=== PATIENT | female | born 1935 | race Caucasian/White ===

== ENCOUNTER → 2016-09-22 | Outpatient (CLI) | payer OTHER ==
[~2016-09-22] MED LIST: ACT300 PO; ALBU1AER9 INH; ASPI81TA28 PO; CALC-452 PO; CEPH500C PO; CYAN100T6 PO; CZR25 PO; GLC500 PO; LEVO50TA6 PO; OMG3 PO; PRT40 PO; ZNT150 PO
[2016-09-22 17:17] LABS: HEMATOCRIT 41.7 % (37-47); MEAN CELL VOLUME 89.3 fL (80-100); MEAN CORPUSCULAR HEMOGLOBIN 31.3 pg (25-34); MEAN PLATELET VOLUME 12.5 fL (7.4-10.4); PLATELET COUNT 139 K/uL (130-400); RED BLOOD COUNT 4.67 M/uL (4.2-5.4); WHITE BLOOD COUNT 4.65 K/uL (4.8-10.8)
[2016-09-22 17:31] LABS: ESTIMATED AVERAGE GLUCOSE 306 mg/dl; HA1C FLAG Normal (Normal)
[2016-09-22 19:31] LABS: ALB/GLOB RATIO 0.9 (0.9-2); ALKALINE PHOSPHATASE 89 U/L (45-117); ALT/SGPT 54 U/L (12-78); AST/SGOT 32 U/L (15-37); BLOOD UREA NITROGEN 10 mg/dl (7-18); CALCIUM 9.4 mg/dl (8.5-10.1); CARBON DIOXIDE 23 mmol/L (21-32); CHLORIDE 102 mmol/L (98-107); CHOLESTEROL 239 mg/dl (0-200); CHOLESTEROL/HDL RATIO 4.8; GLUCOSE 371 mg/dl (70-99); HDL CHOLESTEROL 50 mg/dl; LDL CHOLESTEROL CALCULATED 110 mg/dl; SODIUM 136 mmol/L (136-145); TRIGLYCERIDES 394 mg/dl (0-150); VERY LOW DENSITY LIPOPROT CALC 79 mg/dl
[2016-09-22 20:07] LABS: RATIO 7.7 mcg/mg (0-30.0)
[2016-09-22 20:10] LABS: BETA-HYDROXYBUTYRATE 1.53 mg/dL (0.2-2.81)
== END | disposition home or self-care (01) ==
LOC: C.LABBFT 12:58
PROVIDERS: ATTEND Nurse Practitioner
DX: E11.65 Type 2 diabetes mellitus with hyperglycemia (principal); E03.9 Hypothyroidism, unspecified

== ENCOUNTER 2017-02-01 10:21 | Observation (INO) | payer OTHER ==
[~2017-02-01] VITALS: Ht 167.6 cm; Wt 104.1 kg
[~2017-02-01 10:21] MED LIST changes: -CEPH500C PO; -PRT40 PO; -ZNT150 PO
[2017-02-01] MEDS ORDERED: ONDANSETRON INJ 2 MG/ML 2 ML VIAL IV STA (10:57)
[2017-02-01] MEDS ORDERED: MoRPHine SULFATE 4 MG/ML 1 ML CARP\\VIAL IV STA (10:57)
[2017-02-01] MEDS ORDERED: ASPIRIN 324 MG CHEW PO STA (10:57)
--- NOTE | 2017-02-01 11:02 | EMERGENCY ROOM VISIT NOTE ---
History First contact with patient: 10:46 Chief Complaint: CHEST PAIN Stated Complaint: CHEST PAINS Nursing Triage Summary: "I think it's stress, sitting or lying down" started 2200." usually lasts until I take a zantac" History of Present Illness The patient is a 81 year old female who presents to the Emergency Room via private vehicle accompanied by female with complaints of "chest pains". The patient states that for greater than 1 month now she has been experiencing pain in the epigastric to substernal region. The pain has occurred without exertion , but most recently about 3 or 4 days ago it was with walking up steps. She states that last night while lying in bed around midnight she developed the worst pain she has had thus far in the epigastric region that she notes is a burning pain. She notes the pain with deep breath. She rates the pain as a 5/ 10, and burning in nature. She states that she has had episodes in the past of which sometimes relieved with Zantac. She notes acid reflux depending upon certain foods that she eats. She also feels that she is stressed recently, and when she feels stressed she experiences the pain. She denies any smoking, history of blood clots, taking a baby aspirin daily. She denies any allergies. Surgically, she had her gallbladder removed 2 years ago. Review of Systems A complete 10-point Review of Systems was discussed with the patient, with pertinent positives and negatives listed in the History of Present Illness. All remaining Review of Systems questions can be considered negative unless otherwise specified. Past Medical/Surgical History Medical Problems: (1) Choledocholithiasis with chronic cholecystitis (2) Constipation (3) Diverticulitis Surgical Problems: (1) S/P cholecystectomy Social History Smoking Status: Never Smoker Alcohol Use: none Housing Status: lives with family Occupation Status: retired Current/Historical Medications Scheduled Calcium Carbonate-Cholecalcife (Calcium 600 + D 600-200 mg-Unit), 1 TAB PO DAILY Cyanocobalamin (Vitamin B12 100 Mcg), 100 MCG PO DAILY Levothyroxine Sodium (Levothyroxine Sodium), 50 MCG PO QAM Losartan Potassium (Losartan Potassium), 25 MG PO QAM Metformin HCl (Metformin HCl), 500 MG PO BID Allergies Coded Allergies: No Known Allergies (Unverified , 02/01/17) Physical Exam Vital Signs Date Time Temp Pulse Resp B/P Pulse Ox O2 Delivery O2 Flow Rate FiO2 5/24/17 13:31 153/100 02/01/17 13:18 66 02/01/17 13:11 65 13 96 02/01/17 13:01 151/83 02/01/17 12:41 65 13 93 02/01/17 12:36 70 16 94 02/01/17 12:31 151/97 02/01/17 12:21 64 15 95 02/01/17 12:06 67 15 93 02/01/17 12:01 145/67 02/01/17 11:51 72 15 92 02/01/17 11:36 69 15 91 02/01/17 11:31 158/81 02/01/17 11:21 70 15 95 02/01/17 11:06 67 17 94 02/01/17 11:01 176/89 02/01/17 10:51 71 15 02/01/17 10:50 72 02/01/17 10:49 97 Room Air 02/01/17 10:48 97 Room Air 02/01/17 10:47 173/96 02/01/17 10:31 94 Room Air 02/01/17 10:28 36.6 76 20 201/85 94 Room Air Physical Exam VITAL SIGNS - Vital signs and nursing notes were reviewed. Patient is afebrile , hypertensive at 201/85, non-tachycardic and is saturating on room air 94%. GENERAL -81-year-old female appearing her stated age who is in no acute distress. Communicates well with provider and answers questions appropriately. SKIN - Without rashes. No petechial rashes. HEAD - NC/AT. NOSE - Midline and without cyanosis. No epistaxis or purulent drainage noted. MOUTH/OROPHARYNX - Without perioral cyanosis. NECK - Neck with FROM. Supple to palpation. LUNGS - Chest wall symmetric without accessory muscle use, intercostals retractions, or central cyanosis. Normal vesicular breath sounds CTA B/L. No wheezes, rales, or rhonchi appreciated. CARDIAC - RRR with S1/S2. No murmur, rubs, or gallops appreciated. Minimal tenderness to palpation overlying the substernal region. ABDOMEN - Abdominal contour without pulsations or visible masses. BS normoactive all four quadrants. No tenderness, palpable masses, hepatosplenomegaly, or ascites noted. EXTREMITIES - No clubbing or peripheral cyanosis. No pretibial edema present. + 5/5 strength noted in UE/LE bilaterally. NEUROLOGIC - Cranial nerves II through XII grossly intact. PSYCH - Pt is very pleasant and interacts well with examiner. Medical Decision & Procedures ER Provider Diagnostic Interpretation: CHEST CTA for PULMONARY ARTERIES CT DOSE: 454.84 mGy.cm HISTORY: Chest pain dyspnea TECHNIQUE: Multiaxial CT images of the chest were performed following the intravenous administration of contrast to evaluate the pulmonary arteries. Maximal intensity projection images were also obtained. COMPARISON STUDY: 05/24/2015 FINDINGS: There is a normal caliber thoracic aorta with no evidence for dissection. There is no evidence for pulmonary embolus. No pleural effusions. No pneumothorax. The liver and spleen are unremarkable. No mediastinal or hilar lymphadenopathy. The central airways are patent. The lungs are clear. Slight nonspecific and this interstitial prominence. IMPRESSION: No evidence for pulmonary embolus. Slight interstitial prominence throughout both hemithoraces Electronically signed by: Chuck Chapman M.D. 02/01/2017 1:54 PM Dictated Date/Time: 02/01/2017 1:51 PM CHEST ONE VIEW PORTABLE CLINICAL HISTORY: Chest pain dyspnea COMPARISON STUDY: 05/24/2015 FINDINGS: The bones soft tissues and hemidiaphragms are normal. The cardiomediastinal silhouette is normal. The lungs are clear. The pulmonary vasculature is normal. IMPRESSION: Negative chest. Electronically signed by: Chuck Chapman M.D. 02/01/2017 11:19 AM Dictated Date/Time: 02/01/2017 11:17 AM Laboratory Results 02/01/17 10:50 Red Blood Count 4.82, Mean Corpuscular Volume 88.6, Mean Corpuscular Hemoglobin 30.1, Mean Corpuscular Hemoglobin Concent 34.0, Mean Platelet Volume 10.6, Neutrophils (%) (Auto) 77.1, Lymphocytes (%) (Auto) 16.2, Monocytes (%) (Auto) 5.2, Eosinophils (%) (Auto) 1.0, Basophils (%) (Auto) 0.2, Neutrophils # (Auto) 4.46, Lymphocytes # (Auto) 0.94, Monocytes # (Auto) 0.30, Eosinophils # (Auto) 0.06, Basophils # (Auto) 0.01 02/01/17 10:50 Test 02/01/17 10:50 02/01/17 11:01 White Blood Count 5.79 K/uL (4.8-10.8) Red Blood Count 4.82 M/uL (4.2-5.4) Hemoglobin 14.5 g/dL (12.0-16.0) Hematocrit 42.7 % (37-47) Mean Corpuscular Volume 88.6 fL (80-100) Mean Corpuscular Hemoglobin 30.1 pg (25-34) Mean Corpuscular Hemoglobin Concent 34.0 g/dl (32-36) Platelet Count 174 K/uL (130-400) Mean Platelet Volume 10.6 fL (7.4-10.4) Neutrophils (%) (Auto) 77.1 % Lymphocytes (%) (Auto) 16.2 % Monocytes (%) (Auto) 5.2 % Eosinophils (%) (Auto) 1.0 % Basophils (%) (Auto) 0.2 % Neutrophils # (Auto) 4.46 K/uL (1.4-6.5) Lymphocytes # (Auto) 0.94 K/uL (1.2-3.4) Monocytes # (Auto) 0.30 K/uL (0.11-0.59) Eosinophils # (Auto) 0.06 K/uL (0-0.5) Basophils # (Auto) 0.01 K/uL (0-0.2) RDW Standard Deviation 41.0 fL (36.4-46.3) RDW Coefficient of Variation 12.7 % (11.5-14.5) Immature Granulocyte % (Auto) 0.3 % Immature Granulocyte # (Auto) 0.02 K/uL (0.00-0.02) Prothrombin Time 10.5 SECONDS (9.0-12.0) Prothromb Time International Ratio 1.0 (0.9-1.1) Activated Partial Thromboplast Time 25.8 SECONDS (21.0-31.0) Partial Thromboplastin Ratio 1.0 D-Dimer 780 ug/L FEU (0-500) Anion Gap 9.0 mmol/L (3-11) Est Creatinine Clear Calc Drug Dose 59.5 ml/min Estimated GFR () 66.9 Estimated GFR (Non- 57.7 BUN/Creatinine Ratio 17.9 (10-20) Calcium Level 9.7 mg/dl (8.5-10.1) Magnesium Level 1.9 mg/dl (1.8-2.4) Total Bilirubin 0.6 mg/dl (0.2-1) Aspartate Amino Transf (AST/SGOT) 19 U/L (15-37) Alanine Aminotransferase (ALT/SGPT) 36 U/L (12-78) Alkaline Phosphatase 76 U/L (45-117) Total Creatine Kinase 39 U/L (26-192) Total Protein 7.5 gm/dl (6.4-8.2) Albumin 3.4 gm/dl (3.4-5.0) Globulin 4.1 gm/dl (2.5-4.0) Albumin/Globulin Ratio 0.8 (0.9-2) Lipase 203 U/L (73-393) Thyroid Stimulating Hormone (TSH) 4.150 uIu/ml (0.300-4.500) Bedside Troponin I 0.000 ng/ml (0-0.045) IW-Mdb-X-Type Natriuretic Peptide 57 pg/ml (0-1800) Medications Administered Medications (Trade) Dose Ordered Sig/Capri Route Start Time Stop Time Status Last Admin Dose Admin Morphine Sulfate (MoRPHine SULFATE INJ) 4 mg NOW STAT IV 02/01/17 10:57 02/01/17 10:59 DC 02/01/17 11:07 4 MG Ondansetron HCl (Zofran Inj) 4 mg NOW STAT IV 02/01/17 10:57 02/01/17 10:59 DC 02/01/17 11:06 4 MG Aspirin (Aspirin Chew) 324 mg NOW STAT PO 02/01/17 10:57 02/01/17 10:59 DC 02/01/17 11:06 324 MG Acetaminophen (Tylenol Tab) 650 mg Q4H PRN PO 02/01/17 15:15 03/03/17 15:14 02/01/17 19:51 650 MG Pantoprazole Sodium (Protonix Tab) 40 mg QAM PO 02/01/17 15:15 03/03/17 15:14 02/01/17 17:32 40 MG Ranitidine HCl (zANTac TAB) 150 mg QAM PO 02/01/17 15:15 03/03/17 15:14 02/01/17 17:32 150 MG Medical Decision Patient was seen and evaluated as above. After obtaining a thorough history and physical examination IV access was initiated and the above workup was performed. Patient presents today with chest pain that has been ongoing, and history of acid reflux. It does appear that this very well could be arrested reflux, however she did have an episode 3 or 4 days ago of exertional chest pain. The patient states that sometimes her Zantac helps. The patient does have a history of high blood pressure, and diabetes. Her initial troponin was negative. Her EKG reveals a normal sinus rhythm, no ectopy or ischemic change. When compared with EKG of 05/24/2015, no significant change was found. CBC reveals no leukocytosis or anemia. Coagulation studies unremarkable. D-dimer elevated at 780. Elect to its unremarkable. Random glucose at 246. CK-MB ratio elevated at 3.3. Initial troponin negative. Lipase and TSH unremarkable. The patient also may be expressing a pulmonary embolism, she is experiencing chest pain with taking deep breaths. The PE or CT criteria cannot be utilized to rule out pulmonary embolism in this patient as she is greater than 50 years old. D-dimer was initiated and was found to be positive. CTA of the chest after discussing benefits versus risk with the patient was performed. No evidence of PE. Interstitial prominence was noted. This was discussed with the patient. Case was also discussed with my attending, who also personally evaluated the patient. At this time I do believe that further inpatient management and be warranted to rule out cardiac etiology. I did discuss the case with the on-call hospitalist, who agreed to evaluate the patient. Please refer to further documentation regarding the patient's stay. She was stable at time of admission. In evaluation treatment this patient following differential diagnoses were entertained: NC, PE, costochondritis, GERD, pneumonia, among others. Impression Primary Impression: Chest wall pain Departure Information Dispostion Admitted as an inpatient Condition FAIR Referrals Gisselle Alcazar, C.R.N.P. (PCP) Patient Instructions My [facility]
[2017-02-01 11:12] LABS: BASO % 0.2 %; BASO ABS # 0.01 K/uL (0-0.2); COMPLETE YES; HEMATOCRIT 42.7 % (37-47); IG% 0.3 %; LYMPH % 16.2 %; LYMPH ABS # 0.94 K/uL (1.2-3.4); MEAN CELL VOLUME 88.6 fL (80-100); MEAN CORPUSCULAR HEMOGLOBIN 30.1 pg (25-34); MEAN PLATELET VOLUME 10.6 fL (7.4-10.4); MONO % 5.2 %; NEUT % 77.1 %; PLATELET COUNT 174 K/uL (130-400); RED BLOOD COUNT 4.82 M/uL (4.2-5.4); WHITE BLOOD COUNT 5.79 K/uL (4.8-10.8)
--- NOTE | 2017-02-01 11:20 | DIAGNOSTIC IMAGING REPORT ---
CHEST ONE VIEW PORTABLE CLINICAL HISTORY: Chest pain dyspnea COMPARISON STUDY: 05/24/2015 FINDINGS: The bones soft tissues and hemidiaphragms are normal. The cardiomediastinal silhouette is normal. The lungs are clear. The pulmonary vasculature is normal. IMPRESSION: Negative chest. Electronically signed by: Chuck Chapman M.D. 02/01/2017 11:19 AM Dictated Date/Time: 02/01/2017 11:17 AM
[2017-02-01 11:23] LABS: BUN/CREATININE RATIO 17.9 (10-20); CREATININE 0.94 mg/dl (0.60-1.20); MAGNESIUM 1.9 mg/dl (1.8-2.4)
[2017-02-01 11:25] LABS: PROTHROMBIN TIME (PATIENT) 10.5 SECONDS (9.0-12.0)
[2017-02-01 11:26] LABS: CALCIUM 9.7 mg/dl (8.5-10.1)
[2017-02-01 11:34] LABS: ALB/GLOB RATIO 0.8 (0.9-2); CKMB/CK RATIO 3.3 (0-3.0); THYROID STIMULATING HORMONE 4.15 uIu/ml (0.300-4.500)
[2017-02-01] MEDS ORDERED: OPTIRAY 320 IV PRN (13:15)
--- NOTE | 2017-02-01 13:55 | DIAGNOSTIC IMAGING REPORT ---
CHEST CTA for PULMONARY ARTERIES CT DOSE: 454.84 mGy.cm HISTORY: Chest pain dyspnea TECHNIQUE: Multiaxial CT images of the chest were performed following the intravenous administration of contrast to evaluate the pulmonary arteries. Maximal intensity projection images were also obtained. COMPARISON STUDY: 05/24/2015 FINDINGS: There is a normal caliber thoracic aorta with no evidence for dissection. There is no evidence for pulmonary embolus. No pleural effusions. No pneumothorax. The liver and spleen are unremarkable. No mediastinal or hilar lymphadenopathy. The central airways are patent. The lungs are clear. Slight nonspecific and this interstitial prominence. IMPRESSION: No evidence for pulmonary embolus. Slight interstitial prominence throughout both hemithoraces Electronically signed by: Chuck Chapman M.D. 02/01/2017 1:54 PM Dictated Date/Time: 02/01/2017 1:51 PM
--- NOTE | 2017-02-01 14:24 | EMERGENCY ROOM VISIT NOTE ---
ED Visit Note First contact with patient: 10:46 This Patient was discussed with the physician Epitaxial Reactor Operator, Kar Donovan PA-C. The pertinent historical and physical exam findings were confirmed. I agree with the studies ordered and with the interpretations of these studies. I agree with the disposition and care plan.
[2017-02-01] MEDS ORDERED: ACETAMINOPHEN 325 MG TAB PO PRN (15:15)
[2017-02-01] MEDS ORDERED: NITROGLYCERIN 0.4 MG SL PER TAB CHARGE SL PRN (15:15)
[2017-02-01] MEDS ORDERED: POLYETHYLENE (MIRALAX) 17 GM PACK PO PRN (15:15)
[2017-02-01] MEDS ORDERED: ONDANSETRON INJ 2 MG/ML 2 ML VIAL IV PRN (15:15)
--- NOTE | 2017-02-01 15:36 | History and Physical ---
History & Physical Date & Time of Service: February 01, 2017 at 15:17 Chief Complaint: Chest Pains Primary Care Physician: Gisselle Alcazar C.RMarisaNMarisaPMarisa History of Present Illness Source: patient, family This is a 81-year-old female with past medical history of hypertension, asthma, diabetes mellitus type 2 and obesity who presents to the ER after having substernal burning x 1 day. She reports that she has had this sternal burning sensation on and off for the past 1 month. Last evening the pain was in her upper stomach/low chest and radiated to her back, which occurred at rest initially. She had a very difficult time going to sleep, and got about 1 hour of rest overnight. She did not find anything to alleviate her pain last evening. She had been taking Zantac 150 mg daily which had relieved the burning sensation, but ran out of medication 2 days ago. She denies having tried any other medication for indigestion in the past 2 days timeframe. She denies any lightheadedness or dizziness, palpitation or flutter, nausea, vomiting, abdominal pain. She has been under major stressors recently with moving twice within the past year, the second time being very recently. She lives at home by herself. The patient walks without any difficulty ambulating, and does not wear any chronic O2 at baseline. In the ER the patient's initial troponin and CK-MB are not elevated, chest x- ray is unremarkable, d-dimer and CT PE are negative, EKG is in NSR and essentially unremarkable. Glucose is elevated = 267, but the patient has not taken metformin today, she has not eaten anything since yesterday. Past Medical/Surgical History Medical Problems: (1) Choledocholithiasis with chronic cholecystitis Status: Resolved (2) Constipation Status: Chronic (3) Diverticulitis Status: Resolved Surgical Problems: (1) S/P cholecystectomy Status: Resolved Social History Smoking Status: Never Smoker Smokeless Tobacco Use: No Alcohol Use: none Drug Use: none Housing status: lives alone Occupational Status: retired Immunizations History of Influenza Vaccine: Yes History of Tetanus Vaccine?: Yes History of Pneumococcal: Yes Multi-Drug Resistant Organisms History of MDRO: No Allergies Coded Allergies: No Known Allergies (Unverified , 02/01/17) Home Medications Scheduled Calcium Carbonate-Cholecalcife (Calcium 600 + D 600-200 mg-Unit), 1 TAB PO DAILY Cyanocobalamin (Vitamin B12 100 Mcg), 100 MCG PO DAILY Levothyroxine Sodium (Levothyroxine Sodium), 50 MCG PO QAM Losartan Potassium (Losartan Potassium), 25 MG PO QAM Metformin HCl (Metformin HCl), 500 MG PO BID Review of Systems Constitutional: No fever, sweats or chills, + occasional headache Eyes: No diplopia, no worsening or blurred vision ENT: normal hearing, no trouble swallowing Respiratory: No cough, sputum, dyspnea at rest or on exertion Cardiovascular: + substernal chest burning with radiation to back, see HPI, no tightness or palpitations Abdomen: + epigastric burning, no pain, nausea, vomiting, diarrhea or constipation Musculoskeletal: No joint pain, calf pain, + swelling of the LLE which is chronic Neurologic: No weakness, numbness/tingling, or balance problems Psychiatric: No anxiety or depression Skin: No rash or itch Physical Exam Vital Signs Date Time Temp Pulse Resp B/P Pulse Ox O2 Delivery O2 Flow Rate FiO2 02/01/17 13:18 66 02/01/17 12:36 70 16 94 02/01/17 12:31 151/97 02/01/17 12:21 64 15 95 02/01/17 12:06 67 15 93 02/01/17 12:01 145/67 02/01/17 11:51 72 15 92 02/01/17 11:36 69 15 91 02/01/17 11:31 158/81 02/01/17 11:21 70 15 95 02/01/17 11:06 67 17 94 02/01/17 11:01 176/89 02/01/17 10:51 71 15 02/01/17 10:50 72 02/01/17 10:49 97 Room Air 02/01/17 10:48 97 Room Air 02/01/17 10:47 173/96 02/01/17 10:31 94 Room Air 02/01/17 10:28 36.6 76 20 201/85 94 Room Air General: awake, alert, no apparent distress, appears younger than stated age Head: Normocephalic, atraumatic ENT: PERRL, EOMI, no pharyngeal exudate, mucous membranes moist Chest: On room air, + end expiratory wheeze throughout, no other adventitious breath sounds Cardiac: Regular rate and rhythm, no murmur, no JVD, normal peripheral pulses, good capillary refill Abdominal: NABS x 4 quadrants, soft, nontender to palpation, no rebound, guarding or tenderness Extremities: + Nonpitting edema of the left lower extremity in comparison to the right, no peripheral erythema, calfs nontender to palpation Psych: Normal mood and affect Neuro: AAO x 3, strength intact bilaterally and related 5/5, no motor deficits, speech is clear, no peripheral sensory deficits Diagnostics Laboratory Results Results Past 24 Hours Test 02/01/17 10:50 02/01/17 11:01 Range/Units White Blood Count 5.79 4.8-10.8 K/uL Red Blood Count 4.82 4.2-5.4 M/uL Hemoglobin 14.5 12.0-16.0 g/dL Hematocrit 42.7 37-47 % Mean Corpuscular Volume 88.6 80-100 fL Mean Corpuscular Hemoglobin 30.1 25-34 pg Mean Corpuscular Hemoglobin Concent 34.0 32-36 g/dl Platelet Count 174 130-400 K/uL Mean Platelet Volume 10.6 7.4-10.4 fL Neutrophils (%) (Auto) 77.1 % Lymphocytes (%) (Auto) 16.2 % Monocytes (%) (Auto) 5.2 % Eosinophils (%) (Auto) 1.0 % Basophils (%) (Auto) 0.2 % Neutrophils # (Auto) 4.46 1.4-6.5 K/uL Lymphocytes # (Auto) 0.94 1.2-3.4 K/uL Monocytes # (Auto) 0.30 0.11-0.59 K/uL Eosinophils # (Auto) 0.06 0-0.5 K/uL Basophils # (Auto) 0.01 0-0.2 K/uL RDW Standard Deviation 41.0 36.4-46.3 fL RDW Coefficient of Variation 12.7 11.5-14.5 % Immature Granulocyte % (Auto) 0.3 % Immature Granulocyte # (Auto) 0.02 0.00-0.02 K/uL Prothrombin Time 10.5 9.0-12.0 SECONDS Prothromb Time International Ratio 1.0 0.9-1.1 Activated Partial Thromboplast Time 25.8 21.0-31.0 SECONDS Partial Thromboplastin Ratio 1.0 D-Dimer 780 0-500 ug/L FEU Sodium Level 138 136-145 mmol/L Potassium Level 4.0 3.5-5.1 mmol/L Chloride Level 104 98-107 mmol/L Carbon Dioxide Level 25 21-32 mmol/L Anion Gap 9.0 3-11 mmol/L Blood Urea Nitrogen 17 7-18 mg/dl Creatinine 0.94 0.60-1.20 mg/dl Est Creatinine Clear Calc Drug Dose 59.5 ml/min Estimated GFR () 66.9 Estimated GFR (Non- 57.7 BUN/Creatinine Ratio 17.9 10-20 Random Glucose 246 70-99 mg/dl Calcium Level 9.7 8.5-10.1 mg/dl Magnesium Level 1.9 1.8-2.4 mg/dl Total Bilirubin 0.6 0.2-1 mg/dl Aspartate Amino Transf (AST/SGOT) 19 15-37 U/L Alanine Aminotransferase (ALT/SGPT) 36 12-78 U/L Alkaline Phosphatase 76 45-117 U/L Total Creatine Kinase 39 26-192 U/L Creatine Kinase MB 1.3 0.5-3.6 ng/ml Creatine Kinase MB Ratio 3.3 0-3.0 Total Protein 7.5 6.4-8.2 gm/dl Albumin 3.4 3.4-5.0 gm/dl Globulin 4.1 2.5-4.0 gm/dl Albumin/Globulin Ratio 0.8 0.9-2 Lipase 203 73-393 U/L Thyroid Stimulating Hormone (TSH) 4.150 0.300-4.500 uIu/ml Bedside Troponin I 0.000 0-0.045 ng/ml OH-Afl-T-Type Natriuretic Peptide 57 0-1800 pg/ml Diagnostic Radiology CHEST ONE VIEW PORTABLE CLINICAL HISTORY: Chest pain dyspnea COMPARISON STUDY: 05/24/2015 FINDINGS: The bones soft tissues and hemidiaphragms are normal. The cardiomediastinal silhouette is normal. The lungs are clear. The pulmonary vasculature is normal. IMPRESSION: Negative chest. Electronically signed by: Chuck Chapman M.D. 02/01/2017 11:19 AM Dictated Date/Time: 02/01/2017 11:17 AM The status of this report is Signed. CHEST CTA for PULMONARY ARTERIES CT DOSE: 454.84 mGy.cm HISTORY: Chest pain dyspnea TECHNIQUE: Multiaxial CT images of the chest were performed following the intravenous administration of contrast to evaluate the pulmonary arteries. Maximal intensity projection images were also obtained. COMPARISON STUDY: 05/24/2015 FINDINGS: There is a normal caliber thoracic aorta with no evidence for dissection. There is no evidence for pulmonary embolus. No pleural effusions. No pneumothorax. The liver and spleen are unremarkable. No mediastinal or hilar lymphadenopathy. The central airways are patent. The lungs are clear. Slight nonspecific and this interstitial prominence. IMPRESSION: No evidence for pulmonary embolus. Slight interstitial prominence throughout both hemithoraces Electronically signed by: Chuck Chapman M.D. 02/01/2017 1:54 PM Dictated Date/Time: 02/01/2017 1:51 PM The status of this report is Signed. EKG Normal sinus rhythm Normal ECG When compared with ECG of 24-MAY-2015 17:23, No significant change was found Vent. rate 71 BPM TN interval 156 ms QRS duration 86 ms QT/QTc 410/445 ms P-R-T axes 14 16 29 Impression Assessment and Plan This is a 81-year-old female with past medical history of hypertension, asthma, diabetes mellitus type 2, obesity who presents to the ER after having substernal burning x 1 day. Chest pain r/o - Admit patient to telemetry for observation - Will keep the patient NPO after 2400 for a dobutamine stress test - Trending cardiac biomarkers 2 more sets, initial was negative - EKG was reviewed and appears to be unremarkable - This is likely an episode of epigastric indigestion" the patient has been treating her symptoms on and off for the last 1 month, and ran out of Zantac 2 days ago. - PT/OT consults GERD? - We'll start the patient on Protonix 40 mg every morning and ranitidine 115 mg every morning as well - Can consider Carafate if cardiac biomarkers are negative and these 2 medications do not relieve her symptoms - check Hemoccult stool 1 - Consider outpatient EGD for evaluation of peptic ulcer or other gastric involvement-the patient does not have any complaints with would indicate an actively bleeding gastric ulcer. Her stools have been normal (formed and brown) , last bowel movement was 2 days ago. She has denied any black or tarry stools and BRBPR Asthma - Remote history, stable patient does not require chronic supplemental oxygen DM type II - Hold metformin 500 mg BID with contrast given for CT scan today, can resume upon discharge, likely tomorrow - ISS with Accu-Cheks ACHS - Check HA1C with am labs: last =12.3 in Sep 2016. DVT prophylaxis: Teds, SCDs, Lovenox 40 mg subcutaneous CODE STATUS: Full code Disposition: The patient lives at home, PT OT evals, no CM needs anticipated I agree with PA assessment and plan Resting comfortably in bed Vitals labs and ekg reviewed Unlikely cardiac pain Risk factors noted, will get stress echo Trend trops Admit for obs Cont to monitor Level of Care Telemetry Resuscitation Status FULL RESUSCITATION VTE Prophylaxis VTE Risk Assessment Done? Y/N: Yes Risk Level: Low Given or contraindicated: Enoxaparin (Lovenox)SQ, T.E.D. Stockings, SCD's
[2017-02-01] MEDS ORDERED: GLUCOSE 40% GEL 15 GM TUBE PO PRN (15:45)
[2017-02-01] MEDS ORDERED: DEXTROSE 50% 50 ML SYR IV PRN (15:45)
[2017-02-01] MEDS ORDERED: GLUCAGON FOR INJ 1 MG VIAL SQ PRN (15:45)
[2017-02-01] MEDS ORDERED: GLUCOSE 10 TABS/TUBE PO PRN (15:45)
[2017-02-01 16:45] VITALS: BP 151/83; PULSE 68; TEMP 36.6; O2SAT 96; BMI 37.5
[2017-02-01 16:47] LABS: URINE APPEARANCE CLEAR (CLEAR); URINE BILIRUBIN NEG (NEG); URINE COLOR YELLOW; URINE NITRITE NEG (NEG); URINE PH 6.5 (4.5-7.5); URINE SPECIFIC GRAVITY > 1.045 (1.000-1.030); UROBILINOGEN NEG (NEG); ZZUR CULT IF INDIC CLEAN CATCH NO
[2017-02-01 16:50] LABS: REVIEW REQ? NO
[2017-02-01 16:51] LABS: MANUAL MICROSCOPIC REQUIRED? NO
[2017-02-01] MEDS: PANTOprazole SOD 40 MG TAB PO SCH (17:32)
[2017-02-01] MEDS: RANITIDINE HCL 150 MG TAB PO SCH (17:32)
[2017-02-01] MEDS: INSULIN ASPART 100 UNITS/ML 3 ML PEN SC SCH ×2 (18:08→20:11)
[2017-02-01] MEDS ORDERED: IV FLUIDS COMPLETED PRN (18:30)
[2017-02-01 19:37] VITALS: BP 131/78; PULSE 73; TEMP 37.6; O2SAT 93
[2017-02-01 20:00] VITALS: O2SAT 94
[2017-02-01] MEDS ORDERED: ENOXAPARIN 40 MG/0.4 ML SYR SC SCH (21:00)
[2017-02-01 23:33] VITALS: BP 98/63; PULSE 70; TEMP 37.1; O2SAT 94
[2017-02-02 00:01] VITALS: O2SAT 94
[2017-02-02 02:25] LABS: BASO % 0.2 %; BASO ABS # 0.01 K/uL (0-0.2); COMPLETE YES; EOS % 1.2 %; IG% 0.2 %; LYMPH % 16.1 %; LYMPH ABS # 0.69 K/uL (1.2-3.4); MEAN CORPUSCULAR HEMOGLOBIN 31.3 pg (25-34); MEAN CORPUSCULAR HGB CONC 35.1 g/dl (32-36); MEAN PLATELET VOLUME 10.7 fL (7.4-10.4); MONO % 6.1 %; NEUT % 76.2 %; PLATELET COUNT 143 K/uL (130-400); RED BLOOD COUNT 4.38 M/uL (4.2-5.4); WHITE BLOOD COUNT 4.29 K/uL (4.8-10.8)
[2017-02-02 02:46] LABS: BLOOD UREA NITROGEN 16 mg/dl (7-18); BUN/CREATININE RATIO 17.6 (10-20); CALCIUM 8.4 mg/dl (8.5-10.1); CARBON DIOXIDE 29 mmol/L (21-32); CHLORIDE 106 mmol/L (98-107); CREATININE 0.89 mg/dl (0.60-1.20); GLUCOSE 164 mg/dl (70-99); POTASSIUM 4.1 mmol/L (3.5-5.1); SODIUM 141 mmol/L (136-145)
[2017-02-02 03:02] VITALS: BP 96/56; PULSE 72; TEMP 37.1; O2SAT 95
[2017-02-02 04:00] VITALS: O2SAT 95
[2017-02-02] MEDS ORDERED: LEVOTHYROXINE 50 MCG TAB PO SCH (06:00)
[2017-02-02 06:34] LABS: ESTIMATED AVERAGE GLUCOSE 206 mg/dl; HA1C FLAG Normal (Normal)
[2017-02-02] MEDS: INSULIN ASPART 100 UNITS/ML 3 ML PEN SC SCH (07:00)
[2017-02-02 08:12] VITALS: BP 124/74; PULSE 72; TEMP 36.9; O2SAT 96
[2017-02-02] MEDS: RANITIDINE HCL 150 MG TAB PO SCH (08:17)
[2017-02-02] MEDS: PANTOprazole SOD 40 MG TAB PO SCH (08:17)
[2017-02-02] MEDS ORDERED: LOSARTAN POTASSIUM 25 MG TAB PO SCH (09:00)
--- NOTE | 2017-02-02 11:09 | EXERCISE STRESS ECHO ---
*NOTICE TO RECEIVING CONSTITUTION PARTY AGENCY This information is strictly Confidential and protected under [place] law. [place] law prohibits you from making any further disclosure of this information unless further disclosure is expressly permitted by the written consent of the person to whom it pertains or is authorized by law. A general authorization for the release of medical or other information is not sufficient for this purpose. Hospital accepts no responsibility if the information is made available to any other person, INCLUDING THE PATIENT. Interpretation Summary * Name: RAKAN MARQUEZ Study Date: 02/02/2017 08:16 AM BP: 101/62 mmHg * Patient Location: [facility] HR: 67 * : 1935 (M/d/yyyy) Gender: Female Height: 65 in * Age: 81 yrs Ethnicity: CA Weight: 232 lb * Ordering Physician: Juliann Fairchild * Referring Physician: Self, Referred * Performed By: Daniela Lau RDCS * * Reason For Study: CHEST PAIN * BSA: 2.1 m2 * History: CHEST PAIN * -- Conclusions -- * There is mild concentric left ventricular hypertrophy. * Left ventricular systolic function is normal. * Grade I diastolic dysfunction, (abnormal relaxation pattern). * The left atrium is mildly dilated. * Non-diagnostic, sub-maximal exercise echocardiogram without inducible ischemia at the workload achieved. * Very poor exercise tolerance. Procedure Details * ECHOEX, CPT #[id number] Left Ventricular Findings with Stress * Non-diagnostic, sub-maximal exercise echocardiogram without inducible ischemia at the workload achieved. Very poor exercise tolerance. Left Ventricle * The left ventricle is normal in size. * There is mild concentric left ventricular hypertrophy. * Ejection Fraction = 55-60%. * Left ventricular systolic function is normal. * Grade I diastolic dysfunction, (abnormal relaxation pattern). * The left ventricular wall motion is normal. Right Ventricle * The right ventricle is normal in size and function. Atria * The left atrium is mildly dilated. * Right atrial size is normal. Mitral Valve * The mitral valve anatomy is normal. * Significant mitral regurgitation is absent. Tricuspid Valve * The tricuspid valve is not well visualized, but is grossly normal. * Significant tricuspid regurgitation is absent. Aortic Valve * The aortic valve is normal in structure and function. * No hemodynamically significant valvular aortic stenosis. * There is no significant aortic regurgitation. Pericardium * There is no pericardial effusion. Stress Parameters * Normal baseline electrocardiogram. * Non-diagnostic ST segment depressions * Rest heart rate was '67' BPM. * Rest blood pressure was '101/62' * Maximum heart rate achieved was 110 bpm. * Maximum heart rate was 78 % of maximum age-predicted heart rate. * Maximum blood pressure was '139/84' * Total exercise time was '3:00' * Maximum exercise MET level achieved was '4.60' METS * Maximum treadmill speed was '1.70' miles per hour. * Maximum treadmill elevation was '10.00'% grade. * Exercise was terminated due to 'FATIGUE' Left Ventricular Findings with Stress * Patient only exercised for 3 minutes and did not acheive target heart rate. Baseline EKG was normal. There weere ST depressions noted during exercise Baseline echo images were normal. There was normal augmentation with exercise and no inducible wall motion abnormalities. No chest pain was reported Normal BP response to exercise. MMode 2D Measurements and Calculations IVSd 1.3 cm IVSs 1.7 cm LVIDd 3.5 cm LVIDs 2.5 cm LVPWd 1.3 cm LVPWs 1.8 cm IVS/LVPW 0.93 FS 29.7 % EDV(Teich) 51.9 ml ESV(Teich) 21.9 ml EF(Teich) 57.8 % EDV(cubed) 43.9 ml ESV(cubed) 15.2 ml EF(cubed) 65.3 % % IVS thick 38.6 % % LVPW thick 30.6 % LV mass(C)d 155.5 grams LV mass(C)dI 73.8 grams/m\S\2 LV mass(C)s 165.4 grams LV mass(C)sI 78.5 grams/m\S\2 SV(Teich) 30.0 ml SI(Teich) 14.2 ml/m\S\2 SV(cubed) 28.7 ml SI(cubed) 13.6 ml/m\S\2 LVAd ap4 24.1 cm\S\2 LVLd ap4 7.6 cm EDV(MOD-sp4) 64.8 ml EDV(sp4-el) 65.2 ml LVAs ap4 15.2 cm\S\2 LVLs ap4 6.6 cm ESV(MOD-sp4) 33.2 ml ESV(sp4-el) 29.4 ml EF(MOD-sp4) 48.8 % EF(sp4-el) 54.9 % LVAd ap2 16.0 cm\S\2 LVLd ap2 6.5 cm EDV(MOD-sp2) 31.9 ml EDV(sp2-el) 33.5 ml LVAs ap2 9.5 cm\S\2 LVLs ap2 5.7 cm ESV(MOD-sp2) 13.9 ml ESV(sp2-el) 13.3 ml EF(MOD-sp2) 56.5 % EF(sp2-el) 60.3 % LVLd %diff -16.54 % EDV(MOD-bp) 46.5 ml LVLs %diff -16.17 % ESV(MOD-bp) 21.9 ml EF(MOD-bp) 52.9 % SV(MOD-sp4) 31.6 ml SI(MOD-sp4) 15.0 ml/m\S\2 SV(MOD-sp2) 18.1 ml SI(MOD-sp2) 8.6 ml/m\S\2 SV(MOD-bp) 24.6 ml SI(MOD-bp) 11.7 ml/m\S\2 SV(sp4-el) 35.8 ml SI(sp4-el) 17.0 ml/m\S\2 SV(sp2-el) 20.2 ml SI(sp2-el) 9.6 ml/m\S\2 Doppler Measurements and Calculations MV E max reagan 57.0 cm/sec MV A max reagan 74.1 cm/sec MV E/A 0.77 MV dec time 0.30 sec Ao V2 max 131.1 cm/sec Ao max PG 6.9 mmHg Ao max PG (full) 2.8 mmHg LV V1 max PG 4.1 mmHg LV V1 max 101.1 cm/sec
[2017-02-02] MEDS ORDERED: ZNT150 PO (11:41)
[2017-02-02] MEDS ORDERED: PRT40 PO (11:41)
--- NOTE | 2017-02-02 11:43 | Discharge Instructions ---
Discharge Instructions Date of Service February 02, 2017. Admission Reason for Admission: Chest Pain Discharge Discharge Diagnosis / Problem: Chest pain rule out ACS Discharge Goals Goal(s): Decrease discomfort, Improve function, Increase independence, Improve disease control, Diagnostic testing, Therapeutic intervention Activity Recommendations Activity Limitations: resume your previous activity Exercise/Sports Limitations: none Shower/Bathe: no limitations . Instructions / Follow-Up Instructions / Follow-Up Patient to be discharged home Stress test negative for any cardiac involvement Chest pain unlikely to be cardiac related ?if pain from stress, anxiety, or reflux Prescriptions sent for protonix and zantac, please take once a day IF worsening chest pain, shortness of breath, palpitations please report to ER Current Hospital Diet Patient's current hospital diet: AHA Diet (Heart Healthy), Diabetes Type 2 Diet Discharge Diet Recommended Diet: AHA Diet (Heart Healthy), Diabetes Type 2 Diet Pending Studies Studies pending at discharge: no Laboratory Results Hemoglobin A1c Test 02/02/17 02:04 Range/Units Estimated Average Glucose 206 mg/dl Hemoglobin A1c 8.8 H 4.5-5.6 % Medical Emergencies . Who to Call and When: Medical Emergencies: If at any time you feel your situation is an emergency, please call 911 immediately. . Non-Emergent Contact Non-Emergency issues call your: Primary Care Provider Call Non-Emergent contact if: your pain is worsening . . "Provider Documentation" section prepared by Marcus Nunez. . VTE Core Measure Inpt VTE Proph given/why not?: Enoxaparin (Lovenox)ANIBAL, T.EAlexandru Stockings, SCD's
[2017-02-02 11:44] VITALS: BP 124/74; PULSE 72; TEMP 36.9; O2SAT 96
[2017-02-02 12:00] VITALS: Ht 167.6 cm; Wt 104.1 kg
--- NOTE | 2017-02-02 12:46 | Discharge Summary ---
Discharge Summary Date of Service February 02, 2017. Discharge Summary Admission Date: February 01, 2017 at 15:17 Discharge Date: February 02, 2017 Discharge Disposition: Home Principal Diagnosis: Chest pain rule out ACS Immunizations: Have You Had Influenza Vaccine: Yes History of Tetanus Vaccine?: Yes History of Pneumococcal: Yes Consultations: Cardiology Medication Reconciliation New Medications: Pantoprazole (Pantoprazole Sodium) 40 Mg Tab 40 MG PO QAM for 30 Days, #30 TAB Ranitidine HCl (Ranitidine HCl) 150 Mg Tab 150 MG PO QAM for 30 Days, #30 TAB Continued Medications: Calcium Carbonate-Cholecalcife (Calcium 600 + D 600-200 mg-Unit) 1 Tab Tab 1 TAB PO DAILY Cyanocobalamin (Vitamin B12 100 Mcg) 100 Mcg Tab 100 MCG PO DAILY, TAB Levothyroxine Sodium (Levothyroxine Sodium) 50 Mcg Tab 50 MCG PO QAM Losartan Potassium (Losartan Potassium) 25 Mg Tab 25 MG PO QAM Metformin HCl (Metformin HCl) 500 Mg Tab 500 MG PO BID Discharge Exam Review of Systems: Constitutional: No chills, No fever, No sweats, No weight loss Respiratory: No cough, No dyspnea on exertion, No shortness of breath, No sputum, No wheezing Cardiovascular: + chest pain, No PND, No edema, No orthopnea Abdomen: No constipation, No diarrhea, No nausea, No pain, No vomiting Musculoskeletal: No calf pain, No joint pain, No muscle pain, No swelling Genitourinary - Female: No dysuria, No urinary frequency, No urinary incontinence, No urinary urgency Neurologic: No memory loss, No numbness/tingling, No paralysis, No weakness Endocrine: No excessive thirst, No fatigue Physical Exam: General Appearance: WD/WN, no apparent distress Eyes: normal inspection, PERRL, EOMI, sclerae normal ENT: normal ENT inspection, hearing grossly normal, TMs normal, pharynx normal Neck: supple, no adenopathy, thyroid normal, no JVD Respiratory/Chest: lungs clear, normal breath sounds, no respiratory distress, + pertinent finding (chest pain on deep palpation) Cardiovascular: regular rate, rhythm, no edema, no gallop, no JVD Abdomen / GI: normal bowel sounds, non tender, soft, no organomegaly Extremities: normal inspection, no calf tenderness, normal capillary refill , no pedal edema Neurologic/Psychiatric: insulation power unit tender II-XII nml as tested, no motor/sensory deficits , alert, normal mood/affect Skin: normal color, warm/dry, no rash Hospital Course This is a 81-year-old female with past medical history of hypertension, asthma, diabetes mellitus type 2, obesity who presents to the ER after having substernal burning x 1 day DATE [employer] Chest pain r/o ACS - Admitted patient to telemetry for observation - Pt was kept NPO for stress ECHO which was suboptimal due to exercise intolerance but no inducible ischemia present - EKG reviewed no ischemic etiology, trops x 3 sets neg - This is likely an episode of epigastric indigestion, pt discharged on zantac 150 mg once a day and protonix 40 mg once a day GERD - Improved sx with zantac in addition to protonix, will prescribe on discharge - Consider outpatient EGD for evaluation of peptic ulcer or other gastric involvement-the patient does not have any complaints with would indicate an actively bleeding gastric ulcer. Her stools have been normal (formed and brown) , last bowel movement was 2 days ago. She has denied any black or tarry stools and BRBPR Asthma is stable - Remote history, stable patient does not require chronic supplemental oxygen DM type II, no hyperglycemic episodes - Hold metformin 500 mg BID with contrast given for CT scan. Resume upon discharge - ISS with Accu-Cheks ACHS - Check HA1C 8.8, improved from prev draw DVT prophylaxis: Teds, SCDs, Lovenox 40 mg subcutaneous CODE STATUS: Full code Total Time Spent: Greater than 30 minutes This includes examination of the patient, discharge planning, medication reconciliation, and communication with other providers. Discharge Instructions Please refer to the electronic Patient Visit Report (Discharge Instructions) for additional information. Additional Copies To Gisselle Alcazar C.R.N.P.
[2017-02-15] MEDS ORDERED: CEPH500C PO (18:57)
== END 2017-02-02 13:20 | disposition home or self-care (01) ==
LOC: ENRESERVDT → ENRESERVTM → C.EDB 10:22 → C.2T 15:17
PROVIDERS: ADMIT Hospitalist; ATTEND Hospitalist
DX: R07.9 Chest pain, unspecified (principal); R06.00 Dyspnea, unspecified; I10 Essential (primary) hypertension; J45.909 Unspecified asthma, uncomplicated; E11.9 Type 2 diabetes mellitus without complications; E66.9 Obesity, unspecified; K21.9 Gastro-esophageal reflux disease without esophagitis; Z90.49 Acquired absence of other specified parts of digestive tract

== ENCOUNTER → 2017-02-28 | Outpatient (CLI) | payer OTHER ==
[~2017-02-28] MED LIST changes: -ACT300 PO; -ALBU1AER9 INH; -ASPI81TA28 PO; -OMG3 PO; +PRT40 PO; +ZNT150 PO
== END | disposition home or self-care (01) ==
LOC: C.LAB 17:16
PROVIDERS: ATTEND Orthopaedic Surgery
DX: Z48.89 Encounter for other specified surgical aftercare (principal)

== ENCOUNTER → 2017-03-23 | Outpatient (CLI) | payer OTHER ==
[2017-03-23 17:31] LABS: ALT/SGPT 50 U/L (12-78); BLOOD UREA NITROGEN 15 mg/dl (7-18); BUN/CREATININE RATIO 15.8 (10-20); CALCIUM 9.5 mg/dl (8.5-10.1); CARBON DIOXIDE 24 mmol/L (21-32); CHLORIDE 102 mmol/L (98-107); CHOLESTEROL 222 mg/dl (0-200); CREATININE 0.93 mg/dl (0.60-1.20); GLUCOSE 285 mg/dl (70-99); POTASSIUM 4.2 mmol/L (3.5-5.1); SODIUM 134 mmol/L (136-145); TRIGLYCERIDES 287 mg/dl (0-150); VERY LOW DENSITY LIPOPROT CALC 57 mg/dl
[2017-03-23 17:40] LABS: ALB/GLOB RATIO 0.8 (0.9-2); ALKALINE PHOSPHATASE 98 U/L (45-117); AST/SGOT 25 U/L (15-37); HDL CHOLESTEROL 37 mg/dl; LDL CHOLESTEROL CALCULATED 128 mg/dl
[2017-03-23 18:53] LABS: ESTIMATED AVERAGE GLUCOSE 252 mg/dl; HA1C FLAG Normal (Normal)
== END | disposition home or self-care (01) ==
LOC: C.LABBFT 09:47
PROVIDERS: ATTEND Nurse Practitioner
DX: E11.65 Type 2 diabetes mellitus with hyperglycemia (principal); E03.9 Hypothyroidism, unspecified; E78.00 Pure hypercholesterolemia, unspecified

== ENCOUNTER → 2017-07-31 | Outpatient (CLI) | payer OTHER ==
[2017-07-31 18:35] LABS: ALB/GLOB RATIO 0.9 (0.9-2); ALKALINE PHOSPHATASE 107 U/L (45-117); ALT/SGPT 36 U/L (12-78); AST/SGOT 15 U/L (15-37); BLOOD UREA NITROGEN 14 mg/dl (7-18); BUN/CREATININE RATIO 10.9 (10-20); CALCIUM 9.5 mg/dl (8.5-10.1); CARBON DIOXIDE 26 mmol/L (21-32); CHLORIDE 98 mmol/L (98-107); CHOLESTEROL 128 mg/dl (0-200); CHOLESTEROL/HDL RATIO 3.1; CREATININE 1.24 mg/dl (0.60-1.20); GLUCOSE 389 mg/dl (70-99); HDL CHOLESTEROL 41 mg/dl; LDL CHOLESTEROL CALCULATED 38 mg/dl; POTASSIUM 4.4 mmol/L (3.5-5.1); SODIUM 131 mmol/L (136-145); TRIGLYCERIDES 244 mg/dl (0-150); VERY LOW DENSITY LIPOPROT CALC 49 mg/dl
[2017-07-31 18:46] LABS: BETA-HYDROXYBUTYRATE 1.35 mg/dL (0.2-2.81)
[2017-08-01 06:15] LABS: ESTIMATED AVERAGE GLUCOSE 289 mg/dl; HA1C FLAG Normal (Normal)
== END | disposition home or self-care (01) ==
LOC: C.LABBFT 14:58
PROVIDERS: ATTEND Physician Assistant Medical
DX: E11.65 Type 2 diabetes mellitus with hyperglycemia (principal); E78.00 Pure hypercholesterolemia, unspecified; E03.9 Hypothyroidism, unspecified

== ENCOUNTER 2019-11-01 16:06 | Inpatient (IN) ==
[2019-11-01] MEDS ORDERED: SODIUM CHLORIDE 0.9% 500 ML IV SCH (16:30)
[2019-11-01 17:18] LABS: Basophils # (auto) 0.01 K/uL (0-0.2); Basophils % (auto) 0.2 %; Eosinophils # (auto) 0.01 K/uL (0-0.5); Eosinophils % (auto) 0.2 %; Hematocrit (blood only) 39.5 % (37-47); Hemoglobin 13.6 g/dL (12.0-16.0); Immature Granulocytes # (auto) 0.02 K/uL (0.00-0.02); Immature Granulocytes % (auto) 0.4 %; Lymphocytes # (auto) 0.44 K/uL (1.2-3.4); Lymphocytes % (auto) 7.9 %; Mean Corpuscular Hemoglobin 30.5 pg (25-34); Mean Corpuscular Hgb Conc 34.4 g/dL (32-36); Mean Corpuscular Volume 88.6 fL (80-100); Mean Platelet Volume 11.2 fL (7.4-10.4); Monocytes # (auto) 0.65 K/uL (0.11-0.59); Monocytes % (auto) 11.7 %; Neutrophils # (auto) 4.43 K/uL (1.4-6.5); Neutrophils % (auto) 79.6 %; Platelet Count 142 K/uL (130-400); RDW Coefficient of Variation 13.3 % (11.5-14.5); RDW Standard Deviation 43.1 fL (36.4-46.3); Red Blood Count 4.46 M/uL (4.2-5.4); White Blood Count 5.56 K/uL (4.8-10.8)
[2019-11-01 17:32] LABS: INR 1.1 (0.9-1.1); Partial Thromboplastin Ratio 0.9; Partial Thromboplastin Time 25.6 Seconds (21.0-31.0); Prothrombin Time 10.9 Seconds (9.0-12.0)
[2019-11-01 17:33] LABS: Alanine Aminotransferase 35 U/L (12-78); Albumin Level 3.3 gm/dl (3.4-5.0); Aspartate Aminotransferase 24 U/L (15-37); BUN Creatinine Ratio 11.1 (10-20); Blood Urea Nitrogen 10 mg/dl (7-18); Carbon Dioxide 26 mmol/L (21-32); Chloride 101 mmol/L (98-107); Creatinine Clr Calc Pharmacy 52.3 ml/min; Est GFR (African American) 65.5; Est GFR (Non-African American) 56.5; Glucose 281 mg/dl (70-99); Lipase 37 U/L (73-393); Magnesium 1.5 mg/dl (1.8-2.4); Potassium 3.8 mmol/L (3.5-5.1); Sodium 135 mmol/L (136-145)
--- NOTE | 2019-11-01 17:33 | CT Scan Report ---
HEAD CT NONCONTRAST CT DOSE: 634.44 mGycm HISTORY: fall TECHNIQUE: Multiaxial CT images of the head were performed without the use of intravenous contrast. A utomated exposure control was utilized for this study. A dose lowering technique was utilized adheri ng to the principles of ALARA. Comparison: None. Findings: The paranasal sinuses and mastoid air cells are clear. The calvarium and skull base are int act. There is no mass, hematoma, midline shift, acute infarct. White matter hypodensity is nonspecifi c but suggestive of microvascular ischemic change. The ventricles and sulci demonstrate mild age-rela giuseppe involutional changes. Impression: No acute intracranial abnormality. ACT 112: Negative or not required by law. Electronically signed by: Wood Gilbert M.D. 11/01/2019 5:32 PM
[2019-11-01 17:35] LABS: Alkaline Phosphatase 85 U/L (45-117); Bilirubin Direct 0.2 mg/dl (0-0.2); Bilirubin,Total 0.8 mg/dl (0.2-1); Creatine Kinase 74 U/L (26-192); Total Protein 7.2 gm/dl (6.4-8.2); Troponin I < 0.015 ng/ml (0-0.045)
--- NOTE | 2019-11-01 17:36 | CT Scan Report ---
CT cervical spine wo con CT DOSE: 1205.52 mGycm CLINICAL HISTORY: 84 years-old Female with fall. Acute head and neck injury status post fall COMPARISON: Head CT of same day. TECHNIQUE: Multiple axial CT images of the cervical spine were obtained without contrast. A dose low ering technique was utilized adhering to the principles of ALARA. FINDINGS: Demineralized appearance of the bones. Moderate disc space narrowing with spondylitic spurring and di sc osteophyte complex at C5-C6. Mild to moderate multilevel facet arthrosis. No acute fracture or sub luxation. Evaluation of the central canal or neuroforaminal structures are better evaluated by MRI. M ultilevel foraminal narrowing is noted. No high-grade central canal stenosis identified. No preverteb ral soft tissue swelling. Lung apices are clear without pneumothorax. Soft tissues appear unremarkabl e. IMPRESSION: No acute cervical spine fracture or subluxation. ACT 112: Negative or not required by law. The above report was generated using voice recognition software. It may contain grammatical, syntax o r spelling errors. Electronically signed by: Gera Carver M.D. 11/01/2019 5:35 PM
[2019-11-01 18:11] LABS: Appearance Urine Cloudy (Clear); Bacteria Urine Automated 4+ (Negative); Bilirubin Urine Negative (Negative); Blood Urine Negative (Negative); Color Urine Dark Yellow; Epithelial Cell Urine Auto >30 /lpf (0-5); Glucose Urine UA 3+ (Negative); Ketones Urine Trace (Negative); Leukocyte Esterase Urine Trace (Negative); Nitrite Urine Positive (Negative); Protein Urine Negative (Negative); Specific Gravity Urine 1.028 (1.000-1.030); Urobilinogen Urine Negative (Negative); WBC Urine Automated >30 /hpf (0-5)
[2019-11-01 18:15] LABS: Influenza B virus by PCR Neg for Influ B (Neg)
--- NOTE | 2019-11-01 18:16 | XRay Report ---
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 No acute fracture, dislocation or avascular necrosis. Demineralized appearance of the bones decreases sensitivity for subtle acute nondisplaced fractures. IMPRESSION: No acute fracture or dislocation. ACT 112: Negative or not required by law. The above report was generated using voice recognition software. It may contain grammatical, syntax o r spelling errors. Electronically signed by: Gera Carver M.D. 11/01/2019 6:15 PM
[2019-11-01] MEDS ORDERED: cefTRIAXone SODIUM 1,000 MG/50 ML BAG IV STA (18:21)
--- NOTE | 2019-11-01 18:24 | XRay Report ---
XR chest 1V portable HISTORY: fall COMPARISON: Chest 02/01/2017. FINDINGS: The lungs are clear. Cardiac silhouette is normal in size. No pleural effusions. No pneumot horax. IMPRESSION: No acute process. ACT 112: Negative or not required by law. Electronically signed by: Wood Gilbert M.D. 11/01/2019 6:23 PM
[2019-11-01] MEDS ORDERED: OSELTAMIVIR PHOSPHATE 75 MG CAP PO STA (18:29)
[2019-11-01] MEDS: MAGNESIUM SULFATE / D5W 1 GM/100 ML BAG IV SCH ×2 (18:42→21:26)
--- NOTE | 2019-11-01 19:03 | History & Physical Report ---
Date of Service November 01, 2019 Assessment & Plan (1) Influenza A: 84-year-old female with hypertension/hyperlipidemia/diabetes/GERD presenting with 4 days of weakness, fatigue, cough and headache. Found to be influenza A positive. No evidence of overlying bacterial infection/pneumonia on x-ray. Patient is afebrile, hemodynamically stable, adequate oxygenation on room air with no evidence of respiratory distress Observation to medical floor, droplet precautions Tamiflu 75 mg p.o. twice daily (2) Hypomagnesemia: Magnesium = 1.7. Patient to be given 3 g in the ER. Most likely secondary to poor oral intake over the last few days We will complete 3 g on the floor Repeat level in a.m. Present on Admission?: Yes (3) Hypercholesterolemia: Chronic. Continue atorvastatin Present on Admission?: Yes (4) Type II diabetes mellitus, uncontrolled: Patient with hyperglycemia, glucose = 281. Her last hemoglobin A1c on 06/18/2019 elevated at 10.5. She is presently on metformin and glimepiride. Friend states that patient may or may not take her medications routinely. We will hold metformin and glimepiride for now Lantus 7 units twice daily with insulin sliding scale Check hemoglobin A1c. If still above 10 would recommend sending patient home on trial of insulin to obtain better glycemic control Present on Admission?: Yes (5) Hypothyroidism: Chronic. Stable. Continue losartan (6) Esophageal reflux: Chronic. Stable. Continue Pepcid Present on Admission?: Yes (7) HTN (hypertension): Blood pressure mildly elevated 178/79. Continue losartan We will administer dose on the floor Continue to monitor FENnormal saline at 100 mL/h x 2 L, monitor electrolytes and replete as needed, heart healthy/consistent carb diet as tolerated ProphylaxisLovenox for DVT prophylaxis Codefull per discussion with patient Dispositionobservation to medical floor History of Present Illness Chief Complaint: Weakness, fatigue, hyperglycemia Primary Care Provider: Jovanny Meehan MD Audrey Saravia is an 84-year-old female presenting with 3 to 4 days of severe weakness. Patient reports that she just does not have the energy to get out of bed to perform her ADLs. She also reports poor p.o. intake, back pain. She has a cough occasionally productive for thick sputum, frontal headache and a sore throat. No additional complaints at this time. Patient afebrile, hypertensive on arrival to the ER otherwise no dynamically stable. She was found to be mildly hyperglycemic with glucose = 281, hypomagnesemic with magnesium = 1.5. Influenza A positive ER course: Magnesium, normal saline, Tamiflu ordered Allergies Allergy/AdvReac Type Severity Reaction Status Date / Time No Known Allergies Allergy Unverified 09/19/19 15:37 Home Medications Home Medications Medication Instructions Recorded Confirmed Type glimepiride 2 mg tablet 2 mg PO BIDM tab 06/10/19 11/01/19 History atorvastatin 40 mg tablet 40 mg PO QPM #90 tab 06/18/19 11/01/19 Rx famotidine 40 mg PO QAM 11/01/19 11/01/19 History levothyroxine 50 mcg PO QAM 11/01/19 11/01/19 History losartan 25 mg PO QAM 11/01/19 11/01/19 History metformin 1,000 mg PO BIDM 11/01/19 11/01/19 History Past Med/Surg History Medical History Choledocholithiasis with chronic cholecystitis (Resolved) Choledocholithiasis with obstruction (Acute) Contact dermatitis Diverticulitis (Resolved) Diverticulitis (Resolved) Elevated LFTs (Resolved) Pancreatitis (Resolved) Pancreatitis due to common bile duct stone (Acute) Surgical History S/P cholecystectomy (Resolved) Family History Father Stroke Mother Cirrhosis Brother Coronary heart disease Social History Preferred Language: Kyrgyz marital status: / current occupational status: retired Feels Safe at Home: Yes Smoking Status: Never smoker Hx Alcohol Use: No Hx Substance Use: No Review of Systems Review of Systems: All systems reviewed & are unremarkable except as noted in HPI & below + Low back pain Physical Exam Physical Exam: General: patient resting comfortably, NAD, non-toxic in appearance, AA&O x 4, coughing Skin: warm, dry, intact, no rashes or lesions HEENT: NC/AT, PERRL, EOMI, anicteric sclera, conjunctiva without injection, external ear normal to inspection and nontender, nares patent, moist mucus membranes, dentition intact, no oropharyngeal lesions, neck supple, trachea midline, no LAD, no thyromegaly, no JVD Heart: +S1/S2, regular, no m/r/g Lungs: equal air entry bilaterally, no rales/rhonchi/wheezes Abd: +BS, soft, NT/ND, no masses/organomegaly/ascites Ext: warm, 2+ pulses in UE/LE bilaterally, no clubbing/cyanosis or edema Neuro: nonfocal, patient AA&O x 4, speech intact, no facial droop, moving all extremities on command with equal strength 5/5 Results & Data Vital Signs (Past 12 Hours) Vital Signs Temp Pulse Resp BP Pulse Ox 11/01/19 18:10 69 17 11/01/19 18:00 68 17 178/79 H 11/01/19 17:50 76 19 95 11/01/19 17:40 70 16 94 11/01/19 17:30 68 18 94 11/01/19 17:29 68 16 95 11/01/19 17:23 70 16 169/91 H 94 11/01/19 16:23 37.1 C 72 18 158/78 H 99 Laboratory Results Lab Results 11/01/19 11/01/19 11/01/19 Range/Units 16:38 16:50 16:50 WBC 5.56 (4.8-10.8) K/uL RBC 4.46 (4.2-5.4) M/uL Hgb 13.6 (12.0-16.0) g/dL Hct 39.5 (37-47) % MCV 88.6 (80-100) fL MCH 30.5 (25-34) pg MCHC 34.4 (32-36) g/dL RDW Std Deviation 43.1 (36.4-46.3) fL RDW Coeff of Ping 13.3 (11.5-14.5) % Plt Count 142 (130-400) K/uL MPV 11.2 H (7.4-10.4) fL Immature Gran % (Auto) 0.4 % Neut % (Auto) 79.6 % Lymph % (Auto) 7.9 % Hale % (Auto) 11.7 % Eos % (Auto) 0.2 % Baso % (Auto) 0.2 % Immature Gran # (Auto) 0.02 (0.00-0.02) K/uL Neut # (Auto) 4.43 (1.4-6.5) K/uL Lymph # (Auto) 0.44 L (1.2-3.4) K/uL Hale # (Auto) 0.65 H (0.11-0.59) K/uL Eos # (Auto) 0.01 (0-0.5) K/uL Baso # (Auto) 0.01 (0-0.2) K/uL PT 10.9 (9.0-12.0) Seconds INR 1.1 (0.9-1.1) APTT 25.6 (21.0-31.0) Seconds PTT Ratio 0.9 Sodium (136-145) mmol/L Potassium (3.5-5.1) mmol/L Chloride (98-107) mmol/L Carbon Dioxide (21-32) mmol/L Anion Gap (3-11) BUN (7-18) mg/dl Creatinine (0.6-1.2) mg/dl Est Cr Clr Drug Dosing ml/min Est GFR ( Amer) Est GFR (Non-Af Amer) BUN/Creatinine Ratio (10-20) Glucose (70-99) mg/dl POC Glucose 264 H (70-99) mg/dl Calcium (8.5-10.1) mg/dl Magnesium (1.8-2.4) mg/dl Total Bilirubin (0.2-1) mg/dl Direct Bilirubin (0-0.2) mg/dl AST (15-37) U/L ALT (12-78) U/L Alkaline Phosphatase (45-117) U/L Total Creatine Kinase (26-192) U/L Troponin I (0-0.045) ng/ml Total Protein (6.4-8.2) gm/dl Albumin (3.4-5.0) gm/dl Lipase (73-393) U/L Urine Color Urine Appearance (Clear) Urine pH (4.5-7.5) Ur Specific [place] (1.000-1.030) Urine Protein (Negative) Urine Glucose (UA) (Negative) Urine Ketones (Negative) Urine Blood (Negative) Urine Nitrite (Negative) Urine Bilirubin (Negative) Urine Urobilinogen (Negative) Ur Leukocyte Esterase (Negative) Urine WBC (Auto) (0-5) /hpf Urine RBC (Auto) (0-4) /hpf U Hyaline Cast (Auto) (0-5) /lpf U Epithel Cells (Auto) (0-5) /lpf Urine Bacteria (Auto) (Negative) Influenza Type A (PCR) (Neg) Influenza Type B (PCR) (Neg) 11/01/19 11/01/19 11/01/19 Range/Units 16:50 17:24 17:58 WBC (4.8-10.8) K/uL RBC (4.2-5.4) M/uL Hgb (12.0-16.0) g/dL Hct (37-47) % MCV (80-100) fL MCH (25-34) pg MCHC (32-36) g/dL RDW Std Deviation (36.4-46.3) fL RDW Coeff of Ping (11.5-14.5) % Plt Count (130-400) K/uL MPV (7.4-10.4) fL Immature Gran % (Auto) % Neut % (Auto) % Lymph % (Auto) % Hale % (Auto) % Eos % (Auto) % Baso % (Auto) % Immature Gran # (Auto) (0.00-0.02) K/uL Neut # (Auto) (1.4-6.5) K/uL Lymph # (Auto) (1.2-3.4) K/uL Hale # (Auto) (0.11-0.59) K/uL Eos # (Auto) (0-0.5) K/uL Baso # (Auto) (0-0.2) K/uL PT (9.0-12.0) Seconds INR (0.9-1.1) APTT (21.0-31.0) Seconds PTT Ratio Sodium 135 L (136-145) mmol/L Potassium 3.8 (3.5-5.1) mmol/L Chloride 101 (98-107) mmol/L Carbon Dioxide 26 (21-32) mmol/L Anion Gap 8.0 (3-11) BUN 10 (7-18) mg/dl Creatinine 0.94 (0.6-1.2) mg/dl Est Cr Clr Drug Dosing 52.3 ml/min Est GFR ( Amer) 65.5 Est GFR (Non-Af Amer) 56.5 BUN/Creatinine Ratio 11.1 (10-20) Glucose 281 H (70-99) mg/dl POC Glucose (70-99) mg/dl Calcium 9.0 (8.5-10.1) mg/dl Magnesium 1.5 L (1.8-2.4) mg/dl Total Bilirubin 0.8 (0.2-1) mg/dl Direct Bilirubin 0.2 (0-0.2) mg/dl AST 24 (15-37) U/L ALT 35 (12-78) U/L Alkaline Phosphatase 85 (45-117) U/L Total Creatine Kinase 74 (26-192) U/L Troponin I < 0.015 (0-0.045) ng/ml Total Protein 7.2 (6.4-8.2) gm/dl Albumin 3.3 L (3.4-5.0) gm/dl Lipase 37 L (73-393) U/L Urine Color Dark Yellow Urine Appearance Cloudy A (Clear) Urine pH 5.0 (4.5-7.5) Ur Specific [place] 1.028 (1.000-1.030) Urine Protein Negative (Negative) Urine Glucose (UA) 3+ H (Negative) Urine Ketones Trace H (Negative) Urine Blood Negative (Negative) Urine Nitrite Positive A (Negative) Urine Bilirubin Negative (Negative) Urine Urobilinogen Negative (Negative) Ur Leukocyte Esterase Trace H (Negative) Urine WBC (Auto) >30 H (0-5) /hpf Urine RBC (Auto) 5-10 H (0-4) /hpf U Hyaline Cast (Auto) 5-10 H (0-5) /lpf U Epithel Cells (Auto) >30 H (0-5) /lpf Urine Bacteria (Auto) 4+ H (Negative) Influenza Type A (PCR) Pos for Influ A A* (Neg) Influenza Type B (PCR) Neg for Influ B (Neg) Diagnostic Findings HEAD CT NONCONTRAST CT DOSE: 634.44 mGycm HISTORY: fall TECHNIQUE: Multiaxial CT images of the head were performed without the use of intravenous contrast. Automated exposure control was utilized for this study. A dose lowering technique was utilized adhering to the principles of ALARA. Comparison: None. Findings: The paranasal sinuses and mastoid air cells are clear. The calvarium and skull base are intact. There is no mass, hematoma, midline shift, acute infa rct. White matter hypodensity is nonspecific but suggestive of microvascular ischemic change. The ventricles and sulci demonstrate mild age-related involutional changes. Impression: No acute intracranial abnormality. ACT 112: Negative or not required by law. Electronically signed by: Wood Gilbert M.D. 11/01/2019 5:32 PM Dictated: 11/01/191727 Transcribed: 11/01/191727 CT cervical spine wo con CT DOSE: 1205.52 mGycm CLINICAL HISTORY: 84 years-old Female with fall. Acute head and neck injury status post fall COMPARISON: Head CT of same day. TECHNIQUE: Multiple axial CT images of the cervical spine were obtained without contrast. A dose lowering technique was utilized adhering to the principles of ALARA. FINDINGS: Demineralized appearance of the bones. Moderate disc space narrowing with spondylitic spurring and disc osteophyte complex at C5-C6. Mild to moderate multilevel facet arthrosis. No acute fracture or subluxation. Evaluation of the central canal or neuroforaminal structures are better evaluated by MRI. Multilevel foraminal narrowing is noted. No high-grade central canal stenosis identified. No prevertebral soft tissue swelling. Lung apices are clear without pneumothorax. Soft tissues appear unremarkable. IMPRESSION: No acute cervical spine fracture or subluxation. ACT 112: Negative or not required by law. The above report was generated using voice recognition software. It may contain grammatical, syntax or spelling errors. Electronically signed by: Gera Carver M.D. 11/01/2019 5:35 PM Dictated: 11/01/191731 Transcribed: 11/01/191731 XR chest 1V portable HISTORY: fall COMPARISON: Chest 02/01/2017. FINDINGS: The lungs are clear. Cardiac silhouette is normal in size. No pleural effusions. No pneumothorax. IMPRESSION: No acute process. ACT 112: Negative or not required by law. Electronically signed by: Wood Gilbert M.D. 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 No acute fracture, dislocation or avascular necrosis. Demineralized appearance of the bones decreases sensitivity for subtle acute nondisplaced fractures. IMPRESSION: No acute fracture or dislocation. ACT 112: Negative or not required by law. The above report was generated using voice recognition software. It may contain grammatical, syntax or spelling errors. Electronically signed by: Gera Carver M.D. 11/01/2019 6:15 PM Dictated: 11/01/191812 Transcribed: 11/01/191812 ECG Additional Comments: EKG with normal sinus rhythm at 71 bpm, normal axis and intervals, no acute ischemic changes Code Status & VTE Plan Code Status Full code PG Care Time/CCT Total # of Minutes Spent Total Time Spent with Patient: Total time spent is greater than 50% in coordination of care (as documented) at patient's floor/unit and/or counseling patient: Coding Level of Care Code 08664 OBS Care - Level 3 Diagnoses Influenza A J10.1 Hypomagnesemia E83.42 Hypercholesterolemia E78.00 Type II diabetes mellitus, uncontrolled E11.65 Glycemic state: with hyperglycemia Hypothyroidism E03.9 Hypothyroidism type: unspecified Esophageal reflux K21.9 Esophagitis presence: esophagitis presence not specified HTN (hypertension) I10 Hypertension type: essential hypertension (1) Type II diabetes mellitus, uncontrolled Glycemic state: with hyperglycemia Qualified Code(s): E11.65 - Type 2 diabetes mellitus with hyperglycemia (2) Hypothyroidism Hypothyroidism type: unspecified Qualified Code(s): E03.9 - Hypothyroidism, unspecified (3) Esophageal reflux Esophagitis presence: esophagitis presence not specified Qualified Code(s): K21.9 - Gastro-esophageal reflux disease without esophagitis (4) HTN (hypertension) Hypertension type: essential hypertension Qualified Code(s): I10 - Essential (primary) hypertension
[2019-11-01] MEDS ORDERED: DEXTROSE 50% 50 ML SYRINGE IV PRN (20:02)
[2019-11-01] MEDS ORDERED: ONDANSETRON INJ 2 MG/ML 2 ML VIAL IV PRN (20:02)
[2019-11-01] MEDS ORDERED: GLUCAGON FOR INJ 1 MG VIAL SQ PRN (20:02)
[2019-11-01] MEDS ORDERED: GLUCOSE 10 TABS/TUBE PO PRN (20:02)
[2019-11-01] MEDS ORDERED: GLUCOSE 40% GEL 15 GM TUBE PO PRN (20:02)
[2019-11-01] MEDS ORDERED: CARBOHYDRATES FOR HYPOGLYCEMIA PO PRN (20:02)
[2019-11-01] MEDS: ACETAMINOPHEN 325 MG TAB PO PRN (20:16)
[2019-11-01 20:23] LABS: Phosphorus 2.5 mg/dl (2.5-4.9)
[2019-11-01] MEDS: SODIUM CHLORIDE 0.9% 1000ML 1,000 ML IV SCH (21:04)
[2019-11-01] MEDS: ATORVASTATIN 40 MG TAB PO SCH (21:05)
[2019-11-01] MEDS: LOSARTAN POTASSIUM 25 MG TAB PO SCH (21:06)
[2019-11-01] MEDS: INSULIN GLARGINE SOLOSTAR 100 UNITS/ML 3 ML PEN SC SCH (21:08)
[2019-11-01] MEDS: INSULIN ASPART 100 UNITS/ML 3 ML PEN SC SCH (21:09)
[2019-11-01] MEDS ORDERED: COUGH DROP (SUGAR FREE) LOZ 24 LOZ/1 BOX BUCCAL PRN (21:27)
[2019-11-01] MEDS ORDERED: MAGNESIUM SULFATE / D5W 1 GM/100 ML BAG IV SCH (22:30)
--- NOTE | 2019-11-01 23:32 | Emergency Department Note ---
Entered by Yari Koenig acting as a scribe for History of Present Illness General Chief complaint: Hyperglycemia Stated complaint: HYPERGLYCEMIA Time Seen by Provider: 11/01/19 16:11 Source: patient and friends History of Present Illness Onset (ago): day(s) 2 Location: head (general ) Pain Consistency: + other (worsening ) Quality: + other (weakness) Associated symptoms: + other (positive back pain); no chest pain and no shortness of breath The patient is a 84 year old female who presents to the Emergency Room with com plaints of worsening weakness that began 2 days prior to arrival. The patient states that she has been unable to get out of bed during this time, but states that this morning she tried to get out of her bed and fell. The patient states that she slipped when getting out of bed and fell onto the floor. She denies hitting her head and loss of consciousness. 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 The patient's friend at the bedside states that the patient's sugar is currently elevated. The patient states that she has not eaten anything since dinner last night, almost 24 hours ago. She reports that she has not taken her medication over the past 2 days. She denies any chest pain and shortness of breath. Home Medications Home Medications Medication Instructions Recorded Confirmed Type glimepiride 2 mg tablet 2 mg PO BIDM tab 06/10/19 11/01/19 History atorvastatin 40 mg tablet 40 mg PO QPM #90 tab 06/18/19 11/01/19 Rx famotidine 40 mg PO QAM 11/01/19 11/01/19 History levothyroxine 50 mcg PO QAM 11/01/19 11/01/19 History losartan 25 mg PO QAM 11/01/19 11/01/19 History metformin 1,000 mg PO BIDM 11/01/19 11/01/19 History Allergies Allergy/AdvReac Type Severity Reaction Status Date / Time No Known Allergies Allergy Unverified 09/19/19 15:37 Past Med/Surg History Medical History Choledocholithiasis with chronic cholecystitis (Resolved) Choledocholithiasis with obstruction (Acute) Contact dermatitis Diverticulitis (Resolved) Diverticulitis (Resolved) Elevated LFTs (Resolved) Pancreatitis (Resolved) Pancreatitis due to common bile duct stone (Acute) Surgical History S/P cholecystectomy (Resolved) Family History Father Stroke Mother Cirrhosis Brother Coronary heart disease Social History Preferred Language: Kosovan Communication Ability: Effective Baker Helper Required: No Beliefs That Will Affect Care: None marital status: / Current Living Situation: Alone current occupational status: retired Feels Safe at Home: Yes Smoking Status: Never smoker Hx Alcohol Use: No Hx Substance Use: No Review of Systems See HPI for pertinent positives & negatives. and A total of 10 systems reviewed and were otherwise negative Physical Exam Vital Signs Vital Signs - 24 hr 11/01/19 16:23 11/01/19 17:23 11/01/19 17:29 Temperature 37.1 C Temperature Source Oral Pulse Rate 72 70 68 Pulse Rate from SpO2 Sensor 70 69 Respiratory Rate 18 16 16 Blood Pressure 158/78 H 169/91 H Blood Pressure Mean 104 123 Pulse Oximetry 99 94 95 Oxygen Delivery Method Room Air Sepsis Recent Fever Within 48 Hours No Sepsis New/Unexplained Change in Mental Status No Sepsis Action Taken by Nursing No Action Required 11/01/19 17:30 11/01/19 17:40 11/01/19 17:50 Temperature Temperature Source Pulse Rate 68 70 76 Pulse Rate from SpO2 Sensor 69 70 75 Respiratory Rate 18 16 19 Blood Pressure Blood Pressure Mean Pulse Oximetry 94 94 95 Oxygen Delivery Method Sepsis Recent Fever Within 48 Hours Sepsis New/Unexplained Change in Mental Status Sepsis Action Taken by Nursing 11/01/19 18:00 11/01/19 18:10 11/01/19 18:20 Temperature Temperature Source Pulse Rate 68 69 69 Pulse Rate from SpO2 Sensor Respiratory Rate 17 17 17 Blood Pressure 178/79 H Blood Pressure Mean 113 Pulse Oximetry Oxygen Delivery Method Sepsis Recent Fever Within 48 Hours Sepsis New/Unexplained Change in Mental Status Sepsis Action Taken by Nursing 11/01/19 18:30 11/01/19 18:40 Temperature Temperature Source Pulse Rate 72 67 Pulse Rate from SpO2 Sensor Respiratory Rate 17 21 Blood Pressure Blood Pressure Mean Pulse Oximetry Oxygen Delivery Method Sepsis Recent Fever Within 48 Hours Sepsis New/Unexplained Change in Mental Status Sepsis Action Taken by Nursing GENERAL: She is oriented to person, place, and time. She appears well-developed and well-nourished. She does not appear distressed. HENT: Exam performed. Head: Normocephalic and atraumatic. Right Ear: External ear normal. No mastoid tenderness. Left Ear: External ear normal. No mastoid tenderness. Mouth/Throat: The oropharynx is clear and moist. No trismus in the jaw. No dental abscesses or uvula swelling. No oropharyngeal exudate or tonsillar abscesses. EYES: Conjunctivae and EOM are normal. Pupils are equal, round, and reactive to light. Right eye exhibits no discharge. Left eye exhibits no discharge. No scleral icterus. NECK: Normal range of motion. Neck supple. No JVD present. No spinous process tenderness present. No carotid bruit present. No rigidity. No tracheal deviation and normal range of motion present. No Brudzinski's sign and no Kernig's sign noted. CV: Normal rate, regular rhythm, normal heart sounds and intact distal pulses. There is no peripheral edema. Palpable radial pulses bue. PULM/CHEST: Effort normal and breath sounds normal. No respiratory distress. No stridor. She has no wheezes. She has no rales. Chest Wall: She exhibits no tenderness. ABD: The abdomen is soft. Bowel sounds are normal. She has no distension. No mass is present. There is no tenderness. There is no rebound, no guarding, no Power's sign and no tenderness at McBurney's point. Rovsig negative MUSC/SKEL: No C, T, or L spine tenderness. Pelvis stable. Normal range of motion. There is no peripheral edema, tenderness or deformity. LYMPH: No cervical adenopathy. NEURO: She is alert and oriented to person, place, and time. She has normal strength. No cranial nerve deficit or sensory deficit. Coordination and gait normal. GCS eye subscore is 4. GCS verbal subscore is 5. GCS motor subscore is 6. cerbellar tests wnl. SKIN: Skin is warm and dry. She is not diaphoretic. PSYCH: She has a normal mood and affect. Her behavior is normal. Judgment and thought content normal. Course Course 1615: Past medical records reviewed. The patient was evaluated in room A4B. A complete history and physical exam was performed. 1825: The patient's vital signs are stable. Her labs show a magnesium of 1.5 and her urinalysis appears to be infected. The patient's magnesium will be replaced and the patient will be treated with Rocephin due to her hypomagnesemia, UTI, and increased weakness. The patient's daughter and family friend state that the patient has not been complying with all of her medications recently. 1827: I discussed the case with Dr. Hills-[facility] Hospitalist who accepts the patient for further evaluation. 1840: Patient's influenza positive. Patient will be given Tamiflu. Administered Medications Acetaminophen (Tylenol) 650 mg PO Q4H PRN PRN Reason: pain/fever Stop: 12/01/19 20:01 Last Admin: 11/01/19 20:16 Dose: 650 mg Documented by: [id number] Atorvastatin Calcium (Lipitor) 40 mg PO QPM JOSELINE Stop: 12/01/19 20:59 Last Admin: 11/01/19 21:05 Dose: 40 mg Documented by: [id number] Sodium Chloride (Nss 1000ml) 1,000 mls @ 80 mls/hr IV .[id number] JOSELINE Stop: 11/02/19 21:01 Last Admin: 11/01/19 21:04 Dose: 80 mls/hr Documented by: [id number] Insulin Aspart (Novolog Flexpen) 0 units SC ACHS JOSELINE Stop: 12/01/19 20:59 Last Admin: 11/01/19 21:09 Dose: 6 units Documented by: [id number] Cosigned by: [id number] Insulin Glargine (Lantus Solostar Pen) 7 units SC BID JOSELINE Stop: 12/01/19 20:59 Last Admin: 11/01/19 21:08 Dose: 7 units Documented by: [id number] Cosigned by: [id number] Losartan Potassium (Cozaar) 25 mg PO QAM JOSELINE Stop: 12/01/19 20:29 Last Admin: 11/01/19 21:06 Dose: 25 mg Documented by: [id number] Menthol (Nice) 1 galileo BUCCAL PRN PRN PRN Reason: Sore Throat Stop: 12/01/19 21:26 Last Admin: 11/01/19 21:49 Dose: 1 galileo Documented by: [id number] Discontinued Medications Sodium Chloride (Nss) 500 mls @ 125 mls/hr IV .Q4H JOSELINE Stop: 12/01/19 16:29 Last Infusion: 11/01/19 21:21 Dose: 0 mls/hr Documented by: [id number] Infusion: 11/01/19 19:48 Dose: 125 mls/hr Documented by: [id number] Admin: 11/01/19 17:15 Dose: 125 mls/hr Documented by: [id number] Magnesium Sulfate/Dextrose (Magnesium Sulfate / D5w) 1 gm in 100 mls @ 100 mls/hr IV Q1H JOSELINE Stop: 11/01/19 20:29 Last Admin: 11/01/19 21:26 Dose: 100 mls/hr Documented by: [id number] Infusion: 11/01/19 19:48 Dose: 0 mls/hr Documented by: [id number] Admin: 11/01/19 18:42 Dose: 100 mls/hr Documented by: [id number] Ceftriaxone Sodium (Rocephin) 1,000 mg in 50 mls @ 100 mls/hr IV NOW STA Stop: 11/01/19 18:50 Last Infusion: 11/01/19 19:38 Dose: 0 mls/hr Documented by: [id number] Admin: 11/01/19 18:42 Dose: 100 mls/hr Documented by: [id number] Oseltamivir Phosphate (Tamiflu) 75 mg PO NOW STA; Protocol Stop: 11/01/19 18:30 Last Admin: 11/01/19 18:42 Dose: 75 mg Documented by: [id number] Medical Decision Making Medical Records Attestation: I reviewed the patient's medical records. Home Medications Current Medication List: was personally reviewed by ne Laboratory Data Attestation: I reviewed the patient's lab results. Result diagrams: 11/01/19 16:50 11/01/19 16:50 Lab Results 11/01/19 11/01/19 11/01/19 Range/Units 16:38 16:50 16:50 WBC 5.56 (4.8-10.8) K/uL RBC 4.46 (4.2-5.4) M/uL Hgb 13.6 (12.0-16.0) g/dL Hct 39.5 (37-47) % MCV 88.6 (80-100) fL MCH 30.5 (25-34) pg MCHC 34.4 (32-36) g/dL RDW Std Deviation 43.1 (36.4-46.3) fL RDW Coeff of Ping 13.3 (11.5-14.5) % Plt Count 142 (130-400) K/uL MPV 11.2 H (7.4-10.4) fL Immature Gran % (Auto) 0.4 % Neut % (Auto) 79.6 % Lymph % (Auto) 7.9 % Ashe % (Auto) 11.7 % Eos % (Auto) 0.2 % Baso % (Auto) 0.2 % Immature Gran # (Auto) 0.02 (0.00-0.02) K/uL Neut # (Auto) 4.43 (1.4-6.5) K/uL Lymph # (Auto) 0.44 L (1.2-3.4) K/uL Ashe # (Auto) 0.65 H (0.11-0.59) K/uL Eos # (Auto) 0.01 (0-0.5) K/uL Baso # (Auto) 0.01 (0-0.2) K/uL PT 10.9 (9.0-12.0) Seconds INR 1.1 (0.9-1.1) APTT 25.6 (21.0-31.0) Seconds PTT Ratio 0.9 Sodium (136-145) mmol/L Potassium (3.5-5.1) mmol/L Chloride (98-107) mmol/L Carbon Dioxide (21-32) mmol/L Anion Gap (3-11) BUN (7-18) mg/dl Creatinine (0.6-1.2) mg/dl Est Cr Clr Drug Dosing ml/min Est GFR ( Amer) Est GFR (Non-Af Amer) BUN/Creatinine Ratio (10-20) Glucose (70-99) mg/dl POC Glucose 264 H (70-99) mg/dl Calcium (8.5-10.1) mg/dl Phosphorus (2.5-4.9) mg/dl Magnesium (1.8-2.4) mg/dl Total Bilirubin (0.2-1) mg/dl Direct Bilirubin (0-0.2) mg/dl AST (15-37) U/L ALT (12-78) U/L Alkaline Phosphatase (45-117) U/L Total Creatine Kinase (26-192) U/L Troponin I (0-0.045) ng/ml Total Protein (6.4-8.2) gm/dl Albumin (3.4-5.0) gm/dl Lipase (73-393) U/L Urine Color Urine Appearance (Clear) Urine pH (4.5-7.5) Ur Specific Hershey (1.000-1.030) Urine Protein (Negative) Urine Glucose (UA) (Negative) Urine Ketones (Negative) Urine Blood (Negative) Urine Nitrite (Negative) Urine Bilirubin (Negative) Urine Urobilinogen (Negative) Ur Leukocyte Esterase (Negative) Urine WBC (Auto) (0-5) /hpf Urine RBC (Auto) (0-4) /hpf U Hyaline Cast (Auto) (0-5) /lpf U Epithel Cells (Auto) (0-5) /lpf Urine Bacteria (Auto) (Negative) Influenza Type A (PCR) (Neg) Influenza Type B (PCR) (Neg) 11/01/19 11/01/19 11/01/19 Range/Units 16:50 17:24 17:58 WBC (4.8-10.8) K/uL RBC (4.2-5.4) M/uL Hgb (12.0-16.0) g/dL Hct (37-47) % MCV (80-100) fL MCH (25-34) pg MCHC (32-36) g/dL RDW Std Deviation (36.4-46.3) fL RDW Coeff of Ping (11.5-14.5) % Plt Count (130-400) K/uL MPV (7.4-10.4) fL Immature Gran % (Auto) % Neut % (Auto) % Lymph % (Auto) % Ashe % (Auto) % Eos % (Auto) % Baso % (Auto) % Immature Gran # (Auto) (0.00-0.02) K/uL Neut # (Auto) (1.4-6.5) K/uL Lymph # (Auto) (1.2-3.4) K/uL Ashe # (Auto) (0.11-0.59) K/uL Eos # (Auto) (0-0.5) K/uL Baso # (Auto) (0-0.2) K/uL PT (9.0-12.0) Seconds INR (0.9-1.1) APTT (21.0-31.0) Seconds PTT Ratio Sodium 135 L (136-145) mmol/L Potassium 3.8 (3.5-5.1) mmol/L Chloride 101 (98-107) mmol/L Carbon Dioxide 26 (21-32) mmol/L Anion Gap 8.0 (3-11) BUN 10 (7-18) mg/dl Creatinine 0.94 (0.6-1.2) mg/dl Est Cr Clr Drug Dosing 52.3 ml/min Est GFR ( Amer) 65.5 Est GFR (Non-Af Amer) 56.5 BUN/Creatinine Ratio 11.1 (10-20) Glucose 281 H (70-99) mg/dl POC Glucose (70-99) mg/dl Calcium 9.0 (8.5-10.1) mg/dl Phosphorus 2.5 (2.5-4.9) mg/dl Magnesium 1.5 L (1.8-2.4) mg/dl Total Bilirubin 0.8 (0.2-1) mg/dl Direct Bilirubin 0.2 (0-0.2) mg/dl AST 24 (15-37) U/L ALT 35 (12-78) U/L Alkaline Phosphatase 85 (45-117) U/L Total Creatine Kinase 74 (26-192) U/L Troponin I < 0.015 (0-0.045) ng/ml Total Protein 7.2 (6.4-8.2) gm/dl Albumin 3.3 L (3.4-5.0) gm/dl Lipase 37 L (73-393) U/L Urine Color Dark Yellow Urine Appearance Cloudy A (Clear) Urine pH 5.0 (4.5-7.5) Ur Specific Hershey 1.028 (1.000-1.030) Urine Protein Negative (Negative) Urine Glucose (UA) 3+ H (Negative) Urine Ketones Trace H (Negative) Urine Blood Negative (Negative) Urine Nitrite Positive A (Negative) Urine Bilirubin Negative (Negative) Urine Urobilinogen Negative (Negative) Ur Leukocyte Esterase Trace H (Negative) Urine WBC (Auto) >30 H (0-5) /hpf Urine RBC (Auto) 5-10 H (0-4) /hpf U Hyaline Cast (Auto) 5-10 H (0-5) /lpf U Epithel Cells (Auto) >30 H (0-5) /lpf Urine Bacteria (Auto) 4+ H (Negative) Influenza Type A (PCR) Pos for Influ A A* (Neg) Influenza Type B (PCR) Neg for Influ B (Neg) Imaging Data Radiologist's Impression: Radiology results as stated below per my review and the radiologist's interpretation: XR chest 1V portable HISTORY: fall COMPARISON: Chest 02/01/2017. FINDINGS: The lungs are clear. Cardiac silhouette is normal in size. No pleural effusions. No pneumothorax. IMPRESSION: No acute process. ACT 112: Negative or not required by law. Electronically signed by: Wood Gilbert M.D. 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 No acute fracture, dislocation or avascular necrosis. Demineralized appearance of the bones decreases sensitivity for subtle acute nondisplaced fractures. IMPRESSION: No acute fracture or dislocation. ACT 112: Negative or not required by law. The above report was generated using voice recognition software. It may contain grammatical, syntax or spelling errors. Electronically signed by: Gera Carver M.D. 11/01/2019 6:[address] NON[address]AST CT DOSE: 634.44 mGycm HISTORY: fall TECHNIQUE: Multiaxial CT images of the head were performed without the use of intravenous contrast. Automated exposure control was utilized for this study. A dose lowering technique was utilized adhering to the principles of ALARA. Comparison: None. Findings: The paranasal sinuses and mastoid air cells are clear. The calvarium and skull base are intact. There is no mass, hematoma, midline shift, acute infarct. White matter hypodensity is nonspecific but suggestive of microvascular ischemic change. The ventricles and sulci demonstrate mild age-related involut ional changes. Impression: No acute intracranial abnormality. ACT 112: Negative or not required by law. Electronically signed by: Wood Gilbert M.D. 11/01/2019 5:[address] cervical spine wo con CT DOSE: 1205.52 mGycm CLINICAL HISTORY: 84 years-old Female with fall. Acute head and neck injury status post fall COMPARISON: Head CT of same day. TECHNIQUE: Multiple axial CT images of the cervical spine were obtained without contrast. A dose lowering technique was utilized adhering to the principles of ALARA. FINDINGS: Demineralized appearance of the bones. Moderate disc space narrowing with spondylitic spurring and disc osteophyte complex at C5-C6. Mild to moderate multilevel facet arthrosis. No acute fracture or subluxation. Evaluation of the central canal or neuroforaminal structures are better evaluated by MRI. Multilevel foraminal narrowing is noted. No high-grade central canal stenosis identified. No prevertebral soft tissue swelling. Lung apices are clear without pneumothorax. Soft tissues appear unremarkable. IMPRESSION: No acute cervical spine fracture or subluxation. ACT 112: Negative or not required by law. The above report was generated using voice recognition software. It may contain grammatical, syntax or spelling errors. Electronically signed by: Gera Carver M.D. 11/01/2019 5:35 PM ECG Data Attestation: I personally reviewed and interpreted this ECG as follows: Indication: + weakness Rate (beats per minute): 71 Rhythm: + sinus rhythm ECG Intervals/blocks: + Normal QRS, + Normal ID and + Normal QT-c ECG ST segments: no ST depression and no ST elevation Blood Pressure Blood Pressure Findings: Elevated blood pressure Blood Pressure Disposition: further management by hospitalist [facility] Narrative 1615: Past medical records reviewed. The patient was evaluated in room A4B. A complete history and physical exam was performed. 1825: The patient's vital signs are stable. Her labs show a magnesium of 1.5 and her urinalysis appears to be infected. The patient's magnesium will be replaced and the patient will be treated with Rocephin due to her hypomagnesemia, UTI, and increased weakness. The patient's daughter and family friend state that the patient has not been complying with all of her medications recently. 1827: I discussed the case with Dr. Hills-[facility] Hospitalist who accepts the patient for further evaluation. 1840: Patient's influenza positive. Patient will be given Tamiflu. Impression & Plan Hypomagnesemia, Acute UTI, Weakness, Influenza Discharge Plan Visit Data *Final* Discharge Date/Time: 11/01/19 19:40 Chief Complaint: Hyperglycemia Stated Complaint: HYPERGLYCEMIA ED Provider: Reol Lopes Discharge Problem: Hypomagnesemia, Acute UTI, Weakness, Influenza Patient Disposition: Admitted As Inpatient Discharge Instructions Interventions: ED Discharge Assessment Last Done: 11/01/19 19:40 The scribe's documentation has been prepared under my direction and personally reviewed by me in its entirety. I confirm that the note above accurately reflects all work, treatment, procedures, and medical decision making performed by me.
[2019-11-02] MEDS: LEVOTHYROXINE SODIUM 50 MCG TABLET PO SCH (06:10)
[2019-11-02] MEDS: SODIUM CHLORIDE 0.9% 1000ML 1,000 ML IV SCH (06:48)
[2019-11-02] MEDS: FAMOTIDINE 40 MG TABLET PO SCH (08:58)
[2019-11-02] MEDS: LOSARTAN POTASSIUM 25 MG TAB PO SCH (08:58)
[2019-11-02] MEDS: INSULIN GLARGINE SOLOSTAR 100 UNITS/ML 3 ML PEN SC SCH (09:00)
[2019-11-02] MEDS ORDERED: OSELTAMIVIR PHOSPHATE SUSP 30 MG/5 ML UDP PO SCH (09:00)
[2019-11-02 09:01] LABS: Estimated Average Glucose 252 mg/dl; Hemoglobin A1C 10.4 % (4.5-5.6)
[2019-11-02] MEDS: INSULIN ASPART 100 UNITS/ML 3 ML PEN SC SCH ×4 (09:02→20:54)
[2019-11-02] MEDS: cefTRIAXone SODIUM 2,000 MG in DEXTROSE 5% 50 ML IV SCH (09:06)
[2019-11-02] MEDS: ENOXAPARIN INJ 40 MG/0.4 ML SYR SQ SCH (09:11)
[2019-11-02 09:32] LABS: BUN Creatinine Ratio 10.8 (10-20); Calcium 8.4 mg/dl (8.5-10.1); Creatinine Clr Calc Pharmacy 74.3 ml/min; Est GFR (African American) 94.4; Est GFR (Non-African American) 81.5; Potassium 3.5 mmol/L (3.5-5.1)
--- NOTE | 2019-11-02 14:04 | Hospitalist Progress Note ---
Date of Service November 02, 2019 Assessment & Plan (1) Influenza A: - +PCR noted on admission. - Continue Tamiflu 75 mg BID x 5 days. - Supportive care; droplet precautions. (2) Acute UTI: - UC +gram negative bacilli - Continue Ceftriaxone for empiric coverage. - IV fluids at 80 cc/hr x 2 bags. (3) Hypercholesterolemia: - Continue atorvastatin as prescribed. (4) Type II diabetes mellitus, uncontrolled: - A1C is 10.4; her friend reports she is not taking medication routinely at home. - Holding home Metformin and Glimepiride. - Lantus 9 units BID and SSI coverage. - BG has been elevated -- recommend public relations specialist consult prior to discharge. (5) Hypothyroidism: - Continue Synthroid 50 mcg daily. - TSH 2.9 in Jun 2019. (6) Esophageal reflux: - Continue Pepcid daily. (7) HTN (hypertension): - Continue Losartan as prescribed. (8) Hypomagnesemia: - Replace prn. DVT ppx: Lovenox daily. Dispo: Med/surg; discharge likely over next 48 hours pending improvement in symptoms. Admission and Anticipated Discharge Date Admission Date: November 01, 2019 Subjective Pt. is doing well overall. She has had urinary incontinence and stool incontinence over the last 24 hours -- new for patient. C/o cough and increased weakness related to influenza A. Denies SOB or chest pain. Review of Systems Review of Systems: All systems reviewed & are unremarkable except as noted in HPI & below Constitutional: + fatigue and + weakness; no fever, no chills and no anorexia Respiratory: + cough and + wheezing; no dyspnea, no dyspnea on exertion and no sputum production Cardiovascular: no chest pain, no palpitations and no edema Gastrointestinal: + diarrhea/loose stools and + fecal incontinence; no abd ominal pain and no nausea Genitourinary: + urinary incontinence; no dysuria Musculoskeletal: no back pain and no joint pain Integumentary: no non-healing lesions Physical Exam Physical Exam: General: Resting comfortably HEENT: NC/AT; PERRLA with EOMI; [place] conjunctiva, MMM. No erythema of posterior pharynx Neck: Supple and nontender Cardiac: RRR Lungs: CTA bilaterally Abdomen: Bowel normoactive X 4; Nontender to palpation Extremities: Warm. No edema present Neuro: No focal weakness Skin: No rash Results & Data ([facility]) Vital Signs (Past 12 Hours) Vital Signs Temp Pulse Resp BP Pulse Ox 11/02/19 07:30 37.5 C 76 18 135/61 93 Laboratory Results 11/02/19 11/02/19 11/02/19 Range/Units 11:27 08:21 08:21 WBC (4.8-10.8) K/uL RBC (4.2-5.4) M/uL Hgb (12.0-16.0) g/dL Hct (37-47) % MCV (80-100) fL MCH (25-34) pg MCHC (32-36) g/dL RDW Std Deviation (36.4-46.3) fL RDW Coeff of Ping (11.5-14.5) % Plt Count (130-400) K/uL MPV (7.4-10.4) fL Immature Gran % (Auto) % Neut % (Auto) % Lymph % (Auto) % [place] % (Auto) % Eos % (Auto) % Baso % (Auto) % Immature Gran # (Auto) (0.00-0.02) K/uL Neut # (Auto) (1.4-6.5) K/uL Lymph # (Auto) (1.2-3.4) K/uL [place] # (Auto) (0.11-0.59) K/uL Eos # (Auto) (0-0.5) K/uL Baso # (Auto) (0-0.2) K/uL PT (9.0-12.0) Seconds INR (0.9-1.1) APTT (21.0-31.0) Seconds PTT Ratio Sodium 137 (136-145) mmol/L Potassium 3.5 (3.5-5.1) mmol/L Chloride 107 (98-107) mmol/L Carbon Dioxide 24 (21-32) mmol/L Anion Gap 6.0 (3-11) BUN 7 (7-18) mg/dl Creatinine 0.68 (0.6-1.2) mg/dl Est Cr Clr Drug Dosing 74.3 ml/min Est GFR ( Amer) 94.4 Est GFR (Non-Af Amer) 81.5 BUN/Creatinine Ratio 10.8 (10-20) Glucose 231 H (70-99) mg/dl POC Glucose 253 H (70-99) mg/dl Estimat Average Glucose mg/dl Hemoglobin A1c (4.5-5.6) % Calcium 8.4 L (8.5-10.1) mg/dl Phosphorus (2.5-4.9) mg/dl Magnesium 2.1 (1.8-2.4) mg/dl Total Bilirubin (0.2-1) mg/dl Direct Bilirubin (0-0.2) mg/dl AST (15-37) U/L ALT (12-78) U/L Alkaline Phosphatase (45-117) U/L Total Creatine Kinase (26-192) U/L Troponin I (0-0.045) ng/ml Total Protein (6.4-8.2) gm/dl Albumin (3.4-5.0) gm/dl Lipase (73-393) U/L Urine Color Urine Appearance (Clear) Urine pH (4.5-7.5) Ur Specific [place] (1.000-1.030) Urine Protein (Negative) Urine Glucose (UA) (Negative) Urine Ketones (Negative) Urine Blood (Negative) Urine Nitrite (Negative) Urine Bilirubin (Negative) Urine Urobilinogen (Negative) Ur Leukocyte Esterase (Negative) Urine WBC (Auto) (0-5) /hpf Urine RBC (Auto) (0-4) /hpf U Hyaline Cast (Auto) (0-5) /lpf U Epithel Cells (Auto) (0-5) /lpf Urine Bacteria (Auto) (Negative) Influenza Type A (PCR) (Neg) Influenza Type B (PCR) (Neg) 11/02/19 11/02/19 11/01/19 Range/Units 08:21 07:52 20:26 WBC (4.8-10.8) K/uL RBC (4.2-5.4) M/uL Hgb (12.0-16.0) g/dL Hct (37-47) % MCV (80-100) fL MCH (25-34) pg MCHC (32-36) g/dL RDW Std Deviation (36.4-46.3) fL RDW Coeff of Ping (11.5-14.5) % Plt Count (130-400) K/uL MPV (7.4-10.4) fL Immature Gran % (Auto) % Neut % (Auto) % Lymph % (Auto) % [place] % (Auto) % Eos % (Auto) % Baso % (Auto) % Immature Gran # (Auto) (0.00-0.02) K/uL Neut # (Auto) (1.4-6.5) K/uL Lymph # (Auto) (1.2-3.4) K/uL [place] # (Auto) (0.11-0.59) K/uL Eos # (Auto) (0-0.5) K/uL Baso # (Auto) (0-0.2) K/uL PT (9.0-12.0) Seconds INR (0.9-1.1) APTT (21.0-31.0) Seconds PTT Ratio Sodium (136-145) mmol/L Potassium (3.5-5.1) mmol/L Chloride (98-107) mmol/L Carbon Dioxide (21-32) mmol/L Anion Gap (3-11) BUN (7-18) mg/dl Creatinine (0.6-1.2) mg/dl Est Cr Clr Drug Dosing ml/min Est GFR ( Amer) Est GFR (Non-Af Amer) BUN/Creatinine Ratio (10-20) Glucose (70-99) mg/dl POC Glucose 244 H 251 H (70-99) mg/dl Estimat Average Glucose 252 mg/dl Hemoglobin A1c 10.4 H (4.5-5.6) % Calcium (8.5-10.1) mg/dl Phosphorus (2.5-4.9) mg/dl Magnesium (1.8-2.4) mg/dl Total Bilirubin (0.2-1) mg/dl Direct Bilirubin (0-0.2) mg/dl AST (15-37) U/L ALT (12-78) U/L Alkaline Phosphatase (45-117) U/L Total Creatine Kinase (26-192) U/L Troponin I (0-0.045) ng/ml Total Protein (6.4-8.2) gm/dl Albumin (3.4-5.0) gm/dl Lipase (73-393) U/L Urine Color Urine Appearance (Clear) Urine pH (4.5-7.5) Ur Specific [place] (1.000-1.030) Urine Protein (Negative) Urine Glucose (UA) (Negative) Urine Ketones (Negative) Urine Blood (Negative) Urine Nitrite (Negative) Urine Bilirubin (Negative) Urine Urobilinogen (Negative) Ur Leukocyte Esterase (Negative) Urine WBC (Auto) (0-5) /hpf Urine RBC (Auto) (0-4) /hpf U Hyaline Cast (Auto) (0-5) /lpf U Epithel Cells (Auto) (0-5) /lpf Urine Bacteria (Auto) (Negative) Influenza Type A (PCR) (Neg) Influenza Type B (PCR) (Neg) 11/01/19 11/01/19 11/01/19 Range/Units 17:58 17:24 16:50 WBC (4.8-10.8) K/uL RBC (4.2-5.4) M/uL Hgb (12.0-16.0) g/dL Hct (37-47) % MCV (80-100) fL MCH (25-34) pg MCHC (32-36) g/dL RDW Std Deviation (36.4-46.3) fL RDW Coeff of Ping (11.5-14.5) % Plt Count (130-400) K/uL MPV (7.4-10.4) fL Immature Gran % (Auto) % Neut % (Auto) % Lymph % (Auto) % [place] % (Auto) % Eos % (Auto) % Baso % (Auto) % Immature Gran # (Auto) (0.00-0.02) K/uL Neut # (Auto) (1.4-6.5) K/uL Lymph # (Auto) (1.2-3.4) K/uL [place] # (Auto) (0.11-0.59) K/uL Eos # (Auto) (0-0.5) K/uL Baso # (Auto) (0-0.2) K/uL PT (9.0-12.0) Seconds INR (0.9-1.1) APTT (21.0-31.0) Seconds PTT Ratio Sodium 135 L (136-145) mmol/L Potassium 3.8 (3.5-5.1) mmol/L Chloride 101 (98-107) mmol/L Carbon Dioxide 26 (21-32) mmol/L Anion Gap 8.0 (3-11) BUN 10 (7-18) mg/dl Creatinine 0.94 (0.6-1.2) mg/dl Est Cr Clr Drug Dosing 52.3 ml/min Est GFR ( Amer) 65.5 Est GFR (Non-Af Amer) 56.5 BUN/Creatinine Ratio 11.1 (10-20) Glucose 281 H (70-99) mg/dl POC Glucose (70-99) mg/dl Estimat Average Glucose mg/dl Hemoglobin A1c (4.5-5.6) % Calcium 9.0 (8.5-10.1) mg/dl Phosphorus 2.5 (2.5-4.9) mg/dl Magnesium 1.5 L (1.8-2.4) mg/dl Total Bilirubin 0.8 (0.2-1) mg/dl Direct Bilirubin 0.2 (0-0.2) mg/dl AST 24 (15-37) U/L ALT 35 (12-78) U/L Alkaline Phosphatase 85 (45-117) U/L Total Creatine Kinase 74 (26-192) U/L Troponin I < 0.015 (0-0.045) ng/ml Total Protein 7.2 (6.4-8.2) gm/dl Albumin 3.3 L (3.4-5.0) gm/dl Lipase 37 L (73-393) U/L Urine Color Dark Yellow Urine Appearance Cloudy A (Clear) Urine pH 5.0 (4.5-7.5) Ur Specific [place] 1.028 (1.000-1.030) Urine Protein Negative (Negative) Urine Glucose (UA) 3+ H (Negative) Urine Ketones Trace H (Negative) Urine Blood Negative (Negative) Urine Nitrite Positive A (Negative) Urine Bilirubin Negative (Negative) Urine Urobilinogen Negative (Negative) Ur Leukocyte Esterase Trace H (Negative) Urine WBC (Auto) >30 H (0-5) /hpf Urine RBC (Auto) 5-10 H (0-4) /hpf U Hyaline Cast (Auto) 5-10 H (0-5) /lpf U Epithel Cells (Auto) >30 H (0-5) /lpf Urine Bacteria (Auto) 4+ H (Negative) Influenza Type A (PCR) Pos for Influ A A* (Neg) Influenza Type B (PCR) Neg for Influ B (Neg) 11/01/19 11/01/19 11/01/19 Range/Units 16:50 16:50 16:38 WBC 5.56 (4.8-10.8) K/uL RBC 4.46 (4.2-5.4) M/uL Hgb 13.6 (12.0-16.0) g/dL Hct 39.5 (37-47) % MCV 88.6 (80-100) fL MCH 30.5 (25-34) pg MCHC 34.4 (32-36) g/dL RDW Std Deviation 43.1 (36.4-46.3) fL RDW Coeff of Ping 13.3 (11.5-14.5) % Plt Count 142 (130-400) K/uL MPV 11.2 H (7.4-10.4) fL Immature Gran % (Auto) 0.4 % Neut % (Auto) 79.6 % Lymph % (Auto) 7.9 % [place] % (Auto) 11.7 % Eos % (Auto) 0.2 % Baso % (Auto) 0.2 % Immature Gran # (Auto) 0.02 (0.00-0.02) K/uL Neut # (Auto) 4.43 (1.4-6.5) K/uL Lymph # (Auto) 0.44 L (1.2-3.4) K/uL [place] # (Auto) 0.65 H (0.11-0.59) K/uL Eos # (Auto) 0.01 (0-0.5) K/uL Baso # (Auto) 0.01 (0-0.2) K/uL PT 10.9 (9.0-12.0) Seconds INR 1.1 (0.9-1.1) APTT 25.6 (21.0-31.0) Seconds PTT Ratio 0.9 Sodium (136-145) mmol/L Potassium (3.5-5.1) mmol/L Chloride (98-107) mmol/L Carbon Dioxide (21-32) mmol/L Anion Gap (3-11) BUN (7-18) mg/dl Creatinine (0.6-1.2) mg/dl Est Cr Clr Drug Dosing ml/min Est GFR ( Amer) Est GFR (Non-Af Amer) BUN/Creatinine Ratio (10-20) Glucose (70-99) mg/dl POC Glucose 264 H (70-99) mg/dl Estimat Average Glucose mg/dl Hemoglobin A1c (4.5-5.6) % Calcium (8.5-10.1) mg/dl Phosphorus (2.5-4.9) mg/dl Magnesium (1.8-2.4) mg/dl Total Bilirubin (0.2-1) mg/dl Direct Bilirubin (0-0.2) mg/dl AST (15-37) U/L ALT (12-78) U/L Alkaline Phosphatase (45-117) U/L Total Creatine Kinase (26-192) U/L Troponin I (0-0.045) ng/ml Total Protein (6.4-8.2) gm/dl Albumin (3.4-5.0) gm/dl Lipase (73-393) U/L Urine Color Urine Appearance (Clear) Urine pH (4.5-7.5) Ur Specific [place] (1.000-1.030) Urine Protein (Negative) Urine Glucose (UA) (Negative) Urine Ketones (Negative) Urine Blood (Negative) Urine Nitrite (Negative) Urine Bilirubin (Negative) Urine Urobilinogen (Negative) Ur Leukocyte Esterase (Negative) Urine WBC (Auto) (0-5) /hpf Urine RBC (Auto) (0-4) /hpf U Hyaline Cast (Auto) (0-5) /lpf U Epithel Cells (Auto) (0-5) /lpf Urine Bacteria (Auto) (Negative) Influenza Type A (PCR) (Neg) Influenza Type B (PCR) (Neg) PG Care Time/CCT Total # of Minutes Spent Total Time Spent with Patient: Total time spent is greater than 50% in coordination of care (as documented) at patient's floor/unit and/or counseling patient: Coding Level of Care Code 13146 Subseq Obs Care Lvl 2 Diagnoses Influenza A J10.1 Acute UTI N39.0 Hypercholesterolemia E78.00 Type II diabetes mellitus, uncontrolled E11.65 Glycemic state: with hyperglycemia Hypothyroidism E03.9 Hypothyroidism type: unspecified Esophageal reflux K21.9 Esophagitis presence: esophagitis presence not specified HTN (hypertension) I10 Hypertension type: essential hypertension Hypomagnesemia E83.42 (1) Hypothyroidism Hypothyroidism type: unspecified Qualified Code(s): E03.9 - Hypothyroidism, unspecified (2) Type II diabetes mellitus, uncontrolled Glycemic state: with hyperglycemia Qualified Code(s): E11.65 - Type 2 diabetes mellitus with hyperglycemia (3) Esophageal reflux Esophagitis presence: esophagitis presence not specified Qualified Code(s): K21.9 - Gastro-esophageal reflux disease without esophagitis (4) HTN (hypertension) Hypertension type: essential hypertension Qualified Code(s): I10 - Essential (primary) hypertension
[2019-11-02] MEDS ORDERED: CHLORASEPTIC 1.4% SOLN 180 ML BTL MT PRN (14:16)
--- NOTE | 2019-11-02 18:17 | Electrocardiogram Report ---
Test Reason : Blood Pressure : / mmHG Vent. Rate : 071 BPM Atrial Rate : 071 BPM P-R Int : 152 ms QRS Dur : 090 ms QT Int : 386 ms P-R-T Axes : 020 042 058 degrees QTc Int : 419 ms Normal sinus rhythm Normal ECG When compared with ECG of 01-FEB-2017 10:26, No significant change was found Confirmed by Mathew Betancourt ([id number]) on 11/02/2019 6:17:45 PM Referred By: REFERRED SELF Confirmed By:Chu Betancourt
[2019-11-02] MEDS: ATORVASTATIN 40 MG TAB PO SCH (20:53)
[2019-11-02] MEDS: OSELTAMIVIR PHOSPHATE 75 MG CAP PO SCH (20:54)
[2019-11-02] MEDS ORDERED: INSULIN GLARGINE SOLOSTAR 100 UNITS/ML 3 ML PEN SC SCH (21:00)
[2019-11-03] MEDS: ACETAMINOPHEN 325 MG TAB PO PRN (01:49)
[2019-11-03] MEDS: LEVOTHYROXINE SODIUM 50 MCG TABLET PO SCH (05:49)
[2019-11-03] MEDS: ENOXAPARIN INJ 40 MG/0.4 ML SYR SQ SCH ×2 (08:10→08:50)
[2019-11-03] MEDS: FAMOTIDINE 40 MG TABLET PO SCH (08:11)
[2019-11-03] MEDS: LOSARTAN POTASSIUM 25 MG TAB PO SCH (08:11)
[2019-11-03] MEDS: OSELTAMIVIR PHOSPHATE 75 MG CAP PO SCH ×2 (08:11→20:06)
[2019-11-03] MEDS ORDERED: PHARMACY GLYCEMIC MGMT CONSULT PRN (08:47)
[2019-11-03] MEDS: cefTRIAXone SODIUM 2,000 MG in DEXTROSE 5% 50 ML IV SCH (08:48)
[2019-11-03] MEDS: INSULIN ASPART 100 UNITS/ML 3 ML PEN SC SCH ×4 (08:50→20:07)
[2019-11-03] MEDS: INSULIN GLARGINE SOLOSTAR 100 UNITS/ML 3 ML PEN SC SCH ×2 (08:51→20:06)
--- NOTE | 2019-11-03 13:40 | Pharmacy Report ---
Glycemic Control Consultation - Date of Service November 03, 2019 - Scope Scope: Glycemic Pharmacist consulted by Madison Dickson on 11/03/2019 for glycemic control and to write orders per formerly [facility] inpatient glycemic control protocol - Objective Weight: 95.4 kg Accuchecks BSG (last 24hrs): 11/02/19 11/02/19 11/03/19 16:58 20:25 08:01 POC Glucose 212 H 254 H 226 H 11/03/19 11:32 POC Glucose 250 H HbA1c: Hemoglobin A1c 10.4 % (4.5-5.6) H 11/02/19 08:21 - Recent Pertinent Medications Outpatient Anti-diabetic Regimen: * Amaryl 2 mg PO daily plus metformin 1 gm PO BID (per reports not taking) The patient is currently receiving: * Basal insulin: Lantus 9 units every 12 hours * Correctional Insulin: Novolog Correction per scale ACHS Goal Range: Low 100 mg/dL - High 140 mg/dL Correction Factor: 35 mg/dL/unit * Prandial insulin: Per carb ratio of 1 unit per 15 grams CHO consumed * Oral Agents: Risk Factors for Insulin Resistance: * Infection: Tamiflu * Diet: T2DM - Assessment & Plan Assessment & Plan: ASSESSMENT: * Ms Saravia is an 84 y/o F with a PMH of uncontrolled T2DM not consistently taking medications at home. * Yesterday BSGs were [phone] and received 34 units of insulin (16 units of basal and 18 units of bolus). Take 34 units and give as basal (~16 units SQ BID) which corresponds with weight-based stress of 2 Lantus. * Tighten Novolog to weight-based stress of 2 for Novolog for lunch. Tighten slightly further for lunch. PLAN FOR INPATIENT GLYCEMIC CONTROL: * Holding outpatient oral diabetes medications * Basal insulin * Lantus 16 units SQ BID * Bolus insulin * NovoLog per scale ACHS or Q6hrs while NPO * Goal Range: Low 110 mg/dL - High 140 mg/dL * Correction Factor: 18 mg/dL/unit * Nutritional / Prandial insulin per carb ratio of 1 unit per 7 grams CHO consumed * Please note that the plan above was derived based on current level of insulin resistance and hospital stress. These recommendations are appropriate for inpatient admission only. Plan of care upon discharge will need to be reassessed to avoid potential outpatient hypo/hyperglycemia. Thank you.
--- NOTE | 2019-11-03 15:20 | Hospitalist Progress Note ---
Date of Service November 03, 2019 Assessment & Plan (1) Influenza A: - +PCR noted on admission. - Continue Tamiflu 75 mg BID x 5 days. - Supportive care; droplet precautions. (2) Acute UTI: - UC +E. coli. - Convert Ceftriaxone to Cefuroxime 250 mg BID per sensitivities. (3) Hypercholesterolemia: - Continue Atorvastatin as prescribed. (4) Type II diabetes mellitus, uncontrolled: - A1C is 10.4; her friend reports she is not taking medication routinely at home. - Hold home Metformin and Glimepiride. - Pharmacy consulted for glycemic management. - Will need to meet with hvac maintenance technician on Monday prior to discharge. (5) Hypothyroidism: - Continue Synthroid 50 mcg daily. - TSH 2.9 in Jun 2019. (6) Esophageal reflux: - Continue Pepcid daily. (7) HTN (hypertension): - Continue Losartan as prescribed. (8) Hypomagnesemia: - Replace prn. DVT ppx: Lovenox daily. Dispo: Med/surg; discharge likely on Monday pending improvement in hyperglycemia. Admission and Anticipated Discharge Date Admission Date: November 03, 2019 Subjective Pt. has ongoing cough with sputum production. Has generalized fatigue/weakness. SOB is resolved, denies chest pain. Had low grade fever overnight, 37.8 degrees Celsius. BG remains elevated, consulting pharmacy. Pt. admits to not taking oral agents as prescribed at home -- "sometimes I don't take them if they are in my bedroom". We discussed the importance of glycemic control/adjunct faculty for medical terminology effects of hyperglycemia. Will need to meet with hvac maintenance technician on Monday. Review of Systems Review of Systems: All systems reviewed & are unremarkable except as noted in HPI & below Constitutional: + fatigue and + weakness; no fever, no chills and no anorexia Respiratory: + cough and + sputum production; no dyspnea and no dyspnea on exertion Cardiovascular: no chest pain, no palpitations and no edema Gastrointestinal: no abdominal pain, no nausea and no constipation Genitourinary: no difficulty urinating Musculoskeletal: no back pain and no joint pain Integumentary: no non-healing lesions Physical Exam Physical Exam: General: Resting comfortably HEENT: NC/AT; PERRLA with EOMI; [place] conjunctiva, MMM. No erythema of posterior pharynx Neck: Supple and nontender Cardiac: RRR Lungs: CTA bilaterally Abdomen: Bowel normoactive X 4; Nontender to palpation Extremities: Warm. No edema present Neuro: No focal weakness Skin: No rash Results & Data ([facility]) Vital Signs (Past 12 Hours) Vital Signs Temp Pulse Resp BP BP Pulse Ox 11/03/19 15:06 37.1 C 59 L 20 131/76 96 11/03/19 07:27 36.6 C 58 L 16 140/94 97 Laboratory Results 11/03/19 11/03/19 11/02/19 Range/Units 11:32 08:01 20:25 POC Glucose 250 H 226 H 254 H (70-99) mg/dl 11/02/19 Range/Units 16:58 POC Glucose 212 H (70-99) mg/dl PG Care Time/CCT Total # of Minutes Spent Total Time Spent with Patient: Total time spent is greater than 50% in coordination of care (as documented) at patient's floor/unit and/or counseling patient: Coding Level of Care Code 82393 Subseq Hosp Care Lvl 3 Diagnoses Influenza A J10.1 Acute UTI N39.0 Hypercholesterolemia E78.00 Type II diabetes mellitus, uncontrolled E11.65 Glycemic state: with hyperglycemia Hypothyroidism E03.9 Hypothyroidism type: unspecified Esophageal reflux K21.9 Esophagitis presence: esophagitis presence not specified HTN (hypertension) I10 Hypertension type: essential hypertension Hypomagnesemia E83.42 (1) Hypothyroidism Hypothyroidism type: unspecified Qualified Code(s): E03.9 - Hypothyroidism, unspecified (2) Type II diabetes mellitus, uncontrolled Glycemic state: with hyperglycemia Qualified Code(s): E11.65 - Type 2 diabetes mellitus with hyperglycemia (3) Esophageal reflux Esophagitis presence: esophagitis presence not specified Qualified Code(s): K21.9 - Gastro-esophageal reflux disease without esophagitis (4) HTN (hypertension) Hypertension type: essential hypertension Qualified Code(s): I10 - Essential (primary) hypertension
[2019-11-03] MEDS: ATORVASTATIN 40 MG TAB PO SCH (20:06)
[2019-11-04] MEDS: LEVOTHYROXINE SODIUM 50 MCG TABLET PO SCH (06:11)
[2019-11-04] MEDS: OSELTAMIVIR PHOSPHATE 75 MG CAP PO SCH (07:47)
[2019-11-04] MEDS: cefUROXime axetil 250 MG TABLET PO SCH ×2 (07:47→08:51)
[2019-11-04] MEDS: LOSARTAN POTASSIUM 25 MG TAB PO SCH (07:47)
[2019-11-04] MEDS: FAMOTIDINE 40 MG TABLET PO SCH (07:47)
[2019-11-04] MEDS: INSULIN ASPART 100 UNITS/ML 3 ML PEN SC SCH ×2 (08:50→12:25)
[2019-11-04] MEDS ORDERED: INSULIN GLARGINE SOLOSTAR 100 UNITS/ML 3 ML PEN SC SCH (09:00)
[2019-11-04 09:15] LABS: Hematocrit (blood only) 39.4 % (37-47); Hemoglobin 13.3 g/dL (12.0-16.0); Mean Corpuscular Hgb Conc 33.8 g/dL (32-36); Mean Corpuscular Volume 88.9 fL (80-100); Mean Platelet Volume 10.7 fL (7.4-10.4); Platelet Count 136 K/uL (130-400); RDW Coefficient of Variation 13.4 % (11.5-14.5); RDW Standard Deviation 43.9 fL (36.4-46.3); Red Blood Count 4.43 M/uL (4.2-5.4); White Blood Count 3.25 K/uL (4.8-10.8)
[2019-11-04 09:33] LABS: BUN Creatinine Ratio 9.4 (10-20); Calcium 8.7 mg/dl (8.5-10.1); Creatinine Clr Calc Pharmacy 72.1 ml/min; Est GFR (African American) 93.5; Est GFR (Non-African American) 80.7; Magnesium 1.7 mg/dl (1.8-2.4); Potassium 3.3 mmol/L (3.5-5.1)
[2019-11-04] MEDS ORDERED: POTASSIUM CHLORIDE 20 MEQ TABCR PO STA (12:55)
[2019-11-04] MEDS ORDERED: MAGNESIUM OXIDE 400 MG TAB PO ONE (12:55)
--- NOTE | 2019-11-04 17:09 | Discharge Summary ---
Date of Service November 04, 2019 Admission HPI Per Admitting Provider Audrey Saravia is an 84-year-old female presenting with 3 to 4 days of severe weakness. Patient reports that she just does not have the energy to get out of bed to perform her ADLs. She also reports poor p.o. intake, back pain. She has a cough occasionally productive for thick sputum, frontal headache and a sore throat. No additional complaints at this time. Patient afebrile, hypertensive on arrival to the ER otherwise no dynamically stable. She was found to be mildly hyperglycemic with glucose = 281, hypomagnesemic with magnesium = 1.5. Influenza A positive ER course: Magnesium, normal saline, Tamiflu ordered Admission Exam Per Admitting Provider General: patient resting comfortably, NAD, non-toxic in appearance, AA&O x 4, coughing Skin: warm, dry, intact, no rashes or lesions HEENT: NC/AT, PERRL, EOMI, anicteric sclera, conjunctiva without injection, external ear normal to inspection and nontender, nares patent, moist mucus membranes, dentition intact, no oropharyngeal lesions, neck supple, trachea midline, no LAD, no thyromegaly, no JVD Heart: +S1/S2, regular, no m/r/g Lungs: equal air entry bilaterally, no rales/rhonchi/wheezes Abd: +BS, soft, NT/ND, no masses/organomegaly/ascites Ext: warm, 2+ pulses in UE/LE bilaterally, no clubbing/cyanosis or edema Neuro: nonfocal, patient AA&O x 4, speech intact, no facial droop, moving all extremities on command with equal strength 5/5 Principal Diagnosis Influenza A, UTI Discharge Exam General: Resting comfortably HEENT: NC/AT; PERRLA with EOMI; [place] conjunctiva, MMM. No erythema of posterior pharynx Neck: Supple and nontender Cardiac: RRR Lungs: CTA bilaterally Abdomen: Bowel normoactive X 4; Nontender to palpation Extremities: Warm. No edema present Neuro: No focal weakness Skin: No rash Discharge Data Allergies Allergy/AdvReac Type Severity Reaction Status Date / Time No Known Allergies Allergy Unverified 09/19/19 15:37 Ordered Studies 11/01/19 16:22 CT head/brain wo con Stat 11/01/19 16:23 CT cervical spine wo con Stat Hospital Course (1) Influenza A: +PCR noted on admission. Tamiflu 75 mg BID x 5 days. Supportive care; ordered droplet precautions. (2) Acute UTI: UC +E. coli. Converted Ceftriaxone to Cefuroxime 250 mg BID per sensitivities. (3) Hypercholesterolemia: Continued Atorvastatin as prescribed. (4) Type II diabetes mellitus, uncontrolled: A1C is 10.4; her friend reports she is not taking medication routinely at home. Held home Metformin and Glimepiride. Pharmacy consulted for glycemic management. Met with perinatal educator on Monday; pt. did not want to start insulin, preferred to adhere to medication compliance and lifestyle changes following discharge. Recommend f/u Hgb A1C in 2-3 months with PCP to evaluate for improvement. (5) Hypothyroidism: Continued Synthroid 50 mcg daily. TSH 2.9 in Jun 2019. (6) Esophageal reflux: Continued Pepcid daily. (7) HTN (hypertension): Continued Losartan as prescribed. (8) Hypomagnesemia: Replaced prn. Discharged to home on 11/04/19. Total Time Total Time Spent Total Time Spent (In Minutes): >30 minutes Total Time Includes: Examination of the Patient, Discharge Planning, Medication Reconciliation, Communication With Other Providers and Other Discharge Plan Discharge Items Patient Disposition: Home - Self-Care Reason For Visit: INFLUENZA,WEAKNESS Discharge Diagnosis: Influenza A, Weakness Condition on Discharge: Fair Goals: You have been hospitalized for an acute medical problem. During your stay at [facility], we have made an effort to correct the problem that brought you to the hospital while keeping you as comfortable as possible. Medications were used to bring your condition under control and your discharge instructions will include directions for any medications you should take after leaving the hospital. Please make sure you see your Primary Care Provider as part of your follow up plan. Activity: As commented below Exercise/Sports: Gradually increase as tolerated Non-emergency contact: Primary Care Provider Call non-emergency contact if: you have any medication questions, your symptoms worsen and you have a fever Follow-up/Referrals: Jovanny Meehan III, MD [Primary Care Provider] - 11/07/19 2:00 pm (If you need to reschedule this appointment, please call either [phone] or [phone]. Your appointment will be with Gisselle Alcazar.) Diet: Carb Consistent or DM2 and Heart Healthy Ambulatory Orders: Complete Blood Count no Diff (Timed) Timeframe: 4 Days Location: Determined by Patient Ordered By: Madison Perdomo Attending Provider Instructions: 1. Influenza A * Please take Tamiflu 75 mg twice daily for treatment of infection. * Please follow up with PCP in 7-10 days. 2. Acute Urinary Tract Infection * Please take Cefuroxime 250 mg twice daily for treatment of infection. 3. Type II Diabetes Mellitus * Please take metformin and glimepiride as prescribed -- it is very important that you take these medications exactly as prescribed and do not miss doses. * Please follow up with PCP to discuss blood sugar management. 4. Please have lab work collected on Monday to monitor blood counts. Results will be faxed to your primary care provider Dr. Meehan. Pending Studies at Discharge: No Stand-Alone Forms: My [facility] Medications and DC Order Prescriptions: New cefuroxime axetil 250 mg Tablet 250 mg PO BID 2 Days Qty: 4 RF: 0 oseltamivir [Tamiflu] 75 mg Capsule 75 mg PO BID 2 Days Qty: 4 RF: 0 Continued glimepiride 2 mg tablet 2 mg PO BIDM RF: 0 atorvastatin 40 mg tablet 40 mg PO QPM Qty: 90 RF: 3 metformin 500 mg tablet 1,000 mg PO BIDM RF: 0 famotidine 40 mg tablet 40 mg PO QAM RF: 0 levothyroxine 50 mcg tablet 50 mcg PO QAM RF: 0 losartan 25 mg tablet 25 mg PO QAM RF: 0 Discharge Orders: Discharge Order (Routine); Ordered 11/04/19 Ordered By: Madison Alvarado/Other Patient Handouts: Diabetes Pipe Supervisor Complications, Diabetes Healthy Meals, Understanding Carbohydrates, Diabetes Exercise Benefits, Diabetes Living Life, Diabetes Manage A1C Test Admission Data Admit Date/Time: 11/03/19 08:32 Attending Provider: Fredy Reddy Admit Provider: Daniela Hills Primary Care Provider: Jovanny Meehan III Other Interventions: Discharge Summary Assessment (RN) Last Done: 11/04/19 12:02 DC Date/Time DO NOT enter until pt leaves facility: 11/04/19 14:08 Coding Level of Care Code D/C Day Management >30 mins Diagnoses Influenza A J10.1 Acute UTI N39.0 Hypercholesterolemia E78.00 Type II diabetes mellitus, uncontrolled E11.65 Glycemic state: with hyperglycemia Hypothyroidism E03.9 Hypothyroidism type: unspecified Esophageal reflux K21.9 Esophagitis presence: esophagitis presence not specified HTN (hypertension) I10 Hypertension type: essential hypertension Hypomagnesemia E83.42
== END 2019-11-04 14:08 | disposition home or self-care (01) | DRG 194 ==
LOC: ED 16:06 → 4W 16:06 → SUATTDRO 18:46 → 4W 19:40 → SUATTDRO 11-03 08:32

== ENCOUNTER 2022-01-06 12:27 | Inpatient (IN) ==
[2022-01-06] MEDS ORDERED: ONDANSETRON INJ 2 MG/ML 2 ML VIAL IV STA (13:47)
[2022-01-06] MEDS ORDERED: SODIUM CHLORIDE 0.9% 500 ML IV SCH (14:00)
[2022-01-06 14:19] LABS: INR 1.2 (0.9-1.1); Partial Thromboplastin Ratio 0.9; Partial Thromboplastin Time 25.6 Seconds (21.0-31.0); Prothrombin Time 12.6 Seconds (9.0-12.0)
--- NOTE | 2022-01-06 14:37 | Emergency Department Note ---
Impression & Plan Obstructive jaundice, Biliary calculi, common bile duct, Generalized weakness, Urinary tract infection, Acute hyperglycemia ED Provider Note NAME: RAKAN MARQUEZ AGE: 86 SEX: F : 1935 ARRIVES VIA: Ambulance INFORMANT: Patient, the patient's family member ED PROVIDER(S): Aaron Nash DO CHIEF COMPLAINT: Weakness HPI: The patient is an 86-year-old female who presented to the emergency department for an evaluation of generalized weakness. The patient has been treated by phone for urinary tract infection by her primary care physician. She has been noticing over the course of the last few days that she has been having increasing weakness and difficulty getting out of bed. The patient has had no falls. She denies having any headache. She denies having any unilateral weakness. Her daughter the presented with her states that she has been able to be at home and manage her condition. The patient has noticed no vomiting. She has noticed no black or bloody bowel moods. She was found by her neighbor with having severe difficulty getting out of bed in the morning and was called. ROS: See above HPI for pertinent positives & negatives. A total of 10 systems reviewed and were otherwise negative. PAST MEDICAL HISTORY: See Below PAST SURGICAL HISTORY: See Below FAMILY HISTORY: See Below SOCIAL HISTORY: See Below HOME MEDICATIONS: See Below ALLERGIES: See Below VITALS: See Below PHYSICAL EXAMINATION: GENERAL: Patient is awake alert in no acute distress patient is resting comfortably and showing no signs of anxiety EYES: The conjunctivae are clear. The pupils are round and reactive. EARS, NOSE, MOUTH AND THROAT: The nose is without any evidence of any deformity. Mucous membranes are moist. Tongue is midline. NECK: The neck is nontender and supple. RESPIRATORY: Normal respiratory effort is noted there is no evidence of wheezing rhonchi or rales CARDIOVASCULAR: Regular rate and rhythm noted there no murmurs rubs or gallops normal S1 normal S2. GASTROINTESTINAL: The abdomen is soft and nondistended. There is no specific guarding or rigidity. There is mild right upper quadrant abdominal pain to palpation. BACK: No midline tenderness or or step-off noted range of motion in flexion extension as well as rotation no signs of muscle spasm noted MUSCULOSKELETAL/EXTREMITIES: There is no evidence of gross deformity full range of motion is noted in the hips and shoulders. SKIN: There is no obvious evidence of any rash. There are no petechiae, pallor or cyanosis noted. NEUROLOGIC: Patient is awake alert and oriented x3. Strength was symmetric. MEDICAL DECISION MAKING: The patient is an 86-year-old female who presented to the emergency department for an evaluation of generalized weakness. The patient did not have any specific complaints. She was treated by telephone for a urinary tract infection previously. She does have a urinary tract infection on urinalysis however she also has signs of obstructive jaundice on laboratory studies as well as imaging. I discussed the patient's laboratory and radiographic studies with her. She was treated with IV fluids as well as IV antibiotics. I discussed her condition with the on-call [facility] hospitalist as well as the on-call car stower. They have agreed to evaluate the patient for further management and disposition. The patient did appear to have right upper quadrant abdominal pain but no guarding or rigidity. Triage Nursing notes reviewed. Prior medical records reviewed Vital Signs: reviewed and remarkable for elevated blood pressure. Differential diagnosis: Infection, dehydration, metabolic abnormality, hypo/hyperglycemia, electrolyte disturbance, anemia, hypoxia, cardiac sources, intracerebral event, toxicologic, neurologic, as well as other pathologies. ER treatment provided: See below Diagnostics interpreted by me: ECG: EKG was obtained in the emergency department. My interpretation is normal sinus rhythm at 80 bpm. There is no ectopy. There is no acute ST segment abnormalities noted. This was compared to a tracing from November 01, 2019. No changes were noted. A second EKG was obtained in the emergency department. My interpretation is normal sinus rhythm at 73 bpm. There is no ectopy. There is no acute ST segment abnormalities noted. This was compared to the earlier tracing and no c hanges were found. Cardiac Monitoring: An order was placed for continuous cardiac monitoring. The monitor shows a rate of 72 bpm with sinus rhythm. Laboratory studies: As stated above and show below. Imaging studies: See below Consultation(s): I discussed this case with Shefali who is on-call for the [facility] hospitalist group I discussed this case with Dr. Alfaro who is on-call for gastroenterology. He does recommend that we continue the antibiotics and keep the patient n.p.o. after midnight so she can have an ERCP in the morning with her primary car stower. Past Med/Surg History Medical History Choledocholithiasis with chronic cholecystitis Choledocholithiasis with obstruction Contact dermatitis Diverticulitis Elevated LFTs HTN (hypertension) Pancreatitis due to common bile duct stone Surgical History S/P cholecystectomy Family History Father Stroke Mother Cirrhosis Brother Coronary heart disease Denies family history of Ovarian cancer Prostate cancer Myocardial infarction Breast cancer Colorectal cancer Social History Smoking Status: Never smoker Second Hand Exposure: Yes; Hx Alcohol Use: No Hx Substance Use: No Preferred Language: Persian Communication Ability: Effective Visual Impairment: No Limitations Hearing Ability: Normal Community Relations Police Lieutenant Required: No Beliefs That Will Affect Care: None marital status: / Current Living Situation: Alone current occupational status: retired current occupation: retired from [employer] Feels Safe at Home: Yes Childhood Exposure to Second-Hand Smoke: Yes Dental Care, Regularly: No Physical Activity Frequency: Does not Exercise Seatbelt Use: always Sunscreen Use: No Assistive Devices: None Allergies Allergies Allergy/AdvReac Type Severity Reaction Status Date / Time No Known Allergies Allergy Verified 01/06/22 15:53 Home Meds Previous Rx's Medication Instructions Recorded blood sugar diagnostic (OneTouch #100 ea 05/08/20 Ultra Blue Test Strip) blood-glucose meter (OneTouch #1 ea 05/08/20 Ultra2 Meter) lancets 33 gauge (OneTouch Delica #100 ea 05/08/20 Lancets) atorvastatin 40 mg tablet 40 mg PO QPM #90 tab 06/18/20 losartan 25 mg tablet 25 mg PO QAM #90 tab 06/18/20 cimetidine 400 mg tablet 400 mg PO BID #60 tab 08/17/20 linagliptin 5 mg tablet (Tradjenta) 5 mg PO DAILY #90 tab 03/09/21 celecoxib 100 mg capsule 100 mg PO BID #180 cap 05/06/21 metformin 500 mg tablet 1,000 mg PO BID #360 tab 05/06/21 levothyroxine 50 mcg tablet 50 mcg PO DAILYBB #90 tab 06/10/21 Shower Chair #1 ea 08/03/21 gabapentin 100 mg capsule 100 mg PO TID #90 cap 08/03/21 glimepiride 4 mg tablet 4 mg PO BID #60 tab 08/03/21 miscellaneous medical supply #1 ea 09/08/21 Results & Data (ED) Vital Signs Vital Signs - 24 hr 01/06/22 12:52 01/06/22 13:16 01/06/22 14:00 Temperature 37.1 C Temperature Source Oral Pulse Rate 85 Pulse Rate [Left] Pulse Rate from SpO2 Sensor Pulse Rhythm Regular Pulse Rhythm [Left] Pulse Strength Normal Pulse Strength [Left] Respiratory Rate 16 16 Respiratory Effort / Characteristics Non-Labored Spontaneous Non-Labored Spontaneous Respiratory Depth Normal Normal Respiratory Pattern Regular Blood Pressure 135/51 L Blood Pressure [Left Arm] 130/72 Blood Pressure Mean 79 Blood Pressure Mean [Left Arm] 91 Blood Pressure Position Lying Blood Pressure Position [Left Arm] Lying Pulse Oximetry 94 98 94 Oxygen Delivery Method Room Air Room Air Room Air Oxygen Flow Rate 0 Sepsis Recent Fever Within 48 Hours No Sepsis New/Unexplained Change in Mental Status N/A Sepsis Action Taken by Nursing No Action Required 01/06/22 15:06 01/06/22 15:31 01/06/22 16:30 Temperature Temperature Source Pulse Rate 73 73 Pulse Rate [Left] 74 76 Pulse Rate from SpO2 Sensor 72 Pulse Rhythm Pulse Rhythm [Left] Regular Regular Pulse Strength Pulse Strength [Left] Normal Respiratory Rate 16 18 19 Respiratory Effort / Characteristics Non-Labored Spontaneous Non-Labored Spontaneous Respiratory Depth Normal Normal Respiratory Pattern Regular Regular Blood Pressure 135/72 Blood Pressure [Left Arm] 134/64 135/72 Blood Pressure Mean 93 Blood Pressure Mean [Left Arm] 87 93 Blood Pressure Position Blood Pressure Position [Left Arm] Lying Semi-fowlers Pulse Oximetry 94 95 93 Oxygen Delivery Method Room Air Room Air Oxygen Flow Rate Sepsis Recent Fever Within 48 Hours Sepsis New/Unexplained Change in Mental Status Sepsis Action Taken by Nursing 01/06/22 17:00 Temperature Temperature Source Pulse Rate 72 Pulse Rate [Left] Pulse Rate from SpO2 Sensor 72 Pulse Rhythm Pulse Rhythm [Left] Pulse Strength Pulse Strength [Left] Respiratory Rate 18 Respiratory Effort / Characteristics Respiratory Depth Respiratory Pattern Blood Pressure 144/69 H Blood Pressure [Left Arm] Blood Pressure Mean 94 Blood Pressure Mean [Left Arm] Blood Pressure Position Blood Pressure Position [Left Arm] Pulse Oximetry 92 Oxygen Delivery Method Room Air Oxygen Flow Rate Sepsis Recent Fever Within 48 Hours Sepsis New/Unexplained Change in Mental Status Sepsis Action Taken by [facility] Medications Current Medication List: was personally reviewed by me Laboratory Data Attestation: I reviewed the patient's lab results. Result diagrams: 01/06/22 12:51 01/06/22 12:51 Lab Results 01/06/22 01/06/22 01/06/22 Range/Units 12:49 12:50 12:51 WBC (4.8-10.8) K/uL RBC (4.2-5.4) M/uL Hgb (12.0-16.0) g/dL Hct (37-47) % MCV (80-100) fL MCH (25-34) pg MCHC (32-36) g/dL RDW Std Deviation (36.4-46.3) fL RDW Coeff of Ping (11.5-14.5) % Plt Count (130-400) K/uL MPV (7.4-10.4) fL Immature Gran % (Auto) % Neut % (Auto) % Lymph % (Auto) % Clay % (Auto) % Eos % (Auto) % Baso % (Auto) % Neut # (Auto) (1.4-6.5) K/uL Lymph # (Auto) (1.2-3.4) K/uL Clay # (Auto) (0.11-0.59) K/uL Eos # (Auto) (0-0.5) K/uL Baso # (Auto) (0-0.2) K/uL Immature Gran # (Auto) (0.00-0.02) K/uL PT (9.0-12.0) Seconds INR (0.9-1.1) APTT (21.0-31.0) Seconds PTT Ratio Sodium (136-145) mmol/L Potassium (3.5-5.1) mmol/L Chloride (98-107) mmol/L Carbon Dioxide (21-32) mmol/L Anion Gap (3-11) BUN (6-23) mg/dl Creatinine (0.6-1.2) mg/dl Est Cr Clr Drug Dosing ml/min Est GFR ( Amer) ml/min Est GFR (Non-Af Amer) ml/min BUN/Creatinine Ratio (10-20) Glucose (70-99(Fasting)) mg/dl POC Glucose 373 H* 360 H* (70-99) mg/dl Calcium (8.5-10.1) mg/dl Magnesium (1.7-2.4) mg/dl Total Bilirubin (0.2-1.0) mg/dl Direct Bilirubin AST (13-39) U/L ALT (7-52) U/L Alkaline Phosphatase (34-104) U/L Total Creatine Kinase (26-192) U/L Troponin I High Sens 23.7 H (0-14) pg/ml Total Protein (6.0-8.3) gm/dl Albumin (3.4-5.0) gm/dl Globulin (2.5-4.0) gm/dl Albumin/Globulin Ratio (0.9-2) TSH (0.300-4.500) uIu/ml Free T4 (0.61-1.60) ng/dl Urine Color Urine Appearance (Clear) Urine pH (4.5-7.5) Ur Specific [place] (1.000-1.030) Urine Protein (Negative) Urine Glucose (UA) (Negative) Urine Ketones (Negative) Urine Blood (Negative) Urine Nitrite (Negative) Urine Bilirubin (Negative) Urine Urobilinogen (Negative) Ur Leukocyte Esterase (Negative) Urine WBC (Auto) (0-5) /hpf Urine RBC (Auto) (0-4) /hpf U Hyaline Cast (Auto) (0-5) /lpf U Epithel Cells (Auto) (0-5) /lpf Urine Bacteria (Auto) (Negative) SARS-CoV-2, RNA, NAAT (NEGATIVE) 01/06/22 01/06/22 01/06/22 Range/Units 12:51 12:51 12:51 WBC 7.10 (4.8-10.8) K/uL RBC 4.55 (4.2-5.4) M/uL Hgb 13.4 (12.0-16.0) g/dL Hct 40.1 (37-47) % MCV 88.1 (80-100) fL MCH 29.5 (25-34) pg MCHC 33.4 (32-36) g/dL RDW Std Deviation 44.8 (36.4-46.3) fL RDW Coeff of Ping 13.9 (11.5-14.5) % Plt Count 197 (130-400) K/uL MPV 12.5 H (7.4-10.4) fL Immature Gran % (Auto) 0.4 % Neut % (Auto) 89.5 % Lymph % (Auto) 2.5 % Clay % (Auto) 7.5 % Eos % (Auto) 0.0 % Baso % (Auto) 0.1 % Neut # (Auto) 6.35 (1.4-6.5) K/uL Lymph # (Auto) 0.18 L (1.2-3.4) K/uL Clay # (Auto) 0.53 (0.11-0.59) K/uL Eos # (Auto) 0.00 (0-0.5) K/uL Baso # (Auto) 0.01 (0-0.2) K/uL Immature Gran # (Auto) 0.03 H (0.00-0.02) K/uL PT 12.6 H (9.0-12.0) Seconds INR 1.2 H (0.9-1.1) APTT 25.6 (21.0-31.0) Seconds PTT Ratio 0.9 Sodium 130 L (136-145) mmol/L Potassium 3.9 (3.5-5.1) mmol/L Chloride 97 L (98-107) mmol/L Carbon Dioxide 19 L (21-32) mmol/L Anion Gap 14 H (3-11) BUN 14 (6-23) mg/dl Creatinine 1.00 (0.6-1.2) mg/dl Est Cr Clr Drug Dosing 46.7 ml/min Est GFR ( Amer) 59.9 ml/min Est GFR (Non-Af Amer) 51.7 ml/min BUN/Creatinine Ratio 14.0 (10-20) Glucose 365 H* (70-99(Fasting)) mg/dl POC Glucose (70-99) mg/dl Calcium 9.3 (8.5-10.1) mg/dl Magnesium 1.4 L (1.7-2.4) mg/dl Total Bilirubin 7.1 H (0.2-1.0) mg/dl Direct Bilirubin AST 166 H (13-39) U/L ALT 221 H (7-52) U/L Alkaline Phosphatase 614 H (34-104) U/L Total Creatine Kinase 11 L (26-192) U/L Troponin I High Sens (0-14) pg/ml Total Protein 6.1 (6.0-8.3) gm/dl Albumin 3.3 L (3.4-5.0) gm/dl Globulin 2.8 (2.5-4.0) gm/dl Albumin/Globulin Ratio 1.2 (0.9-2) TSH (0.300-4.500) uIu/ml Free T4 (0.61-1.60) ng/dl Urine Color Urine Appearance (Clear) Urine pH (4.5-7.5) Ur Specific [place] (1.000-1.030) Urine Protein (Negative) Urine Glucose (UA) (Negative) Urine Ketones (Negative) Urine Blood (Negative) Urine Nitrite (Negative) Urine Bilirubin (Negative) Urine Urobilinogen (Negative) Ur Leukocyte Esterase (Negative) Urine WBC (Auto) (0-5) /hpf Urine RBC (Auto) (0-4) /hpf U Hyaline Cast (Auto) (0-5) /lpf U Epithel Cells (Auto) (0-5) /lpf Urine Bacteria (Auto) (Negative) SARS-CoV-2, RNA, NAAT (NEGATIVE) 01/06/22 01/06/22 01/06/22 Range/Units 12:51 13:47 14:00 WBC (4.8-10.8) K/uL RBC (4.2-5.4) M/uL Hgb (12.0-16.0) g/dL Hct (37-47) % MCV (80-100) fL MCH (25-34) pg MCHC (32-36) g/dL RDW Std Deviation (36.4-46.3) fL RDW Coeff of Ping (11.5-14.5) % Plt Count (130-400) K/uL MPV (7.4-10.4) fL Immature Gran % (Auto) % Neut % (Auto) % Lymph % (Auto) % Clay % (Auto) % Eos % (Auto) % Baso % (Auto) % Neut # (Auto) (1.4-6.5) K/uL Lymph # (Auto) (1.2-3.4) K/uL Clay # (Auto) (0.11-0.59) K/uL Eos # (Auto) (0-0.5) K/uL Baso # (Auto) (0-0.2) K/uL Immature Gran # (Auto) (0.00-0.02) K/uL PT (9.0-12.0) Seconds INR (0.9-1.1) APTT (21.0-31.0) Seconds PTT Ratio Sodium (136-145) mmol/L Potassium (3.5-5.1) mmol/L Chloride (98-107) mmol/L Carbon Dioxide (21-32) mmol/L Anion Gap (3-11) BUN (6-23) mg/dl Creatinine (0.6-1.2) mg/dl Est Cr Clr Drug Dosing ml/min Est GFR ( Amer) ml/min Est GFR (Non-Af Amer) ml/min BUN/Creatinine Ratio (10-20) Glucose (70-99(Fasting)) mg/dl POC Glucose (70-99) mg/dl Calcium (8.5-10.1) mg/dl Magnesium (1.7-2.4) mg/dl Total Bilirubin (0.2-1.0) mg/dl Direct Bilirubin Cancelled AST (13-39) U/L ALT (7-52) U/L Alkaline Phosphatase (34-104) U/L Total Creatine Kinase (26-192) U/L Troponin I High Sens (0-14) pg/ml Total Protein (6.0-8.3) gm/dl Albumin (3.4-5.0) gm/dl Globulin (2.5-4.0) gm/dl Albumin/Globulin Ratio (0.9-2) TSH 6.495 H (0.300-4.500) uIu/ml Free T4 0.91 (0.61-1.60) ng/dl Urine Color Dark Yellow Urine Appearance Cloudy A (Clear) Urine pH 5.0 (4.5-7.5) Ur Specific [place] 1.020 (1.000-1.030) Urine Protein 1+ H (Negative) Urine Glucose (UA) 2+ H (Negative) Urine Ketones Trace H (Negative) Urine Blood Negative (Negative) Urine Nitrite Positive A (Negative) Urine Bilirubin 2+ H (Negative) Urine Urobilinogen Negative (Negative) Ur Leukocyte Esterase 1+ H (Negative) Urine WBC (Auto) 10-30 H (0-5) /hpf Urine RBC (Auto) 0-4 (0-4) /hpf U Hyaline Cast (Auto) 1-5 (0-5) /lpf U Epithel Cells (Auto) >30 H (0-5) /lpf Urine Bacteria (Auto) 4+ H (Negative) SARS-CoV-2, RNA, NAAT (NEGATIVE) 01/06/22 Range/Units 14:05 WBC (4.8-10.8) K/uL RBC (4.2-5.4) M/uL Hgb (12.0-16.0) g/dL Hct (37-47) % MCV (80-100) fL MCH (25-34) pg MCHC (32-36) g/dL RDW Std Deviation (36.4-46.3) fL RDW Coeff of Ping (11.5-14.5) % Plt Count (130-400) K/uL MPV (7.4-10.4) fL Immature Gran % (Auto) % Neut % (Auto) % Lymph % (Auto) % Clay % (Auto) % Eos % (Auto) % Baso % (Auto) % Neut # (Auto) (1.4-6.5) K/uL Lymph # (Auto) (1.2-3.4) K/uL Clay # (Auto) (0.11-0.59) K/uL Eos # (Auto) (0-0.5) K/uL Baso # (Auto) (0-0.2) K/uL Immature Gran # (Auto) (0.00-0.02) K/uL PT (9.0-12.0) Seconds INR (0.9-1.1) APTT (21.0-31.0) Seconds PTT Ratio Sodium (136-145) mmol/L Potassium (3.5-5.1) mmol/L Chloride (98-107) mmol/L Carbon Dioxide (21-32) mmol/L Anion Gap (3-11) BUN (6-23) mg/dl Creatinine (0.6-1.2) mg/dl Est Cr Clr Drug Dosing ml/min Est GFR ( Amer) ml/min Est GFR (Non-Af Amer) ml/min BUN/Creatinine Ratio (10-20) Glucose (70-99(Fasting)) mg/dl POC Glucose (70-99) mg/dl Calcium (8.5-10.1) mg/dl Magnesium (1.7-2.4) mg/dl Total Bilirubin (0.2-1.0) mg/dl Direct Bilirubin AST (13-39) U/L ALT (7-52) U/L Alkaline Phosphatase (34-104) U/L Total Creatine Kinase (26-192) U/L Troponin I High Sens (0-14) pg/ml Total Protein (6.0-8.3) gm/dl Albumin (3.4-5.0) gm/dl Globulin (2.5-4.0) gm/dl Albumin/Globulin Ratio (0.9-2) TSH (0.300-4.500) uIu/ml Free T4 (0.61-1.60) ng/dl Urine Color Urine Appearance (Clear) Urine pH (4.5-7.5) Ur Specific [place] (1.000-1.030) Urine Protein (Negative) Urine Glucose (UA) (Negative) Urine Ketones (Negative) Urine Blood (Negative) Urine Nitrite (Negative) Urine Bilirubin (Negative) Urine Urobilinogen (Negative) Ur Leukocyte Esterase (Negative) Urine WBC (Auto) (0-5) /hpf Urine RBC (Auto) (0-4) /hpf U Hyaline Cast (Auto) (0-5) /lpf U Epithel Cells (Auto) (0-5) /lpf Urine Bacteria (Auto) (Negative) SARS-CoV-2, RNA, NAAT NEGATIVE (NEGATIVE) Administered Medications Discontinued Medications Sodium Chloride (Nss) 500 mls @ 999 mls/hr IV .Q31M JOSELINE Stop: 01/06/22 14:30 Last Infusion: 01/06/22 15:10 Dose: 0 mls/hr Documented by: [id number] Admin: 01/06/22 14:26 Dose: 999 mls/hr Documented by: [id number] Piperacillin Sod/Tazobactam Sod (Zosyn) 4.5 gm in 120 mls @ 240 mls/hr IV NOW ONE Stop: 01/06/22 16:34 Last Admin: 01/06/22 16:23 Dose: 240 mls/hr Documented by: [id number] Ondansetron HCl (Ondansetron Inj 2 Mg/Ml 2 Ml Vial) 4 mg IV NOW STA Stop: 01/06/22 13:48 Last Admin: 01/06/22 14:26 Dose: 4 mg Documented by: [id number] Imaging Data Radiologist's Impression: Abdomen/Pelvis CT 01/06/22 13:47 CT OF THE ABDOMEN AND PELVIS WITHOUT CONTRAST CLINICAL HISTORY: Abdominal pain. COMPARISON STUDY: CT of the abdomen and pelvis May 24, 2015. MRCP May 25, 2015. TECHNIQUE: Axial images of the abdomen and pelvis were obtained without IV contrast. Images were reviewed in the axial, sagittal, and coronal planes. Automated exposure control was utilized for the study. A dose lowering technique was utilized adhering to the principles of ALARA. FINDINGS: Subpleural opacities within the lower lungs represent atelectasis. No pneumatosis, free air or portal venous gas is present. Evaluation of the abdomen and pelvis is suboptimal on this unenhanced exam. Gallbladder is surgically absent. Marked dilatation of the common bile duct, measuring 2 cm is noted. This is similar to prior CT of May 24, 2015. There is a large distal common bile duct calculus which measures 2 x 1.1 cm. There is no peripancreatic infiltration. No pancreatic ductal dilatation is present. A few pancreatic parenchymal calcifications are present. Water attenuation left renal lesion favors a cyst. There is no hydronephrosis. No evidence for a bowel obstruction. The appendix is normal. Sigmoid diverticulosis is noted without evidence for acute diverticulitis. Moderate amount stool within the colon is present. No acute fracture or suspicious lesion within the visualized skeletal structures. Small fat-containing ventral hernia is present. IMPRESSION: 1. Large distal common bile duct calculus which measures approximately 2 x 1.1 cm. Marked dilatation of the common bile duct, similar to prior CT. Moderate intrahepatic biliary ductal dilatation. No peripancreatic infiltration. 2. Moderate amount stool within the rectum. 3. Sigmoid diverticulosis. No evidence for acute diverticulitis. ACT 112: Negative or not required by law. Electronically signed by: Adriel Sesay M.D. 01/06/2022 3:56 PM Chest X-Ray 01/06/22 13:47 XR chest 1V portable CLINICAL HISTORY: Weakness. COMPARISON STUDY: Chest CT February 01, 2017. Chest radiograph November 01, 2019. FINDINGS: Lung volumes are normal. Lungs are clear. There is no pneumothorax or pleural effusion. Cardiac size is stable. Mediastinal contours are normal. There is no evidence for pulmonary edema. IMPRESSION: No acute cardiopulmonary findings. ACT 112: Negative or not required by law. Electronically signed by: Adriel Sesay M.D. 01/06/2022 2:[address] 01/06/22 13:47 CT OF THE HEAD WITHOUT CONTRAST CLINICAL HISTORY: weak COMPARISON STUDY: Head CT March 10, 2020. CT DOSE: 537.48 mGy.cm TECHNIQUE: Helical axial images of the head were obtained without IV contrast. Automated exposure control was utilized for the study. A dose lowering technique was utilized adhering to the principles of ALARA. FINDINGS: No acute intracranial hemorrhage, midline shift or mass effect is present. The ventricular system is stable. White matter hypodensities are unchanged. These reflect small vessel disease. The appearance of the brain is unchanged. The basal cisterns are patent. No extra-axial collections are present. There are no findings to suggest acute dural sinus thrombosis or acute territorial infarct. No significant calvarial abnormalities are present. Visualized portions of the sinuses and mastoid air cells are clear. IMPRESSION: No acute intracranial findings. No change in appearance of the brain. ACT 112: Negative or not required by law. Electronically signed by: Adriel Sesay M.D. 01/06/2022 3:39 PM Discharge Plan Visit Data Chief Complaint: Weakness ED Provider: Aaron Nash Discharge Problem: Obstructive jaundice, Biliary calculi, common bile duct, Generalized weakness, Urinary tract infection, Acute hyperglycemia Patient Disposition: Being Evaluated by Hospitalist Forms Stand Alone Forms: [facility] Prescriptions Prescriptions: No Action (DME) blood sugar diagnostic [OneTouch Ultra Blue Test Strip] Strip See Rx Instructions .ROUTE .MEDSUPPLY Qty: 100 RF: 3 (DME) blood-glucose meter [OneTouch Ultra2 Meter] Kit See Rx Instructions .ROUTE .MEDSUPPLY Qty: 1 RF: 0 (DME) lancets [OneTouch Delica Lancets] 33 gauge misc See Rx Instructions .ROUTE .MEDSUPPLY Qty: 100 RF: 3 losartan 25 mg tablet 25 mg PO QAM Qty: 90 RF: 3 atorvastatin 40 mg tablet 40 mg PO QPM Qty: 90 RF: 3 cimetidine 400 mg tablet 400 mg PO BID Qty: 60 RF: 5 Tradjenta 5 mg tablet 5 mg PO DAILY Qty: 90 RF: 3 metformin 500 mg tablet 1,000 mg PO BID Qty: 360 RF: 3 celecoxib 100 mg capsule 100 mg PO BID Qty: 180 RF: 3 levothyroxine 50 mcg tablet 50 mcg PO DAILYBB Qty: 90 RF: 3 (DME) miscellaneous medical supply Misc See Rx Instructions .Route Qty: 1 RF: 0 glimepiride 4 mg tablet 4 mg PO BID Qty: 60 RF: 5 gabapentin 100 mg capsule 100 mg PO TID Qty: 90 RF: 5 (DME) Shower Chair Misc See Rx Instructions .Route Qty: 1 RF: 0 Referrals Referrals: Jovanny Meehan III, MD [Primary Care Provider] -
[2022-01-06 14:45] LABS: Appearance Urine Cloudy (Clear); Bacteria Urine Automated 4+ (Negative); Blood Urine Negative (Negative); Color Urine Dark Yellow; Epithelial Cell Urine Auto >30 /lpf (0-5); Glucose Urine UA 2+ (Negative); Ketones Urine Trace (Negative); Leukocyte Esterase Urine 1+ (Negative); Nitrite Urine Positive (Negative); Protein Urine 1+ (Negative); Urobilinogen Urine Negative (Negative)
[2022-01-06 14:48] LABS: Basophils # (auto) 0.01 K/uL (0-0.2); Basophils % (auto) 0.1 %; Hematocrit (blood only) 40.1 % (37-47); Hemoglobin 13.4 g/dL (12.0-16.0); Immature Granulocytes # (auto) 0.03 K/uL (0.00-0.02); Immature Granulocytes % (auto) 0.4 %; Lymphocytes # (auto) 0.18 K/uL (1.2-3.4); Lymphocytes % (auto) 2.5 %; Mean Corpuscular Hemoglobin 29.5 pg (25-34); Mean Corpuscular Hgb Conc 33.4 g/dL (32-36); Mean Corpuscular Volume 88.1 fL (80-100); Mean Platelet Volume 12.5 fL (7.4-10.4); Monocytes # (auto) 0.53 K/uL (0.11-0.59); Monocytes % (auto) 7.5 %; Neutrophils # (auto) 6.35 K/uL (1.4-6.5); Neutrophils % (auto) 89.5 %; Platelet Count 197 K/uL (130-400); RDW Coefficient of Variation 13.9 % (11.5-14.5); RDW Standard Deviation 44.8 fL (36.4-46.3); Red Blood Count 4.55 M/uL (4.2-5.4)
[2022-01-06 14:54] LABS: Bilirubin Urine 2+ (Negative)
--- NOTE | 2022-01-06 14:54 | XRay Report ---
XR chest 1V portable CLINICAL HISTORY: Weakness. COMPARISON STUDY: Chest CT February 01, 2017. Chest radiograph November 01, 2019. FINDINGS: Lung volumes are normal. Lungs are clear. There is no pneumothorax or pleural effusion. Car diac size is stable. Mediastinal contours are normal. There is no evidence for pulmonary edema. IMPRESSION: No acute cardiopulmonary findings. ACT 112: Negative or not required by law. Electronically signed by: Adriel Sesay M.D. 01/06/2022 2:53 PM
[2022-01-06 14:59] LABS: Albumin Globulin Ratio 1.2 (0.9-2); Albumin Level 3.3 gm/dl (3.4-5.0); Bilirubin,Total 7.1 mg/dl (0.2-1.0); Calcium 9.3 mg/dl (8.5-10.1); Creatinine Clr Calc Pharmacy 46.7 ml/min; Est GFR (African American) 59.9 ml/min; Est GFR (Non-African American) 51.7 ml/min; Globulin 2.8 gm/dl (2.5-4.0); Magnesium 1.4 mg/dl (1.7-2.4); Potassium 3.9 mmol/L (3.5-5.1); Total Protein 6.1 gm/dl (6.0-8.3)
[2022-01-06 15:05] LABS: Thyroid Stimulating Hormone 6.495 uIu/ml (0.300-4.500)
[2022-01-06 15:14] LABS: RBC Urine Automated 0-4 /hpf (0-4)
--- NOTE | 2022-01-06 15:41 | CT Scan Report ---
CT OF THE HEAD WITHOUT CONTRAST CLINICAL HISTORY: weak COMPARISON STUDY: Head CT March 10, 2020. CT DOSE: 537.48 mGy.cm TECHNIQUE: Helical axial images of the head were obtained without IV contrast. Automated exposure con trol was utilized for the study. A dose lowering technique was utilized adhering to the principles o f ALARA. FINDINGS: No acute intracranial hemorrhage, midline shift or mass effect is present. The ventricular system is stable. White matter hypodensities are unchanged. These reflect small vessel disease. The a ppearance of the brain is unchanged. The basal cisterns are patent. No extra-axial collections are pr esent. There are no findings to suggest acute dural sinus thrombosis or acute territorial infarct. No significant calvarial abnormalities are present. Visualized portions of the sinuses and mastoid air cells are clear. IMPRESSION: No acute intracranial findings. No change in appearance of the brain. ACT 112: Negative or not required by law. Electronically signed by: Adriel Sesay M.D. 01/06/2022 3:39 PM
--- NOTE | 2022-01-06 15:58 | CT Scan Report ---
CT OF THE ABDOMEN AND PELVIS WITHOUT CONTRAST CLINICAL HISTORY: Abdominal pain. COMPARISON STUDY: CT of the abdomen and pelvis May 24, 2015. MRCP May 25, 2015. TECHNIQUE: Axial images of the abdomen and pelvis were obtained without IV contrast. Images were revi ewed in the axial, sagittal, and coronal planes. Automated exposure control was utilized for the shemar dy. A dose lowering technique was utilized adhering to the principles of ALARA. FINDINGS: Subpleural opacities within the lower lungs represent atelectasis. No pneumatosis, free air or portal venous gas is present. Evaluation of the abdomen and pelvis is suboptimal on this unenhanc ed exam. Gallbladder is surgically absent. Marked dilatation of the common bile duct, measuring 2 cm is noted. This is similar to prior CT of May 24, 2015. There is a large distal common bile duct calculus which measures 2 x 1.1 cm. There is no peripancreatic infiltration. No pancreatic ductal di latation is present. A few pancreatic parenchymal calcifications are present. Water attenuation left renal lesion favors a cyst. There is no hydronephrosis. No evidence for a bowel obstruction. The appe ndix is normal. Sigmoid diverticulosis is noted without evidence for acute diverticulitis. Moderate a mount stool within the colon is present. No acute fracture or suspicious lesion within the visualized skeletal structures. Small fat-containing ventral hernia is present. IMPRESSION: 1. Large distal common bile duct calculus which measures approximately 2 x 1.1 cm. Marked dilatation of the common bile duct, similar to prior CT. Moderate intrahepatic biliary ductal dilatation. No per ipancreatic infiltration. 2. Moderate amount stool within the rectum. 3. Sigmoid diverticulosis. No evidence for acute diverticulitis. ACT 112: Negative or not required by law. Electronically signed by: Adriel Sesay M.D. 01/06/2022 3:56 PM
[2022-01-06 15:59] LABS: T4 Free Thyroxine 0.91 ng/dl (0.61-1.60)
[2022-01-06] MEDS ORDERED: PIPERACILLIN/TAZOBACTAM 4.5 GM/120 ML BAG IV ONE (16:05)
[2022-01-06] MEDS ORDERED: PIPERACILL/TAZOBAC CONSULT ACTIVE PRN ×2 (16:05→21:09)
--- NOTE | 2022-01-06 17:22 | History & Physical Report ---
Date of Service January 06, 2022 Assessment & Plan (1) Biliary calculi, common bile duct: Plan: - With elevated LFTs, reportedly has a history of pancreatitis with gallstones, had GB removed and in [address] Anderson. - CT A/P: Large distal common bile duct calculus which measures approximately 2 x 1.1 cm. Marked dilatation of the common bile duct, similar to prior CT. Moderate intrahepatic biliary ductal dilatation. No peripancreatic infiltration. - GI consulted, plan for ERCP tomorrow, continue Zosyn and NPO at midnight. - LRs 80 cc/hr at midnight. (2) Urinary tract infection: Plan: - Based on UA, however sample with > 30 epithelial cells and patient does not have urinary symptoms. Weakness could be related to this or just due to lack of appetite, vomiting. She will be on Zosyn regardless for GI coverage, which will also treat for this. (3) Generalized weakness: (4) Type II diabetes mellitus, uncontrolled: Plan: - Hold glimepiride, metformin, linagliptin while inpatient. - Accucheks ACHS/q6h while NPO. - Received 6 units of regular insulin in ED for glucose of 365 - Based on weight, recommend 8 units regular insulin BID, however patient will be NPO after midnight so may only require half of this dose tomorrow AM. - Can recheck sugar this evening before bed and give sliding scale insulin. - Continue gabapentin for neuropathy. (5) HTN (hypertension): Plan: - Continue losartan 25 mg daily. (6) Hypercholesterolemia: Plan: - Continue atorvastatin daily. (7) Hypothyroidism: Plan: - Continue levothyroxine 50 mcg daily. (8) Esophageal reflux: Plan: - Continue cimetidine twice daily. (9) Low back pain: Plan: - Takes celebrex at home as needed, hold for tonight. (10) Steatohepatitis, nonalcoholic: Plan: - ADmit to med/surg with telemetry, - SCDs, Lovenox for DVT ppx. - Full Code. History of Present Illness Chief Complaint: general weakness, abdominal pain Primary Care Provider: Jovanny Meehan MD Mrs. Saravia is an 86-year-old female with past medical history of hypertension, hyperlipidemia, DM2, pancreatitis, HOLLIDAY, GERD, hypothyroidism who presents today with generalized weakness. Patient states she has had abdominal pain, nausea, and 2 episodes of vomiting over the past 2 days with decreased appetite. This morning, she was too weak to get out of bed, which prompted her presentation today for evaluation. Has a history fo gallstone pancreatitis, had her gallbladder removed and underwent ERCP in [address] Anderson. Besides symptoms aboe, she is otherwise without complaints, no fever/chills, weight loss, night sweats, chest pain, palpitations, focal weakness, numbness, tingling, SOB, cough, diarrhea, hematemesis, melena, hematochezia, or urinary symptoms. In ED, she is slightly hypertensive, otherwise vital signs within normal limits and stable. Labs significant for sodium 130 (corrects to 134 counting for glucose), bicarb 19, anion gap 14, magnesium 1.4, T bili 7.1, AST 66, ALT 221, alk phos 614, HS trop 23.7, TSH 6.45. UA sample with >30 epi cells's, positive for nitrate, WBC, bacteria, bilirubin. CT A/P showed a large distal common bile duct calculus which measures approximately 2 x 1.1 cm. Marked dilatation of the common bile duct, similar to prior CT. Moderate intrahepatic biliary ductal dilatation. No peripancreatic infiltration. Head CT without acute intracranial findings. No change in appearance of the brain. CXR showed no acute cardiopulmonary findings. Allergies Allergy/AdvReac Type Severity Reaction Status Date / Time No Known Allergies Allergy Verified 01/06/22 15:53 Home Medications Medication Instructions Recorded Confirmed Type blood sugar diagnostic (OneTouch #100 ea 05/08/20 08/03/21 Rx Ultra Blue Test Strip) blood-glucose meter (OneTouch #1 ea 05/08/20 08/03/21 Rx Ultra2 Meter) lancets 33 gauge (OneTouch Delica #100 ea 05/08/20 08/03/21 Rx Lancets) atorvastatin 40 mg tablet 40 mg PO QPM #90 tab 06/18/20 01/06/22 Rx losartan 25 mg tablet 25 mg PO QAM #90 tab 06/18/20 01/06/22 Rx cimetidine 400 mg tablet 400 mg PO BID #60 tab 08/17/20 01/06/22 Rx linagliptin 5 mg tablet (Tradjenta) 5 mg PO DAILY #90 tab 03/09/21 01/06/22 Rx celecoxib 100 mg capsule 100 mg PO BID #180 cap 05/06/21 01/06/22 Rx metformin 500 mg tablet 1,000 mg PO BID #360 tab 05/06/21 01/06/22 Rx levothyroxine 50 mcg tablet 50 mcg PO DAILYBB #90 tab 06/10/21 01/06/22 Rx Shower Chair #1 ea 08/03/21 08/03/21 Rx gabapentin 100 mg capsule 100 mg PO TID #90 cap 08/03/21 01/06/22 Rx glimepiride 4 mg tablet 4 mg PO BID #60 tab 08/03/21 01/06/22 Rx miscellaneous medical supply #1 ea 09/08/21 Rx Past Med/Surg History Medical History Choledocholithiasis with chronic cholecystitis Choledocholithiasis with obstruction Contact dermatitis Diverticulitis Elevated LFTs HTN (hypertension) Pancreatitis due to common bile duct stone Surgical History S/P cholecystectomy Family History Father Stroke Mother Cirrhosis Brother Coronary heart disease Denies family history of Ovarian cancer Prostate cancer Myocardial infarction Breast cancer Colorectal cancer Social History Smoking Status: Never smoker Second Hand Exposure: Yes; Hx Alcohol Use: No Hx Substance Use: No Preferred Language: Maori Communication Ability: Effective Visual Impairment: No Limitations Hearing Ability: Normal Crester Required: No Beliefs That Will Affect Care: None marital status: / Current Living Situation: Alone current occupational status: retired current occupation: retired from [employer] and [employer] houses Feels Safe at Home: Yes Childhood Exposure to Second-Hand Smoke: Yes Dental Care, Regularly: No Physical Activity Frequency: Does not Exercise Seatbelt Use: always Sunscreen Use: No Assistive Devices: None Review of Systems 2 Review of Systems: Constitutional: Generalized weakness today; No fever/chills, fatigue, myalgias, anorexia, night sweats Eyes: No diplopia, no worsening or blurred vision ENT: normal hearing, no trouble swallowing Respiratory: No cough, sputum, dyspnea at rest or on exertion Cardiovascular: No chest pain, tightness or palpitations Abdomen: persistent dull epigastric pain with bouts of sharp, stabbing pain with associated nausea, non bloody emesis x2, with constipation the past week; no diarrhea : Denies dysuria, hematuria, increased urgency/frequency, urinary retention Musculoskeletal: No joint pain, calf pain, swelling Neurologic: No weakness, numbness/tingling, or balance problems Psychiatric: No anxiety or depression Skin: No rash or itch Physical Exam Physical Exam: General: awake, alert, no apparent distress Head: Normocephalic, atraumatic ENT: PERRL, EOMI, no pharyngeal exudate, mucous membranes moist Chest: Clear to auscultation, on room air, no adventitious breath sounds Cardiac: Regular rate and rhythm, no murmur, no JVD, normal peripheral pulses, good capillary refill Abdominal: TTP in epigastric region without rebound tenderness; NABS x 4 quadrants, soft abdomen and otherwise nontender to palpation, no rebound, g uarding or tenderness Extremities: Normal inspection, no peripheral edema or erythema, calfs nontender to palpation Psych: Normal mood and affect, but is easily distracted and switches conversation to nonrelevant topics several times during my visit Neuro: AAO x 3, strength intact bilaterally and rated 5/5, no motor deficits, speech is clear, no peripheral sensory deficits Skin: no rash or erythema Results & Data Results & Data ([facility]) Vital Signs (Past 12 Hours) Vital Signs Temp Pulse Pulse Resp BP BP Pulse Ox 01/06/22 17:00 72 16 144/69 H 95 01/06/22 15:31 73 76 18 135/72 135/72 95 01/06/22 15:06 74 16 134/64 94 01/06/22 14:00 16 130/72 94 01/06/22 13:16 98 01/06/22 12:52 37.1 C 85 16 135/51 L 94 Laboratory Results Abnormal lab results 01/06/22 01/06/22 01/06/22 Range/Units 12:49 12:50 12:51 MPV (7.4-10.4) fL Lymph # (Auto) (1.2-3.4) K/uL Immature Gran # (Auto) (0.00-0.02) K/uL PT (9.0-12.0) Seconds INR (0.9-1.1) Sodium (136-145) mmol/L Chloride (98-107) mmol/L Carbon Dioxide (21-32) mmol/L Anion Gap (3-11) Glucose (70-99(Fasting)) mg/dl POC Glucose 373 H* 360 H* (70-99) mg/dl Magnesium (1.7-2.4) mg/dl Total Bilirubin (0.2-1.0) mg/dl AST (13-39) U/L ALT (7-52) U/L Alkaline Phosphatase (34-104) U/L Total Creatine Kinase (26-192) U/L Troponin I High Sens 23.7 H (0-14) pg/ml Albumin (3.4-5.0) gm/dl TSH (0.300-4.500) uIu/ml Urine Appearance (Clear) Urine Protein (Negative) Urine Glucose (UA) (Negative) Urine Ketones (Negative) Urine Nitrite (Negative) Urine Bilirubin (Negative) Ur Leukocyte Esterase (Negative) Urine WBC (Auto) (0-5) /hpf U Epithel Cells (Auto) (0-5) /lpf Urine Bacteria (Auto) (Negative) 01/06/22 01/06/22 01/06/22 Range/Units 12:51 12:51 12:51 MPV 12.5 H (7.4-10.4) fL Lymph # (Auto) 0.18 L (1.2-3.4) K/uL Immature Gran # (Auto) 0.03 H (0.00-0.02) K/uL PT 12.6 H (9.0-12.0) Seconds INR 1.2 H (0.9-1.1) Sodium 130 L (136-145) mmol/L Chloride 97 L (98-107) mmol/L Carbon Dioxide 19 L (21-32) mmol/L Anion Gap 14 H (3-11) Glucose 365 H* (70-99(Fasting)) mg/dl POC Glucose (70-99) mg/dl Magnesium 1.4 L (1.7-2.4) mg/dl Total Bilirubin 7.1 H (0.2-1.0) mg/dl AST 166 H (13-39) U/L ALT 221 H (7-52) U/L Alkaline Phosphatase 614 H (34-104) U/L Total Creatine Kinase 11 L (26-192) U/L Troponin I High Sens (0-14) pg/ml Albumin 3.3 L (3.4-5.0) gm/dl TSH (0.300-4.500) uIu/ml Urine Appearance (Clear) Urine Protein (Negative) Urine Glucose (UA) (Negative) Urine Ketones (Negative) Urine Nitrite (Negative) Urine Bilirubin (Negative) Ur Leukocyte Esterase (Negative) Urine WBC (Auto) (0-5) /hpf U Epithel Cells (Auto) (0-5) /lpf Urine Bacteria (Auto) (Negative) 01/06/22 01/06/22 Range/Units 12:51 14:00 MPV (7.4-10.4) fL Lymph # (Auto) (1.2-3.4) K/uL Immature Gran # (Auto) (0.00-0.02) K/uL PT (9.0-12.0) Seconds INR (0.9-1.1) Sodium (136-145) mmol/L Chloride (98-107) mmol/L Carbon Dioxide (21-32) mmol/L Anion Gap (3-11) Glucose (70-99(Fasting)) mg/dl POC Glucose (70-99) mg/dl Magnesium (1.7-2.4) mg/dl Total Bilirubin (0.2-1.0) mg/dl AST (13-39) U/L ALT (7-52) U/L Alkaline Phosphatase (34-104) U/L Total Creatine Kinase (26-192) U/L Troponin I High Sens (0-14) pg/ml Albumin (3.4-5.0) gm/dl TSH 6.495 H (0.300-4.500) uIu/ml Urine Appearance Cloudy A (Clear) Urine Protein 1+ H (Negative) Urine Glucose (UA) 2+ H (Negative) Urine Ketones Trace H (Negative) Urine Nitrite Positive A (Negative) Urine Bilirubin 2+ H (Negative) Ur Leukocyte Esterase 1+ H (Negative) Urine WBC (Auto) 10-30 H (0-5) /hpf U Epithel Cells (Auto) >30 H (0-5) /lpf Urine Bacteria (Auto) 4+ H (Negative) Diagnostic Findings Abdomen/Pelvis CT 01/06/22 13:47 CT OF THE ABDOMEN AND PELVIS WITHOUT CONTRAST CLINICAL HISTORY: Abdominal pain. COMPARISON STUDY: CT of the abdomen and pelvis May 24, 2015. MRCP May 25, 2015. TECHNIQUE: Axial images of the abdomen and pelvis were obtained without IV contrast. Images were reviewed in the axial, sagittal, and coronal planes. Automated exposure control was utilized for the study. A dose lowering technique was utilized adhering to the principles of ALARA. FINDINGS: Subpleural opacities within the lower lungs represent atelectasis. No pneumatosis, free air or portal venous gas is present. Evaluation of the abdomen and pelvis is suboptimal on this unenhanced exam. Gallbladder is surgically absent. Marked dilatation of the common bile duct, measuring 2 cm is noted. This is similar to prior CT of May 24, 2015. There is a large distal common bile duct calculus which measures 2 x 1.1 cm. There is no peripancreatic infiltration. No pancreatic ductal dilatation is present. A few pancreatic parenchymal calcifications are present. Water attenuation left renal lesion favors a cyst. There is no hydronephrosis. No evidence for a bowel obstruction. The appendix is normal. Sigmoid diverticulosis is noted without evidence for acute diverticulitis. Moderate amount stool within the colon is present. No acute fracture or suspicious lesion within the visualized skeletal structures. Small fat-containing ventral hernia is present. IMPRESSION: 1. Large distal common bile duct calculus which measures approximately 2 x 1.1 cm. Marked dilatation of the common bile duct, similar to prior CT. Moderate intrahepatic biliary ductal dilatation. No peripancreatic infiltration. 2. Moderate amount stool within the rectum. 3. Sigmoid diverticulosis. No evidence for acute diverticulitis. ACT 112: Negative or not required by law. Electronically signed by: Adriel Sesay M.D. 01/06/2022 3:56 PM Chest X-Ray 01/06/22 13:47 XR chest 1V portable CLINICAL HISTORY: Weakness. COMPARISON STUDY: Chest CT February 01, 2017. Chest radiograph November 01, 2019. FINDINGS: Lung volumes are normal. Lungs are clear. There is no pneumothorax or pleural effusion. Cardiac size is stable. Mediastinal contours are normal. There is no evidence for pulmonary edema. IMPRESSION: No acute cardiopulmonary findings. ACT 112: Negative or not required by law. Electronically signed by: Adriel Sesay M.D. 01/06/2022 2:[address] 01/06/22 13:47 CT OF THE HEAD WITHOUT CONTRAST CLINICAL HISTORY: weak COMPARISON STUDY: Head CT March 10, 2020. CT DOSE: 537.48 mGy.cm TECHNIQUE: Helical axial images of the head were obtained without IV contrast. Automated exposure control was utilized for the study. A dose lowering technique was utilized adhering to the principles of ALARA. FINDINGS: No acute intracranial hemorrhage, midline shift or mass effect is present. The ventricular system is stable. White matter hypodensities are unchanged. These reflect small vessel disease. The appearance of the brain is unchanged. The basal cisterns are patent. No extra-axial collections are present. There are no findings to suggest acute dural sinus thrombosis or acute territorial infarct. No significant calvarial abnormalities are present. Visualized portions of the sinuses and mastoid air cells are clear. IMPRESSION: No acute intracranial findings. No change in appearance of the brain. ACT 112: Negative or not required by law. Electronically signed by: Adriel Sesay M.D. 01/06/2022 3:39 PM ECG Additional Comments: Normal sinus rhythm Normal ECG When compared with ECG of 06-JAN-2022 12:47, (unconfirmed) No significant change was found. Code Status & VTE Plan Code Status Full Code. Supervising Physician Co-Signing Physician Notes I reviewed documentation and discussed with CLIVE. This is an 86-year-old female with past medical history of previous choledocholithiasis status post ERCP in 2014 that presents today with generalized weakness. Work-up in the emergency room revealed that the patient had a large common bile duct stone with extremely elevated LFTs. ER physician is already discussed with GI and there is tentative plan for ERCP in the morning. Follow laboratory work. Continue antibiotics as ordered. PG Care Time/CCT Total # of Minutes Spent Total Time Spent with Patient: Total time spent is greater than 50% in coordination of care (as documented) at patient's floor/unit and/or counseling patient: Coding Level of Care Code 70337 Initial Inpt Care Lvl 3 Diagnoses Type II diabetes mellitus, uncontrolled E11.65 Glycemic state: with hyperglycemia Steatohepatitis, nonalcoholic K75.81 Hypothyroidism E03.9 Hypothyroidism type: unspecified Esophageal reflux K21.9 Esophagitis presence: esophagitis presence not specified Hypercholesterolemia E78.00 Low back pain M54.5 HTN (hypertension) I10 Hypertension type: essential hypertension Biliary calculi, common bile duct K80.50 Generalized weakness R53.1 Urinary tract infection N39.0 Hematuria presence: without hematuria Urinary tract infection type: site unspecified (1) Urinary tract infection Hematuria presence: without hematuria Urinary tract infection type: site unspecified Qualified Code(s): N39.0 - Urinary tract infection, site not specified (2) Hypothyroidism Hypothyroidism type: unspecified Qualified Code(s): E03.9 - Hypothyroidism, unspecified (3) Type II diabetes mellitus, uncontrolled Glycemic state: with hyperglycemia Qualified Code(s): E11.65 - Type 2 diabetes mellitus with hyperglycemia (4) Esophageal reflux Esophagitis presence: esophagitis presence not specified Qualified Code(s): K21.9 - Gastro-esophageal reflux disease without esophagitis (5) HTN (hypertension) Hypertension type: essential hypertension Qualified Code(s): I10 - Essential (primary) hypertension
[2022-01-06] MEDS ORDERED: NovoLIN-R INSULIN PER UNIT CHARGE IV STA (18:01)
[2022-01-06] MEDS ORDERED: ACETAMINOPHEN 325 MG TAB PO PRN (21:09)
[2022-01-06] MEDS ORDERED: CARBOHYDRATES FOR HYPOGLYCEMIA PO PRN (21:09)
[2022-01-06] MEDS ORDERED: GLUCAGON FOR INJ 1 MG VIAL SQ PRN (21:09)
[2022-01-06] MEDS ORDERED: GLUCOSE 10 TABS/TUBE PO PRN (21:09)
[2022-01-06] MEDS ORDERED: POLYETHYLENE (MIRALAX) 17 GM PACK PO PRN (21:09)
[2022-01-06] MEDS ORDERED: GLUCOSE 40% GEL 15 GM TUBE PO PRN (21:09)
[2022-01-06] MEDS ORDERED: ONDANSETRON INJ 2 MG/ML 2 ML VIAL IV PRN (21:09)
[2022-01-06] MEDS ORDERED: DEXTROSE 50% 50 ML SYRINGE IV PRN (21:09)
[2022-01-06] MEDS ORDERED: PROMETHAZINE HCL 12.5 MG in SODIUM CHLORIDE 0.9% 50 ML IV PRN (21:09)
[2022-01-06] MEDS: MAGNESIUM SULFATE / D5W 1 GM/100 ML BAG IV SCH ×2 (21:40→23:53)
[2022-01-06] MEDS: GABAPENTIN 100 MG CAP PO SCH (21:40)
[2022-01-06] MEDS: INSULIN ASPART PER UNIT SC SCH (21:41)
[2022-01-06] MEDS ORDERED: INSULIN GLARGINE SOLOSTAR 100 UNITS/ML 3 ML PEN SC SCH (22:00)
[2022-01-06] MEDS: PIPERACILLIN/TAZOBACTAM 3.375 GM in DEXTROSE 5% 100 ML IV SCH (22:48)
[2022-01-06] MEDS: LACTATED RINGER'S 1,000 ML IV SCH (23:54)
[2022-01-07] MEDS: MAGNESIUM SULFATE / D5W 1 GM/100 ML BAG IV SCH (02:00)
[2022-01-07] MEDS: PIPERACILLIN/TAZOBACTAM 3.375 GM in DEXTROSE 5% 100 ML IV SCH ×3 (05:29→22:20)
[2022-01-07] MEDS: LEVOTHYROXINE SODIUM 50 MCG TABLET PO SCH (05:32)
--- NOTE | 2022-01-07 06:01 | Electrocardiogram Report ---
Test Reason : Blood Pressure : / mmHG Vent. Rate : 080 BPM Atrial Rate : 080 BPM P-R Int : 164 ms QRS Dur : 086 ms QT Int : 394 ms P-R-T Axes : 029 011 028 degrees QTc Int : 454 ms Normal sinus rhythm Normal ECG When compared with ECG of 01-NOV-2019 16:41, No significant change was found Confirmed by Lázaro Chapman ([id number]) on 01/07/2022 6:01:05 AM Referred By: REFERRED SELF Confirmed By:Lázaro Chapman
--- NOTE | 2022-01-07 06:08 | Electrocardiogram Report ---
Test Reason : Blood Pressure : / mmHG Vent. Rate : 073 BPM Atrial Rate : 073 BPM P-R Int : 148 ms QRS Dur : 092 ms QT Int : 406 ms P-R-T Axes : 024 025 035 degrees QTc Int : 447 ms Normal sinus rhythm Normal ECG When compared with ECG of 06-JAN-2022 12:47, No significant change was found Confirmed by Lázaro Chapman ([id number]) on 01/07/2022 6:08:08 AM Referred By: REFERRED SELF Confirmed By:Lázaro Chapman
[2022-01-07] MEDS ORDERED: PHARMACY GLYCEMIC MGMT CONSULT PRN (07:40)
[2022-01-07 08:25] LABS: Eosinophils # (auto) 0.02 K/uL (0-0.5); Eosinophils % (auto) 0.4 %; Hematocrit (blood only) 34.4 % (37-47); Hemoglobin 11.1 g/dL (12.0-16.0); Immature Granulocytes # (auto) 0.02 K/uL (0.00-0.02); Immature Granulocytes % (auto) 0.4 %; Lymphocytes # (auto) 0.76 K/uL (1.2-3.4); Lymphocytes % (auto) 14.4 %; Mean Corpuscular Hemoglobin 28.8 pg (25-34); Mean Corpuscular Hgb Conc 32.3 g/dL (32-36); Mean Corpuscular Volume 89.4 fL (80-100); Mean Platelet Volume 11.7 fL (7.4-10.4); Monocytes # (auto) 0.59 K/uL (0.11-0.59); Monocytes % (auto) 11.2 %; Neutrophils # (auto) 3.88 K/uL (1.4-6.5); Neutrophils % (auto) 73.6 %; Platelet Count 157 K/uL (130-400); RDW Standard Deviation 46.4 fL (36.4-46.3); Red Blood Count 3.85 M/uL (4.2-5.4); White Blood Count 5.27 K/uL (4.8-10.8)
[2022-01-07] MEDS ORDERED: INDOMETHACIN 50 MG SUPP PR ONE ×3 (08:58→10:00)
[2022-01-07] MEDS ORDERED: INSULIN GLARGINE SOLOSTAR 100 UNITS/ML 3 ML PEN SC SCH (09:00)
[2022-01-07] MEDS: GABAPENTIN 100 MG CAP PO SCH ×3 (09:00→20:22)
[2022-01-07 09:07] LABS: Albumin Level 2.8 gm/dl (3.4-5.0); BUN Creatinine Ratio 16.7 (10-20); Bilirubin,Total 3.8 mg/dl (0.2-1.0); Calcium 8.9 mg/dl (8.5-10.1); Creatinine Clr Calc Pharmacy 56.6 ml/min; Est GFR (Non-African American) 63.8 ml/min; Globulin 2.9 gm/dl (2.5-4.0); Magnesium 2.3 mg/dl (1.7-2.4); Potassium 3.7 mmol/L (3.5-5.1); Total Protein 5.7 gm/dl (6.0-8.3)
--- NOTE | 2022-01-07 09:08 | Gastrointestinal Consultation ---
Date of Consultation January 07, 2022 Assessment & Plan (1) Biliary calculi, common bile duct: Pt is a 86 yo female w symptoms of epigastric abd pain, n/v, jaundice, noted to have elevated LFTs and CT abd/pelvis showed distal CBD stone that's obstructive. Prior hx of cholecystectomy and choledocholithiasis requiring removal via ERCP - NPO - Continue Zosyn IV - ERCP in OR by Dr. Anderson today - Trend LFTs - Need daily bowel regimen such as Miralax 17g once to twice daily for constipation; Bisacodyl suppository prn - Symptomatic management otherwise Supervising Physician Co-Signing Physician Notes Patient presents with abdominal pain ongoing for 3 weeks but likely findings consistent with choledocholithiasis and imaging studies. ERCP has been requested for decompression of the biliary tree. Physical examination no obvious distress, mild scleral icterus Mild right upper quadrant tenderness Impression: Patient with abdominal pain and imaging consistent with choledocholithiasis. We are planning for ERCP today. We have discussed the risks and benefits of ERCP to include bleeding, infection, perforation, pain and need for follow-up studies on arrival and inability to cannulate the biliary tree. History of Present Illness Reason for Consultation: CBD stone, elevated LFTs Requesting Physician: Dr. Fredy Kumar Attending Physician: Dr. Austin Anderson History of Present Illness PT is a 86 yo female who presented to ED yesterday w c/o weakness, n/v, epigastric abd pain x 2 days. She had hx of gallstone pancreatitis ,hx of choledocholithiasis s/p ERCP removal last done in 2014. On evaluation, pt appears jaundiced. Labs showed hyponatremia 130, glucose 300s, no leukocytosis, LFTs elevated: Tbili 7, AST/ALT 66, 221, alk phos 600s. INR 1.2. CT abd/pelvis wo contrast showed large distal CBD stone 2 x 1.1cm, CBD dilation, moderate amt of stool in rectum Allergies Allergy/AdvReac Type Severity Reaction Status Date / Time No Known Allergies Allergy Verified 01/06/22 15:53 Home Medications Medication Instructions Recorded Confirmed Type blood sugar diagnostic ([employer] #100 ea 05/08/20 08/03/21 Rx Ultra Blue Test Strip) blood-glucose meter (OneTouch #1 ea 05/08/20 08/03/21 Rx Ultra2 Meter) lancets 33 gauge (OneTouch Delica #100 ea 05/08/20 08/03/21 Rx Lancets) atorvastatin 40 mg tablet 40 mg PO QPM #90 tab 06/18/20 01/06/22 Rx losartan 25 mg tablet 25 mg PO QAM #90 tab 06/18/20 01/06/22 Rx cimetidine 400 mg tablet 400 mg PO BID #60 tab 08/17/20 01/06/22 Rx linagliptin 5 mg tablet (Tradjenta) 5 mg PO DAILY #90 tab 03/09/21 01/06/22 Rx celecoxib 100 mg capsule 100 mg PO BID #180 cap 05/06/21 01/06/22 Rx metformin 500 mg tablet 1,000 mg PO BID #360 tab 05/06/21 01/06/22 Rx levothyroxine 50 mcg tablet 50 mcg PO DAILYBB #90 tab 06/10/21 01/06/22 Rx Shower Chair #1 ea 08/03/21 08/03/21 Rx gabapentin 100 mg capsule 100 mg PO TID #90 cap 08/03/21 01/06/22 Rx glimepiride 4 mg tablet 4 mg PO BID #60 tab 08/03/21 01/06/22 Rx miscellaneous medical supply #1 ea 09/08/21 Rx Patient History Medical History Choledocholithiasis with chronic cholecystitis Choledocholithiasis with obstruction Contact dermatitis Diverticulitis Elevated LFTs HTN (hypertension) Pancreatitis due to common bile duct stone Surgical History S/P cholecystectomy Family History Father Stroke Mother Cirrhosis Brother Coronary heart disease Denies family history of Ovarian cancer Prostate cancer Myocardial infarction Breast cancer Colorectal cancer Social History Smoking Status: Never smoker Second Hand Exposure: Yes; Hx Alcohol Use: Yes Alcohol type: beer Hx Substance Use: No Preferred Language: Korean Communication Ability: Effective Visual Impairment: No Limitations Hearing Ability: Normal Skeet Operator Required: No Beliefs That Will Affect Care: None marital status: / Current Living Situation: Alone current occupational status: retired current occupation: retired from [employer] and [employer] houses Feels Safe at Home: Yes Childhood Exposure to Second-Hand Smoke: Yes Dental Care, Regularly: No Physical Activity Frequency: Does not Exercise Seatbelt Use: always Sunscreen Use: No Assistive Devices: Walker Review of Systems Review of Systems: All systems reviewed & are unremarkable except as noted in HPI & below Physical Exam Constitutional: WD/WN, vitals as above well groomed, cooperative and comfortable Eyes: Jaundiced sclera ENMT: external ear and nose normal, oropharynx normal Respiratory: normal respiratory effort, lungs clear to auscultation Cardiovascular: RRR, no murmur, no edema Gastrointestinal (Abdomen): normal bowel sounds, soft, nontender, no hepatosplenomegaly Skin: no rashes, warm and dry + jaundice Psychiatric: A+Ox3, euthymic affect Lymphatic: no lymphedema Results & Data ([facility]) Vital Signs (Past 12 Hours) Vital Signs Temp Pulse Pulse Pulse Resp BP Pulse Ox 01/07/22 07:22 60 01/07/22 07:19 37.2 C 61 18 112/71 93 01/07/22 04:00 37.0 C 66 18 117/74 95 01/06/22 23:11 75 01/06/22 22:26 37.2 C 70 18 113/70 95 01/06/22 22:19 69 01/06/22 21:14 37.0 C 91 H 14 140/78 93
[2022-01-07] MEDS ORDERED: bisacodyL 10 MG SUPP PR PRN (09:16)
[2022-01-07] MEDS: INSULIN ASPART PER UNIT SC SCH ×7 (09:22→20:22)
--- NOTE | 2022-01-07 09:34 | Anesthesiology Consultation ---
Date of Service January 07, 2022 Assessment & Plan Chart Review Chart Review: Acceptable Risk for Surgery and Patient NOT seen in Pre Admission Testing Consults Requested none ASA ASA4 Proposed Anesthesia Anesthesia Type: General History Surgery Operation Date: 01/07/22 11:40 Proposed Procedures p Endoscopic Retrograde Cholangiopancreato - Austin Anderson DO Height/Weight Height: 5 ft 6 in Weight: 90.7 kg Allergies Allergy/AdvReac Type Severity Reaction Status Date / Time No Known Allergies Allergy Verified 01/06/22 15:53 Medications Home Medications Medication Instructions Recorded Confirmed Last Taken blood sugar diagnostic (OneTouch #100 ea 05/08/20 08/03/21 Unknown Ultra Blue Test Strip) blood-glucose meter (OneTouch #1 ea 05/08/20 08/03/21 Unknown Ultra2 Meter) lancets 33 gauge (OneTouch Delica #100 ea 05/08/20 08/03/21 Unknown Lancets) atorvastatin 40 mg tablet 40 mg PO QPM #90 tab 06/18/20 01/06/22 01/04/22 losartan 25 mg tablet 25 mg PO QAM #90 tab 06/18/20 01/06/22 01/04/22 cimetidine 400 mg tablet 400 mg PO BID #60 tab 08/17/20 01/06/22 01/04/22 linagliptin 5 mg tablet (Tradjenta) 5 mg PO DAILY #90 tab 03/09/21 01/06/22 01/04/22 celecoxib 100 mg capsule 100 mg PO BID #180 cap 05/06/21 01/06/22 01/04/22 metformin 500 mg tablet 1,000 mg PO BID #360 tab 05/06/21 01/06/22 01/04/22 levothyroxine 50 mcg tablet 50 mcg PO DAILYBB #90 tab 06/10/21 01/06/22 01/04/22 Shower Chair #1 ea 08/03/21 08/03/21 Unknown gabapentin 100 mg capsule 100 mg PO TID #90 cap 08/03/21 01/06/22 01/04/22 glimepiride 4 mg tablet 4 mg PO BID #60 tab 08/03/21 01/06/22 01/04/22 miscellaneous medical supply #1 ea 09/08/21 Unknown Active Medications Generic Name Dose Route Start Last Admin Trade Name Freq PRN Reason Stop Dose Admin Gabapentin 100 mg 01/06/22 21:09 01/06/22 21:40 Gabapentin 100 Mg Cap PO 02/05/22 21:08 100 mg TID JOSELINE Administration Piperacillin Sod/Tazobactam 115 mls @ 28.75 mls/hr 01/06/22 22:00 01/07/22 05:29 Sod 3.375 gm/ Dextrose IV 01/16/22 21:59 28.8 mls/hr Q8H JOSELINE Administration Protocol Lactated Ringer's 1,000 mls @ 80 mls/hr 01/07/22 00:01 01/06/22 23:54 Lr IV 02/06/22 00:00 80 mls/hr .[id number] JOSELINE Administration Insulin Aspart 0 units 01/06/22 21:09 01/07/22 09:22 Insulin Aspart Per Unit SC 02/05/22 21:08 5 units ACHS JOSELINE Administration Insulin Glargine 4 units 01/07/22 09:00 01/07/22 09:19 Insulin Glargine Solostar 100 Units/Ml 3 Ml Pen SC 02/06/22 08:59 4 units BID JOSELINE Administration Levothyroxine Sodium 50 mcg 01/07/22 06:30 01/07/22 05:32 Levothyroxine Sodium 50 Mcg Tablet PO 02/06/22 06:29 50 mcg DAILYBB JOSELINE Administration Past Medical History Medical History Choledocholithiasis with chronic cholecystitis Choledocholithiasis with obstruction Contact dermatitis Diverticulitis Elevated LFTs HTN (hypertension) Pancreatitis due to common bile duct stone Exercise / Class Metabolic Activity III < 4 Walking/Shop/Light housework Past Family History Family History Father Stroke Mother Cirrhosis Brother Coronary heart disease Denies family history of Ovarian cancer Prostate cancer Myocardial infarction Breast cancer Colorectal cancer Past Surgical History Surgical History S/P cholecystectomy Past Anesthesia History No Hx of Anesthesia Complications and No Family Hx of Anesthesia Complications History of PONV No Hx of PONV and No Hx of Motion Sickness Social History Smoking Status: Never smoker Hx Alcohol Use: Yes Alcohol type: beer alcohol intake frequency: holidays/special occasions only Hx Substance Use: No substance use type: does not use Physical Exam Vital Signs Last Vital Signs Temp 37.2 C 01/07/22 07:19 Pulse 60 01/07/22 07:22 Resp 18 01/07/22 07:19 BP 112/71 01/07/22 07:19 Pulse Ox 93 01/07/22 07:19 Testing Laboratory Results 01/07/22 07:55 01/07/22 07:55 PT 12.6 Seconds (9.0-12.0) H 01/06/22 12:51 INR 1.2 (0.9-1.1) H 01/06/22 12:51 APTT 25.6 Seconds (21.0-31.0) 01/06/22 12:51 Urine Color Dark Yellow 01/06/22 14:00 Urine Appearance Cloudy (Clear) A 01/06/22 14:00 Urine pH 5.0 (4.5-7.5) 01/06/22 14:00 Ur Specific Flora 1.020 (1.000-1.030) 01/06/22 14:00 Urine Protein 1+ (Negative) H 01/06/22 14:00 Urine Glucose (UA) 2+ (Negative) H 01/06/22 14:00 Urine Ketones Trace (Negative) H 01/06/22 14:00 Urine Nitrite Positive (Negative) A 01/06/22 14:00 Ur Leukocyte Esterase 1+ (Negative) H 01/06/22 14:00 Urine WBC (Auto) 10-30 /hpf (0-5) H 01/06/22 14:00 Urine RBC (Auto) 0-4 /hpf (0-4) 01/06/22 14:00 U Hyaline Cast (Auto) 1-5 /lpf (0-5) 01/06/22 14:00 U Epithel Cells (Auto) >30 /lpf (0-5) H 01/06/22 14:00 Urine Bacteria (Auto) 4+ (Negative) H 01/06/22 14:00 Electrocardiogram Date: 01/06/22 Findings: + NSR @ (at 75) Chest X-Ray Date: 01/06/22 Findings: + NAD
[2022-01-07] MEDS ORDERED: LIDOCAINE 2% 2 ML VIAL/AMP(20MG/ML) INFIL ONE (09:42)
[2022-01-07] MEDS ORDERED: SUCCINYLCHOLINE CHLORIDE 20 MG/ML 10 ML VIAL IV ONE (09:42)
[2022-01-07] MEDS ORDERED: ROCURONIUM BROMIDE 10 MG/ML 5 ML VIAL IV ONE (09:42)
[2022-01-07] MEDS ORDERED: PROPOFOL IV EMULSION 10 MG/ML 20 ML VIAL IV ONE (09:42)
[2022-01-07] MEDS: FAMOTIDINE 40 MG TABLET PO SCH (09:47)
[2022-01-07 09:51] LABS: Estimated Average Glucose 220 mg/dl; Hemoglobin A1C 9.3 % (4.5-5.6)
[2022-01-07] MEDS ORDERED: NALOXONE HCL 0.4 MG/1 ML VIAL/CARP IV PRN (09:51)
[2022-01-07] MEDS ORDERED: PROMETHAZINE HCL 12.5 MG in SODIUM CHLORIDE 0.9% 50 ML IV PRN (09:51)
[2022-01-07] MEDS ORDERED: ONDANSETRON INJ 2 MG/ML 2 ML VIAL IV PRN (09:51)
[2022-01-07] MEDS ORDERED: FLUMAZENIL 0.1 MG/1 ML 10 ML VIAL IV PRN (09:51)
[2022-01-07] MEDS ORDERED: ATROPINE SULFATE 0.1 MG/ML 10ML SYR IV PRN (09:51)
[2022-01-07] MEDS ORDERED: LABETALOL HCL IV 5 MG/ML 20ML IV PRN (09:51)
[2022-01-07] MEDS ORDERED: fentaNYL citrate 100 MCG/2 ML VIAL IV PRN (09:51)
[2022-01-07] MEDS ORDERED: ePHEDrine sulfate 50 MG/ML AMP IV PRN (09:51)
[2022-01-07] MEDS ORDERED: fentaNYL citrate 100 MCG/2 ML VIAL ONE (10:15)
--- NOTE | 2022-01-07 10:49 | Post Operative Brief Note ---
Immediate Post Op Note v1 Date of Surgery January 07, 2022 Pre & Post Diagnosis Operation Date: 01/07/22 11:40 Pre-Op Diagnosis: CBD STONES Post-Op Diagnosis: Biliaryh sludge I identified the patient and participated in the time-out.: Yes Procedure Operation Date: 01/07/22 11:40 Actual Procedures p Endoscopic Retrograde Cholangiopancreato with biliary dilation - Austin Anderson DO Surgeon Austin Anderson DO Diesel Inspector none Estimated Blood Loss 0 Findings Consistent with Post-Op Diagnosis
--- NOTE | 2022-01-07 11:03 | Fluoroscopy Report ---
[place] ERCP biliary ductal CLINICAL HISTORY: EXPLORE DUCTS. Distal common bile duct stone. COMPARISON STUDY: Abdomen and pelvis CT 12/29/2021. FLUOROSCOPY TIME: 30 seconds. FINDINGS: 11 fluoroscopic spot images of the right upper quadrant were submitted. The ampulla was can nulated and contrast was injected into the dilated bile ducts. Large filling defect within the distal common bile duct consistent with the patient's known stone. A balloon sweep was performed. Evidence for prior cholecystectomy. IMPRESSION: Fluoroscopic assistance provided for ERCP as described above. ACT 112: Negative or not required by law. Electronically signed by: Wood Gilbert M.D. 01/07/2022 11:01 AM
--- NOTE | 2022-01-07 11:14 | GI REPORT ---
Patient Name: Audrey Saravia Procedure Date: 01/07/2022 10:15 AM Date of : 1935 Admit Type: Inpatient Age: 86 Gender: Female Attending MD: Austin Anderson DO Procedure: ERCP Providers: Austin Anderson DO Referring MD: Fredy Kumar Md Indications: Abdominal pain of suspected biliary origin, For therapy of bile duct stone(s), Elevated liver enzymes Medicines: General Anesthesia Complications: No immediate complications. Estimated blood loss: Minimal. Estimated Blood Loss: Estimated blood loss was minimal. Procedure: Pre-Anesthesia Assessment: - Prior to the procedure, a History and Physical was performed, and patient medications, allergies and sensitivities were reviewed. The patient's tolerance of previous anesthesia was reviewed. - The risks and benefits of the procedure and the sedation options and risks were discussed with the patient. All questions were answered and informed consent was obtained. - Patient identification and proposed procedure were verified prior to the procedure by the physician, the nurse and the manager supply chain. The procedure was verified in the procedure room. - Pre-procedure physical examination revealed no contraindications to sedation. - ASA Grade Assessment: IV - A patient with severe systemic disease that is a constant threat to life. - After reviewing the risks and benefits, the patient was deemed in satisfactory condition to undergo the procedure. - The anesthesia plan was to use general anesthesia. - Immediately prior to administration of medications, the patient was re-assessed for adequacy to receive sedatives. - The heart rate, respiratory rate, oxygen saturations, blood pressure, adequacy of pulmonary ventilation, and response to care were monitored throughout the procedure. - The physical status of the patient was re-assessed after the procedure. After obtaining informed consent, the scope was passed under direct vision. Throughout the procedure, the patient's blood pressure, pulse, and oxygen saturations were monitored continuously. The Duodenoscope was introduced through the mouth, and advanced to the duodenum and used to inject contrast into the bile duct. The ERCP was accomplished without difficulty. The patient tolerated the procedure well. Findings: A card cutter helper film of the abdomen was obtained. Surgical clips, consistent with a previous cholecystectomy, were seen in the area of the right upper quadrant of the abdomen. The esophagus was successfully intubated under direct vision without detailed examination of the pharynx, larynx, and associated structures, and upper GI tract. The upper GI tract was grossly normal. The major papilla was located entirely within a diverticulum. A biliary sphincterotomy had been performed. The sphincterotomy appeared open. The bile duct was deeply cannulated with the short-nosed traction sphincterotome and guidewire (PD not cannulated or injected today). Contrast was injected. I personally interpreted the bile duct images. Contrast extended to the entire biliary tree. A long cystic duct stump originated in the in the biliary system. The main bile duct was moderately dilated. The largest diameter was 14 mm. The middle third of the main bile duct contained filling defect(s) thought to be sludge. The lower third of the main bile duct was successfully dilated with an 8 mm balloon dilator held inflated for 2 minutes. To discover objects, the biliary tree was swept with an 15 mm balloon, 18 mm balloon and 20 mm balloon starting at the bifurcation. Sludge was swept from the duct. The endoscope was withdrawn from the patient. The total fluoroscopy exposure time was 38 seconds. Indomethacin 100 mg was given via suppository to decrease the risk of post-ERCP pancreatitis (PEP). The endoscope was withdrawn from the patient. Impression: - The major papilla was located entirely within a diverticulum. - Prior biliary sphincterotomy appeared open. - The examination was suspicious for sludge. - The entire main bile duct was moderately dilated. - The patient has had a cholecystectomy. - The lower third of the main bile duct was successfully dilated to 8 mm. - The biliary tree was swept and sludge was found. - Indomethacin given to decrease risk of post-ERCP pancreatitis. Recommendation: - [facility]. - Clear liquid diet today. - Use broad spectrum antibiotics for 10 days. - Observe patient's clinical course following today's ERCP with therapeutic intervention. Austin Anderson D.O. Austin Anderson DO 01/07/2022 11:14:01 AM This report has been signed electronically. Note Initiated On: 01/07/2022 10:15 AM Number of Addenda: 0 I attest to the content of the Intraoperative Record and orders documented therein, exceptions below {[id number]}
--- NOTE | 2022-01-07 11:16 | Anesthesiology Progress Note ---
Date of Service January 07, 2022 Anesthesia Post Procedure Vital Signs Vital Signs: Temp Pulse Pulse Pulse Pulse Resp BP 01/07/22 11:05 65 18 01/07/22 10:55 64 19 01/07/22 10:45 36.8 C 65 25 H 01/07/22 09:41 37.2 C 61 18 01/07/22 07:22 60 01/07/22 07:19 37.2 C 61 18 01/07/22 04:00 37.0 C 66 18 01/06/22 23:11 75 01/06/22 22:26 37.2 C 70 18 01/06/22 22:19 69 01/06/22 21:14 37.0 C 91 H 14 01/06/22 18:00 68 20 152/85 H 01/06/22 17:00 72 18 144/69 H 01/06/22 16:30 73 19 01/06/22 15:31 73 76 18 135/72 01/06/22 15:06 74 16 01/06/22 14:00 16 01/06/22 13:16 01/06/22 12:52 37.1 C 85 16 135/51 L BP BP Pulse Ox 01/07/22 11:05 133/81 96 01/07/22 10:55 142/77 H 95 01/07/22 10:45 138/73 97 01/07/22 09:41 146/72 H 96 01/07/22 07:22 01/07/22 07:19 112/71 93 01/07/22 04:00 117/74 95 01/06/22 23:11 01/06/22 22:26 113/70 95 01/06/22 22:19 01/06/22 21:14 140/78 93 01/06/22 18:00 95 01/06/22 17:00 92 01/06/22 16:30 93 01/06/22 15:31 135/72 95 01/06/22 15:06 134/64 94 01/06/22 14:00 130/72 94 01/06/22 13:16 98 01/06/22 12:52 94 Transfer of Care Handoff Completed per policy Notes Mental Status: alert / awake / arousable Patient Amnestic to Procedure: Yes Nausea / Vomiting: adequately controlled Pain: adequately controlled Airway Patency, RR, SpO2: stable & adequate BP & HR: stable & adequate Hydration State: stable & adequate Anesthetic Complications: no major complications apparent
[2022-01-07] MEDS: LACTATED RINGER'S 1,000 ML IV SCH (12:35)
[2022-01-07] MEDS ORDERED: INSULIN GLARGINE SOLOSTAR 100 UNITS/ML 3 ML PEN SC ONE (12:45)
--- NOTE | 2022-01-07 13:11 | Pharmacy Report ---
Pharmacy Glycemic Short Note 2 - Date of Service January 07, 2022 - Glycemic Short BSG Results (Last 24 hours): 01/06/22 01/06/22 01/07/22 12:51 21:14 07:55 Glucose 365 H* 260 H POC Glucose 319 H* 01/07/22 01/07/22 01/07/22 09:46 10:52 12:04 Glucose POC Glucose 239 H 231 H 240 H OUTPATIENT ANTIDIABETIC REGIMEN: * Metformin 1000 mg PO BID * Linagliptin 5 mg PO daily * Glimepiride 4 mg PO BID * HbA1c: 9.3% (01/06/22) ASSESSMENT: * CB is an 86 year old female who presented to ED with generalized weakness * Patient subsequently found to have biliary calculi of common bile duct * s/p ERCP today * Initially NPO, now ordered clear liquid diet * Limited past inpatient data, but 18 units of Lantus with loose Novolog parameters proved to be inadequate in 2020 admission * Plan to work towards weight-based stress of Lantus dosing, but will be somewhat conservative initially given uncertainty in PO intake PLAN FOR INPATIENT GLYCEMIC CONTROL: * Hold outpatient oral diabetes medications * Basal insulin * Lantus 20 units SC today * Reassess in AM * Bolus insulin * NovoLog per scale ACHS or Q6hrs while NPO * Goal Range: Low 110 mg/dL - High 140 mg/dL * Correction Factor: 20 mg/dL/unit * Nutritional / Prandial insulin per carb ratio of 1 unit per 8 grams CHO consumed
--- NOTE | 2022-01-07 14:31 | Hospitalist Progress Note ---
Date of Service January 07, 2022 Assessment & Plan (1) Biliary calculi, common bile duct: Plan: - With elevated LFTs, reportedly has a history of pancreatitis with gallstones, had GB removed and in [address] Anderson. - CT A/P: Large distal common bile duct calculus which measures approximately 2 x 1.1 cm. Marked dilatation of the common bile duct, similar to prior CT. Moderate intrahepatic biliary ductal dilatation. No peripancreatic infiltration. - Stop IV fluids - s/p ERCP 01/07. Sludge seen. Clear liquids today. Broad spectrum antibiotics for 10 days. Will continue Zosyn for another 24 hours and switch to oral antibiotics. (2) Constipation: Plan: MiraLAX 17g TID until she has a large BM. All stool appears to be very distal therefore may benefit from enema is no BM by tomorrow. (3) Urinary tract infection: Plan: - Asymptomatic other than change in urine color which can be explained by her elevated bilirubin levels - Urine culture pending but no need to specifically cover for this. (4) Generalized weakness: Plan: Suspect due to obstructive jaundice. PT/OT evals. (5) Type II diabetes mellitus, uncontrolled: Plan: - Hold glimepiride, metformin, linagliptin while inpatient. - Accucheks ACHS/q6h while NPO. - Consult pharmacy for glycemic control in setting of elevated glucose values - Continue gabapentin for neuropathy. (6) HTN (hypertension): Plan: - Restart losartan 25 mg daily. (7) Hypercholesterolemia: Plan: - Continue atorvastatin daily. (8) Hypothyroidism: Plan: - Continue levothyroxine 50 mcg daily. (9) Esophageal reflux: Plan: - Continue cimetidine twice daily. 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 Disposition - Continue admission to med/surg with telemetry, PT/OT ordered Admission and Anticipated Discharge Date Admission Date: January 06, 2022 Subjective Patient seen after ERCP. Reports ongoing mild epigastric pain but much improved. No fever or chills. Reports not having a bowel movement for several weeks. No nausea and vomiting but she is passing gas today. Review of Systems Review of Systems: All systems reviewed & are unremarkable except as noted in Subjective Physical Exam Constitutional: WD/WN, vitals as above Neck: trachea midline, no thyromegaly Respiratory: normal respiratory effort, lungs clear to auscultation Cardiovascular: Rate/Rhythm: regular rate and regular rhythm Heart Sounds: + murmur (systolic) Extremities: normal capillary refill; no calf tenderness and no pedal edema Gastrointestinal (Abdomen): Inspection/Auscultation: normal bowel sounds Percussion/Palpation: abdomen soft; abdomen nontender, no guarding and abdomen not rigid Musculoskeletal: no cyanosis or clubbing, extremities motor strength 5/5 Skin: no rashes, warm and dry Neurologic: moves all extremities and awake; not confused Motor/Sensory: no pronator drift Psychiatric: A+Ox3, euthymic affect Results & Data Results & Data ([facility]) Vital Signs (Past 12 Hours) Vital Signs Temp Pulse Pulse Pulse Resp BP Pulse Ox 01/07/22 12:13 36.9 C 64 20 130/78 94 01/07/22 11:40 36.9 C 58 L 20 123/76 95 01/07/22 11:25 60 16 133/68 95 01/07/22 11:15 36.7 C 61 19 143/69 H 96 01/07/22 11:05 65 18 133/81 96 01/07/22 10:55 64 19 142/77 H 95 01/07/22 10:45 36.8 C 65 25 H 138/73 97 01/07/22 09:41 37.2 C 61 18 146/72 H 96 01/07/22 07:22 60 01/07/22 07:19 37.2 C 61 18 112/71 93 01/07/22 04:00 37.0 C 66 18 117/74 95 PG Care Time/CCT Total # of Minutes Spent Total Time Spent with Patient: Total time spent is greater than 50% in coordination of care (as documented) at patient's floor/unit and/or counseling patient: Coding Level of Care Code 51209 Subseq Hosp Care Lvl 3 Diagnoses Biliary calculi, common bile duct K80.50 Urinary tract infection N39.0 Hematuria presence: without hematuria Urinary tract infection type: site unspecified Generalized weakness R53.1 Type II diabetes mellitus, uncontrolled E11.65 Glycemic state: with hyperglycemia HTN (hypertension) I10 Hypertension type: essential hypertension Hypercholesterolemia E78.00 Hypothyroidism E03.9 Hypothyroidism type: unspecified Esophageal reflux K21.9 Esophagitis presence: esophagitis presence not specified Low back pain M54.5 Steatohepatitis, nonalcoholic K75.81 Constipation K59.00 (1) Urinary tract infection Hematuria presence: without hematuria Urinary tract infection type: site unspecified Qualified Code(s): N39.0 - Urinary tract infection, site not specified (2) Hypothyroidism Hypothyroidism type: unspecified Qualified Code(s): E03.9 - Hypothyroidism, unspecified (3) Type II diabetes mellitus, uncontrolled Glycemic state: with hyperglycemia Qualified Code(s): E11.65 - Type 2 diabetes mellitus with hyperglycemia (4) Esophageal reflux Esophagitis presence: esophagitis presence not specified Qualified Code(s): K21.9 - Gastro-esophageal reflux disease without esophagitis (5) HTN (hypertension) Hypertension type: essential hypertension Qualified Code(s): I10 - Essential (primary) hypertension
--- NOTE | 2022-01-07 16:30 | Communication Note ---
Date of Service: January 07, 2022 The patient underwent ERCP this afternoon. We did remove some stone and sludge material from the common bile duct. No biliary stent was needed for her. Recommendations Clear liquid diet today Advance diet as tolerated on Monday Antibiotic coverage for total of 10 days Please call with any questions or concerns GI to sign off
[2022-01-07] MEDS: ATORVASTATIN 40 MG TAB PO SCH (20:22)
[2022-01-07] MEDS: POLYETHYLENE (MIRALAX) 17 GM PACK PO SCH (20:23)
[2022-01-08] MEDS ORDERED: INSULIN ASPART PER UNIT SC SCH (02:00)
[2022-01-08] MEDS: PIPERACILLIN/TAZOBACTAM 3.375 GM in DEXTROSE 5% 100 ML IV SCH ×3 (05:20→21:36)
[2022-01-08] MEDS: LEVOTHYROXINE SODIUM 50 MCG TABLET PO SCH (05:21)
[2022-01-08] MEDS: GABAPENTIN 100 MG CAP PO SCH ×3 (07:25→21:35)
[2022-01-08] MEDS: FAMOTIDINE 40 MG TABLET PO SCH (07:25)
[2022-01-08] MEDS: POLYETHYLENE (MIRALAX) 17 GM PACK PO SCH ×3 (07:26→21:34)
[2022-01-08] MEDS: LOSARTAN POTASSIUM 25 MG TAB PO SCH (07:29)
[2022-01-08] MEDS: INSULIN ASPART PER UNIT SC SCH ×4 (08:21→21:34)
[2022-01-08] MEDS ORDERED: POLYETHYLENE (MIRALAX) 17 GM PACK PO SCH (09:00)
[2022-01-08] MEDS ORDERED: MINERAL OIL ENEMA 133 ML BTL PR ONE (09:15)
--- NOTE | 2022-01-08 09:21 | Hospitalist Progress Note ---
Date of Service January 08, 2022 Assessment & Plan (1) Biliary calculi, common bile duct: Plan: - With elevated LFTs, reportedly has a history of pancreatitis with gallstones, had GB removed and in [address] Anderson. - CT A/P: Large distal common bile duct calculus which measures approximately 2 x 1.1 cm. Marked dilatation of the common bile duct, similar to prior CT. Moderate intrahepatic biliary ductal dilatation. No peripancreatic infiltration. - s/p ERCP 01/07. Sludge seen. Clear liquids today. Broad spectrum antibiotics for 10 days. Continue Zosyn until tolerating normal diet, will consider switch to oral antibiotics tomorrow. (2) Constipation: Plan: MiraLAX 17g TID until she has a large BM. Mineral oil enema today. (3) Urinary tract infection: Plan: - Asymptomatic other than change in urine color which can be explained by her elevated bilirubin levels - - Urine culture with E. coli resistant to ampicillin, Unasyn and Bactrim however no specific reason to cover for this. (4) Generalized weakness: Plan: Suspect due to obstructive jaundice. PT/OT evals pending. (5) Type II diabetes mellitus, uncontrolled: Plan: - Hold glimepiride, metformin, linagliptin while inpatient. - HbA1c 9.3 -recommend close follow-up with her primary care provider on discharge. -Appreciate pharmacy management for glycemic control with insulin during inpatient stay. - Continue gabapentin for neuropathy. (6) HTN (hypertension): Plan: - Restarted losartan 25 mg daily today. (7) Hypercholesterolemia: Plan: - Continue atorvastatin daily. (8) Hypothyroidism: Plan: - Continue levothyroxine 50 mcg daily. (9) Esophageal reflux: Plan: - Continue cimetidine twice daily. 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 Disposition -stable for downgrade to Med/Surg, no abnormal rhythms on telemetry, PT/OT ordered Admission and Anticipated Discharge Date Admission Date: January 06, 2022 Subjective Reports still mild ongoing epigastric pain. Not yet had a bowel movement after increasing MiraLAX yesterday. She feels it is something that ready to come out. Mild nausea but tolerating clear liquids. Reports urinary frequency today but not prior. Review of Systems Review of Systems: All systems reviewed & are unremarkable except as noted in Subjective Physical Exam Constitutional: WD/WN, vitals as above Neck: trachea midline, no thyromegaly Respiratory: normal respiratory effort, lungs clear to auscultation Cardiovascular: Rate/Rhythm: regular rate and regular rhythm Heart Sounds: + murmur (systolic) Extremities: normal capillary refill; no calf tenderness and no pedal edema Gastrointestinal (Abdomen): Inspection/Auscultation: normal bowel sounds Percussion/Palpation: + abdomen tender (Mild epigastric) and abdomen soft; no guarding and abdomen not rigid Musculoskeletal: no cyanosis or clubbing, extremities motor strength 5/5 Skin: no rashes, warm and dry Neurologic: moves all extremities and awake; not confused Psychiatric: A+Ox3, euthymic affect Results & Data Results & Data ([facility]) Vital Signs (Past 12 Hours) Vital Signs Temp Pulse Pulse Pulse Resp BP Pulse Ox 01/08/22 08:08 37 C 75 20 185/82 H 92 01/08/22 07:54 58 L 01/08/22 03:31 36.6 C 66 16 149/84 H 97 01/08/22 03:28 54 L 01/07/22 23:47 36.9 C 58 L 14 131/66 96 PG Care Time/CCT Total # of Minutes Spent Total Time Spent with Patient: Total time spent is greater than 50% in coordination of care (as documented) at patient's floor/unit and/or counseling patient: Coding Level of Care Code 04114 Subseq Hosp Care Lvl 2 Diagnoses Biliary calculi, common bile duct K80.50 Constipation K59.00 Urinary tract infection N39.0 Hematuria presence: without hematuria Urinary tract infection type: site unspecified Generalized weakness R53.1 Type II diabetes mellitus, uncontrolled E11.65 Glycemic state: with hyperglycemia HTN (hypertension) I10 Hypertension type: essential hypertension Hypercholesterolemia E78.00 Hypothyroidism E03.9 Hypothyroidism type: unspecified Esophageal reflux K21.9 Esophagitis presence: esophagitis presence not specified Low back pain M54.5 Steatohepatitis, nonalcoholic K75.81 (1) Urinary tract infection Hematuria presence: without hematuria Urinary tract infection type: site unspecified Qualified Code(s): N39.0 - Urinary tract infection, site not sp ecified (2) Hypothyroidism Hypothyroidism type: unspecified Qualified Code(s): E03.9 - Hypothyroidism, unspecified (3) Type II diabetes mellitus, uncontrolled Glycemic state: with hyperglycemia Qualified Code(s): E11.65 - Type 2 diabetes mellitus with hyperglycemia (4) Esophageal reflux Esophagitis presence: esophagitis presence not specified Qualified Code(s): K21.9 - Gastro-esophageal reflux disease without esophagitis (5) HTN (hypertension) Hypertension type: essential hypertension Qualified Code(s): I10 - Essential (primary) hypertension
[2022-01-08 09:47] LABS: Albumin Globulin Ratio 0.9 (0.9-2); Albumin Level 2.9 gm/dl (3.4-5.0); BUN Creatinine Ratio 18.1 (10-20); Bilirubin,Total 2.4 mg/dl (0.2-1.0); Calcium 9.1 mg/dl (8.5-10.1); Est GFR (African American) 89.1 ml/min; Est GFR (Non-African American) 76.9 ml/min; Globulin 3.2 gm/dl (2.5-4.0); Potassium 3.8 mmol/L (3.5-5.1); Total Protein 6.1 gm/dl (6.0-8.3)
[2022-01-08] MEDS: INSULIN GLARGINE SOLOSTAR 100 UNITS/ML 3 ML PEN SC SCH (09:48)
[2022-01-08] MEDS: ENOXAPARIN INJ 40 MG/0.4 ML SYR SQ SCH (21:35)
[2022-01-08] MEDS: ATORVASTATIN 40 MG TAB PO SCH (21:35)
[2022-01-09] MEDS: PIPERACILLIN/TAZOBACTAM 3.375 GM in DEXTROSE 5% 100 ML IV SCH ×2 (06:29→13:20)
[2022-01-09] MEDS: LEVOTHYROXINE SODIUM 50 MCG TABLET PO SCH (06:30)
[2022-01-09] MEDS: LOSARTAN POTASSIUM 25 MG TAB PO SCH (08:13)
[2022-01-09] MEDS: POLYETHYLENE (MIRALAX) 17 GM PACK PO SCH ×3 (08:13→20:48)
[2022-01-09] MEDS: INSULIN GLARGINE SOLOSTAR 100 UNITS/ML 3 ML PEN SC SCH (08:14)
[2022-01-09] MEDS: FAMOTIDINE 40 MG TABLET PO SCH (08:14)
[2022-01-09] MEDS: GABAPENTIN 100 MG CAP PO SCH ×3 (08:14→20:49)
[2022-01-09] MEDS: INSULIN ASPART PER UNIT SC SCH ×4 (08:15→20:47)
[2022-01-09 08:18] LABS: Albumin Globulin Ratio 0.9 (0.9-2); Albumin Level 2.8 gm/dl (3.4-5.0); BUN Creatinine Ratio 14.5 (10-20); Bilirubin,Total 1.7 mg/dl (0.2-1.0); Calcium 8.7 mg/dl (8.5-10.1); Creatinine Clr Calc Pharmacy 76.6 ml/min; Est GFR (Non-African American) 82.8 ml/min; Potassium 3.7 mmol/L (3.5-5.1); Total Protein 5.8 gm/dl (6.0-8.3)
--- NOTE | 2022-01-09 09:36 | Pharmacy Report ---
Pharmacy Glycemic Short Note 2 - Date of Service January 09, 2022 - Glycemic Short BSG Results (Last 24 hours): 01/08/22 01/08/22 01/08/22 08:19 12:12 16:29 Glucose 161 H POC Glucose 226 H 190 H 01/08/22 01/09/22 01/09/22 20:40 07:23 07:34 Glucose 135 H POC Glucose 135 H 139 H OUTPATIENT ANTIDIABETIC REGIMEN: * Metformin 1000 mg PO BID * Linagliptin 5 mg PO daily * Glimepiride 4 mg PO BID * HbA1c: 9.3% (01/06/22) ASSESSMENT: 01/09/22: * BSGs have been fairly stable past ~24 hours. * If pre-lunch hyperglycemia continues to be the trend, will consider tightening the Novolog parameters with breakfast. * Fasting BSG appropriate, so no changes to Lantus for now. 01/07 * CB is an 86 year old female who presented to ED with generalized weakness * Patient subsequently found to have biliary calculi of common bile duct * s/p ERCP today * Initially NPO, now ordered clear liquid diet * Limited past inpatient data, but 18 units of Lantus with loose Novolog parameters proved to be inadequate in 2020 admission * Plan to work towards weight-based stress of Lantus dosing, but will be somewhat conservative initially given uncertainty in PO intake PLAN FOR INPATIENT GLYCEMIC CONTROL: * Hold outpatient oral diabetes medications * Basal insulin * Lantus 15 units SC daily * Bolus insulin * NovoLog per scale ACHS or Q6hrs while NPO * Goal Range: Low 100 mg/dL - High 140 mg/dL * Correction Factor: 20 mg/dL/unit * Nutritional / Prandial insulin per carb ratio of 1 unit per 8 grams CHO consumed
--- NOTE | 2022-01-09 17:29 | Hospitalist Progress Note ---
Date of Service January 09, 2022 Assessment & Plan (1) Biliary calculi, common bile duct: Plan: - With elevated LFTs, reportedly has a history of pancreatitis with gallstones, had GB removed and in [address] Anderson. - CT A/P: Large distal common bile duct calculus which measures approximately 2 x 1.1 cm. Marked dilatation of the common bile duct, similar to prior CT. Moderate intrahepatic biliary ductal dilatation. No peripancreatic infiltration. - s/p ERCP 01/07. Sludge seen. Advance diet as tolerated. Broad spectrum antibiotics for 10 days. Switch Zosyn to Augmentin today. (2) Constipation: Plan: Continue MiraLAX 17g TID unless having diarrhea as this appears to be what was causing much of her pain. (3) Urinary tract infection: Plan: - Asymptomatic other than change in urine color which can be explained by her elevated bilirubin levels - - Urine culture with E. coli resistant to ampicillin, Unasyn and Bactrim however Augmentin would cover this regardless (4) Generalized weakness: Plan: Suspect due to obstructive jaundice. PT/OT evals pending. (5) Type II diabetes mellitus, uncontrolled: Plan: - Hold glimepiride, metformin, linagliptin while inpatient. - HbA1c 9.3 -recommend close follow-up with her primary care provider on discharge. -Appreciate pharmacy management for glycemic control with insulin during inpatient stay. - Continue gabapentin for neuropathy. (6) HTN (hypertension): Plan: - Restarted losartan 25 mg daily today. (7) Hypercholesterolemia: Plan: - Continue atorvastatin daily. (8) Hypothyroidism: Plan: - Continue levothyroxine 50 mcg daily. (9) Esophageal reflux: Plan: - Continue cimetidine twice daily. 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 Disposition - continue on med/surg pending PT/OT evals, medically stable for discharge pending evaluations and possible need for rehab placement Admission and Anticipated Discharge Date Admission Date: January 06, 2022 Subjective Reports having a large BM after enema yesterday. Abdominal pain much improved after bowel movement and appetite increasing. Still feels very weak. Not yet had physical therapy. Review of Systems Review of Systems: All systems reviewed & are unremarkable except as noted in Subjective Physical Exam Constitutional: WD/WN, vitals as above Neck: trachea midline, no thyromegaly Respiratory: normal respiratory effort, lungs clear to auscultation Cardiovascular: Rate/Rhythm: regular rate and regular rhythm Heart Sounds: + murmur (systolic) Extremities: normal capillary refill; no calf tenderness and no pedal edema Gastrointestinal (Abdomen): Inspection/Auscultation: normal bowel sounds Percussion/Palpation: abdomen soft; abdomen nontender, no guarding and abdomen not rigid Musculoskeletal: no cyanosis or clubbing, extremities motor strength 5/5 Skin: no rashes, warm and dry Neurologic: moves all extremities and awake; not confused Psychiatric: A+Ox3, euthymic affect Results & Data Results & Data ([facility]) Vital Signs (Past 12 Hours) Vital Signs Temp Pulse Pulse Resp BP Pulse Ox 01/09/22 15:49 67 18 169/84 H 93 01/09/22 15:00 37.0 C 63 18 159/83 H 95 01/09/22 11:13 36.8 C 61 18 163/83 H 98 01/09/22 07:31 37.3 C 57 L 18 182/95 H 94 PG Care Time/CCT Total # of Minutes Spent Total Time Spent with Patient: Total time spent is greater than 50% in coordination of care (as documented) at patient's floor/unit and/or counseling patient: Coding Level of Care Code 49624 Subseq Hosp Care Lvl 2 Diagnoses Biliary calculi, common bile duct K80.50 Constipation K59.00 Urinary tract infection N39.0 Hematuria presence: without hematuria Urinary tract infection type: site unspecified Generalized weakness R53.1 Type II diabetes mellitus, uncontrolled E11.65 Glycemic state: with hyperglycemia HTN (hypertension) I10 Hypertension type: essential hypertension Hypercholesterolemia E78.00 Hypothyroidism E03.9 Hypothyroidism type: unspecified Esophageal reflux K21.9 Esophagitis presence: esophagitis presence not specified Low back pain M54.5 Steatohepatitis, nonalcoholic K75.81 (1) Urinary tract infection Hematuria presence: without hematuria Urinary tract infection type: site unspecified Qualified Code(s): N39.0 - Urinary tract infection, site not specified (2) Hypothyroidism Hypothyroidism type: unspecified Qualified Code(s): E03.9 - Hypothyroidism, unspecified (3) Type II diabetes mellitus, uncontrolled Glycemic state: with hyperglycemia Qualified Code(s): E11.65 - Type 2 diabetes mellitus with hyperglycemia (4) Esophageal reflux Esophagitis presence: esophagitis presence not specified Qualified Code(s): K21.9 - Gastro-esophageal reflux disease without esophagitis (5) HTN (hypertension) Hypertension type: essential hypertension Qualified Code(s): I10 - Essential (primary) hypertension
[2022-01-09] MEDS: ENOXAPARIN INJ 40 MG/0.4 ML SYR SQ SCH (20:48)
[2022-01-09] MEDS: ATORVASTATIN 40 MG TAB PO SCH (20:48)
[2022-01-10] MEDS: LEVOTHYROXINE SODIUM 50 MCG TABLET PO SCH (06:00)
[2022-01-10] MEDS: GABAPENTIN 100 MG CAP PO SCH ×3 (07:29→20:52)
[2022-01-10] MEDS: LOSARTAN POTASSIUM 25 MG TAB PO SCH (07:29)
[2022-01-10] MEDS: FAMOTIDINE 40 MG TABLET PO SCH (07:29)
[2022-01-10] MEDS: POLYETHYLENE (MIRALAX) 17 GM PACK PO SCH ×3 (07:30→21:00)
[2022-01-10] MEDS: INSULIN ASPART PER UNIT SC SCH ×3 (08:37→17:18)
[2022-01-10] MEDS: INSULIN GLARGINE SOLOSTAR 100 UNITS/ML 3 ML PEN SC SCH (08:38)
[2022-01-10 08:41] LABS: Albumin Globulin Ratio 0.9 (0.9-2); Albumin Level 3.2 gm/dl (3.4-5.0); BUN Creatinine Ratio 9.9 (10-20); Bilirubin,Total 1.7 mg/dl (0.2-1.0); Calcium 9.1 mg/dl (8.5-10.1); Creatinine Clr Calc Pharmacy 66.9 ml/min; Est GFR (African American) 90.7 ml/min; Est GFR (Non-African American) 78.2 ml/min; Globulin 3.4 gm/dl (2.5-4.0); Potassium 3.8 mmol/L (3.5-5.1); Total Protein 6.6 gm/dl (6.0-8.3)
[2022-01-10] MEDS ORDERED: LOSARTAN POTASSIUM 25 MG TAB PO ONE (16:05)
--- NOTE | 2022-01-10 16:12 | Hospitalist Progress Note ---
Date of Service January 10, 2022 Assessment & Plan (1) Biliary calculi, common bile duct: Plan: - With elevated LFTs, reportedly has a history of pancreatitis with gallstones, had GB removed and in [address] Anderson. - CT A/P: Large distal common bile duct calculus which measures approximately 2 x 1.1 cm. Marked dilatation of the common bile duct, similar to prior CT. Moderate intrahepatic biliary ductal dilatation. No peripancreatic infiltration. - s/p ERCP 01/07. Sludge seen. Advance diet as tolerated. Broad spectrum antibiotics for 10 days (switched to Augmentin). (2) Constipation: Plan: Continue MiraLAX 17g TID unless having diarrhea as this appears to be what was causing much of her pain. She also reports routinely taking Dulcolax therefore at this time tonight. (3) Urinary tract infection: Plan: - Asymptomatic other than change in urine color which can be explained by her elevated bilirubin levels - - Urine culture with E. coli resistant to ampicillin, Unasyn and Bactrim however Augmentin would cover this regardless (4) Generalized weakness: Plan: Suspect due to obstructive jaundice. PT/OT evals pending. (5) Type II diabetes mellitus, uncontrolled: Plan: - Hold glimepiride, metformin, linagliptin while inpatient. - HbA1c 9.3 -recommend close follow-up with her primary care provider on discharge. -Appreciate pharmacy management for glycemic control with insulin during inpatient stay. - Continue gabapentin for neuropathy. (6) HTN (hypertension): Plan: - Increase losartan to 50 mg p.o. daily due to persistently high blood pressure. Usually morbidity and mortality increases after discharge when increasing blood pressure medication during hospital stays however her systolic is consistently above 180 with a high of 210/86 today. Therefore feel this warrants an increase in her usual blood pressure medication. (7) Hypercholesterolemia: Plan: - Continue atorvastatin daily. (8) Hypothyroidism: Plan: - Continue levothyroxine 50 mcg daily. (9) Esophageal reflux: Plan: - Continue cimetidine twice daily. 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 Disposition - continue on med/surg pending PT/OT evals, medically stable for discharge pending evaluations and possible need for rehab placement Admission and Anticipated Discharge Date Admission Date: January 06, 2022 Subjective No abdominal pain. Having small bowel movements, reports normally taking a lot of MiraLAX and Dulcolax at bedtime to help with bowel movements at home. No nausea or vomiting. Not yet seen by physical therapy. Previous Occupational Therapy assessment depended on whether she was meeting goals. The patient currently does not feel ready to go home. Blood pressure has been elevated since ERCP. She only takes losartan 25 mg p.o. daily at home and has been restarted on that here. She does not know what her usual blood pressures run around at home. Review of Systems Review of Systems: All systems reviewed & are unremarkable except as noted in Subjective Physical Exam Constitutional: WD/WN, vitals as above Respiratory: normal respiratory effort, lungs clear to auscultation Cardiovascular: Rate/Rhythm: regular rate and regular rhythm Heart Sounds: + murmur (systolic) Gastrointestinal (Abdomen): Inspection/Auscultation: normal bowel sounds Percussion/Palpation: abdomen soft; abdomen nontender, no guarding and abdomen not rigid Neurologic: moves all extremities and awake; not confused Psychiatric: A+Ox3, euthymic affect Results & Data Results & Data ([facility]) Vital Signs (Past 12 Hours) Vital Signs Temp Pulse Resp BP BP Pulse Ox 01/10/22 16:03 188/82 H 174/82 H 01/10/22 15:09 36.8 C 65 18 210/83 H 97 01/10/22 11:01 36.6 C 62 20 166/80 H 99 01/10/22 08:50 66 176/77 H 01/10/22 07:55 36.8 C 65 20 191/94 H 99 PG Care Time/CCT Total # of Minutes Spent Total Time Spent with Patient: Total time spent is greater than 50% in coordination of care (as documented) at patient's floor/unit and/or counseling patient: Coding Level of Care Code 07544 Subseq Hosp Care Lvl 1 Diagnoses Biliary calculi, common bile duct K80.50 Constipation K59.00 Urinary tract infection N39.0 Hematuria presence: without hematuria Urinary tract infection type: site unspecified Generalized weakness R53.1 Type II diabetes mellitus, uncontrolled E11.65 Glycemic state: with hyperglycemia HTN (hypertension) I10 Hypertension type: essential hypertension Hypercholesterolemia E78.00 Hypothyroidism E03.9 Hypothyroidism type: unspecified Esophageal reflux K21.9 Esophagitis presence: esophagitis presence not specified Low back pain M54.5 Steatohepatitis, nonalcoholic K75.81 (1) Urinary tract infection Hematuria presence: without hematuria Urinary tract infection type: site unspecified Qualified Code(s): N39.0 - Urinary tract infection, site not specified (2) Type II diabetes mellitus, uncontrolled Glycemic state: with hyperglycemia Qualified Code(s): E11.65 - Type 2 diabetes mellitus with hyperglycemia (3) HTN (hypertension) Hypertension type: essential hypertension Qualified Code(s): I10 - Essential (primary) hypertension (4) Hypothyroidism Hypothyroidism type: unspecified Qualified Code(s): E03.9 - Hypothyroidism, unspecified (5) Esophageal reflux Esophagitis presence: esophagitis presence not specified Qualified Code(s): K21.9 - Gastro-esophageal reflux disease without esophagitis
[2022-01-10] MEDS: AMOXICILLIN/CLAVULANATE 875 MG TAB PO SCH (18:31)
[2022-01-10] MEDS: ATORVASTATIN 40 MG TAB PO SCH (20:52)
[2022-01-10] MEDS: ENOXAPARIN INJ 40 MG/0.4 ML SYR SQ SCH (20:53)
[2022-01-10] MEDS: bisacodyL 5 MG TABEC PO SCH (20:56)
[2022-01-10] MEDS ORDERED: INSULIN ASPART PER UNIT SC SCH (21:00)
[2022-01-11] MEDS: LEVOTHYROXINE SODIUM 50 MCG TABLET PO SCH (05:45)
[2022-01-11] MEDS: INSULIN ASPART PER UNIT SC SCH (08:25)
[2022-01-11] MEDS: INSULIN GLARGINE SOLOSTAR 100 UNITS/ML 3 ML PEN SC SCH (08:26)
[2022-01-11] MEDS: GABAPENTIN 100 MG CAP PO SCH ×3 (08:26→20:18)
[2022-01-11] MEDS: AMOXICILLIN/CLAVULANATE 875 MG TAB PO SCH ×2 (08:27→16:52)
[2022-01-11] MEDS: FAMOTIDINE 40 MG TABLET PO SCH (08:27)
[2022-01-11] MEDS: metFORMIN HCL 500 MG TAB PO SCH ×2 (08:28→16:51)
[2022-01-11] MEDS: GLIMEPIRIDE 2 MG TAB PO SCH ×2 (08:28→16:51)
[2022-01-11] MEDS: LOSARTAN POTASSIUM 50 MG TAB PO SCH (08:28)
[2022-01-11] MEDS: POLYETHYLENE (MIRALAX) 17 GM PACK PO SCH ×3 (08:28→20:17)
[2022-01-11 09:00] LABS: Albumin Level 3.1 gm/dl (3.4-5.0); BUN Creatinine Ratio 11.6 (10-20); Bilirubin,Total 1.4 mg/dl (0.2-1.0); Creatinine Clr Calc Pharmacy 68.7 ml/min; Est GFR (African American) 92.6 ml/min; Est GFR (Non-African American) 79.9 ml/min; Globulin 3.2 gm/dl (2.5-4.0); Potassium 3.9 mmol/L (3.5-5.1); Total Protein 6.3 gm/dl (6.0-8.3)
--- NOTE | 2022-01-11 10:41 | Pharmacy Report ---
Pharmacy Glycemic Short Note 2 - Date of Service January 11, 2022 - Glycemic Short BSG Results (Last 24 hours): 01/10/22 01/10/22 01/10/22 11:29 16:51 20:12 Glucose POC Glucose 163 H 172 H 157 H 01/11/22 01/11/22 07:48 07:49 Glucose 145 H POC Glucose 143 H OUTPATIENT ANTIDIABETIC REGIMEN: * Metformin 1000 mg PO BID * Linagliptin 5 mg PO daily * Glimepiride 4 mg PO BID * HbA1c: 9.3% (01/06/22) ASSESSMENT: 01/11/22 * Patient received total of 33 units of insulin yesterday, of which 15 units were basal insulin * Fasting BSG 143 mg/dL - appropriate to continue same basal * Home glimepiride and metformin started this morning per provider request. Pharmacy does not carry tradjenta. I loosened CR slightly this AM with addition of oral medications, will follow and possibly remove carb coverage if BSGs trending downward 01/09/22: * BSGs have been fairly stable past ~24 hours. * If pre-lunch hyperglycemia continues to be the trend, will consider tightening the Novolog parameters with breakfast. * Fasting BSG appropriate, so no changes to Lantus for now. 01/07 * CB is an 86 year old female who presented to ED with generalized weakness * Patient subsequently found to have biliary calculi of common bile duct * s/p ERCP today * Initially NPO, now ordered clear liquid diet * Limited past inpatient data, but 18 units of Lantus with loose Novolog parameters proved to be inadequate in 2020 admission * Plan to work towards weight-based stress of Lantus dosing, but will be somewhat conservative initially given uncertainty in PO intake PLAN FOR INPATIENT GLYCEMIC CONTROL: * Resumed home metformin 1 gm bid and glimepiride 4 mg bid on 53 AM * Basal insulin * Lantus 15 units SC daily * Bolus insulin * NovoLog per scale ACHS or Q6hrs while NPO * Goal Range: Low 110 mg/dL - High 140 mg/dL * Correction Factor: 30 mg/dL/unit * Nutritional / Prandial insulin per carb ratio of 1 unit per 10 grams CHO consumed
--- NOTE | 2022-01-11 12:23 | Hospitalist Progress Note ---
Date of Service January 11, 2022 Assessment & Plan (1) Biliary calculi, common bile duct: Plan: - With elevated LFTs, reportedly has a history of pancreatitis with gallstones, had GB removed and in [address] Anderson. - CT A/P: Large distal common bile duct calculus which measures approximately 2 x 1.1 cm. Marked dilatation of the common bile duct, similar to prior CT. Moderate intrahepatic biliary ductal dilatation. No peripancreatic infiltration. - s/p ERCP 01/07. Sludge seen. Advance diet as tolerated. Broad spectrum antibiotics for 10 days (switched to Augmentin). (2) Constipation: Plan: Continue MiraLAX 17g TID unless having diarrhea as this appears to be what was causing much of her pain. Dulcolax 10mg PO HS PRN to maintain BM every 1-2 days. (3) Urinary tract infection: Plan: - Asymptomatic other than change in urine color which can be explained by her elevated bilirubin levels - - Urine culture with E. coli resistant to ampicillin, Unasyn and Bactrim however Augmentin would cover this regardless. (4) Generalized weakness: Plan: Suspect due to obstructive jaundice. PT/OT evals recommending inpatient rehab. (5) Type II diabetes mellitus, uncontrolled: Plan: - Hold glimepiride, metformin, linagliptin while inpatient. - HbA1c 9.3 -recommend close follow-up with her primary care provider on discharge. -Appreciate pharmacy management for glycemic control with insulin during inpatient stay - will restart on her usual diabetic oral medications tomorrow and watch her glucose values while on this. - Continue gabapentin for neuropathy. (6) HTN (hypertension): Plan: - Increased losartan to 50 mg p.o. daily due to persistently high blood pressure. Usually morbidity and mortality increases after discharge when increasing blood pressure medication during hospital stays however her systolic is consistently above 180 with a high of 210/86 yesterday. Therefore feel this warrants an increase in her usual blood pressure medication -> possible need to go up to 100mg but recommend slow increase. (7) Hypercholesterolemia: Plan: - Continue atorvastatin daily. (8) Hypothyroidism: Plan: - Continue levothyroxine 50 mcg daily. (9) Esophageal reflux: Plan: - Continue cimetidine twice daily. 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 Disposition - continue on med/surg, medically stable for discharge pending inpatient rehab placement Admission and Anticipated Discharge Date Admission Date: January 06, 2022 Subjective No abdominal pain. PT recommending rehabilitation and patient is amenable to this. No nausea, vomiting. Having loose stools after Dulcolax added yesterday. Review of Systems Review of Systems: All systems reviewed & are unremarkable except as noted in Subjective Physical Exam Constitutional: WD/WN, vitals as above Respiratory: normal respiratory effort, lungs clear to auscultation Cardiovascular: Rate/Rhythm: regular rate and regular rhythm Heart Sounds: + murmur (systolic) Gastrointestinal (Abdomen): Inspection/Auscultation: normal bowel sounds Percussion/Palpation: abdomen soft; abdomen nontender, no guarding and abdomen not rigid Psychiatric: A+Ox3, euthymic affect Results & Data Results & Data ([facility]) Vital Signs (Past 12 Hours) Vital Signs Temp Pulse Resp BP Pulse Ox 01/11/22 07:13 36.9 C 57 L 18 191/93 H 97 PG Care Time/CCT Total # of Minutes Spent Total Time Spent with Patient: Total time spent is greater than 50% in coordination of care (as documented) at patient's floor/unit and/or counseling patient: Coding Level of Care Code 20957 Subseq Hosp Care Lvl 1 Diagnoses Biliary calculi, common bile duct K80.50 Constipation K59.00 Urinary tract infection N39.0 Hematuria presence: without hematuria Urinary tract infection type: site unspecified Generalized weakness R53.1 Type II diabetes mellitus, uncontrolled E11.65 Glycemic state: with hyperglycemia HTN (hypertension) I10 Hypertension type: essential hypertension Hypercholesterolemia E78.00 Hypothyroidism E03.9 Hypothyroidism type: unspecified Esophageal reflux K21.9 Esophagitis presence: esophagitis presence not specified Low back pain M54.5 Steatohepatitis, nonalcoholic K75.81 (1) Urinary tract infection Hematuria presence: without hematuria Urinary tract infection type: site unspecified Qualified Code(s): N39.0 - Urinary tract infection, site not specified (2) Hypothyroidism Hypothyroidism type: unspecified Qualified Code(s): E03.9 - Hypothyroidism, unspecified (3) Type II diabetes mellitus, uncontrolled Glycemic state: with hyperglycemia Qualified Code(s): E11.65 - Type 2 diabetes mellitus with hyperglycemia (4) Esophageal reflux Esophagitis presence: esophagitis presence not specified Qualified Code(s): K21.9 - Gastro-esophageal reflux disease without esophagitis (5) HTN (hypertension) Hypertension type: essential hypertension Qualified Code(s): I10 - Essential (primary) hypertension
[2022-01-11] MEDS: bisacodyL 5 MG TABEC PO SCH (20:19)
[2022-01-11] MEDS: ATORVASTATIN 40 MG TAB PO SCH (20:19)
[2022-01-11] MEDS: ENOXAPARIN INJ 40 MG/0.4 ML SYR SQ SCH (20:22)
[2022-01-12] MEDS: LEVOTHYROXINE SODIUM 50 MCG TABLET PO SCH (05:57)
--- NOTE | 2022-01-12 08:00 | Hospitalist Progress Note ---
Date of Service January 12, 2022 Assessment & Plan (1) Biliary calculi, common bile duct: Plan: With elevated LFTs, reportedly has a history of pancreatitis with gallstones, had GB removed and in [address] Anderson. On admission, CT A/P: * Large distal common bile duct calculus which measures approximately 2 x 1.1 cm. Marked dilatation of the common bile duct, similar to prior CT. Moderate intrahepatic biliary ductal dilatation. No peripancreatic infiltration. S/p ERCP 01/07. Sludge seen. Advance diet as tolerated. Broad spectrum antibiotics for 10 days (switched to Augmentin) -- to complete course 01/18 after AM dose. Will check cdiff given diarrhea today on abx. Already gone 3-4x this morning. No abd pain reported PT/OT rec SNF vs 03/04 care. CM following. Discussed with daughter/patient, will plan for SNF Depending on timing for SNF, may complete abx while inpatient. Monitor (2) Constipation: Plan: Was scheduled MiraLAX 17g TID unless having diarrhea as this appears to be what was causing much of her pain and added dulcolax HS to maintain BM Multiple BM. WIll hold further bowel regimen. Check cdiff for completeness but suspect just had been constipated initially Resume daily miralax in AM if bowels slow to maintain as long as cdiff negative (3) Urinary tract infection: Plan: Asymptomatic other than change in urine color which can be explained by her elevated bilirubin levels - Urine culture with E. coli resistant to ampicillin, Unasyn and Bactrim however Augmentin would cover this regardless, however interesting resistant to ampicillin No urinary sx reported Monitor (4) Generalized weakness: Plan: Suspect due to obstructive jaundice. Check B12 in AM TSH elevated but 2nd to stress/infection --> repeat outpt PT/OT evals recommending inpatient rehab. (5) Type II diabetes mellitus, uncontrolled: Plan: Held glimepiride, metformin, linagliptin while inpatient. HbA1c 9.3 -recommend close follow-up with her primary care provider on discharge. Appreciate pharmacy management --> resumed her usual diabetic medications to allow to monitor for lows while inpatient Continue gabapentin for neuropathy but check B12 with AM labs (6) HTN (hypertension): Plan: Increased losartan to 50 mg p.o. daily due to persistently high blood pressure, currently 180/79 Usually morbidity and mortality increases after discharge when increasing blood pressure medication during hospital stays however her systolic is consistently above 180 with a high of 210/86 yesterday. Therefore feel this warrants an increase in her usual blood pressure medication -> possible need to go up to 100mg but recommend slow increase. Consider adding amlodipine daily but did have drop in BP yesterday afternoon and hold off increasing dose for now CT head negative 01/06 No hx CVA but could consider daily ASA (7) Hypercholesterolemia: Plan: Continue atorvastatin daily. (8) Hypothyroidism: Plan: Continue levothyroxine 50 mcg daily. TSH elevated on admit but Ft4 wnl (TSH was 6.495), could be reactive due to above but rec close f/u PCP and repeat as outpatient to prevent further constipation issues --> Also recommended she take this in the mornings rather than at night although she did note she "took on empty stomach" at night (9) Esophageal reflux: Plan: - Continue cimetidine twice daily. 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 Disposition - continue on med/surg, medically stable for discharge pending inpatient rehab placement Admission and Anticipated Discharge Date Admission Date: January 06, 2022 Supervising Physician Co-Signing Physician Notes PA Supervision Note: I did not personally see or examine the patient today, but I verified all carrion points of ANA Buchanan's assessment and plan with the following exceptions/additions: None Subjective Patient evaluated this morning. Was anxious for DC. Multiple loose BM and she didn't realize she had to go until she had to go. Discussed holding further stool softeners for now. She reported no abdominal pain but slightly tender to epigastric region on exam. Eating/drinking no issue reported. Initially discussed PT/OT recs for SNF, she didn't want to stay longer. She lives alone, daughter local but unable to be there 03/04. Discussed SNF best option if unable to have family be there with her. CM spoke with daughter who spoke with patient and all now in agreement for SNF. Bed available next week. No fever, chills, chest pain, shortness of breath, abdominal pain, nausea or vomiting at this time. She does note she takes her synthroid in the evening with cholesterol medication. Discussed this should be in the morning on empty stomach and should have outpatient PCP repeat labs in 4-6 weeks. Review of Systems Review of Systems: All systems reviewed & are unremarkable except as noted in HPI & below Physical Exam Physical Exam: General: WN/WD female, sitting up in chair, NAD HEENT: head normocephalic atraumatic, mmm Resp: CTAB, no w/c/r, on room air CV: RRR, +systolic murmur, no edema, pulses palpable GI: +BS, minimal tenderness epigastric region, no guarding/rebound : no l[place] MSK/Neuro: moves all extremities, follows commands, CN intact grossly, strength Psych: AOX3, intermittent forgetfulness, but was able to give year/month/location, impulsive Results & Data Results & Data ([facility]) Vital Signs (Past 12 Hours) Vital Signs Temp Pulse Resp BP Pulse Ox 01/12/22 07:39 36.9 C 59 L 16 180/79 H 97 01/11/22 21:20 36.5 C 58 L 16 182/77 H 96 Laboratory Results 01/12/22 01/12/22 01/12/22 Range/Units 11:47 08:11 08:07 Sodium 139 (136-145) mmol/L Potassium 3.8 (3.5-5.1) mmol/L Chloride 105 (98-107) mmol/L Carbon Dioxide 29 (21-32) mmol/L Anion Gap 5 (3-11) BUN 8 (6-23) mg/dl Creatinine 0.68 (0.6-1.2) mg/dl Est Cr Clr Drug Dosing 68.6 ml/min Est GFR ( Amer) 93.1 ml/min Est GFR (Non-Af Amer) 80.3 ml/min BUN/Creatinine Ratio 11.8 (10-20) Glucose 85 (70-99(Fasting)) mg/dl POC Glucose 125 H 88 (70-99) mg/dl Calcium 8.9 (8.5-10.1) mg/dl Magnesium 1.8 (1.7-2.4) mg/dl Total Bilirubin 1.3 H (0.2-1.0) mg/dl Direct Bilirubin 0.5 H (0-0.2) mg/dl AST 41 H (13-39) U/L ALT 54 H (7-52) U/L Alkaline Phosphatase 368 H (34-104) U/L Total Protein 6.5 (6.0-8.3) gm/dl Albumin 3.1 L (3.4-5.0) gm/dl 01/11/22 01/11/22 Range/Units 20:32 16:52 Sodium (136-145) mmol/L Potassium (3.5-5.1) mmol/L Chloride (98-107) mmol/L Carbon Dioxide (21-32) mmol/L Anion Gap (3-11) BUN (6-23) mg/dl Creatinine (0.6-1.2) mg/dl Est Cr Clr Drug Dosing ml/min Est GFR ( Amer) ml/min Est GFR (Non-Af Amer) ml/min BUN/Creatinine Ratio (10-20) Glucose (70-99(Fasting)) mg/dl POC Glucose 120 H 162 H (70-99) mg/dl Calcium (8.5-10.1) mg/dl Magnesium (1.7-2.4) mg/dl Total Bilirubin (0.2-1.0) mg/dl Direct Bilirubin (0-0.2) mg/dl AST (13-39) U/L ALT (7-52) U/L Alkaline Phosphatase (34-104) U/L Total Protein (6.0-8.3) gm/dl Albumin (3.4-5.0) gm/dl PG Care Time/CCT Total # of Minutes Spent Total Time Spent with Patient: Total time spent is greater than 50% in coordination of care (as documented) at patient's floor/unit and/or counseling patient: Coding Level of Care Code 51188 Subseq Hosp Care Lvl 2 Diagnoses Biliary calculi, common bile duct K80.50 Constipation K59.00 Urinary tract infection N39.0 Hematuria presence: without hematuria Urinary tract infection type: site unspecified Generalized weakness R53.1 Type II diabetes mellitus, uncontrolled E11.65 Glycemic state: with hyperglycemia HTN (hypertension) I10 Hypertension type: essential hypertension Hypercholesterolemia E78.00 Hypothyroidism E03.9 Hypothyroidism type: unspecified Esophageal reflux K21.9 Esophagitis presence: esophagitis presence not specified Low back pain M54.5 Steatohepatitis, nonalcoholic K75.81 (1) Urinary tract infection Hematuria presence: without hematuria Urinary tract infection type: site unspecified Qualified Code(s): N39.0 - Urinary tract infection, site not specified (2) Hypothyroidism Hypothyroidism type: unspecified Qualified Code(s): E03.9 - Hypothyroidism, unspecified (3) Type II diabetes mellitus, uncontrolled Glycemic state: with hyperglycemia Qualified Code(s): E11.65 - Type 2 diabetes mellitus with hyperglycemia (4) Esophageal reflux Esophagitis presence: esophagitis presence not specified Qualified Code(s): K21.9 - Gastro-esophageal reflux disease without esophagitis (5) HTN (hypertension) Hypertension type: essential hypertension Qualified Code(s): I10 - Essential (primary) hypertension
[2022-01-12] MEDS: LOSARTAN POTASSIUM 50 MG TAB PO SCH (08:28)
[2022-01-12] MEDS: GABAPENTIN 100 MG CAP PO SCH ×3 (08:28→20:05)
[2022-01-12] MEDS: GLIMEPIRIDE 2 MG TAB PO SCH ×2 (08:28→16:27)
[2022-01-12] MEDS: FAMOTIDINE 40 MG TABLET PO SCH (08:28)
[2022-01-12] MEDS: metFORMIN HCL 500 MG TAB PO SCH ×2 (08:28→16:27)
[2022-01-12] MEDS: AMOXICILLIN/CLAVULANATE 875 MG TAB PO SCH ×2 (08:29→16:28)
[2022-01-12] MEDS: POLYETHYLENE (MIRALAX) 17 GM PACK PO SCH ×2 (08:31→14:03)
[2022-01-12 09:03] LABS: Albumin Level 3.1 gm/dl (3.4-5.0); BUN Creatinine Ratio 11.8 (10-20); Bilirubin Direct 0.5 mg/dl (0-0.2); Bilirubin,Total 1.3 mg/dl (0.2-1.0); Calcium 8.9 mg/dl (8.5-10.1); Creatinine Clr Calc Pharmacy 68.6 ml/min; Est GFR (African American) 93.1 ml/min; Est GFR (Non-African American) 80.3 ml/min; Magnesium 1.8 mg/dl (1.7-2.4); Potassium 3.8 mmol/L (3.5-5.1); Total Protein 6.5 gm/dl (6.0-8.3)
[2022-01-12] MEDS ORDERED: hydrALAZINE HCL 20 MG/ML VIAL IV PRN (19:07)
[2022-01-12] MEDS: ENOXAPARIN INJ 40 MG/0.4 ML SYR SQ SCH (20:05)
[2022-01-12] MEDS: ATORVASTATIN 40 MG TAB PO SCH (20:05)
[2022-01-13] MEDS: LEVOTHYROXINE SODIUM 50 MCG TABLET PO SCH (05:38)
[2022-01-13 06:12] LABS: Hematocrit (blood only) 39.8 % (37-47); Hemoglobin 12.9 g/dL (12.0-16.0); Mean Corpuscular Hemoglobin 28.9 pg (25-34); Mean Corpuscular Hgb Conc 32.4 g/dL (32-36); Mean Platelet Volume 10.6 fL (7.4-10.4); Platelet Count 245 K/uL (130-400); RDW Coefficient of Variation 14.1 % (11.5-14.5); RDW Standard Deviation 45.8 fL (36.4-46.3); Red Blood Count 4.47 M/uL (4.2-5.4); White Blood Count 4.14 K/uL (4.8-10.8)
[2022-01-13 06:45] LABS: Albumin Level 3.1 gm/dl (3.4-5.0); BUN Creatinine Ratio 10.1 (10-20); Bilirubin Direct 0.4 mg/dl (0-0.2); Bilirubin,Total 1.2 mg/dl (0.2-1.0); Calcium 9.1 mg/dl (8.5-10.1); Creatinine Clr Calc Pharmacy 67.6 ml/min; Est GFR (African American) 92.6 ml/min; Est GFR (Non-African American) 79.9 ml/min; Potassium 3.7 mmol/L (3.5-5.1); Total Protein 6.3 gm/dl (6.0-8.3)
[2022-01-13] MEDS: GABAPENTIN 100 MG CAP PO SCH ×3 (08:32→20:43)
[2022-01-13] MEDS: metFORMIN HCL 500 MG TAB PO SCH ×2 (08:32→17:27)
[2022-01-13] MEDS: GLIMEPIRIDE 2 MG TAB PO SCH ×2 (08:32→17:27)
[2022-01-13] MEDS: LOSARTAN POTASSIUM 50 MG TAB PO SCH (08:33)
[2022-01-13] MEDS: FAMOTIDINE 40 MG TABLET PO SCH (08:33)
[2022-01-13] MEDS: AMOXICILLIN/CLAVULANATE 875 MG TAB PO SCH ×2 (08:33→17:27)
--- NOTE | 2022-01-13 08:51 | Hospitalist Progress Note ---
Date of Service January 13, 2022 Assessment & Plan (1) Biliary calculi, common bile duct: Plan: With elevated LFTs, reportedly has a history of pancreatitis with gallstones, had GB removed and in [address] Anderson. On admission, CT A/P: * Large distal common bile duct calculus which measures approximately 2 x 1.1 cm. Marked dilatation of the common bile duct, similar to prior CT. Moderate intrahepatic biliary ductal dilatation. No peripancreatic infiltration. S/p ERCP with sludge noted on 01/07 Broad spectrum antibiotics for 10 days (switched to Augmentin) -- to complete course 01/18 after AM dose. Tolerating diet LFTs improving, remains afebrile BMs slowed, no further diarrhea and backed off bowel regimen. No abdominal pain reported PT/OT rec SNF vs 03/04 care. CM following. Discussed with daughter/patient, will plan for SNF however patient is doing better with therapy and discussed if able to re-eval/daughter able to assist over weekend could consider moving forward with home health. CM to discuss (2) Constipation: Plan: Scheduled MiraLAX 17g TID, held for diarrhea day prior Can use prn and dulcolax HS to maintain BM as needed if no BM 1-2 days (3) Urinary tract infection: Plan: Asymptomatic other than change in urine color which can be explained by her elevated bilirubin levels - Urine culture with E. coli resistant to ampicillin, Unasyn and Bactrim however Augmentin would cover this regardless, however interesting resistant to ampicillin No urinary sx reported, assisted to bathroom this morning, clear urine in toilet Monitor (4) Generalized weakness: Plan: Improving Suspect due to obstructive jaundice. B12 wnl, TSH elevated but likely 2nd to stress/infection on admission and rec repeating 4-6weeks as outpatient with PCP PT/OT rec rehab, but will have continued eval/see about home with home health as she is reporting stronger and ambulated for me much better today (5) Type II diabetes mellitus, uncontrolled: Plan: Held glimepiride, metformin, linagliptin while inpatient initially HbA1c 9.3 Appreciate pharmacy management --> resumed her usual diabetic medications to allow to monitor for lows while inpatient BSGs acceptable on home regimen which has been resumed Continue gabapentin for neuropathy -recommend close follow-up with her primary care provider on discharge. (6) HTN (hypertension): Plan: Increased losartan to 50 mg p.o. daily due to persistently high blood pressure, currently 180/79 Usually morbidity and mortality increases after discharge when increasing blood pressure medication during hospital stays however her systolic is consistently above 180 with a high of 210/86 yesterday. Therefore feel this warrants an increase in her usual blood pressure medication -> increase to 75mg for AM 5/[address] head negative 01/06 No hx CVA but could consider daily ASA (7) Hypercholesterolemia: Plan: Continue atorvastatin daily. (8) Hypothyroidism: Plan: Continue levothyroxine 50 mcg daily. TSH elevated on admit but Ft4 wnl (TSH was 6.495), could be reactive due to above but rec close f/u PCP and repeat as outpatient to prevent further constipation issues --> Also recommended she take this in the mornings rather than at night although she did note she "took on empty stomach" at night at home (9) Esophageal reflux: Plan: - Continue cimetidine twice daily. 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 doing well denied any abdominal pain diarrhea slowed assisted to bathroom with walker and did fairly well but was quite impulsive discussed monitoring how she does in therapy. she is aware daughter wanting rehab at discharge because "that's where she used to work" but ideally patient wants to go home discussed will see how she does with therapy over next 24 hours and if making improvements/daughter able to assist once done with work and agreeable maybe she would be allowed to go home but at this time due to safety would like to pursue rehab. no fever/chills, chest pain, shortness of breath, abd pain, nausea or vomiting. Urine clear yellow Review of Systems Review of Systems: All systems reviewed & are unremarkable except as noted in HPI & below Physical Exam Physical Exam: General: WN/WD female, sitting up in chair, NAD, waiting for aide to assist to bathroom HEENT: head normocephalic atraumatic, mmm Resp: CTAB, no w/c/r, on room air CV: RRR, +systolic murmur, no edema, pulses palpable GI: +BS, non-tender, no guarding/rebound : no [place] MSK/Neuro: moves all extremities, follows commands, CN intact grossly, strength equal, ambulated with wheeled walker to bathroom. Psych: AOX3, able to give year/month/location, impulsive Results & Data Results & Data ([facility]) Vital Signs (Past 12 Hours) Vital Signs Temp Pulse Resp BP BP Pulse Ox 01/13/22 07:18 36.5 C 51 L 16 170/75 H 98 01/12/22 22:28 36.8 C 52 L 16 169/71 H 93 Laboratory Results 01/13/22 01/13/22 01/13/22 Range/Units 12:02 08:01 05:42 WBC 4.14 L (4.8-10.8) K/uL RBC 4.47 (4.2-5.4) M/uL Hgb 12.9 (12.0-16.0) g/dL Hct 39.8 (37-47) % MCV 89.0 (80-100) fL MCH 28.9 (25-34) pg MCHC 32.4 (32-36) g/dL RDW Std Deviation 45.8 (36.4-46.3) fL RDW Coeff of Ping 14.1 (11.5-14.5) % Plt Count 245 (130-400) K/uL MPV 10.6 H (7.4-10.4) fL Sodium (136-145) mmol/L Potassium (3.5-5.1) mmol/L Chloride (98-107) mmol/L Carbon Dioxide (21-32) mmol/L Anion Gap (3-11) BUN (6-23) mg/dl Creatinine (0.6-1.2) mg/dl Est Cr Clr Drug Dosing ml/min Est GFR ( Amer) ml/min Est GFR (Non-Af Amer) ml/min BUN/Creatinine Ratio (10-20) Glucose (70-99(Fasting)) mg/dl POC Glucose 148 H 120 H (70-99) mg/dl Calcium (8.5-10.1) mg/dl Total Bilirubin (0.2-1.0) mg/dl Direct Bilirubin (0-0.2) mg/dl AST (13-39) U/L ALT (7-52) U/L Alkaline Phosphatase (34-104) U/L Total Protein (6.0-8.3) gm/dl Albumin (3.4-5.0) gm/dl Vitamin B12 (180-914) pg/ml 01/13/22 01/13/22 01/12/22 Range/Units 05:42 05:42 20:45 WBC (4.8-10.8) K/uL RBC (4.2-5.4) M/uL Hgb (12.0-16.0) g/dL Hct (37-47) % MCV (80-100) fL MCH (25-34) pg MCHC (32-36) g/dL RDW Std Deviation (36.4-46.3) fL RDW Coeff of Ping (11.5-14.5) % Plt Count (130-400) K/uL MPV (7.4-10.4) fL Sodium 139 (136-145) mmol/L Potassium 3.7 (3.5-5.1) mmol/L Chloride 106 (98-107) mmol/L Carbon Dioxide 28 (21-32) mmol/L Anion Gap 5 (3-11) BUN 7 (6-23) mg/dl Creatinine 0.69 (0.6-1.2) mg/dl Est Cr Clr Drug Dosing 67.6 ml/min Est GFR ( Amer) 92.6 ml/min Est GFR (Non-Af Amer) 79.9 ml/min BUN/Creatinine Ratio 10.1 (10-20) Glucose 117 H (70-99(Fasting)) mg/dl POC Glucose 185 H (70-99) mg/dl Calcium 9.1 (8.5-10.1) mg/dl Total Bilirubin 1.2 H (0.2-1.0) mg/dl Direct Bilirubin 0.4 H (0-0.2) mg/dl AST 44 H (13-39) U/L ALT 52 (7-52) U/L Alkaline Phosphatase 353 H (34-104) U/L Total Protein 6.3 (6.0-8.3) gm/dl Albumin 3.1 L (3.4-5.0) gm/dl Vitamin B12 > 1500 H (180-914) pg/ml 01/12/22 Range/Units 17:04 WBC (4.8-10.8) K/uL RBC (4.2-5.4) M/uL Hgb (12.0-16.0) g/dL Hct (37-47) % MCV (80-100) fL MCH (25-34) pg MCHC (32-36) g/dL RDW Std Deviation (36.4-46.3) fL RDW Coeff of Ping (11.5-14.5) % Plt Count (130-400) K/uL MPV (7.4-10.4) fL Sodium (136-145) mmol/L Potassium (3.5-5.1) mmol/L Chloride (98-107) mmol/L Carbon Dioxide (21-32) mmol/L Anion Gap (3-11) BUN (6-23) mg/dl Creatinine (0.6-1.2) mg/dl Est Cr Clr Drug Dosing ml/min Est GFR ( Amer) ml/min Est GFR (Non-Af Amer) ml/min BUN/Creatinine Ratio (10-20) Glucose (70-99(Fasting)) mg/dl POC Glucose 142 H (70-99) mg/dl Calcium (8.5-10.1) mg/dl Total Bilirubin (0.2-1.0) mg/dl Direct Bilirubin (0-0.2) mg/dl AST (13-39) U/L ALT (7-52) U/L Alkaline Phosphatase (34-104) U/L Total Protein (6.0-8.3) gm/dl Albumin (3.4-5.0) gm/dl Vitamin B12 (180-914) pg/ml PG Care Time/CCT Total # of Minutes Spent Total Time Spent with Patient: Total time spent is greater than 50% in coordination of care (as documented) at patient's floor/unit and/or counseling patient: Coding Level of Care Code 30770 Subseq Hosp Care Lvl 2 Diagnoses Biliary calculi, common bile duct K80.50 Constipation K59.00 Urinary tract infection N39.0 Hematuria presence: without hematuria Urinary tract infection type: site unspecified Generalized weakness R53.1 Type II diabetes mellitus, uncontrolled E11.65 Glycemic state: with hyperglycemia HTN (hypertension) I10 Hypertension type: essential hypertension Hypercholesterolemia E78.00 Hypothyroidism E03.9 Hypothyroidism type: unspecified Esophageal reflux K21.9 Esophagitis presence: esophagitis presence not specified Low back pain M54.5 Steatohepatitis, nonalcoholic K75.81 (1) Urinary tract infection Hematuria presence: without hematuria Urinary tract infection type: site unspecified Qualified Code(s): N39.0 - Urinary tract infection, site not specified (2) Hypothyroidism Hypothyroidism type: unspecified Qualified Code(s): E03.9 - Hypothyroidism, unspecified (3) Type II diabetes mellitus, uncontrolled Glycemic state: with hyperglycemia Qualified Code(s): E11.65 - Type 2 diabetes mellitus with hyperglycemia (4) Esophageal reflux Esophagitis presence: esophagitis presence not specified Qualified Code(s): K21.9 - Gastro-esophageal reflux disease without esophagitis (5) HTN (hypertension) Hypertension type: essential hypertension Qualified Code(s): I10 - Essential (primary) hypertension
[2022-01-13] MEDS ORDERED: bisacodyL 5 MG TABEC PO PRN (13:21)
[2022-01-13] MEDS: ATORVASTATIN 40 MG TAB PO SCH (20:43)
[2022-01-13] MEDS: ENOXAPARIN INJ 40 MG/0.4 ML SYR SQ SCH (20:43)
[2022-01-14] MEDS: LEVOTHYROXINE SODIUM 50 MCG TABLET PO SCH (06:16)
[2022-01-14 08:06] LABS: Bilirubin Direct 0.4 mg/dl (0-0.2); Bilirubin,Total 1.1 mg/dl (0.2-1.0); Calcium 8.9 mg/dl (8.5-10.1); Creatinine Clr Calc Pharmacy 66.6 ml/min; Est GFR (African American) 92.2 ml/min; Est GFR (Non-African American) 79.6 ml/min; Magnesium 1.7 mg/dl (1.7-2.4); Potassium 4.1 mmol/L (3.5-5.1); Total Protein 6.1 gm/dl (6.0-8.3)
[2022-01-14] MEDS: metFORMIN HCL 500 MG TAB PO SCH (08:16)
[2022-01-14] MEDS: GLIMEPIRIDE 2 MG TAB PO SCH (08:18)
[2022-01-14] MEDS: AMOXICILLIN/CLAVULANATE 875 MG TAB PO SCH (08:18)
[2022-01-14] MEDS: GABAPENTIN 100 MG CAP PO SCH ×2 (08:18→13:44)
[2022-01-14] MEDS: FAMOTIDINE 40 MG TABLET PO SCH (08:19)
[2022-01-14] MEDS ORDERED: LOSARTAN POTASSIUM 25 MG TAB PO SCH (09:00)
--- NOTE | 2022-01-14 12:23 | Discharge Summary ---
Date of Service January 14, 2022 Admission HPI Per Admitting Provider Mrs. Saravia is an 86-year-old female with past medical history of hypertension, hyperlipidemia, DM2, pancreatitis, HOLLIDAY, GERD, hypothyroidism who presents today with generalized weakness. Patient states she has had abdominal pain, nausea, and 2 episodes of vomiting over the past 2 days with decreased appetite. This morning, she was too weak to get out of bed, which prompted her presentation today for evaluation. Has a history fo gallstone pancreatitis, had her gallbladder removed and underwent ERCP [place] [address] Anderson. Besides symptoms aboe, she is otherwise without complaints, no fever/chills, weight loss, night sweats, chest pain, palpitations, focal weakness, numbness, tingling, SOB, cough, diarrhea, hematemesis, melena, hematochezia, or urinary symptoms. In ED, she is slightly hypertensive, otherwise vital signs within normal limits and stable. Labs significant for sodium 130 (corrects to 134 counting for glucose), bicarb 19, anion gap 14, magnesium 1.4, T bili 7.1, AST 66, ALT 221, alk phos 614, HS trop 23.7, TSH 6.45. UA sample with >30 epi cells's, positive for nitrate, WBC, bacteria, bilirubin. CT A/P showed a large distal common bile duct calculus which measures approximately 2 x 1.1 cm. Marked dilatation of the common bile duct, similar to prior CT. Moderate intrahepatic biliary ductal dilatation. No peripancreatic infiltration. Head CT without acute intracranial findings. No change in appearance of the brain. CXR showed no acute cardiopulmonary findings. Principal Diagnosis Choledocholithiasis, UTI Discharge Exam Constitutional WD/WN, vitals as above Eyes + anicteric sclerae Neck trachea midline, no thyromegaly Respiratory normal respiratory effort, lungs clear to auscultation Cardiovascular RRR, no murmur, no edema Chest (Breasts) Chest: normal inspection of chest Gastrointestinal (Abdomen) normal bowel sounds, soft, nontender, no hepatosplenomegaly Musculoskeletal Extremities: extremities normal to inspection; no cyanosis and no clubbing Skin no rashes, warm and dry Neurologic moves all extremities and awake; no focal motor deficits Psychiatric A+Ox3, euthymic affect Lymphatic no lymphedema Discharge Data Allergies Allergy/AdvReac Type Severity Reaction Status Date / Time No Known Allergies Allergy Verified 01/06/22 15:53 Consultations 01/06/22 16:37 ED Decision to Admit Stat 01/06/22 21:09 Consult Gastroenterology Routine Procedures Performed Operation Date: 01/07/22 11:40 Actual Procedures p Endoscopic Retrograde Cholangiopancreato with biliary dilation - Austin Anderson DO Ordered Studies 01/06/22 13:47 CT abd pelvis wo con Stat CT head/brain wo con Stat 01/07/22 [place] ERCP biliary ductal Routine Diabetes Follow up Diabetes Follow-up Needed for HgbA1c >9% Hospital Course (1) Biliary calculi, common bile duct: With elevated LFTs, reportedly has a history of pancreatitis with gallstones, had GB removed and in [address] Anderson. On admission, CT A/P: * Large distal common bile duct calculus which measures approximately 2 x 1.1 cm. Marked dilatation of the common bile duct, similar to prior CT. Moderate intrahepatic biliary ductal dilatation. No peripancreatic infiltration. S/p ERCP with sludge noted on 01/07 Broad spectrum antibiotics for 10 days (switched to Augmentin) -- to complete course 01/18 Tolerating diet LFTs improving, remains afebrile moving bowels (2) Constipation: now resolved with laxatives (3) Urinary tract infection: Asymptomatic Urine culture with E. coli resistant to ampicillin, Unasyn and Bactrim however Augmentin sensitive (4) Generalized weakness: Improving Suspect due to obstructive jaundice. B12 wnl, TSH elevated but likely 2nd to stress/infection on admission and rec repeating 4-6weeks as outpatient with PCP going home with home health (5) Type II diabetes mellitus, uncontrolled: Held glimepiride, metformin, linagliptin while inpatient initially HbA1c 9.3 Appreciate pharmacy management --> resumed her usual diabetic medications to allow to monitor for lows while inpatient BSGs acceptable on home regimen which has been resumed Continue gabapentin for neuropathy -recommend close follow-up with her primary care provider on discharge. (6) HTN (hypertension): Increased losartan to 50 mg p.o. daily due to persistently high blood pressure BPs remain elevated but has never had this issue prior to admission--ok to dc glen eiwht losartan 50mg and advised daily checks of BP or with home visiting RN adjust meds by PCP if not improving after discharge asymptomatic (7) Hypercholesterolemia: Continue atorvastatin daily. (8) Hypothyroidism: Continue levothyroxine 50 mcg daily. TSH elevated on admit but Ft4 wnl (TSH was 6.495), could be reactive due to above but rec close f/u PCP and repeat as outpatient to prevent further constipation issues --> Also recommended she take this in the mornings rather than at night although she did note she "took on empty stomach" at night at home (9) Esophageal reflux: - Continue cimetidine twice daily. (10) Low back pain: - Takes celebrex at home as needed (11) Steatohepatitis, nonalcoholic: Noted VTE Prophylaxis - SCDs, Lovenox 40 mg subcu daily while inpatient Code - Full Code Disposition - dc to home with home health and 03/04 care with daughter Total Time Total Time Spent Total Time Spent (In Minutes): 35 min Discharge Plan Discharge Items Patient Disposition: Home - Home Health Services Reason For Visit: CBD STONES Discharge Diagnosis: Choledocholithiasis, UTI Condition on Discharge: Good Activity: As commented below Lifting: Gradually increase as tolerated Bathing: No limitations Exercise/Sports: Gradually increase as tolerated Non-emergency contact: Primary Care Provider Call non-emergency contact if: you have any medication questions, your symptoms worsen, your pain is not controlled, your pain is worsening and your temperature is above 101 Follow-up/Referrals: Jovanny Meehan III, MD [Primary Care Provider] - (Follow up within 1-2 weeks) Diet: Carb Consistent or DM2 Addtl Attending Provider Instructions: Please finish out the course of antibiotics with Augmentin twice a day for 4 more days. Follow up with your PCP within 1-2 weeks. Your blood pressures were running high while you were here and your losartan dose was increased. Please check your blood pressures at home and keep a log of your readings for your doctor. Pending Studies at Discharge: No Stand-Alone Forms: My deltamethod, Smoking Cessation Medications and DC Order Prescriptions: New acetaminophen 325 mg Tablet 650 mg PO Q4H PRN (Reason: pain) Qty: 30 RF: 0 amoxicillin-pot clavulanate 875-125 mg tablet 1 tab PO BID Qty: 9 RF: 0 Continued (DME) blood sugar diagnostic [OneTouch Ultra Blue Test Strip] Strip See Rx Instructions .ROUTE .MEDSUPPLY Qty: 100 RF: 3 (DME) blood-glucose meter [OneTouch Ultra2 Meter] Kit See Rx Instructions .ROUTE .MEDSUPPLY Qty: 1 RF: 0 (DME) lancets [OneTouch Delica Lancets] 33 gauge misc See Rx Instructions .ROUTE .MEDSUPPLY Qty: 100 RF: 3 atorvastatin 40 mg tablet 40 mg PO QPM Qty: 90 RF: 3 cimetidine 400 mg tablet 400 mg PO BID Qty: 60 RF: 5 Tradjenta 5 mg tablet 5 mg PO DAILY Qty: 90 RF: 3 metformin 500 mg tablet 1,000 mg PO BID Qty: 360 RF: 3 celecoxib 100 mg capsule 100 mg PO BID Qty: 180 RF: 3 levothyroxine 50 mcg tablet 50 mcg PO DAILYBB Qty: 90 RF: 3 (DME) miscellaneous medical supply Misc See Rx Instructions .Route Qty: 1 RF: 0 glimepiride 4 mg tablet 4 mg PO BID Qty: 60 RF: 5 gabapentin 100 mg capsule 100 mg PO TID Qty: 90 RF: 5 (DME) Shower Chair Misc See Rx Instructions .Route Qty: 1 RF: 0 Changed losartan 50 mg tablet 50 mg PO DAILY Qty: 30 RF: 0 Discharge Orders: Discharge Order (Routine); Ordered 01/14/22 Ordered By: Erica Alvarado/Other Patient Handouts: High Blood Sugar (Hyperglycemia), Hypoglycemia (Low Blood Sugar), Managing Type 2 Diabetes Admission Data Admit Date/Time: 01/06/22 17:19 Attending Provider: Erica Mays Admit Provider: Jerry Simms Primary Care Provider: Jovanny Meehan III Other Providers: Jerry Simms ; David Alfaro ; [facility] ; Austin Anderson ; [place] Coding Level of Care Code D/C DAY MANAGEMENT >30 MINS Diagnoses Biliary calculi, common bile duct K80.50 Constipation K59.00 Urinary tract infection N39.0 Hematuria presence: without hematuria Urinary tract infection type: site unspecified Generalized weakness R53.1 Type II diabetes mellitus, uncontrolled E11.65 Glycemic state: with hyperglycemia HTN (hypertension) I10 Hypertension type: essential hypertension Hypercholesterolemia E78.00 Hypothyroidism E03.9 Hypothyroidism type: unspecified Esophageal reflux K21.9 Esophagitis presence: esophagitis presence not specified Low back pain M54.5 Steatohepatitis, nonalcoholic K75.81
== END 2022-01-14 14:38 | disposition home health service (06) | DRG 445 ==
LOC: ED 12:27 → 2N 17:19 → SUATTDRO 17:19 → 2N 20:53 → 3N 01-11 21:16

== ENCOUNTER 2022-01-22 17:59 | Inpatient (IN) ==
[2022-01-22] MEDS ORDERED: dexAMETHasone**PF** 10 MG/ML VIAL IV ONE (18:38)
[2022-01-22] MEDS ORDERED: FAMOTIDINE 20MG IV PUSH 20 MG/5 ML SYR IV STA (18:38)
[2022-01-22] MEDS ORDERED: diphenhydrAMINE 50 MG/ML VIAL ONE (18:51)
[2022-01-22] MEDS ORDERED: ACETAMINOPHEN 500 MG TAB PO STA (18:56)
--- NOTE | 2022-01-22 18:57 | XRay Report ---
XR chest 1V portable CLINICAL HISTORY: Fever TECHNIQUE: Single frontal radiograph of the chest was obtained. Comparison: Comparison is made to chest radiograph 01/06/2022 FINDINGS: No lines and tubes are seen. The cardiomediastinal silhouette is normal. The lungs are clear. No evid ence of pleural effusion or pneumothorax. IMPRESSION: No acute abnormalities and in particular no evidence of pneumonia. ACT 112: Negative or not required by law. Electronically signed by: Wilton Ulloa M.D. 01/22/2022 6:55 PM
--- NOTE | 2022-01-22 19:02 | Emergency Department Note ---
Impression & Plan Generalized weakness, Fever, Allergic reaction ED Provider Note INFORMANT: Patient and daughter ED PROVIDER(S): Shawn Mi MD CHIEF COMPLAINT: Rash PLAN: Disposition: Admitted Condition: Good Outpatient prescription management: none Referral: None MEDICAL DECISION MAKING: Patient presented because of a rash. There was some concerns about mild confusion. She also had a fever. Patient states that she finished the Augmentin yesterday however the daughter notes that she finished it 4 days ago. Patient was still itching. Patient's CBC showed a slight leukocytosis. Chemistry panel was unremarkable. Urinalysis revealed epithelial cells, white blood cells, and esterase. No bacteria. COVID testing negative. Flu testing negative. Chest x-ray negative. Given the mild confusion and weakness further management will be necessary in the hospital. Consultation was made with Dr. Lazaro Claire of the [facility] service. Patient was evaluated in the ER for further management. Triage Nursing notes reviewed and agree them. Vital Signs: reviewed and remarkable for no significant abnormalities Differential diagnosis: Allergic reaction, viral syndrome, otitis, pharyngitis, pneumonia, influenza, meningitis, urinary tract infection, sepsis, bacteremia, as well as other pathologies. Diagnostics interpreted by me: ECG: none Cardiac Monitoring: Cardiac monitoring ordered by me: The patient was placed on continuous cardiac monitoring and observed. It revealed a normal sinus rhythm at 60 beats per minute without ectopy or evidence of dysrhythmia. Imaging studies: Chest x-ray. Findings: A chest x-ray was performed and revealed no pneumothorax, effusion, infiltrate, pulmonary edema, free air under the diaphragm, or wide mediastinum. Impression: No acute disease. HPI: The patient is a 86 year old female who presents to the Emergency Room with complaints of rash. This started yesterday and is spreading to her entire body. The patient also notes the following associated symptoms, itchiness, weakness, dizziness and fever. The patient has found no relieving factors. Current pain is rated as 1/10. Patient was recently hospitalized and treated with an ERCP for a common bile duct stone. She was also found to have UTI. She was on Augmentin since January 14, 8 days ago. Patient's neighbor who is present states that the patient was too weak to get up on her own and did require assistance from 2 people. Pt denies LOC, headache, chills, diaphoresis, visual changes, neck pain, chest pain, breathing difficulties, nausea, vomiting, abdominal pain, back pain, melena, hematochezia, urinary symptoms, numbness, lymphadenopathy, or other complaints. ROS: See above HPI for pertinent positives & negatives. A total of 10 systems reviewed and were otherwise negative. PAST MEDICAL HISTORY:See Below , UTI, common duct stone, hypertension PAST SURGICAL HISTORY:See Below, ERCP FAMILY HISTORY:See Below SOCIAL HISTORY:See Below, lives alone HOME MEDICATIONS:See Below ALLERGIES:See Below VITALS:See Below PHYSICAL EXAMINATION: GENERAL: Awake, alert, well-appearing, in no distress HENT: Normocephalic, atraumatic. Oropharynx unremarkable. EYES: Normal conjunctiva. Sclera non-icteric. NECK: Inspection normal. Non-tender. Supple. No nuchal rigidity. FROM. No masses. RESPIRATORY: Clear to auscultation. No wheezes. No rales. Normal respiratory effort. CARDIAC: Normal rate. Normal rhythm. No murmurs. No rubs. Extremities warm and well perfused. Pulses equal. No JVD. GI: Soft, non-distended. No tenderness to palpation. No rebound or guarding. No masses. RECTAL: Deferred. MUSCULOSKELETAL: Atraumatic. Chest examination reveals no tenderness. The back is symmetrical on inspection without obvious abnormality. There is no CVA tenderness to palpation. No joint edema. LOWER EXTREMITIES: Calves are equal size bilaterally and non-tender. No edema. No discoloration. NEURO: Normal sensorium. No sensory or motor deficits noted. SKIN: Patient has generalized maculopapular rash which is worse on the trunk and proximal extremities. No sloughing or vesicles. Few scattered punctate erythematous spots noted on the lips but nothing within the oral mucosa or eyes. No petechiae, purpura, or jaundice noted. Shawn Mi MD Past Med/Surg History Medical History (Updated 01/23/22 @ 00:07 by Leida Rodríguez DO) Allergic drug reaction Choledocholithiasis with chronic cholecystitis Choledocholithiasis with obstruction Contact dermatitis Diverticulitis Elevated LFTs HTN (hypertension) Pancreatitis due to common bile duct stone Surgical History S/P cholecystectomy Family History Father Stroke Mother Cirrhosis Brother Coronary heart disease Denies family history of Ovarian cancer Prostate cancer Myocardial infarction Breast cancer Colorectal cancer Social History Smoking Status: Never smoker Second Hand Exposure: Yes; Hx Alcohol Use: Yes Alcohol type: beer Hx Substance Use: No Preferred Language: Syriac Communication Ability: Effective Visual Impairment: No Limitations Hearing Ability: Normal 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 Beliefs That Will Affect Care: None marital status: / Current Living Situation: Alone current occupational status: retired current occupation: retired from [employer] Feels Safe at Home: Yes Safety Concerns: Feels Safe At This Time Childhood Exposure to Second-Hand Smoke: Yes Dental Care, Regularly: No Physical Activity Frequency: Does not Exercise Seatbelt Use: always Sunscreen Use: No Assistive Devices: Walker Allergies Allergies Allergy/AdvReac Type Severity Reaction Status Date / Time No Known Allergies Allergy Verified 01/22/22 18:22 Home Meds Previous Rx's Medication Instructions Recorded blood sugar diagnostic (OneTouch #100 ea 05/08/20 Ultra Blue Test Strip) blood-glucose meter (OneTouch #1 ea 05/08/20 Ultra2 Meter) lancets 33 gauge (OneTouch Delica #100 ea 05/08/20 Lancets) atorvastatin 40 mg tablet 40 mg PO QPM #90 tab 06/18/20 cimetidine 400 mg tablet 400 mg PO BID #60 tab 08/17/20 linagliptin 5 mg tablet (Tradjenta) 5 mg PO DAILY #90 tab 03/09/21 celecoxib 100 mg capsule 100 mg PO BID #180 cap 05/06/21 metformin 500 mg tablet 1,000 mg PO BID #360 tab 05/06/21 levothyroxine 50 mcg tablet 50 mcg PO DAILYBB #90 tab 06/10/21 Shower Chair #1 ea 08/03/21 gabapentin 100 mg capsule 100 mg PO TID #90 cap 08/03/21 glimepiride 4 mg tablet 4 mg PO BID #60 tab 08/03/21 miscellaneous medical supply #1 ea 09/08/21 acetaminophen 325 mg tablet 650 mg PO Q4H PRN #30 tab 01/14/22 amoxicillin 875 mg-potassium 1 tab PO BID #9 tab 01/14/22 clavulanate 125 mg tablet losartan 50 mg tablet 50 mg PO DAILY #30 tab 01/14/22 Results & Data (ED) Vital Signs Vital Signs - 24 hr 01/22/22 18:02 01/22/22 21:25 01/22/22 23:00 Temperature 37.6 C H 37.1 C Temperature Source Temporal Artery Scan Oral Pulse Rate 90 Pulse Rate [Right Finger] 63 70 Respiratory Rate 18 18 18 Blood Pressure 116/70 Blood Pressure [Right Arm] 133/77 130/75 Blood Pressure Mean 85 Blood Pressure Mean [Right Arm] 95 93 Pulse Oximetry 94 94 94 Oxygen Delivery Method Room Air Room Air Sepsis New/Unexplained Change in Mental Status No Sepsis Action Taken by Nursing No Action Required Laboratory Data Result diagrams: 01/22/22 18:40 01/22/22 18:40 Lab Results 01/22/22 01/22/22 01/22/22 Range/Units 18:40 18:40 18:40 WBC 11.84 H (4.8-10.8) K/uL RBC 4.40 (4.2-5.4) M/uL Hgb 12.8 (12.0-16.0) g/dL Hct 39.2 (37-47) % MCV 89.1 (80-100) fL MCH 29.1 (25-34) pg MCHC 32.7 (32-36) g/dL RDW Std Deviation 45.4 (36.4-46.3) fL RDW Coeff of Ping 13.9 (11.5-14.5) % Plt Count 224 (130-400) K/uL MPV 11.2 H (7.4-10.4) fL Immature Gran % (Auto) 0.4 % Neut % (Auto) 84.0 % Lymph % (Auto) 10.3 % [place] % (Auto) 4.5 % Eos % (Auto) 0.6 % Baso % (Auto) 0.2 % Neut # (Auto) 9.95 H (1.4-6.5) K/uL Lymph # (Auto) 1.22 (1.2-3.4) K/uL [place] # (Auto) 0.53 (0.11-0.59) K/uL Eos # (Auto) 0.07 (0-0.5) K/uL Baso # (Auto) 0.02 (0-0.2) K/uL Immature Gran # (Auto) 0.05 H (0.00-0.02) K/uL Sodium 134 L (136-145) mmol/L Potassium 4.1 (3.5-5.1) mmol/L Chloride 103 (98-107) mmol/L Carbon Dioxide 23 (21-32) mmol/L Anion Gap 8 (3-11) BUN 7 (6-23) mg/dl Creatinine 0.60 (0.6-1.2) mg/dl Est Cr Clr Drug Dosing Not Reportable Est GFR ( Amer) 97.0 ml/min Est GFR (Non-Af Amer) 83.7 ml/min BUN/Creatinine Ratio 11.7 (10-20) Glucose 183 H (70-99(Fasting)) mg/dl Lactate 1.6 (0.4-2.0) mmol/L Calcium 8.8 (8.5-10.1) mg/dl Total Bilirubin 0.9 (0.2-1.0) mg/dl AST 30 (13-39) U/L ALT 37 (7-52) U/L Alkaline Phosphatase 188 H (34-104) U/L Total Protein 6.3 (6.0-8.3) gm/dl Albumin 3.3 L (3.4-5.0) gm/dl Globulin 3.0 (2.5-4.0) gm/dl Albumin/Globulin Ratio 1.1 (0.9-2) Urine Color Urine Appearance (Clear) Urine pH (4.5-7.5) Ur Specific [place] (1.000-1.030) Urine Protein (Negative) Urine Glucose (UA) (Negative) Urine Ketones (Negative) Urine Blood (Negative) Urine Nitrite (Negative) Urine Bilirubin (Negative) Urine Urobilinogen (Negative) Ur Leukocyte Esterase (Negative) Urine WBC (Auto) (0-5) /hpf Urine RBC (Auto) (0-4) /hpf U Hyaline Cast (Auto) (0-5) /lpf U Epithel Cells (Auto) (0-5) /lpf Urine Bacteria (Auto) (Negative) SARS-CoV-2 (PCR) (Negative) Influenza Type A (PCR) (Neg) Influenza Type B (PCR) (Neg) RSV (RT-PCR) (Neg) 05/14/22 05/14/22 Range/Units 19:18 22:40 WBC (4.8-10.8) K/uL RBC (4.2-5.4) M/uL Hgb (12.0-16.0) g/dL Hct (37-47) % MCV (80-100) fL MCH (25-34) pg MCHC (32-36) g/dL RDW Std Deviation (36.4-46.3) fL RDW Coeff of Ping (11.5-14.5) % Plt Count (130-400) K/uL MPV (7.4-10.4) fL Immature Gran % (Auto) % Neut % (Auto) % Lymph % (Auto) % [place] % (Auto) % Eos % (Auto) % Baso % (Auto) % Neut # (Auto) (1.4-6.5) K/uL Lymph # (Auto) (1.2-3.4) K/uL [place] # (Auto) (0.11-0.59) K/uL Eos # (Auto) (0-0.5) K/uL Baso # (Auto) (0-0.2) K/uL Immature Gran # (Auto) (0.00-0.02) K/uL Sodium (136-145) mmol/L Potassium (3.5-5.1) mmol/L Chloride (98-107) mmol/L Carbon Dioxide (21-32) mmol/L Anion Gap (3-11) BUN (6-23) mg/dl Creatinine (0.6-1.2) mg/dl Est Cr Clr Drug Dosing Est GFR ( Amer) ml/min Est GFR (Non-Af Amer) ml/min BUN/Creatinine Ratio (10-20) Glucose (70-99(Fasting)) mg/dl Lactate (0.4-2.0) mmol/L Calcium (8.5-10.1) mg/dl Total Bilirubin (0.2-1.0) mg/dl AST (13-39) U/L ALT (7-52) U/L Alkaline Phosphatase (34-104) U/L Total Protein (6.0-8.3) gm/dl Albumin (3.4-5.0) gm/dl Globulin (2.5-4.0) gm/dl Albumin/Globulin Ratio (0.9-2) Urine Color Yellow Urine Appearance Clear (Clear) Urine pH 5.0 (4.5-7.5) Ur Specific [place] 1.009 (1.000-1.030) Urine Protein Negative (Negative) Urine Glucose (UA) Negative (Negative) Urine Ketones Negative (Negative) Urine Blood Negative (Negative) Urine Nitrite Negative (Negative) Urine Bilirubin Negative (Negative) Urine Urobilinogen Negative (Negative) Ur Leukocyte Esterase 1+ H (Negative) Urine WBC (Auto) 10-30 H (0-5) /hpf Urine RBC (Auto) 0-4 (0-4) /hpf U Hyaline Cast (Auto) 0 (0-5) /lpf U Epithel Cells (Auto) >30 H (0-5) /lpf Urine Bacteria (Auto) Negative (Negative) SARS-CoV-2 (PCR) NEGATIVE (Negative) Influenza Type A (PCR) Negative (Neg) Influenza Type B (PCR) Negative (Neg) RSV (RT-PCR) Negative (Neg) Administered Medications Insulin Aspart (Insulin Aspart Per Unit) 0 units SC ACHS JOSELINE Stop: 02/22/22 01:29 Last Admin: 01/23/22 01:51 Dose: 5 units Documented by: [id number] Cosigned by: [id number] Discontinued Medications Acetaminophen (Acetaminophen 500 Mg Tab) 1,000 mg PO NOW STA Stop: 01/22/22 18:57 Last Admin: 01/22/22 19:23 Dose: 1,000 mg Documented by: [id number] Dexamethasone Sodium Phosphate (DexamethasonePf 10 Mg/Ml Vial) 6 mg IV NOW ONE Stop: 01/22/22 18:39 Last Admin: 01/22/22 19:02 Dose: 6 mg Documented by: [id number] Diphenhydramine HCl (Diphenhydramine 50 Mg/Ml Vial) Confirm Administered Dose 50 mg .ROUTE .STK-MED ONE Stop: 01/22/22 18:52 Last Admin: 01/22/22 19:02 Dose: Not Given Documented by: [id number] Diphenhydramine HCl 12.5 mg/ (Syringe) 0.25 mls @ 1 mls/hr IV NOW STA Stop: 01/22/22 18:52 Last Admin: 01/22/22 19:02 Dose: 1 mls/hr Documented by: [id number] Famotidine (Pepcid 20mg Iv Push) 20 mg in 5 mls @ 2.5 mls/min IV NOW STA Stop: 01/22/22 18:39 Last Admin: 01/22/22 19:02 Dose: 2.5 mls/min Documented by: [id number] Insulin Glargine (Insulin Glargine Solostar 100 Units/Ml 3 Ml Pen) 15 units SC NOW ONE Stop: 01/23/22 01:31 Last Admin: 01/23/22 01:52 Dose: 15 units Documented by: [id number] Cosigned by: [id number] Imaging Data Radiologist's Impression: Chest X-Ray 01/22/22 18:14 XR chest 1V portable CLINICAL HISTORY: Fever TECHNIQUE: Single frontal radiograph of the chest was obtained. Comparison: Comparison is made to chest radiograph 01/06/2022 FINDINGS: No lines and tubes are seen. The cardiomediastinal silhouette is normal. The lungs are clear. No evidence of pleural effusion or pneumothorax. IMPRESSION: No acute abnormalities and in particular no evidence of pneumonia. ACT 112: Negative or not required by law. Electronically signed by: Wilton Ulloa M.D. 01/22/2022 6:55 PM Discharge Plan Visit Data Chief Complaint: Rash Stated Complaint: FEVER, RASH IN GROIN AREA ED Provider: Shawn Mi Discharge Problem: Generalized weakness, Fever, Allergic reaction Patient Disposition: Admitted As Inpatient Discharge Instructions Interventions: ED Discharge Assessment Last Done: 01/23/22 00:18
[2022-01-22 19:05] LABS: Basophils # (auto) 0.02 K/uL (0-0.2); Basophils % (auto) 0.2 %; Eosinophils # (auto) 0.07 K/uL (0-0.5); Eosinophils % (auto) 0.6 %; Hematocrit (blood only) 39.2 % (37-47); Hemoglobin 12.8 g/dL (12.0-16.0); Immature Granulocytes # (auto) 0.05 K/uL (0.00-0.02); Immature Granulocytes % (auto) 0.4 %; Lymphocytes # (auto) 1.22 K/uL (1.2-3.4); Lymphocytes % (auto) 10.3 %; Mean Corpuscular Hemoglobin 29.1 pg (25-34); Mean Corpuscular Hgb Conc 32.7 g/dL (32-36); Mean Corpuscular Volume 89.1 fL (80-100); Mean Platelet Volume 11.2 fL (7.4-10.4); Monocytes # (auto) 0.53 K/uL (0.11-0.59); Monocytes % (auto) 4.5 %; Neutrophils # (auto) 9.95 K/uL (1.4-6.5); Platelet Count 224 K/uL (130-400); RDW Coefficient of Variation 13.9 % (11.5-14.5); RDW Standard Deviation 45.4 fL (36.4-46.3); White Blood Count 11.84 K/uL (4.8-10.8)
[2022-01-22 19:21] LABS: Alanine Aminotransferase 37 U/L (7-52); Albumin Globulin Ratio 1.1 (0.9-2); Albumin Level 3.3 gm/dl (3.4-5.0); Alkaline Phosphatase 188 U/L (34-104); Anion Gap 8 (3-11); Aspartate Aminotransferase 30 U/L (13-39); BUN Creatinine Ratio 11.7 (10-20); Bilirubin,Total 0.9 mg/dl (0.2-1.0); Blood Urea Nitrogen 7 mg/dl (6-23); Calcium 8.8 mg/dl (8.5-10.1); Carbon Dioxide 23 mmol/L (21-32); Chloride 103 mmol/L (98-107); Est GFR (Non-African American) 83.7 ml/min; Glucose 183 mg/dl (70-99(Fasting)); Potassium 4.1 mmol/L (3.5-5.1); Sodium 134 mmol/L (136-145); Total Protein 6.3 gm/dl (6.0-8.3)
[2022-01-22 20:28] LABS: Influenza A virus by PCR Negative (Neg); Influenza B virus by PCR Negative (Neg); RSV by PCR Negative (Neg); SARS CoV2 RNA(COVID-19) InHosp NEGATIVE (Negative)
--- NOTE | 2022-01-22 22:19 | History & Physical Report ---
Date of Service January 22, 2022 Assessment & Plan (1) Allergic drug reaction: Plan: Patient is an 86 yo female with PMHx of DM2, UTI, HTN, pancreatitis, hypothyroidism, GERD, hyperlipidemia, HOLLIDAY admitted for severe drug reaction rash. Rash - Suspect rash is allergic drug reaction to augmentin - Start on Benadryl q8h, methylprednisolone q8h, and famotidine daily - Use of calamine lotion topically for comfort. If desquamation were to occur, can consider sulfadiazine lotion. - Given that this reaction is likely due to allergy to penicillin, will hold on starting abx therapy for concern of secondary infection at this time. However, will closely monitor for signs of infection. 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 - Continue home gabapentin HTN (hypertension) - Continue home losartan Hypercholesterolemia - Continue home atorvastatin Hypothyroidism - Continue home levothyroxine Esophageal reflux - Continue home cimetidine Low back pain - Continue home celebrex Dispo: Admit to med/surg FENGI: Diabetes diet DVT Ppx: Lovenox Code status: Full Code (2) Type II diabetes mellitus, uncontrolled: (3) HTN (hypertension): (4) Hypothyroidism: (5) Esophageal reflux: (6) Constipation: (7) Hypercholesterolemia: (8) Low back pain: History of Present Illness Chief Complaint: rash Primary Care Provider: Jovanny Meehan MD Patient is an 86 yo female with a PMHx of DM2, UTI, HTN, pancreatitis, hypothyroidism, GERD, hyperlipidemia, HOLLIDAY, who presents to the ER with complaint of rash. Patient was discharged from the hospital on 01/14/22 after being hospitalized for choledocholithiasis and UTI. She was discharged home on Augmentin which was completed on Monday (4 days ago -- 01/18/22). On , patient noticed an itchy red rash over the anterior aspect of her neck. This rash has progressively worsened to include her neck, face, chest, back, arms, and upper legs. The rash has not had any bleeding or discharge. She has not had a similar rash in the past. Patient does report associated chills, weakness, and fatigue. She did not have any associated SOB, wheezing, throat pain, throat closing, or difficulty swallowing. In addition to the abx therapy, patient does note a recent change in detergents as her sister and friend washed all of her laundry for her (in a new detergent) during her most recent hospitalization. There have been no other new exposures including other soaps, lotions, or detergents. Patient does not have a hx of allergic reaction. She denies CP, SOB, abdominal pain, nausea, vomiting, leg pain, leg swelling, or urinary sxs (including dysuria, hematuria, dark urine, or malodorous urine). In the ED, her vital signs have been stable. Patient does have a mild leukocytosis at 11.84. Sodium 134 (but corrects to 136 counting for glucose). Normal lactate. COVID negative. UA 1+ leuk esterase and 10-30 WBC but contaminated with > 30 epithelial (patient with no urinary symptoms). CXR with no acute cardiopulmonary findings. Allergies Allergy/AdvReac Type Severity Reaction Status Date / Time Penicillins Allergy severe rash Verified 01/23/22 03:53 Home Medications Medication Instructions Recorded Confirmed Type blood sugar diagnostic (OneTouch #100 ea 05/08/20 08/03/21 Rx Ultra Blue Test Strip) blood-glucose meter (OneTouch #1 ea 05/08/20 08/03/21 Rx Ultra2 Meter) lancets 33 gauge (OneTouch Delica #100 ea 05/08/20 08/03/21 Rx Lancets) atorvastatin 40 mg tablet 40 mg PO QPM #90 tab 06/18/20 01/22/22 Rx cimetidine 400 mg tablet 400 mg PO BID #60 tab 08/17/20 01/22/22 Rx linagliptin 5 mg tablet (Tradjenta) 5 mg PO DAILY #90 tab 03/09/21 01/22/22 Rx celecoxib 100 mg capsule 100 mg PO BID #180 cap 05/06/21 01/22/22 Rx metformin 500 mg tablet 1,000 mg PO BID #360 tab 05/06/21 01/22/22 Rx levothyroxine 50 mcg tablet 50 mcg PO DAILYBB #90 tab 06/10/21 01/22/22 Rx Shower Chair #1 ea 08/03/21 08/03/21 Rx gabapentin 100 mg capsule 100 mg PO TID #90 cap 08/03/21 01/22/22 Rx glimepiride 4 mg tablet 4 mg PO BID #60 tab 08/03/21 01/22/22 Rx miscellaneous medical supply #1 ea 09/08/21 Rx acetaminophen 325 mg tablet 650 mg PO Q4H PRN #30 tab 01/14/22 01/22/22 Rx losartan 50 mg tablet 50 mg PO DAILY #30 tab 01/14/22 01/22/22 Rx prednisone 20 mg tablet 20 mg PO DAILY #5 tab 01/23/22 Rx Past Med/Surg History Medical History (Updated 01/23/22 @ 00:07 by Leida Rodríguez DO) Allergic drug reaction Choledocholithiasis with chronic cholecystitis Choledocholithiasis with obstruction Contact dermatitis Diverticulitis Elevated LFTs HTN (hypertension) Pancreatitis due to common bile duct stone Surgical History S/P cholecystectomy Family History Father Stroke Mother Cirrhosis Brother Coronary heart disease Denies family history of Ovarian cancer Prostate cancer Myocardial infarction Breast cancer Colorectal cancer Social History Smoking Status: Never smoker Second Hand Exposure: Yes; Hx Alcohol Use: Yes Alcohol type: beer Hx Substance Use: No Preferred Language: Russian Communication Ability: Effective Visual Impairment: No Limitations Hearing Ability: Normal Surtass Analyst Required: No Beliefs That Will Affect Care: None marital status: / Current Living Situation: Alone current occupational status: retired current occupation: retired from [employer] and [employer] How many Children do You have: 1 Feels Safe at Home: Yes Safety Concerns: Feels Safe At This Time Childhood Exposure to Second-Hand Smoke: Yes Dental Care, Regularly: No Physical Activity Frequency: Does not Exercise Seatbelt Use: always Sunscreen Use: No Assistive Devices: Walker Review of Systems Review of Systems: See HPI Physical Exam Physical Exam: GENERAL: No acute distress. Well developed and well nourished. Vital signs reviewed as above. EYES: PERRLA. EOMI. Anicteric sclerae. HENT: Moist mucous membranes. No pharyngeal erythema or exudates. No cervical lymphadenopathy. RESPIRATORY: Clear to auscultation bilaterally. No wheezing, rales, or rhonchi. CARDIOVASCULAR: Regular rate and rhythm. No murmurs. ABDOMEN: Soft, non-tender and non-distended. Normal bowel sounds. EXTREMITIES: 1+ non-pitting bilateral pedal edema. Non-tender. SKIN: Significant diffuse maculopapular rash over patient's neck, chest, back, upper extremities, groin, and bilateral thighs (termination proximal to the knees bilaterally). Rash is most severe on the back. It is warm to touch. There is no active bleeding or discharge. NEUROLOGIC: A/O x3. No focal neurological deficits. Normal gait w/ assistive device (single point cane). PSYCHIATRIC: Cooperative. Appropriate mood and affect. Results & Data Results & Data ([facility]) Vital Signs (Past 12 Hours) Vital Signs Temp Pulse Pulse Resp BP BP Pulse Ox 01/22/22 21:25 37.1 C 63 18 133/77 94 01/22/22 18:02 37.6 C H 90 18 116/70 94 Laboratory Results 01/22/22 01/22/22 01/22/22 Range/Units 19:18 18:40 18:40 WBC (4.8-10.8) K/uL RBC (4.2-5.4) M/uL Hgb (12.0-16.0) g/dL Hct (37-47) % MCV (80-100) fL MCH (25-34) pg MCHC (32-36) g/dL RDW Std Deviation (36.4-46.3) fL RDW Coeff of Ping (11.5-14.5) % Plt Count (130-400) K/uL MPV (7.4-10.4) fL Immature Gran % (Auto) % Neut % (Auto) % Lymph % (Auto) % [place] % (Auto) % Eos % (Auto) % Baso % (Auto) % Neut # (Auto) (1.4-6.5) K/uL Lymph # (Auto) (1.2-3.4) K/uL [place] # (Auto) (0.11-0.59) K/uL Eos # (Auto) (0-0.5) K/uL Baso # (Auto) (0-0.2) K/uL Immature Gran # (Auto) (0.00-0.02) K/uL Sodium 134 L (136-145) mmol/L Potassium 4.1 (3.5-5.1) mmol/L Chloride 103 (98-107) mmol/L Carbon Dioxide 23 (21-32) mmol/L Anion Gap 8 (3-11) BUN 7 (6-23) mg/dl Creatinine 0.60 (0.6-1.2) mg/dl Est Cr Clr Drug Dosing Not Reportable Est GFR ( Amer) 97.0 ml/min Est GFR (Non-Af Amer) 83.7 ml/min BUN/Creatinine Ratio 11.7 (10-20) Glucose 183 H (70-99(Fasting)) mg/dl Lactate 1.6 (0.4-2.0) mmol/L Calcium 8.8 (8.5-10.1) mg/dl Total Bilirubin 0.9 (0.2-1.0) mg/dl AST 30 (13-39) U/L ALT 37 (7-52) U/L Alkaline Phosphatase 188 H (34-104) U/L Total Protein 6.3 (6.0-8.3) gm/dl Albumin 3.3 L (3.4-5.0) gm/dl Globulin 3.0 (2.5-4.0) gm/dl Albumin/Globulin Ratio 1.1 (0.9-2) SARS-CoV-2 (PCR) NEGATIVE (Negative) Influenza Type A (PCR) Negative (Neg) Influenza Type B (PCR) Negative (Neg) RSV (RT-PCR) Negative (Neg) 01/22/22 Range/Units 18:40 WBC 11.84 H (4.8-10.8) K/uL RBC 4.40 (4.2-5.4) M/uL Hgb 12.8 (12.0-16.0) g/dL Hct 39.2 (37-47) % MCV 89.1 (80-100) fL MCH 29.1 (25-34) pg MCHC 32.7 (32-36) g/dL RDW Std Deviation 45.4 (36.4-46.3) fL RDW Coeff of Ping 13.9 (11.5-14.5) % Plt Count 224 (130-400) K/uL MPV 11.2 H (7.4-10.4) fL Immature Gran % (Auto) 0.4 % Neut % (Auto) 84.0 % Lymph % (Auto) 10.3 % [place] % (Auto) 4.5 % Eos % (Auto) 0.6 % Baso % (Auto) 0.2 % Neut # (Auto) 9.95 H (1.4-6.5) K/uL Lymph # (Auto) 1.22 (1.2-3.4) K/uL [place] # (Auto) 0.53 (0.11-0.59) K/uL Eos # (Auto) 0.07 (0-0.5) K/uL Baso # (Auto) 0.02 (0-0.2) K/uL Immature Gran # (Auto) 0.05 H (0.00-0.02) K/uL Sodium (136-145) mmol/L Potassium (3.5-5.1) mmol/L Chloride (98-107) mmol/L Carbon Dioxide (21-32) mmol/L Anion Gap (3-11) BUN (6-23) mg/dl Creatinine (0.6-1.2) mg/dl Est Cr Clr Drug Dosing Est GFR ( Amer) ml/min Est GFR (Non-Af Amer) ml/min BUN/Creatinine Ratio (10-20) Glucose (70-99(Fasting)) mg/dl Lactate (0.4-2.0) mmol/L Calcium (8.5-10.1) mg/dl Total Bilirubin (0.2-1.0) mg/dl AST (13-39) U/L ALT (7-52) U/L Alkaline Phosphatase (34-104) U/L Total Protein (6.0-8.3) gm/dl Albumin (3.4-5.0) gm/dl Globulin (2.5-4.0) gm/dl Albumin/Globulin Ratio (0.9-2) SARS-CoV-2 (PCR) (Negative) Influenza Type A (PCR) (Neg) Influenza Type B (PCR) (Neg) RSV (RT-PCR) (Neg) Diagnostic Findings [facility], [place] [phone] XRay Report Patient:RAKAN MARQUEZ Admit Date:01/22/22 MR#:[id number] Address1:[address] Acct ID:[id number] Address2: Date:1935 [facility] Zip:[place] [address] Age:86 Location:ED Sex:F Room/Bed: Att Phy: Diagnosis:FEVER, RASH IN GROIN AREA Kasandra Phy:Jovanny Meehan III, MD Service Date:01/22/22 [facility] Phy: Interpreting Phy:Wilton Ulloa MDAdmit Phy: Ordering Phy:Shawn Mi MD cc: ~ XR chest 1V portable CLINICAL HISTORY: Fever TECHNIQUE: Single frontal radiograph of the chest was obtained. Comparison: Comparison is made to chest radiograph 01/06/2022 FINDINGS: No lines and tubes are seen. The cardiomediastinal silhouette is normal. The lungs are clear. No evidence of pleural effusion or pneumothorax. IMPRESSION: No acute abnormalities and in particular no evidence of pneumonia. ACT 112: Negative or not required by law. Electronically signed by: Wilton Ulloa M.D. 01/22/2022 6:55 PM Dictated:01/22/[id number] Transcribed: 01/22/221854 Supervising Physician Co-Signing Physician Notes Attending addendum: I have physically seen this patient, have supervised the medical residents activities, and agree with the H&P unless as otherwise noted. Assessment and Plan: Allergic drug reaction- Moderately severe whole body rash, coalesced on back in particular Note Augmentin as allergy Benadryl, methylprednisolone and famotidine as noted Calamine lotion topically Diabetes mellitus type 2- Hold glimepiride, metformin and linagliptin Lantus and sliding scale for Humalog as noted Hypertension- Continue losartan Polyneuropathy- Continue gabapentin Remaining orders and notations as noted Resident Activity Tracking Resident Involvement: Resident Care Provided Care Provided: Adult Hospital Medicine (1) Hypothyroidism Hypothyroidism type: unspecified Qualified Code(s): E03.9 - Hypothyroidism, unspecified (2) Type II diabetes mellitus, uncontrolled Glycemic state: with hyperglycemia Qualified Code(s): E11.65 - Type 2 diab etes mellitus with hyperglycemia (3) Esophageal reflux Esophagitis presence: esophagitis presence not specified Qualified Code(s): K21.9 - Gastro-esophageal reflux disease without esophagitis (4) HTN (hypertension) Hypertension type: essential hypertension Qualified Code(s): I10 - Essential (primary) hypertension
[2022-01-22 23:06] LABS: Appearance Urine Clear (Clear); Bacteria Urine Automated Negative (Negative); Bilirubin Urine Negative (Negative); Blood Urine Negative (Negative); Cast Urine Automated 0 /lpf (0-5); Color Urine Yellow; Epithelial Cell Urine Auto >30 /lpf (0-5); Glucose Urine UA Negative (Negative); Ketones Urine Negative (Negative); Leukocyte Esterase Urine 1+ (Negative); Nitrite Urine Negative (Negative); Protein Urine Negative (Negative); RBC Urine Automated 0-4 /hpf (0-4); Specific Gravity Urine 1.009 (1.000-1.030); Urobilinogen Urine Negative (Negative)
[2022-01-22] MEDS ORDERED: GLUCAGON FOR INJ 1 MG VIAL SQ PRN (23:31)
[2022-01-22] MEDS ORDERED: DEXTROSE 50% 50 ML SYRINGE IV PRN (23:31)
[2022-01-22] MEDS ORDERED: CARBOHYDRATES FOR HYPOGLYCEMIA PO PRN (23:31)
[2022-01-22] MEDS ORDERED: GLUCOSE 10 TABS/TUBE PO PRN (23:31)
[2022-01-22] MEDS ORDERED: GLUCOSE 40% GEL 15 GM TUBE PO PRN (23:31)
[2022-01-23] MEDS ORDERED: ALUMINUM/MAGNESIUM SUSP 30 ML UDC PO PRN (00:45)
[2022-01-23] MEDS ORDERED: MAGNESIUM HYDROXIDE SUSP 30 ML UDC PO PRN (00:45)
[2022-01-23] MEDS ORDERED: CALAMINE/PRAMOXINE LOTION 180 APPLN/180 ML BTL EXT PRN (00:45)
[2022-01-23] MEDS ORDERED: ONDANSETRON INJ 2 MG/ML 2 ML VIAL IV PRN (00:45)
[2022-01-23] MEDS ORDERED: ACETAMINOPHEN 325 MG TAB PO PRN (00:45)
[2022-01-23] MEDS ORDERED: PHARMACY GLYCEMIC MGMT CONSULT PRN (00:45)
[2022-01-23] MEDS ORDERED: INSULIN GLARGINE SOLOSTAR 100 UNITS/ML 3 ML PEN SC ONE ×2 (01:30→12:45)
[2022-01-23] MEDS: INSULIN ASPART PER UNIT SC SCH ×3 (01:51→13:34)
--- NOTE | 2022-01-23 04:22 | Pharmacy Report ---
Pharmacy Glycemic Short Note 2 - Date of Service January 23, 2022 - Glycemic Short BSG Results (Last 24 hours): 01/22/22 01/23/22 18:40 00:36 Glucose 183 H POC Glucose 254 H OUTPATIENT ANTIDIABETIC REGIMEN: * Glimepiride 4mg PO BID * Linagliptin 4mg PO daily * Metformin 1gm PO BID * HbA1c: 9.3% (01/07/22) ASSESSMENT: * Ms Saravia is an 86yo diabetic F admitted with a rash, suspected allergic drug reaction. * Pt was given a dose of IV dexamethasone in the ER, and will received ongoing treatment with IV SoluMedrol on admission. Patient is at risk for steroid- induced hyperglycemia as a result. * Pt is known to the pharmacy glycemic mgmt service from past admission(s). PLAN FOR INPATIENT GLYCEMIC CONTROL: * Hold outpatient oral diabetes medications * Basal insulin * Lantus 15 units SQ x1 dose on admission * further orders pending fasting BSG evaluation * Bolus insulin * NovoLog per scale ACHS or Q6hrs while NPO * Goal Range: Low 110 mg/dL - High 140 mg/dL * Correction Factor: 25 mg/dL/unit * Nutritional / Prandial insulin per carb ratio of 1 unit per 9 grams CHO consumed
[2022-01-23] MEDS: diphenhydrAMINE 50 MG/ML VIAL IV SCH ×2 (05:48→14:56)
[2022-01-23] MEDS: methylPREDNISolone 60 MG in SYRINGE 0 ML IV SCH ×2 (05:48→14:56)
[2022-01-23] MEDS ORDERED: methylPREDNISolone 125 MG/2 ML VIAL IV SCH (06:00)
[2022-01-23] MEDS ORDERED: LEVOTHYROXINE SODIUM 50 MCG TABLET PO SCH (06:30)
[2022-01-23 06:55] LABS: Basophils # (auto) 0.01 K/uL (0-0.2); Basophils % (auto) 0.1 %; Hematocrit (blood only) 41.8 % (37-47); Hemoglobin 13.9 g/dL (12.0-16.0); Immature Granulocytes # (auto) 0.03 K/uL (0.00-0.02); Immature Granulocytes % (auto) 0.3 %; Lymphocytes # (auto) 1.49 K/uL (1.2-3.4); Lymphocytes % (auto) 16.1 %; Mean Corpuscular Hemoglobin 29.6 pg (25-34); Mean Corpuscular Hgb Conc 33.3 g/dL (32-36); Mean Corpuscular Volume 88.9 fL (80-100); Mean Platelet Volume 11.1 fL (7.4-10.4); Monocytes # (auto) 0.14 K/uL (0.11-0.59); Monocytes % (auto) 1.5 %; Neutrophils # (auto) 7.59 K/uL (1.4-6.5); Platelet Count 220 K/uL (130-400); RDW Coefficient of Variation 13.9 % (11.5-14.5); RDW Standard Deviation 45.5 fL (36.4-46.3); White Blood Count 9.26 K/uL (4.8-10.8)
[2022-01-23 07:20] LABS: BUN Creatinine Ratio 14.3 (10-20); Calcium 9.4 mg/dl (8.5-10.1); Creatinine Clr Calc Pharmacy 74.8 ml/min; Est GFR (African American) 95.5 ml/min; Est GFR (Non-African American) 82.4 ml/min
[2022-01-23] MEDS: GABAPENTIN 100 MG CAP PO SCH ×2 (08:57→14:56)
[2022-01-23] MEDS ORDERED: CELECOXIB 100 MG CAP PO SCH (09:00)
[2022-01-23] MEDS ORDERED: ENOXAPARIN INJ 40 MG/0.4 ML SYR SQ SCH (09:00)
[2022-01-23] MEDS ORDERED: LOSARTAN POTASSIUM 50 MG TAB PO SCH (09:00)
[2022-01-23] MEDS ORDERED: POLYETHYLENE (MIRALAX) 17 GM PACK PO SCH (09:00)
[2022-01-23] MEDS ORDERED: CIMETIDINE 400 MG PO SCH (09:00)
[2022-01-23] MEDS ORDERED: FAMOTIDINE 40 MG TABLET PO SCH (09:00)
[2022-01-23] MEDS ORDERED: INSULIN GLARGINE SOLOSTAR 100 UNITS/ML 3 ML PEN SC SCH ×2 (09:00→21:00)
--- NOTE | 2022-01-23 14:13 | Discharge Summary ---
Date of Service January 23, 2022 Admission HPI Per Admitting Provider Patient is an 86 yo female with a PMHx of DM2, UTI, HTN, pancreatitis, hypothyroidism, GERD, hyperlipidemia, HOLLIDAY, who presents to the ER with complaint of rash. Patient was discharged from the hospital on 01/14/22 after be ing hospitalized for choledocholithiasis and UTI. She was discharged home on Augmentin which was completed on Monday (4 days ago -- 01/18/22). On , patient noticed an itchy red rash over the anterior aspect of her neck. This rash has progressively worsened to include her neck, face, chest, back, arms, and upper legs. The rash has not had any bleeding or discharge. She has not had a similar rash in the past. Patient does report associated chills, weakness, and fatigue. She did not have any associated SOB, wheezing, throat pain, throat closing, or difficulty swallowing. In addition to the abx therapy, patient does note a recent change in detergents as her sister and friend washed all of her laundry for her (in a new detergent) during her most recent hospitalization. There have been no other new exposures including other soaps, lotions, or detergents. Patient does not have a hx of allergic reaction. She denies CP, SOB, abdominal pain, nausea, vomiting, leg pain, leg swelling, or urinary sxs (including dysuria, hematuria, dark urine, or malodorous urine). In the ED, her vital signs have been stable. Patient does have a mild leukocytosis at 11.84. Sodium 134 (but corrects to 136 counting for glucose). Normal lactate. COVID negative. UA 1+ leuk esterase and 10-30 WBC but contaminated with > 30 epithelial (patient with no urinary symptoms). CXR with no acute cardiopulmonary findings. Principal Diagnosis Rash Discharge Exam Constitutional WD/WN, vitals as above Eyes + anicteric sclerae ENMT Ears: no hearing impairment Neck trachea midline, no thyromegaly Respiratory normal respiratory effort, lungs clear to auscultation Cardiovascular Rate/Rhythm: regular rate and regular rhythm Extremities: + edema (trace) Gastrointestinal (Abdomen) normal bowel sounds, soft, nontender, no hepatosplenomegaly Musculoskeletal Head/Neck/Chest: normocephalic and head atraumatic Skin + rash (Diffuse, morbilliform rash that spares the palms, feet, and face) Neurologic moves all extremities Psychiatric A+Ox3, euthymic affect Discharge Data Allergies Allergy/AdvReac Type Severity Reaction Status Date / Time Penicillins Allergy severe rash Verified 01/23/22 03:53 Consultations 01/22/22 21:17 ED Decision to Admit Stat Hospital Course (1) Allergic drug reaction: Patient is an 86 yo female with PMHx of DM2, UTI, HTN, pancreatitis, hypothyroidism, GERD, hyperlipidemia, HOLLIDAY admitted for severe drug reaction rash. Rash - Suspect morbilliform rash is delayed type allergic drug reaction to augmentin - Received Benadryl, methylprednisolone, and famotidine during hospitalization -Sent 20 mg p.o. daily x5 days of prednisone to pharmacy for rash treatment - Use of calamine lotion topically for comfort. If desquamation were to occur, can consider sulfadiazine lotion. - Does not seem to be infectious in etiology Type II diabetes mellitus, uncontrolled - Held glimepiride, metformin, linagliptin while inpatient -Restart home regimen status post discharge Polyneuropathy secondary to hx of DM2 - Continue home gabapentin HTN (hypertension) - Continue home losartan Hypercholesterolemia - Continue home atorvastatin Hypothyroidism - Continue home levothyroxine Esophageal reflux - Continue home cimetidine Low back pain - Continue home celebrex Dispo: Discharge home with home health FENGI: Diabetes diet Code status: Full Code (2) Type II diabetes mellitus, uncontrolled: (3) HTN (hypertension): (4) Hypothyroidism: (5) Esophageal reflux: (6) Constipation: (7) Hypercholesterolemia: (8) Low back pain: Total Time Total Time Spent Total Time Spent (In Minutes): <30 Discharge Plan Discharge Items Patient Disposition: Home - Self-Care Reason For Visit: SEVERE DRUG REACTION RASH Discharge Diagnosis: Reaction to medication Activity: Per Instructions section Non-emergency contact: Primary Care Provider Call non-emergency contact if: you have any medication questions, your symptoms worsen and you have a fever Follow-up/Referrals: Jovanny Meehan III, MD [Primary Care Provider] - Demar Reyes CRNP [Nurse Practitioner] - 01/25/22 3:00 pm Diet: Regular Addtl Attending Provider Instructions: You were seen in the hospital for concerns regarding a rash. Our leading differential at this time is that you likely had a delayed reaction to Augmentin that resulted in a skin rash. This is likely not a true drug allergy so it will not be added to your allergy list. While you are here you were given an antihistamine. You were observed by our hospitalist team who felt it was safe for you to be discharged home. We also sent a prescription of steroids for you to take for 5 days to help with your rash. Please follow-up with your primary care provider within 1 week to observe resolution of the rash. Is been a pleasure to be a part of your care and we wish you the best in both your health and recovery. Pending Studies at Discharge: No Stand-Alone Forms: My [facility], Smoking Cessation Medications and DC Order Prescriptions: New prednisone 20 mg tablet 20 mg PO DAILY Qty: 5 RF: 0 Continued (DME) blood sugar diagnostic [[employer] Ultra Blue Test Strip] Strip See Rx Instructions .ROUTE .MEDSUPPLY Qty: 100 RF: 3 (DME) blood-glucose meter [H.BLOOMTouch Ultra2 Meter] Kit See Rx Instructions .ROUTE .MEDSUPPLY Qty: 1 RF: 0 (DME) lancets [H.BLOOMTouch Delica Lancets] 33 gauge misc See Rx Instructions .ROUTE .MEDSUPPLY Qty: 100 RF: 3 atorvastatin 40 mg tablet 40 mg PO QPM Qty: 90 RF: 3 cimetidine 400 mg tablet 400 mg PO BID Qty: 60 RF: 5 Tradjenta 5 mg tablet 5 mg PO DAILY Qty: 90 RF: 3 metformin 500 mg tablet 1,000 mg PO BID Qty: 360 RF: 3 celecoxib 100 mg capsule 100 mg PO BID Qty: 180 RF: 3 levothyroxine 50 mcg tablet 50 mcg PO DAILYBB Qty: 90 RF: 3 (DME) miscellaneous medical supply Misc See Rx Instructions .Route Qty: 1 RF: 0 glimepiride 4 mg tablet 4 mg PO BID Qty: 60 RF: 5 gabapentin 100 mg capsule 100 mg PO TID Qty: 90 RF: 5 (DME) Shower Chair Misc See Rx Instructions .Route Qty: 1 RF: 0 acetaminophen 325 mg Tablet 650 mg PO Q4H PRN (Reason: pain) Qty: 30 RF: 0 losartan 50 mg tablet 50 mg PO DAILY Qty: 30 RF: 0 Discontinued amoxicillin-pot clavulanate 875-125 mg tablet 1 tab PO BID Qty: 9 RF: 0 Discharge Orders: Discharge Order (Routine); Ordered 01/23/22 Ordered By: Robles Magaña Admission Data Admit Date/Time: 01/22/22 23:28 Attending Provider: German Dewitt Admit Provider: Leida Rodríguez Primary Care Provider: Jovanny Meehan III Other Providers: Lazaro Claire Other Interventions: Discharge Summary Assessment (RN) Last Done: 01/23/22 14:43 Supervising Physician Co-Signing Physician Notes I personally examined the patient and verified all carrion points of history and exam, discussed case, and agree with decision making with Dr Magaña. Diffuse rash. Mildly itchy. No other real complaints. No breathing issues. vitals noted heent nc at mmm breathing unlabored. diffuse morbilliform rash all over trunk, less on arms and legs, a little bit around hairline. none on palms/soles. rash - likely drug eruption. looks surprisingly like a drug rash seen when patients with mono take amox. overall nonspecific but without any desquamation, and without any breathing issues - really reassuring - safe/stable for home. outpt f/u already scheduled for monday. short course of steroids to hasten resolution
--- NOTE | 2022-01-23 17:16 | Billing Data ---
Date of Service January 23, 2022 Coding Level of Care Code D/C DAY MANAGEMENT <30 MINS
[2022-01-23] MEDS ORDERED: ATORVASTATIN 40 MG TAB PO SCH (21:00)
[2022-01-24] MEDS ORDERED: INSULIN ASPART PER UNIT SC SCH
--- NOTE | 2022-01-24 03:46 | Billing Data ---
Date of Service January 24, 2022 Coding Level of Care Code 72027 Initial Inpt Care Lvl 3
== END 2022-01-23 16:10 | disposition home or self-care (01) | DRG 607 ==
LOC: ED 17:59 → 3N 23:28 → SUATTDRO 23:28 → 3N 01-23 00:18

== ENCOUNTER 2023-07-20 12:04 | Inpatient (IN) ==
--- NOTE | 2023-07-20 12:14 | Emergency Department Note ---
Impression & Plan Stroke, Dysarthria ED Provider Note NAME: RAKAN MARQUEZ AGE: 87 SEX: F : 1935 ARRIVES VIA: Ambulance INFORMANT: Patient, ED PROVIDER(S): Jared Figueroa MD CHIEF COMPLAINT: Stroke alert HPI: This is a 87-year-old female history of hypertension presenting as a stroke alert. Patient reportedly began having word fine difficulties around 1030. She states she felt she was slurring her speech. She noted no trouble with anyone of her extremities. She does feel like her bilateral lower extremities are weak at this time but she has no left versus right weakness. Otherwise she states that she has had the similar symptoms including word find difficulties multiple times of the past 2 weeks. Initially, 2 weeks ago, she thought she had a mini stroke where she had facial droop, slurred speech. This resolved. She then noticed that yesterday she had speech finding difficulties again, again resolved. Today she woke at around 6 AM feeling completely normal. Then at 10:30 AM she began noticing slurred speech, difficulty with her words. She then called 911. She then a stroke alert on prearrival. ROS: See above HPI for pertinent positives & negatives. A total of 10 systems reviewed and were otherwise negative. PAST MEDICAL HISTORY: See Below PAST SURGICAL HISTORY: See Below FAMILY HISTORY: See Below SOCIAL HISTORY: See Below HOME MEDICATIONS: See Below ALLERGIES: See Below VITALS: See Below PHYSICAL EXAMINATION: General: resting comfortably in no acute distress Head: Normocephalic and atraumatic Eyes: Normal inspection, extraocular muscles intact, no conjunctival pallor Ear, nose, throat: Normal external exam Neck: Normal range of motion Respiratory: Patient is in no respiratory distress, lungs clear to auscultation bilaterally Cardiovascular: RRR without murmur appreciated GI: soft, nontender, no guarding or rebound Extremities: pulses intact with good cap refills, no LE pitting edema or calf tenderness Neuro: The patient awake and alert, appropriately conversive,no focal decifits, NIH 1 for mild dysarthria Skin: Warm, dry, and intact MEDICAL DECISION MAKING: This is a 87-year-old female presenting for a stroke alert. NIH 1. During my evaluation, patient only had slight dysarthria otherwise no significant neuro findings otherwise. Initially discussed with stroke neurologist, he agrees that with low NIH and intermittent symptoms, lower consideration of TNKase. Stroke neurologist evaluated patient via stroke cart. He called me back after doing his evaluation and agrees that she would not require TNKase. Blood benefit from dual endplate therapy with Plavix, aspirin and rosuvastatin. The CTs of the head and CTA head/neck revealed no acute process at this time We will know for further stroke work-up. Triage Nursing notes reviewed. Prior medical records reviewed Vital Signs: reviewed and remarkable for no significant abnormalities Differential diagnosis: Stroke, TIA ER treatment provided: See below Diagnostics interpreted by me: ECG: ECG independently interpreted by me with normal sinus rhythm, rate of 67, normal axis, normal MI, normal QRS, normal QTc, no ST segment elevations consistent with STEMI criteria Cardiac Monitoring: An order was placed for continuous cardiac monitoring. The monitor shows a rate of 68 with sinus rhythm Laboratory studies: As stated above and show below. Imaging studies: See below. Consultation(s): Stroke neurologist Critical Care Note: I have personally spent 40 minutes of critical care time in the direct management of this patient. This includes bedside care, interpretation of diagnostic studies, and testing, discussion with consultants, patient, and family members, and other required patient management activities. This 40 minutes is in excess of all separately billable procedures. Past Med/Surg History Medical History (Updated 07/20/23 @ 18:57 by Jared Figueroa MD) Stroke-like symptoms HLD (hyperlipidemia) Hypothyroidism Esophageal reflux HTN (hypertension) Allergic drug reaction Biliary calculi, common bile duct Obstructive jaundice Hypercholesterolemia Type II diabetes mellitus, uncontrolled Contact dermatitis Pancreatitis due to common bile duct stone Elevated LFTs Choledocholithiasis with chronic cholecystitis Choledocholithiasis with obstruction Diverticulitis Surgical History S/P cholecystectomy Family History Father Stroke Mother Cirrhosis Brother Coronary heart disease Denies family history of Ovarian cancer Prostate cancer Myocardial infarction Breast cancer Colorectal cancer Social History Smoking Status: Never smoker Second Hand Exposure: Yes; Do You Dip or Chew Tobacco: No; Hx Alcohol Use: No Hx Substance Use: No Preferred Language: Croatian Communication Ability: Effective Visual Impairment: No Limitations Hearing Ability: Normal Senior Foreman Required: No Beliefs That Will Affect Care: None marital status: / Current Living Situation: Alone current occupational status: retired current occupation: retired from [employer] How many Children do You have: 1 Feels Safe at Home: Yes Childhood Exposure to Second-Hand Smoke: Yes Diet: regular Dental Care, Regularly: No Physical Activity Frequency: Does not Exercise Seatbelt Use: always Sunscreen Use: No Assistive Devices: Cane and Walker Allergies Allergies Allergy/AdvReac Type Severity Reaction Status Date / Time Penicillins Allergy severe rash Verified 06/19/23 16:02 amoxicillin [From Augmentin] AdvReac Rash Verified 06/19/23 16:02 clavulanic acid AdvReac Rash Verified 06/19/23 16:02 [From Augmentin] Home Meds Home Medications Medication Instructions Recorded Confirmed aspirin 81 mg tablet,delayed 81 mg PO DAILY 07/12/23 07/20/23 release Previous Rx's Medication Instructions Recorded atorvastatin 40 mg tablet 40 mg PO QPM #90 tabs 06/18/20 Shower Chair #1 ea 08/03/21 miscellaneous medical supply #1 ea 09/08/21 celecoxib 100 mg capsule 100 mg PO BID #180 caps 02/27/23 linagliptin 5 mg tablet (Tradjenta) 5 mg PO DAILY #90 tabs 03/09/23 glimepiride 4 mg tablet See Rx Instructions PO BID #135 03/13/23 tabs blood sugar diagnostic (OneTouch #100 ea 03/21/23 Ultra Test strips) blood-glucose meter (OneTouch #1 ea 03/21/23 Ultra2 Meter) lancets 33 gauge #100 ea 03/21/23 metformin 500 mg tablet 1,000 mg (2 x 500 mg) PO BID #360 05/09/23 tabs levothyroxine 50 mcg tablet 50 mcg PO DAILYBB #90 tabs 06/05/23 amlodipine 5 mg tablet (Norvasc) 5 mg PO QAM #90 tabs 06/19/23 Results & Data (ED) Vital Signs Vital Signs - 24 hr 07/20/23 12:23 07/20/23 12:38 07/20/23 12:39 Temperature 36.5 C Temperature Source Temporal Artery Scan Pulse Rate 73 Pulse Rate from SpO2 Sensor Pulse Rhythm Regular Respiratory Rate 20 Respiratory Effort / Characteristics Non-Labored Spontaneous Respiratory Depth Normal Blood Pressure 208/83 H Blood Pressure [Right Arm] 138/105 H Blood Pressure Mean 124 Blood Pressure Mean [Right Arm] 116 Pulse Oximetry 94 97 Oxygen Delivery Method Room Air Sepsis Recent Fever Within 48 Hours No Sepsis New/Unexplained Change in Mental Status No Sepsis Action Taken by Nursing No Action Required 07/20/23 12:40 07/20/23 12:40 07/20/23 12:50 Temperature Temperature Source Pulse Rate 71 Pulse Rate from SpO2 Sensor 70 Pulse Rhythm Respiratory Rate 14 Respiratory Effort / Characteristics Respiratory Depth Blood Pressure 189/128 H 159/106 H Blood Pressure [Right Arm] Blood Pressure Mean 173 142 Blood Pressure Mean [Right Arm] Pulse Oximetry 98 Oxygen Delivery Method Sepsis Recent Fever Within 48 Hours Sepsis New/Unexplained Change in Mental Status Sepsis Action Taken by Nursing 07/20/23 12:50 07/20/23 13:00 07/20/23 13:00 Temperature Temperature Source Pulse Rate 70 71 Pulse Rate from SpO2 Sensor 70 71 Pulse Rhythm Respiratory Rate 14 17 Respiratory Effort / Characteristics Respiratory Depth Blood Pressure 141/83 H Blood Pressure [Right Arm] Blood Pressure Mean 119 Blood Pressure Mean [Right Arm] Pulse Oximetry 99 98 Oxygen Delivery Method Sepsis Recent Fever Within 48 Hours Sepsis New/Unexplained Change in Mental Status Sepsis Action Taken by Nursing 07/20/23 13:07 07/20/23 13:10 07/20/23 13:10 Temperature Temperature Source Pulse Rate 70 Pulse Rate from SpO2 Sensor 70 Pulse Rhythm Respiratory Rate 21 Respiratory Effort / Characteristics Respiratory Depth Blood Pressure 179/112 H Blood Pressure [Right Arm] 141/83 H Blood Pressure Mean 118 Blood Pressure Mean [Right Arm] 102 Pulse Oximetry 97 Oxygen Delivery Method Sepsis Recent Fever Within 48 Hours Sepsis New/Unexplained Change in Mental Status Sepsis Action Taken by Nursing 07/20/23 13:12 07/20/23 13:12 07/20/23 13:20 Temperature Temperature Source Pulse Rate 69 70 Pulse Rate from SpO2 Sensor 69 70 Pulse Rhythm Respiratory Rate 15 16 Respiratory Effort / Characteristics Respiratory Depth Blood Pressure 131/83 Blood Pressure [Right Arm] Blood Pressure Mean 95 Blood Pressure Mean [Right Arm] Pulse Oximetry 98 97 Oxygen Delivery Method Sepsis Recent Fever Within 48 Hours Sepsis New/Unexplained Change in Mental Status Sepsis Action Taken by Nursing 07/20/23 13:20 07/20/23 13:27 07/20/23 13:30 Temperature Temperature Source Pulse Rate 73 66 Pulse Rate from SpO2 Sensor 66 Pulse Rhythm Respiratory Rate 15 Respiratory Effort / Characteristics Respiratory Depth Blood Pressure 153/80 H Blood Pressure [Right Arm] Blood Pressure Mean 124 Blood Pressure Mean [Right Arm] Pulse Oximetry 98 Oxygen Delivery Method Sepsis Recent Fever Within 48 Hours Sepsis New/Unexplained Change in Mental Status Sepsis Action Taken by Nursing 07/20/23 13:30 07/20/23 13:44 07/20/23 13:50 Temperature Temperature Source Pulse Rate 66 66 Pulse Rate from SpO2 Sensor 67 67 Pulse Rhythm Respiratory Rate 18 16 Respiratory Effort / Characteristics Respiratory Depth Blood Pressure 163/84 H Blood Pressure [Right Arm] Blood Pressure Mean 114 Blood Pressure Mean [Right Arm] Pulse Oximetry 96 96 Oxygen Delivery Method Sepsis Recent Fever Within 48 Hours Sepsis New/Unexplained Change in Mental Status Sepsis Action Taken by Nursing 07/20/23 14:00 07/20/23 14:10 07/20/23 14:20 Temperature Temperature Source Pulse Rate 70 67 64 Pulse Rate from SpO2 Sensor 72 68 64 Pulse Rhythm Respiratory Rate 16 12 19 Respiratory Effort / Characteristics Respiratory Depth Blood Pressure Blood Pressure [Right Arm] Blood Pressure Mean Blood Pressure Mean [Right Arm] Pulse Oximetry 98 98 96 Oxygen Delivery Method Sepsis Recent Fever Within 48 Hours Sepsis New/Unexplained Change in Mental Status Sepsis Action Taken by Nursing 07/20/23 14:30 07/20/23 14:40 07/20/23 14:50 Temperature Temperature Source Pulse Rate 66 62 66 Pulse Rate from SpO2 Sensor 67 61 66 Pulse Rhythm Respiratory Rate 22 15 12 Respiratory Effort / Characteristics Respiratory Depth Blood Pressure Blood Pressure [Right Arm] Blood Pressure Mean Blood Pressure Mean [Right Arm] Pulse Oximetry 95 95 98 Oxygen Delivery Method Sepsis Recent Fever Within 48 Hours Sepsis New/Unexplained Change in Mental Status Sepsis Action Taken by Nursing Laboratory Data 07/20/23 12:22 07/20/23 13:23 Lab Results 07/20/23 07/20/23 07/20/23 Range/Units 12:22 12:42 13:21 WBC 5.63 (4.8-10.8) K/ul RBC 4.19 L (4.20-5.40) M/uL Hgb 12.3 (12.0-16.0) g/dl Hct 35.6 L (37.0-47.0) % MCV 85.0 (80.0-100.0) fL MCH 29.4 (25.0-34.0) pg MCHC 34.6 (32.0-36.0) g/dL RDW Std Deviation 40.1 (36.4-46.3) fL RDW Coeff of Ping 13.1 (11.5-14.5) % Plt Count 159 (130-400) K/uL MPV 12.0 (9.4-12.4) fL Platelet Estimate Decreased L (Normal) PT Cancelled 11.1 INR Cancelled 1.0 APTT Cancelled 27.2 PTT Ratio Cancelled 1.0 Sodium 136 (136-145) mmol/L Potassium TNP Chloride 104 (98-107) mmol/L Carbon Dioxide 25 (21-32) mmol/L Anion Gap 7 (3-11) BUN 9 (6-23) mg/dl Creatinine 0.60 (0.6-1.2) mg/dl Est Cr Clr Drug Dosing 64.2 ml/min Est GFR ( Amer) 96.3 ml/min Est GFR (Non-Af Amer) 83.1 ml/min BUN/Creatinine Ratio 15.0 (10-20) Glucose 129 H (70-99(Fasting)) mg/dl POC Glucose 121 H (70-99) mg/dl Calcium 9.3 (8.6-10.3) mg/dl Magnesium 1.7 (1.7-2.4) mg/dl Total Bilirubin 0.5 (0.2-1.0) mg/dl AST TNP ALT 17 (7-52) U/L Alkaline Phosphatase 75 (34-104) U/L Total Protein 6.4 (6.0-8.3) gm/dl Albumin 3.6 (3.4-5.0) gm/dl Globulin 2.8 (2.5-4.0) gm/dl Albumin/Globulin Ratio 1.3 (0.9-2) 07/20/23 Range/Units 13:23 WBC (4.8-10.8) K/ul RBC (4.20-5.40) M/uL Hgb (12.0-16.0) g/dl Hct (37.0-47.0) % MCV (80.0-100.0) fL MCH (25.0-34.0) pg MCHC (32.0-36.0) g/dL RDW Std Deviation (36.4-46.3) fL RDW Coeff of Ping (11.5-14.5) % Plt Count (130-400) K/uL MPV (9.4-12.4) fL Platelet Estimate (Normal) PT INR APTT PTT Ratio Sodium (136-145) mmol/L Potassium 3.6 Chloride (98-107) mmol/L Carbon Dioxide (21-32) mmol/L Anion Gap (3-11) BUN (6-23) mg/dl Creatinine (0.6-1.2) mg/dl Est Cr Clr Drug Dosing ml/min Est GFR ( Amer) ml/min Est GFR (Non-Af Amer) ml/min BUN/Creatinine Ratio (10-20) Glucose (70-99(Fasting)) mg/dl POC Glucose (70-99) mg/dl Calcium (8.6-10.3) mg/dl Magnesium (1.7-2.4) mg/dl Total Bilirubin (0.2-1.0) mg/dl AST 16 ALT (7-52) U/L Alkaline Phosphatase (34-104) U/L Total Protein (6.0-8.3) gm/dl Albumin (3.4-5.0) gm/dl Globulin (2.5-4.0) gm/dl Albumin/Globulin Ratio (0.9-2) Administered Medications Rosuvastatin Calcium (Rosuvastatin Calcium 20 Mg Tab) [facility] Stop: 08/19/23 13:44 Last Admin: 07/20/23 15:14 Dose: 20 mg Documented By: MOHAMUD Discontinued Medications Aspirin (Aspirin Chew 324 Mg) 324 mg PO NOW STA Stop: 07/20/23 13:43 Last Admin: 07/20/23 15:13 Dose: 324 mg Documented By: MOHAMUD Clopidogrel Bisulfate (Clopidogrel Bisulfate 300 Mg Tab) 300 mg PO NOW STA Stop: 07/20/23 13:43 Last Admin: 07/20/23 15:14 Dose: 300 mg Documented By: MOHAMUD Ioversol (Optiray 320 500ml) 111 ml IV ONCE ONE Stop: 07/20/23 12:17 Last Admin: 07/20/23 12:16 Dose: 111 ml Documented By: RAMU Imaging Data Radiologist's Impression: Chest X-Ray 07/20/23 12:05 XR chest 1V portable CLINICAL HISTORY: stroke alert TECHNIQUE: Single frontal radiograph of the chest was obtained. Comparison: Comparison is made to chest radiograph 06/08/2023 FINDINGS: No lines and tubes are seen. The cardiomediastinal silhouette is normal. The lungs are clear. No evidence of pleural effusion or pneumothorax. IMPRESSION: No acute chest disease. ACT 112: Negative or not required by law. Electronically signed by: Wilton Ulloa M.D. 07/20/2023 12:[address] 07/20/23 12:05 CT angio neck with con, CT angio head w con, CT head/brain wo con CLINICAL HISTORY: stroke alert TECHNIQUE: Contiguous axial CT images of the head were acquired from the base of the skull to the vertex without intravenous contrast administration. CT angiography of the head and neck was performed following intravenous administration of iodinated contrast. Coronal and sagittal MIPS were obtained from the axial data set and were submitted for review. Automated dose lowering techniques and/or adjustment according to patient size were utilized for this examination. All measurements were calculated based on NASCET criteria. CT DOSE: 509.24 mGy.cm (accession [id number]), 683.59 mGy.cm (accession [id number]) Comparison: None available at the time of this dictation. FINDINGS: CT head: Areas of decreased attenuation are present in the periventricular and subcortical white matter bilaterally consistent with small vessel ischemic disease. Generalized cerebral atrophy with commensurate enlargement of the ventricles, sulci, and cisterns is also present. There is no acute intracranial hemorrhage or evidence of acute territorial infarction. No shift of the midline structures, mass effect, or extra-axial abnormalities are shown. Atherosclerotic calcifications are present in the intracranial segments of the internal carotid arteries. Lungs and soft tissues are unremarkable. CTA Neck: A 3 vessel aortic arch is shown. There is no significant atherosclerotic plaque in the aortic arch or the origins of the innominate, left common carotid, and left subclavian arteries. The common carotid, external carotid, cervical segments of the internal carotid arteries, and the cervical segments of the vertebral arteries are patent without hemodynamically significant stenosis. The left vertebral artery is dominant. CTA Head: The anterior and posterior cerebral circulations are patent. No hemodynamically significant stenosis, aneurysm, dissection, or arteriovenous malformation is shown. IMPRESSION: 1. No acute intracranial hemorrhage, evidence of acute territorial infarction, or other acute intracranial disease process. 2. No occlusion, hemodynamically significant stenosis, or dissection in the major cervical arteries. 3. No occlusion, hemodynamically significant stenosis, aneurysm, dissection, or arteriovenous malformation in the major intracranial arteries. Assessment of stenosis of the internal carotid arteries is based on NASCET criteria. ACT 112: Negative or not required by law. Electronically signed by: Wilton Ulloa M.D. 07/20/2023 12:47 PM Head CTA 07/20/23 12:12 CT angio neck with con, CT angio head w con, CT head/brain wo con CLINICAL HISTORY: stroke alert TECHNIQUE: Contiguous axial CT images of the head were acquired from the base of the skull to the vertex without intravenous contrast administration. CT angiography of the head and neck was performed following intravenous administration of iodinated contrast. Coronal and sagittal MIPS were obtained from the axial data set and were submitted for review. Automated dose lowering techniques and/or adjustment according to patient size were utilized for this examination. All measurements were calculated based on NASCET criteria. CT DOSE: 509.24 mGy.cm (accession [id number]), 683.59 mGy.cm (accession [id number]) Comparison: None available at the time of this dictation. FINDINGS: CT head: Areas of decreased attenuation are present in the periventricular and subcortical white matter bilaterally consistent with small vessel ischemic disease. Generalized cerebral atrophy with commensurate enlargement of the ventricles, sulci, and cisterns is also present. There is no acute intracranial hemorrhage or evidence of acute territorial infarction. No shift of the midline structures, mass effect, or extra-axial abnormalities are shown. Atherosclerotic calcifications are present in the intracranial segments of the internal carotid arteries. Lungs and soft tissues are unremarkable. CTA Neck: A 3 vessel aortic arch is shown. There is no significant atherosclerotic plaque in the aortic arch or the origins of the innominate, left common carotid, and left subclavian arteries. The common carotid, external carotid, cervical segments of the internal carotid arteries, and the cervical segments of the vertebral arteries are patent without hemodynamically significant stenosis. The left vertebral artery is dominant. CTA Head: The anterior and posterior cerebral circulations are patent. No hemodynamically significant stenosis, aneurysm, dissection, or arteriovenous malformation is shown. IMPRESSION: 1. No acute intracranial hemorrhage, evidence of acute territorial infarction, or other acute intracranial disease process. 2. No occlusion, hemodynamically significant stenosis, or dissection in the major cervical arteries. 3. No occlusion, hemodynamically significant stenosis, aneurysm, dissection, or arteriovenous malformation in the major intracranial arteries. Assessment of stenosis of the internal carotid arteries is based on NASCET criteria. ACT 112: Negative or not required by law. Electronically signed by: Wilton Ulloa M.D. 07/20/2023 12:47 PM Neck CTA 07/20/23 12:12 CT angio neck with con, CT angio head w con, CT head/brain wo con CLINICAL HISTORY: stroke alert TECHNIQUE: Contiguous axial CT images of the head were acquired from the base of the skull to the vertex without intravenous contrast administration. CT angiography of the head and neck was performed following intravenous administration of iodinated contrast. Coronal and sagittal MIPS were obtained from the axial data set and were submitted for review. Automated dose lowering techniques and/or adjustment according to patient size were utilized for this examination. All measurements were calculated based on NASCET criteria. CT DOSE: 509.24 mGy.cm (accession [id number]), 683.59 mGy.cm (accession [id number]) Comparison: None available at the time of this dictation. FINDINGS: CT head: Areas of decreased attenuation are present in the periventricular and subcortical white matter bilaterally consistent with small vessel ischemic disease. Generalized cerebral atrophy with commensurate enlargement of the ventricles, sulci, and cisterns is also present. There is no acute intracranial hemorrhage or evidence of acute territorial infarction. No shift of the midline structures, mass effect, or extra-axial abnormalities are shown. Atherosclerotic calcifications are present in the intracranial segments of the internal carotid arteries. Lungs and soft tissues are unremarkable. CTA Neck: A 3 vessel aortic arch is shown. There is no significant atherosclerotic plaque in the aortic arch or the origins of the innominate, left common carotid, and left subclavian arteries. The common carotid, external carotid, cervical segments of the internal carotid arteries, and the cervical segments of the vertebral arteries are patent without hemodynamically significant stenosis. The left vertebral artery is dominant. CTA Head: The anterior and posterior cerebral circulations are patent. No hemodynamically significant stenosis, aneurysm, dissection, or arteriovenous malformation is shown. IMPRESSION: 1. No acute intracranial hemorrhage, evidence of acute territorial infarction, or other acute intracranial disease process. 2. No occlusion, hemodynamically significant stenosis, or dissection in the major cervical arteries. 3. No occlusion, hemodynamically significant stenosis, aneurysm, dissection, or arteriovenous malformation in the major intracranial arteries. Assessment of stenosis of the internal carotid arteries is based on NASCET criteria. ACT 112: Negative or not required by law. Electronically signed by: Wilton Ulloa M.D. 07/20/2023 12:47 PM Discharge Plan Visit Data Chief Complaint: Stroke Alert ED Provider: Jared Figueroa Discharge Problem: Stroke, Dysarthria Discharge Instructions Interventions: ED Discharge Assessment Last Done: 07/20/23 17:44
[2023-07-20] MEDS ORDERED: OPTIRAY 320 500ml IV ONE (12:16)
--- NOTE | 2023-07-20 12:48 | CT Scan Report ---
CT angio neck with con, CT angio head w con, CT head/brain wo con CLINICAL HISTORY: stroke alert TECHNIQUE: Contiguous axial CT images of the head were acquired from the base of the skull to the eddie yolande without intravenous contrast administration. CT angiography of the head and neck was performed f ollowing intravenous administration of iodinated contrast. Coronal and sagittal MIPS were obtained fr om the axial data set and were submitted for review. Automated dose lowering techniques and/or adjus tment according to patient size were utilized for this examination. All measurements were calculated based on NASCET criteria. CT DOSE: 509.24 mGy.cm (accession [id number]), 683.59 mGy.cm (accession [id number]) Comparison: None available at the time of this dictation. FINDINGS: CT head: Areas of decreased attenuation are present in the periventricular and subcortical white meagan er bilaterally consistent with small vessel ischemic disease. Generalized cerebral atrophy with comme nsurate enlargement of the ventricles, sulci, and cisterns is also present. There is no acute intracr anial hemorrhage or evidence of acute territorial infarction. No shift of the midline structures, mas s effect, or extra-axial abnormalities are shown. Atherosclerotic calcifications are present in the intracranial segments of the internal carotid arteries. Lungs and soft tissues are unremarkable. CTA Neck: A 3 vessel aortic arch is shown. There is no significant atherosclerotic plaque in the aor tic arch or the origins of the innominate, left common carotid, and left subclavian arteries. The co mmon carotid, external carotid, cervical segments of the internal carotid arteries, and the cervical segments of the vertebral arteries are patent without hemodynamically significant stenosis. The left vertebral artery is dominant. CTA Head: The anterior and posterior cerebral circulations are patent. No hemodynamically significan t stenosis, aneurysm, dissection, or arteriovenous malformation is shown. IMPRESSION: 1. No acute intracranial hemorrhage, evidence of acute territorial infarction, or other acute intrac ranial disease process. 2. No occlusion, hemodynamically significant stenosis, or dissection in the major cervical arteries. 3. No occlusion, hemodynamically significant stenosis, aneurysm, dissection, or arteriovenous malfor mation in the major intracranial arteries. Assessment of stenosis of the internal carotid arteries is based on NASCET criteria. ACT 112: Negative or not required by law. Electronically signed by: Wilton Ulloa M.D. 07/20/2023 12:47 PM
--- NOTE | 2023-07-20 12:53 | XRay Report ---
XR chest 1V portable CLINICAL HISTORY: stroke alert TECHNIQUE: Single frontal radiograph of the chest was obtained. Comparison: Comparison is made to chest radiograph 06/08/2023 FINDINGS: No lines and tubes are seen. The cardiomediastinal silhouette is normal. The lungs are clear. No evid ence of pleural effusion or pneumothorax. IMPRESSION: No acute chest disease. ACT 112: Negative or not required by law. Electronically signed by: Wilton Ulloa M.D. 07/20/2023 12:52 PM
[2023-07-20 13:22] LABS: Hematocrit (blood only) 35.6 % (37.0-47.0); Hemoglobin 12.3 g/dl (12.0-16.0); Mean Corpuscular Hemoglobin 29.4 pg (25.0-34.0); Mean Corpuscular Hgb Conc 34.6 g/dL (32.0-36.0); RDW Coefficient of Variation 13.1 % (11.5-14.5); RDW Standard Deviation 40.1 fL (36.4-46.3); Red Blood Count 4.19 M/uL (4.20-5.40); White Blood Count 5.63 K/ul (4.8-10.8)
[2023-07-20 13:32] LABS: Alanine Aminotransferase 17 U/L (7-52); Albumin Globulin Ratio 1.3 (0.9-2); Albumin Level 3.6 gm/dl (3.4-5.0); Alkaline Phosphatase 75 U/L (34-104); Anion Gap 7 (3-11); Bilirubin,Total 0.5 mg/dl (0.2-1.0); Blood Urea Nitrogen 9 mg/dl (6-23); Calcium 9.3 mg/dl (8.6-10.3); Carbon Dioxide 25 mmol/L (21-32); Chloride 104 mmol/L (98-107); Creatinine Clr Calc Pharmacy 64.2 ml/min; Est GFR (African American) 96.3 ml/min; Est GFR (Non-African American) 83.1 ml/min; Globulin 2.8 gm/dl (2.5-4.0); Glucose 129 mg/dl (70-99(Fasting)); Magnesium 1.7 mg/dl (1.7-2.4); Sodium 136 mmol/L (136-145); Total Protein 6.4 gm/dl (6.0-8.3)
[2023-07-20 13:33] LABS: Platelet Count 159 K/uL (130-400); Platelet Estimate Decreased (Normal)
[2023-07-20] MEDS ORDERED: ASPIRIN CHEW 324 MG PO STA (13:42)
[2023-07-20] MEDS ORDERED: CLOPIDOGREL BISULFATE 300 MG TAB PO STA (13:42)
--- NOTE | 2023-07-20 13:51 | History & Physical Report ---
Date of Service July 20, 2023 Assessment & Plan (1) Stroke-like symptoms: Plan: Slurred speech and generalized LE weakness developed at 1030 on 07/20 Strokelike episode 2 weeks ago involving L-sided facial droop, slurred speech, L-sided numbness and tingling Ongoing, intermittent difficulty with word finding x2 weeks Head CT, head CTA, and neck CTA revealed NAF MRI ordered, results pending EKG showed NSR Echo on 06/08/23 revealed LVEF >70% and no evidence of ASD or PFO Neurology consulted; TNKase not given Rosuvastatin 20 mg QAM, per neuro Patient normally takes atorvastatin at home Plavix 300 mg, and aspirin 324 mg were given in the ED DAPT recommended; patient will likely need a 3-week course minimum Plavix 75 mg daily, aspirin 81 mg daily Keep n.p.o. pending dysphagia screen Neurochecks every q4h Continuous telemetry monitoring Fall precautions Elevate HOB A.m. CBC, BMP, Fasting-Lipid Panel (2) HTN (hypertension): Plan: BP 208/83 on arrival Permissive BP in the setting of strokelike symptoms Labetalol 10 mg IV q6h prn for SBP >220 / DBP >110 Continue amlodipine, pending brain MRI (3) Generalized weakness: Plan: Worsening LE weakness b/l x 4 days PT/OT consulted (4) Type 2 diabetes mellitus: Plan: Last A1c 7.1% on 02/27/2023 Glucose 121 on arrival SSI with Lantus 5 units BID; monitor BSG q6h while NPO, then ACHS Target goal of 110-160mg/dL, CH 50, no carb ratio N.p.o. now, then advance to T2DM/AHA diet Hold metformin, Tradjenta, and glimepiride Adjust regimen as needed AM A1c (5) Hypothyroidism: Plan: Continue levothyroxine (6) HLD (hyperlipidemia): Plan: Started on rosuvastatin Plan Disposition: admit to PCU telemetry Full code Keep n.p.o. for now and then advance to AHA/T2DM diet following dysphagia screen VTE PPx: SCDs, Lovenox 40mg q24h History of Present Illness Chief Complaint: Strokelike symptoms Primary Care Provider: JOSE Cedeño Audrey is an 87-year-old female with PMH of T2DM, HTN, pancreatitis, hypothyroidism, GERD, and HLD. She presented as a stroke alert via EMS on 07/20. Strokelike symptoms involving slurred speech developed around 1030 on the morning of 07/20 while patient was speaking on the phone with the [facility] provider. Symptom included: Slurred speech, difficulty finding words, and patient endorsed LE weakness. It should be noted that lower extremity weakness is bilateral and not favoring the left versus right. Patient also says she had what she thought to be a mini stroke 2 weeks ago on 07/08. Her daughter (Grecia) was present at the time and reported left-sided facial droop, slurred speech, trouble finding words, slobbering, and numbness in the left fingers. Worsening leg weakness, and confusion x4 days. Patient denies recent injuries, trauma to the head/neck/shoulders. She ambulates with a cane at baseline. Patient took all of her morning medications. BP 208/83 on arrival, but has since returned to 140s over 80s; vitals otherwise stable. ED course: Aspirin 324 mg, Plavix 300 mg, IVF ROS: Patient endorses slurred speech, drooling, chills, sleeping difficulty, right- sided ear pain, lightheadedness, difficulty swallowing (apt for endoscopy at [facility] scheduled for 08/01), nausea, and numbness and tingling in the LEs b/l. Patient denies fever, night sweats, facial droop (today), blurred vision, double vision, photophobia, changes in smell/taste, fainting, vomiting, diarrhea, or LE pain. Patient denies PMHx of seizures, concussions, DVT/PE, NM. Hx of migraines that usually occur before getting out of bed in the morning. Allergies Allergy/AdvReac Type Severity Reaction Status Date / Time Penicillins Allergy severe rash Verified 06/19/23 16:02 amoxicillin [From Augmentin] AdvReac Rash Verified 06/19/23 16:02 clavulanic acid AdvReac Rash Verified 06/19/23 16:02 [From Augmentin] Home Medications Medication Instructions Recorded Confirmed Type atorvastatin 40 mg tablet 40 mg PO QPM #90 tabs 06/18/20 07/20/23 Rx Shower Chair #1 ea 08/03/21 06/19/23 Rx miscellaneous medical supply #1 ea 12/29/21 10/09/23 Rx celecoxib 100 mg capsule 100 mg PO BID #180 caps 02/27/23 07/20/23 Rx linagliptin 5 mg tablet (Tradjenta) 5 mg PO DAILY #90 tabs 03/09/23 07/20/23 Rx glimepiride 4 mg tablet See Rx Instructions PO BID #135 03/13/23 07/20/23 Rx tabs blood sugar diagnostic (OneTouch #100 ea 03/21/23 06/19/23 Rx Ultra Test strips) blood-glucose meter (OneTouch #1 ea 03/21/23 06/19/23 Rx Ultra2 Meter) lancets 33 gauge #100 ea 03/21/23 06/19/23 Rx metformin 500 mg tablet 1,000 mg (2 x 500 mg) PO BID #360 05/09/23 07/20/23 Rx tabs levothyroxine 50 mcg tablet 50 mcg PO DAILYBB #90 tabs 06/05/23 07/20/23 Rx amlodipine 5 mg tablet (Norvasc) 5 mg PO QAM #90 tabs 06/19/23 07/20/23 Rx aspirin 81 mg tablet,delayed 81 mg PO DAILY 07/12/23 07/20/23 History release Past Med/Surg History Medical History (Updated 07/20/23 @ 13:53 by Wood Hobson PA-C) Stroke-like symptoms HLD (hyperlipidemia) Hypothyroidism Esophageal reflux HTN (hypertension) Allergic drug reaction Biliary calculi, common bile duct Obstructive jaundice Hypercholesterolemia Type II diabetes mellitus, uncontrolled Contact dermatitis Pancreatitis due to common bile duct stone Elevated LFTs Choledocholithiasis with chronic cholecystitis Choledocholithiasis with obstruction Diverticulitis Surgical History S/P cholecystectomy Family History Father Stroke Mother Cirrhosis Brother Coronary heart disease Denies family history of Ovarian cancer Prostate cancer Myocardial infarction Breast cancer Colorectal cancer Social History Smoking Status: Never smoker Second Hand Exposure: Yes; Do You Dip or Chew Tobacco: No; Hx Alcohol Use: No Hx Substance Use: No Preferred Language: Moldovan Communication Ability: Effective Visual Impairment: No Limitations Hearing Ability: Normal 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 Beliefs That Will Affect Care: None marital status: / Current Living Situation: Alone current occupational status: retired current occupation: retired from [employer] How many Children do You have: 1 Feels Safe at Home: Yes Childhood Exposure to Second-Hand Smoke: Yes Diet: regular Dental Care, Regularly: No Physical Activity Frequency: Does not Exercise Seatbelt Use: always Sunscreen Use: No Assistive Devices: Cane and Walker Review of Systems Review of Systems: See HPI above Physical Exam Physical Exam: General: no acute distress; non-toxic appearing; well-nourished; cooperative HEENT: normocephalic, atraumatic; no scleral icterus; PERRLA w/ EOMs intact; moist mucus membrane; vision and hearing intact Neck: supple; no JVD; no lymphadenopathy; trachea midline Skin: warm, dry without signs of tenting; no cyanosis; no rashes, bruising, lesions, or erythema noted CV: chest wall NTP; RRR; S1/S2 normal; no murmurs/rubs/gallops; pulses intact and symmetric at radial, DP, and PT Lungs: no acute respiratory distress; symmetrical chest wall expansion; clear breath sounds across all lung rios w/o adventitious sounds; no wheezing ABD: Soft, NTP; BS present; no rebound/guarding; no ascites; no distention MSK: no tics or fasciculations; +1 pitting edema in the LEs b/l, nonerythematous; 4/5 LE strength b/l; 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/l Neuro: A&Ox3; normal mood and affect; speech is slurred, but understandable and exhibits coherent thought processes; CN2-12 intact; sensation intact in the face, LEs, and UEs b/l; patient demonstrates ability to wiggle toes; (-) pronator drift Results & Data Results & Data Vital Signs (Past 12 Hours) Vital Signs Temp Pulse Resp BP BP Pulse Ox O2 Del Method 07/20/23 13:27 73 07/20/23 13:07 141/83 H 07/20/23 13:00 141/83 H 07/20/23 13:00 71 17 98 07/20/23 12:50 70 14 99 07/20/23 12:50 159/106 H 07/20/23 12:40 71 14 98 07/20/23 12:40 189/128 H 07/20/23 12:39 97 Room Air 07/20/23 12:38 138/105 H 07/20/23 12:23 36.5 C 73 20 208/83 H 94 Laboratory Results Abnormal lab results 07/20/23 07/20/23 Range/Units 12:22 12:42 RBC 4.19 L (4.20-5.40) M/uL Hct 35.6 L (37.0-47.0) % Platelet Estimate Decreased L (Normal) Glucose 129 H (70-99(Fasting)) mg/dl POC Glucose 121 H (70-99) mg/dl Diagnostic Findings Chest X-Ray 07/20/23 12:05 XR chest 1V portable CLINICAL HISTORY: stroke alert TECHNIQUE: Single frontal radiograph of the chest was obtained. Comparison: Comparison is made to chest radiograph 06/08/2023 FINDINGS: No lines and tubes are seen. The cardiomediastinal silhouette is normal. The lungs are clear. No evidence of pleural effusion or pneumothorax. IMPRESSION: No acute chest disease. ACT 112: Negative or not required by law. Electronically signed by: Wilton Ulloa M.D. 07/20/2023 12:[address] 07/20/23 12:05 CT angio neck with con, CT angio head w con, CT head/brain wo con CLINICAL HISTORY: stroke alert TECHNIQUE: Contiguous axial CT images of the head were acquired from the base of the skull to the vertex without intravenous contrast administration. CT angiography of the head and neck was performed following intravenous administration of iodinated contrast. Coronal and sagittal MIPS were obtained from the axial data set and were submitted for review. Automated dose lowering techniques and/or adjustment according to patient size were utilized for this examination. All measurements were calculated based on NASCET criteria. CT DOSE: 509.24 mGy.cm (accession [id number]), 683.59 mGy.cm (accession [id number]) Comparison: None available at the time of this dictation. FINDINGS: CT head: Areas of decreased attenuation are present in the periventricular and subcortical white matter bilaterally consistent with small vessel ischemic disease. Generalized cerebral atrophy with commensurate enlargement of the ventricles, sulci, and cisterns is also present. There is no acute intracranial hemorrhage or evidence of acute territorial infarction. No shift of the midline structures, mass effect, or extra-axial abnormalities are shown. Atherosclerotic calcifications are present in the intracranial segments of the internal carotid arteries. Lungs and soft tissues are unremarkable. CTA Neck: A 3 vessel aortic arch is shown. There is no significant atherosclerotic plaque in the aortic arch or the origins of the innominate, left common carotid, and left subclavian arteries. The common carotid, external carotid, cervical segments of the internal carotid arteries, and the cervical segments of the vertebral arteries are patent without hemodynamically significant stenosis. The left vertebral artery is dominant. CTA Head: The anterior and posterior cerebral circulations are patent. No hemodynamically significant stenosis, aneurysm, dissection, or arteriovenous malformation is shown. IMPRESSION: 1. No acute intracranial hemorrhage, evidence of acute territorial infarction, or other acute intracranial disease process. 2. No occlusion, hemodynamically significant stenosis, or dissection in the major cervical arteries. 3. No occlusion, hemodynamically significant stenosis, aneurysm, dissection, or arteriovenous malformation in the major intracranial arteries. Assessment of stenosis of the internal carotid arteries is based on NASCET criteria. ACT 112: Negative or not required by law. Electronically signed by: Wilton Ulloa M.D. 07/20/2023 12:47 PM Head CTA 07/20/23 12:12 CT angio neck with con, CT angio head w con, CT head/brain wo con CLINICAL HISTORY: stroke alert TECHNIQUE: Contiguous axial CT images of the head were acquired from the base of the skull to the vertex without intravenous contrast administration. CT angiography of the head and neck was performed following intravenous administration of iodinated contrast. Coronal and sagittal MIPS were obtained from the axial data set and were submitted for review. Automated dose lowering techniques and/or adjustment according to patient size were utilized for this examination. All measurements were calculated based on NASCET criteria. CT DOSE: 509.24 mGy.cm (accession [id number]), 683.59 mGy.cm (accession [id number]) Comparison: None available at the time of this dictation. FINDINGS: CT head: Areas of decreased attenuation are present in the periventricular and subcortical white matter bilaterally consistent with small vessel ischemic disease. Generalized cerebral atrophy with commensurate enlargement of the ventricles, sulci, and cisterns is also present. There is no acute intracranial hemorrhage or evidence of acute territorial infarction. No shift of the midline structures, mass effect, or extra-axial abnormalities are shown. Atherosclerotic calcifications are present in the intracranial segments of the internal carotid arteries. Lungs and soft tissues are unremarkable. CTA Neck: A 3 vessel aortic arch is shown. There is no significant atherosclerotic plaque in the aortic arch or the origins of the innominate, left common carotid, and left subclavian arteries. The common carotid, external carotid, cervical segments of the internal carotid arteries, and the cervical segments of the vertebral arteries are patent without hemodynamically significant stenosis. The left vertebral artery is dominant. CTA Head: The anterior and posterior cerebral circulations are patent. No h emodynamically significant stenosis, aneurysm, dissection, or arteriovenous malformation is shown. IMPRESSION: 1. No acute intracranial hemorrhage, evidence of acute territorial infarction, or other acute intracranial disease process. 2. No occlusion, hemodynamically significant stenosis, or dissection in the major cervical arteries. 3. No occlusion, hemodynamically significant stenosis, aneurysm, dissection, or arteriovenous malformation in the major intracranial arteries. Assessment of stenosis of the internal carotid arteries is based on NASCET criteria. ACT 112: Negative or not required by law. Electronically signed by: Wilton Ulloa M.D. 07/20/2023 12:47 PM Neck CTA 07/20/23 12:12 CT angio neck with con, CT angio head w con, CT head/brain wo con CLINICAL HISTORY: stroke alert TECHNIQUE: Contiguous axial CT images of the head were acquired from the base of the skull to the vertex without intravenous contrast administration. CT mike ography of the head and neck was performed following intravenous administration of iodinated contrast. Coronal and sagittal MIPS were obtained from the axial data set and were submitted for review. Automated dose lowering techniques and/or adjustment according to patient size were utilized for this examination. All measurements were calculated based on NASCET criteria. CT DOSE: 509.24 mGy.cm (accession [id number]), 683.59 mGy.cm (accession [id number]) Comparison: None available at the time of this dictation. FINDINGS: CT head: Areas of decreased attenuation are present in the periventricular and subcortical white matter bilaterally consistent with small vessel ischemic disease. Generalized cerebral atrophy with commensurate enlargement of the ventricles, sulci, and cisterns is also present. There is no acute intracranial hemorrhage or evidence of acute territorial infarction. No shift of the midline structures, mass effect, or extra-axial abnormalities are shown. Atheros clerotic calcifications are present in the intracranial segments of the internal carotid arteries. Lungs and soft tissues are unremarkable. CTA Neck: A 3 vessel aortic arch is shown. There is no significant atherosclerotic plaque in the aortic arch or the origins of the innominate, left common carotid, and left subclavian arteries. The common carotid, external carotid, cervical segments of the internal carotid arteries, and the cervical segments of the vertebral arteries are patent without hemodynamically significant stenosis. The left vertebral artery is dominant. CTA Head: The anterior and posterior cerebral circulations are patent. No hemodynamically significant stenosis, aneurysm, dissection, or arteriovenous malformation is shown. IMPRESSION: 1. No acute intracranial hemorrhage, evidence of acute territorial infarction, or other acute intracranial disease process. 2. No occlusion, hemodynamically significant stenosis, or dissection in the major cervical arteries. 3. No occlusion, hemodynamically significant stenosis, aneurysm, dissection, or arteriovenous malformation in the major intracranial arteries. Assessment of stenosis of the internal carotid arteries is based on NASCET criteria. ACT 112: Negative or not required by law. Electronically signed by: Wilton Ulloa M.D. 07/20/2023 12:47 PM Code Status & VTE Plan Code Status Full code VTE Prophylaxis Plan VTE Prophylaxis will be ordered: Yes Supervising Physician Co-Signing Physician Notes Patient seen and examined, chart reviewed, case discussed with Wood Hobson PA-C and I agree with the assessment and plan as above except as otherwise noted Labs and images reviewed 87-year-old female with history of type II DM, hypertension, hypothyroidism, GERD, hyperlipidemia who presented as a stroke alert for slurred speech and expressive aphasia. Patient has a history of lower extremity weakness, and feels she was weak during the episode. Daughter notes that patient had a left-sided facial droop with slurred speech at time of onset of symptoms. While in the ER she was noted to be hypertensive, but after mentioned deficits had resolved. At time of hospitalist assessment patient has symmetrical strength, no facial asymmetry, and speech is with normal prosody and no word finding difficulty. case was reviewed by telestroke. Thrombolytics were not recommended. Patient has been switched to rosuvastatin per their recommendations. Due to multiple TIA episodes recently DAPT for a minimum of 3 weeks is recommended. MRI is pending. Permissive hypertension pending MRI, if stroke is seen continue permissive hypertension for 24 hours. If no stroke on MRI then may decrease blood pressure goal to 180 systolic. Agree with assessment and management above PG Care Time/CCT Total # of Minutes Spent Total Time Spent with Patient: Total time spent is greater than 50% in coordination of care (as documented) at patient's floor/unit and/or counseling patient: Coding [place] [address] INT INP/OBS CARE 3/75MIN Patient Type Established Medical Decision Making High Complexity Diagnoses Stroke-like symptoms R29.90 Essential hypertension I10 Hypertension type: unspecified Generalized weakness R53.1 Type 2 diabetes mellitus E11.9 Hypothyroidism, unspecified type E03.9 Hypothyroidism type: unspecified HLD (hyperlipidemia) E78.5 (2) HTN (hypertension) Hypertension type: unspecified Qualified Code(s): I10 - Essential (primary) hypertension (5) Hypothyroidism Hypothyroidism type: unspecified Qualified Code(s): E03.9 - Hypothyroidism, unspecified
[2023-07-20 14:04] LABS: Potassium 3.6 mmol/L (3.5-5.1)
[2023-07-20 14:24] LABS: Partial Thromboplastin Time 27.2 Seconds (21.0-31.0); Prothrombin Time 11.1 Seconds (9.0-12.0)
[2023-07-20] MEDS ORDERED: LABETALOL HCL IV 5 MG/ML 20ML IV PRN ×2 (15:05→15:13)
[2023-07-20] MEDS: ROSUVASTATIN CALCIUM 20 MG TAB PO SCH (15:14)
--- NOTE | 2023-07-20 16:41 | Magnetic Resonance Report ---
MRI OF THE BRAIN WITHOUT IV CONTRAST CLINICAL HISTORY: Strokelike symptoms. Slurred speech. Lower extremity weakness. COMPARISON STUDY: CT of the brain dated 07/20/2023. TECHNIQUE: MRI of the brain was performed utilizing various T1 and T2-weighted sequences in the axial , sagittal, and coronal planes. IV contrast was not administered for this examination. FINDINGS: Brain parenchyma: There is a 4 mm focus of restricted diffusion identified in the left aspect of the easton on image #10. This is consistent with an acute to subacute lacunar infarct. No additional foci o f restricted diffusion are identified. There is no hemorrhage or mass effect. There is age-related in volutional change noting advanced subcortical and periventricular microangiopathic disease. Small chr onic lacunar infarcts are seen in the right cerebellar hemisphere and the left thalamus. Kuhn-white m atter differentiation is preserved. No extra-axial fluid collection is seen. The cerebellar tonsils a re normal in configuration. Ventricles, sulci, and cisterns: Normal in configuration. Pituitary and sella: Unremarkable. Intracranial vasculature: Normal flow voids are maintained at the skull base. Orbits: The bony orbits are grossly intact. Orbital contents are normal in appearance noting bilatera l ocular lens implant. Sinuses and mastoids: Retention cyst in the right maxillary antrum measuring up to 2 cm. There is ret ention cyst with a right posterior ethmoid sinus measures up to 9 mm. The remaining paranasal sinuses are clear. There is trace left mastoid effusion. Calvarium: Unremarkable. Cervical cord: Partially visualized cervical spinal cord is normal in morphology and signal intensity . IMPRESSION: 1. There is a 4 mm acute to subacute lacunar infarct in the left aspect of the easton. 2. No additional foci of acute ischemia identified. 3. There is no hemorrhage or mass effect. ACT 112: Negative or not required by law. Electronically signed by: Bunny Lucas M.D. 07/20/2023 4:40 PM
[2023-07-20] MEDS ORDERED: GLUCOSE 10 TAB/TUBE PO PRN (18:08)
[2023-07-20] MEDS ORDERED: GLUCOSE 40% GEL 15 GM TUBE PO PRN (18:08)
[2023-07-20] MEDS ORDERED: CARBOHYDRATES FOR HYPOGLYCEMIA PO PRN (18:08)
[2023-07-20] MEDS ORDERED: ACETAMINOPHEN 325 MG TAB PO PRN (18:08)
[2023-07-20] MEDS ORDERED: DEXTROSE 50% 50 ML SYRINGE IV PRN (18:08)
[2023-07-20] MEDS ORDERED: GLUCAGON FOR INJ 1 MG VIAL SQ PRN (18:08)
[2023-07-20] MEDS ORDERED: PHARMACIST DISCHARGE MED REC CONSULT PRN (18:08)
[2023-07-20] MEDS: INSULIN ASPART PER UNIT CHARGE SC SCH ×2 (19:17→21:00)
[2023-07-20] MEDS: ENOXAPARIN INJ 40 MG/0.4 ML SYR SQ SCH (19:38)
[2023-07-20] MEDS: LANTUS PER UNIT CHARGE SQ SCH (21:11)
[2023-07-21] MEDS: LEVOTHYROXINE SODIUM 50 MCG TABLET PO SCH (05:50)
[2023-07-21 07:28] LABS: Basophils # (auto) 0.04 K/uL (0.00-0.20); Basophils % (auto) 0.7 %; Eosinophils # (auto) 0.23 K/uL (0.00-0.50); Eosinophils % (auto) 4.2 %; Hematocrit (blood only) 37.9 % (37.0-47.0); Hemoglobin 12.9 g/dl (12.0-16.0); Immature Granulocytes # (auto) 0.03 K/uL (0.01-0.20); Immature Granulocytes % (auto) 0.5 %; Lymphocytes # (auto) 1.65 K/uL (1.20-3.40); Lymphocytes % (auto) 29.9 %; Mean Corpuscular Hemoglobin 29.7 pg (25.0-34.0); Mean Corpuscular Volume 87.3 fL (80.0-100.0); Mean Platelet Volume 11.8 fL (9.4-12.4); Monocytes # (auto) 0.54 K/uL (0.11-0.59); Monocytes % (auto) 9.8 %; Neutrophils # (auto) 3.02 K/uL (1.40-6.50); Neutrophils % (auto) 54.9 %; Platelet Count 144 K/uL (130-400); RDW Coefficient of Variation 13.3 % (11.5-14.5); RDW Standard Deviation 42.5 fL (36.4-46.3); Red Blood Count 4.34 M/uL (4.20-5.40); White Blood Count 5.51 K/ul (4.8-10.8)
[2023-07-21 07:43] LABS: BUN Creatinine Ratio 18.2 (10-20); Calcium 9.2 mg/dl (8.6-10.3); Chol HDL Ratio 4.2 (0-5); Creatinine Clr Calc Pharmacy 67.8 ml/min; Est GFR (African American) 93.4 ml/min; Est GFR (Non-African American) 80.6 ml/min; Potassium 3.5 mmol/L (3.5-5.1)
[2023-07-21 08:07] LABS: Estimated Average Glucose 157 mg/dl; Hemoglobin A1C 7.1 % (4.5-5.6)
[2023-07-21] MEDS: LANTUS PER UNIT CHARGE SQ SCH ×2 (08:09→20:59)
[2023-07-21] MEDS: INSULIN ASPART PER UNIT CHARGE SC SCH ×4 (08:09→20:37)
--- NOTE | 2023-07-21 08:10 | Hospitalist Progress Note ---
Date of Service July 21, 2023 Assessment & Plan (1) Stroke-like symptoms: Plan: Slurred speech and generalized LE weakness developed at 1030 on 07/20 Strokelike episode 2 weeks ago involving L-sided facial droop, slurred speech, L-sided numbness and tingling MRI 4mm L easton cva, CTA shows no occlusion or aneurysm Echo on 06/08/23 revealed LVEF >70% and no evidence of ASD or PFO Neurology consulted; TNKase not given Plavix load and continue, asa, Rosuvastatin 20 mg QAM, per neuro DAPT for 21 days Patient normally takes atorvastatin at home dysphagia screen, PT/OT (2) HTN (hypertension): Plan: BP 208/83 on arrival, now controlled 1110 Permissive BP in the setting of strokelike symptoms Labetalol 10 mg IV q6h prn for SBP >220 / DBP >110 Continue amlodipine, dose increased on (3) Generalized weakness: Plan: Worsening LE weakness b/l x 4 days PT/OT consulted (4) Type 2 diabetes mellitus: Plan: Last A1c 7.1% on 02/27/2023 Glucose 121 on arrival SSI with Lantus 5 units BID; monitor BSG q6h while NPO, then ACHS Hold metformin, Tradjenta, and glimepiride hemoglobin A1c is 7.1 we will likely need to resume medications at time of discharge AM A1c (5) Hypothyroidism: Plan: Continue levothyroxine (6) HLD (hyperlipidemia): Plan: Started on rosuvastatin Plan physical occupational therapy recommend rehabilitation prior to returning to independent living Full code VTE PPx: SCDs, Lovenox 40mg q24h Admission and Anticipated Discharge Date Admission Date: July 20, 2023 Subjective pt has some mild speech changes no gross neurological deficits or complaints Physical Exam Physical Exam: patient awake alert appropriate is careful with her speech. She has a bruise on her left arm which she says is from the phlebotomy attempts in the ambulance. She has no focal neurological deficits and no facial drooping Results & Data Results & Data Vital Signs (Past 12 Hours) Vital Signs Temp Pulse Pulse Resp BP Pulse Ox O2 Del Method 07/21/23 07:23 98.4 F 58 L 18 136/68 96 Room Air 07/21/23 03:25 98.1 F 59 L 18 137/72 96 Room Air 07/20/23 23:32 98.1 F 68 17 146/66 H 95 Room Air 07/20/23 22:00 65 07/20/23 21:19 150/80 H 07/20/23 20:16 98.1 F 67 20 140/101 H 98 Room Air 07/20/23 20:10 71 Laboratory Results normal CBC normal chemistry hemoglobin A1c is 7.1 PG Care Time/CCT Total # of Minutes Spent Total Time Spent with Patient: Total time spent is greater than 50% in coordination of care (as documented) at patient's floor/unit and/or counseling patient: Coding Level of Care Code 61713 SUB INP/OBS CARE 3/50MIN Diagnoses Stroke-like symptoms R29.90 Essential hypertension I10 Hypertension type: unspecified Generalized weakness R53.1 Type 2 diabetes mellitus E11.9 Hypothyroidism, unspecified type E03.9 Hypothyroidism type: unspecified HLD (hyperlipidemia) E78.5 (2) HTN (hypertension) Hypertension type: unspecified Qualified Code(s): I10 - Essential (primary) hypertension (5) Hypothyroidism Hypothyroidism type: unspecified Qualified Code(s): E03.9 - Hypothyroidism, unspecified
[2023-07-21] MEDS: CLOPIDOGREL BISULFATE 75 MG TAB PO SCH (08:11)
[2023-07-21] MEDS: ROSUVASTATIN CALCIUM 20 MG TAB PO SCH (08:12)
[2023-07-21] MEDS: ASPIRIN 81 MG ECTAB PO SCH (08:12)
[2023-07-21] MEDS ORDERED: amLODIPine BESYLATE 5 MG TAB PO SCH (09:00)
[2023-07-21] MEDS ORDERED: amLODIPine BESYLATE 5 MG TAB PO ONE (09:34)
[2023-07-21] MEDS ORDERED: SENNOSIDES 8.8 MG/5 ML UDC PO ONE (11:21)
--- NOTE | 2023-07-21 12:47 | Electrocardiogram Report ---
Test Reason : Blood Pressure : / mmHG Vent. Rate : 067 BPM Atrial Rate : 067 BPM P-R Int : 182 ms QRS Dur : 080 ms QT Int : 426 ms P-R-T Axes : 046 022 045 degrees QTc Int : 450 ms Normal sinus rhythm Normal ECG When compared with ECG of 08-JUN-2023 13:13, No significant change was found Confirmed by Aaron Cagle ([id number]) on 07/21/2023 12:47:29 PM Referred By: REFERRED SELF Confirmed By:Aaron Cagle
--- NOTE | 2023-07-21 14:11 | Pharmacy Report ---
- Date of Service July 21, 2023 - Pharmacy CVA/TIA Medication Review Medications to Prevent Stroke handout has been added to the patients discharge packet. Antiplatelet(s) * Clopidogrel 300 mg load followed by Asa 81 mg + Plavix 75 mg daily Cholesterol * High intensity statin: rosuvastatin 20 mg daily DVT Prophylaxis * Enoxaparin SQ Therapeutic Anticoagulation * No history of Afib/Aflutter noted Type 2 Diabetes * Patient has T2DM, a diabetes medication with proven CVD benefit may be deferred to their outpatient provider due to familiarity with risks/benefits of such therapies. "Medications to prevent stroke" handout has already been added to the patient's discharge packet, which instructs the patient to follow up with their outpatient provider to evaluate which diabetes medication with proven CVD benefit is best for them
[2023-07-21] MEDS: ENOXAPARIN INJ 40 MG/0.4 ML SYR SQ SCH (20:28)
[2023-07-22] MEDS: LEVOTHYROXINE SODIUM 50 MCG TABLET PO SCH (06:12)
[2023-07-22] MEDS: INSULIN ASPART PER UNIT CHARGE SC SCH ×4 (07:49→21:13)
[2023-07-22] MEDS: amLODIPine BESYLATE 5 MG TAB PO SCH (07:59)
[2023-07-22] MEDS: LANTUS PER UNIT CHARGE SQ SCH ×2 (07:59→21:19)
[2023-07-22] MEDS: SENNA 8.6 MG TAB PO SCH (07:59)
[2023-07-22] MEDS: ROSUVASTATIN CALCIUM 20 MG TAB PO SCH (08:00)
[2023-07-22] MEDS: ASPIRIN 81 MG ECTAB PO SCH (08:00)
[2023-07-22] MEDS: CLOPIDOGREL BISULFATE 75 MG TAB PO SCH (08:00)
[2023-07-22 08:01] LABS: Basophils # (auto) 0.04 K/uL (0.00-0.20); Basophils % (auto) 0.7 %; Eosinophils # (auto) 0.21 K/uL (0.00-0.50); Eosinophils % (auto) 3.7 %; Hematocrit (blood only) 38.6 % (37.0-47.0); Hemoglobin 12.7 g/dl (12.0-16.0); Immature Granulocytes # (auto) 0.03 K/uL (0.01-0.20); Immature Granulocytes % (auto) 0.5 %; Lymphocytes # (auto) 1.58 K/uL (1.20-3.40); Lymphocytes % (auto) 27.8 %; Mean Corpuscular Hemoglobin 29.1 pg (25.0-34.0); Mean Corpuscular Hgb Conc 32.9 g/dL (32.0-36.0); Mean Corpuscular Volume 88.5 fL (80.0-100.0); Mean Platelet Volume 10.9 fL (9.4-12.4); Monocytes # (auto) 0.58 K/uL (0.11-0.59); Monocytes % (auto) 10.2 %; Neutrophils # (auto) 3.24 K/uL (1.40-6.50); Neutrophils % (auto) 57.1 %; Platelet Count 173 K/uL (130-400); RDW Coefficient of Variation 13.2 % (11.5-14.5); RDW Standard Deviation 43.2 fL (36.4-46.3); Red Blood Count 4.36 M/uL (4.20-5.40); White Blood Count 5.68 K/ul (4.8-10.8)
[2023-07-22 08:12] LABS: BUN Creatinine Ratio 14.5 (10-20); Calcium 9.5 mg/dl (8.6-10.3); Creatinine Clr Calc Pharmacy 64.9 ml/min; Est GFR (Non-African American) 79.4 ml/min; Potassium 3.6 mmol/L (3.5-5.1)
--- NOTE | 2023-07-22 08:16 | Hospitalist Progress Note ---
Date of Service July 22, 2023 Assessment & Plan (1) Stroke-like symptoms: Plan: Slurred speech and generalized LE weakness developed at 1030 on 07/20 Strokelike episode 2 weeks ago involving L-sided facial droop, slurred speech, L-sided numbness and tingling MRI 4mm L easton cva, CTA shows no occlusion or aneurysm Echo on 06/08/23 revealed LVEF >70% and no evidence of ASD or PFO Neurology consulted; TNKase not given Plavix load and continue, asa, Rosuvastatin 20 mg QAM, per neuro DAPT for 21 days Patient normally takes atorvastatin at home patient speech is improved PT/OT recommending rehab stay prior to retuning to independent living (2) HTN (hypertension): Plan: BP 208/83 on arrival, now controlled Permissive BP in the setting of strokelike symptoms Continue amlodipine, dose increased on 07/21/23 (3) Type 2 diabetes mellitus: Plan: Last A1c 7.1% on 02/27/2023 glucose control is been challenging. Cannot restart home medications given recent IV contrast use. SSI Adding carb coverage with Lantus now increased to 10 units BID; as of 07/22/2023 Hold metformin, Tradjenta, and glimepiride hemoglobin A1c is 7.1 we will likely need to resume medications at time of discharge A1c is in good control at 7.1 (4) Hypothyroidism: Plan: Continue levothyroxine (5) HLD (hyperlipidemia): Plan: Started on rosuvastatin Plan physical occupational therapy recommend rehabilitation prior to returning to independent living Full code VTE PPx: SCDs, Lovenox 40mg q24h Admission and Anticipated Discharge Date Admission Date: July 20, 2023 Subjective patient had improvement of her speech. Biggest complaints are the contusions to left arm no gross neurological deficits or complaints glucose control has been suboptimal Physical Exam Physical Exam: patient awake alert . more fluent speech. She has a bruise on her left arm which she says is from the phlebotomy attempts in the ambulance. She has no focal neurological deficits and no facial drooping Results & Data Results & Data Vital Signs (Past 12 Hours) Vital Signs Temp Pulse Pulse Resp BP Pulse Ox O2 Del Method 07/22/23 08:05 97.7 F 69 18 147/61 H 96 Room Air 07/22/23 04:07 97.9 F 63 17 146/87 H 98 Room Air 07/21/23 22:41 98.1 F 63 18 155/85 H 98 Room Air 07/21/23 22:00 65 Laboratory Results reviewed CBC reviewed chemistry reviewed [id number] glucose adjusted insulin treatment PG Care Time/CCT Total # of Minutes Spent Total Time Spent with Patient: Total time spent is greater than 50% in coordination of care (as documented) at patient's floor/unit and/or counseling patient: Coding Level of Care Code 23393 SUB INP/OBS CARE 3/50MIN Diagnoses Stroke-like symptoms R29.90 Essential hypertension I10 Hypertension type: unspecified Type 2 diabetes mellitus E11.9 Hypothyroidism, unspecified type E03.9 Hypothyroidism type: unspecified HLD (hyperlipidemia) E78.5 (2) HTN (hypertension) Hypertension type: unspecified Qualified Code(s): I10 - Essential (primary) hypertension (4) Hypothyroidism Hypothyroidism type: unspecified Qualified Code(s): E03.9 - Hypothyroidism, unspecified
[2023-07-22] MEDS: ENOXAPARIN INJ 40 MG/0.4 ML SYR SQ SCH (21:09)
[2023-07-23] MEDS: LEVOTHYROXINE SODIUM 50 MCG TABLET PO SCH (06:22)
[2023-07-23 07:40] LABS: Basophils # (auto) 0.04 K/uL (0.00-0.20); Basophils % (auto) 0.8 %; Eosinophils % (auto) 4.2 %; Hematocrit (blood only) 36.8 % (37.0-47.0); Hemoglobin 12.5 g/dl (12.0-16.0); Immature Granulocytes # (auto) 0.03 K/uL (0.01-0.20); Immature Granulocytes % (auto) 0.6 %; Lymphocytes # (auto) 1.61 K/uL (1.20-3.40); Mean Corpuscular Hemoglobin 29.6 pg (25.0-34.0); Mean Platelet Volume 10.5 fL (9.4-12.4); Monocytes # (auto) 0.47 K/uL (0.11-0.59); Monocytes % (auto) 9.9 %; Neutrophils # (auto) 2.39 K/uL (1.40-6.50); Neutrophils % (auto) 50.5 %; Platelet Count 154 K/uL (130-400); RDW Coefficient of Variation 13.4 % (11.5-14.5); RDW Standard Deviation 42.3 fL (36.4-46.3); Red Blood Count 4.23 M/uL (4.20-5.40); White Blood Count 4.74 K/ul (4.8-10.8)
[2023-07-23 08:00] LABS: BUN Creatinine Ratio 17.5 (10-20); Calcium 9.4 mg/dl (8.6-10.3); Creatinine Clr Calc Pharmacy 71.1 ml/min; Est GFR (African American) 94.8 ml/min; Est GFR (Non-African American) 81.8 ml/min; Potassium 3.7 mmol/L (3.5-5.1)
[2023-07-23] MEDS ORDERED: POLYETHYLENE (MIRALAX) 17 GM PACK PO ONE (08:47)
[2023-07-23] MEDS: INSULIN ASPART PER UNIT CHARGE SC SCH ×4 (09:06→21:05)
[2023-07-23] MEDS: amLODIPine BESYLATE 5 MG TAB PO SCH (09:07)
[2023-07-23] MEDS: LANTUS PER UNIT CHARGE SQ SCH ×2 (09:07→21:03)
[2023-07-23] MEDS: ASPIRIN 81 MG ECTAB PO SCH (09:08)
[2023-07-23] MEDS: CLOPIDOGREL BISULFATE 75 MG TAB PO SCH (09:08)
[2023-07-23] MEDS: SENNA 8.6 MG TAB PO SCH (09:08)
[2023-07-23] MEDS: ROSUVASTATIN CALCIUM 20 MG TAB PO SCH (09:09)
--- NOTE | 2023-07-23 15:44 | Hospitalist Progress Note ---
Date of Service July 23, 2023 Assessment & Plan (1) Stroke-like symptoms: Plan: Slurred speech and generalized LE weakness developed at 1030 on 07/20 Strokelike episode 2 weeks ago involving L-sided facial droop, slurred speech, L-sided numbness and tingling Acute stroke confirmed on MRI :4mm L easton cva, CTA shows no occlusion or aneurysm Echo on 06/08/23 revealed LVEF >70% and no evidence of ASD or PFO Neurology consulted; TNKase not given Plavix load and continue, asa, Rosuvastatin 20 mg QAM, per neuro DAPT for 21 days Patient normally takes atorvastatin at home patient speech is improved PT/OT recommending rehab stay prior to retuning to independent living (2) HTN (hypertension): Plan: BP 208/83 on arrival, now controlled Permissive BP in the setting of strokelike symptoms Continue amlodipine, dose increased on 07/21/23 (3) Type 2 diabetes mellitus: Plan: Last A1c 7.1% on 02/27/2023 glucose control is been challenging. Cannot restart home medications given recent IV contrast use. SSI Adding carb coverage with Lantus now increased to 10 units BID; as of 07/22/2023 Hold metformin, Tradjenta, and glimepiride hemoglobin A1c is 7.1 we will likely need to resume medications after 72 hours from IV contrast A1c is in good control at 7.1 (4) Hypothyroidism: Plan: Continue levothyroxine (5) HLD (hyperlipidemia): Plan: Started on rosuvastatin Plan physical occupational therapy recommend rehabilitation prior to returning to independent living Full code VTE PPx: SCDs, Lovenox 40mg q24h Admission and Anticipated Discharge Date Admission Date: July 20, 2023 Subjective patient had improvement of her speech. Biggest complaints are the contusions to left arm no gross neurological deficits or complaints glucose control has been controlled with basal bolus , but looking to resume home medications when able Physical Exam Physical Exam: patient awake alert . more fluent speech. She has a bruise on her left arm which she says is from the phlebotomy attempts in the ambulance. She has no focal neurological deficits and no facial drooping Results & Data Results & Data Vital Signs (Past 12 Hours) Vital Signs Temp Pulse Pulse Resp BP Pulse Ox O2 Del Method 07/23/23 15:33 98.4 F 63 18 143/77 H 97 Room Air 07/23/23 11:31 97.7 F 64 18 137/84 100 Room Air 07/23/23 08:14 98.2 F 63 18 174/72 H 98 Room Air 07/23/23 07:15 60 07/23/23 04:24 97.9 F 54 L 18 111/61 95 Room Air Laboratory Results Reviewed CBC reviewed chemistry PG Care Time/CCT Total # of Minutes Spent Total Time Spent with Patient: Total time spent is greater than 50% in coordination of care (as documented) at patient's floor/unit and/or counseling patient: Coding Level of Care Code 26598 SUB INP/OBS CARE 2/35MIN Diagnoses Stroke-like symptoms R29.90 Essential hypertension I10 Hypertension type: unspecified Type 2 diabetes mellitus E11.9 Hypothyroidism, unspecified type E03.9 Hypothyroidism type: unspecified HLD (hyperlipidemia) E78.5 (2) HTN (hypertension) Hypertension type: unspecified Qualified Code(s): I10 - Essential (primary) hypertension (4) Hypothyroidism Hypothyroidism type: unspecified Qualified Code(s): E03.9 - Hypothyroidism, unspecified
[2023-07-23] MEDS: ENOXAPARIN INJ 40 MG/0.4 ML SYR SQ SCH (20:06)
[2023-07-24] MEDS: LEVOTHYROXINE SODIUM 50 MCG TABLET PO SCH (05:52)
[2023-07-24] MEDS: INSULIN ASPART PER UNIT CHARGE SC SCH ×4 (08:59→20:44)
[2023-07-24] MEDS: LANTUS PER UNIT CHARGE SQ SCH ×2 (08:59→20:51)
[2023-07-24] MEDS: ASPIRIN 81 MG ECTAB PO SCH (09:00)
[2023-07-24] MEDS: ROSUVASTATIN CALCIUM 20 MG TAB PO SCH (09:00)
[2023-07-24] MEDS: amLODIPine BESYLATE 5 MG TAB PO SCH (09:00)
[2023-07-24] MEDS: CLOPIDOGREL BISULFATE 75 MG TAB PO SCH (09:00)
[2023-07-24] MEDS: SENNA 8.6 MG TAB PO SCH (10:53)
--- OUTSIDE RECORDS SUMMARY | 2023-07-24 10:58 | External Medical Summary | Summary of Care ---
Author Name Unknown Organization [facility] Address [address] [facility] [address] Phone [phone] Care Team Providers Care Puff Ironer Name Role Phone Mathew Marie MD Primary Care Provi charlotte Reason for Visit * Reason Onset Date Comments Appointment 06/09/2023 Encounter Details Date Type Department Care Team Description 06/09/2023 Telephone Gastroenterology, [facility] [address] [place] [address] Nisha Gill CRNP [address] [place] [address] Appointment Allergies Active Allergy Reactions Severity Noted Date Comments Influenza Virus Vaccine Nausea/vomiting 013 Ursodiol 08/26/2015 documented as of this encounter (statuses as of 06/12/2023) Medications Medication Sig Dispensed Refills Start Date End Date Status MULTIVITAMINS PO CAPS 1 tab daily 0 Ac tive PRILOSEC 20 MG PO CPDR 1 tab daily 0 A ctive levothyroxine (LEVOXYL) 50 MCG Tablet 0 12/17/2016 Active losartan (COZAAR) 25 MG Tablet 0 12/17/2016 Active metFORMIN (GLUCOPHAGE) 500 MG Tablet 0 12/17/2016 Active pantoprazole (PROTONIX) 40 MG TBEC Take 40 mg by mouth daily. In the morning. 0 02/02/2017 Active ranitidine (ZANTAC) 150 MG Tablet Take 150 mg by mouth daily. In the morning. 0 02/02/2017 Active Gabapentin 100 MG Oral Capsule (Neurontin) Take by mouth 100 mg in the morning AND 100 mg at noon AND 100 mg before bedtime. 0 Active linaGLIPtin 5 MG Oral Tablet (Tradjenta) Take by mouth 5 mg in the morning. 0 Active Atorvastatin Calcium 40 MG Oral Tablet (Lipitor) Take by mouth 40 mg in the morning. 0 Active Celecoxib 100 MG Oral Capsule (CeleBREX) Take by mouth 100 mg in the morning AND 100 mg before bedtime. 0 Active documented as of this encounter (statuses as of 06/12/2023) Social History Tobacco Use Types Packs/Day Years Used Date Smoking Tobacco: Former Smokeless Tobacco: Never Comments:states she never in haled the cigarette smoke Alcohol Use Standard Drinks/Week Comments Yes 0 (1 standard drink = 0.6 oz pur e alcohol) occasional Sex Assigned at Date Recorded Not on file Job Start Date Occupation Industry Not on file Not on file Not on file documented as of this encounter Miscellaneous Notes * Telephone Encounter - KAMILAH Mcgee - 06/12/2023 10:53 AM EDT LMhome# asking pt to return call to schedule. * Telephone Encounter - Lily Rosario MD - 06/11/2023 8:18 PM EDT This should preferably be within 4 - 6 weeks if possible. * Telephone Encounter - JOSE Poole - 06/09/2023 4:33 PM EDT Pt seen at [facility] for pancreatitis, noted to have dilated CBD and PD. MRCP showed PD stone. Pls schedule ERCP with Dr. Rosario at [facility] per pt's request JOSE Morales documented in this encounter Plan of Treatment Scheduled Orders Name Type Priority Associated Diagnoses Orde r Schedule ERCP Gastro Upper Routine Pancreatic duct stones Ordered: 06/09/2023 Health Maintenance Due Date Last Done Comments DXA Scan 1935 COVID-19 Vaccine (#1) 04/28/1936 Depression Screening 1947 TSH 1955 DTaP,Tdap,and Td Vaccines (1 - Tdap) 1956 Zoster Vaccines (1 of 2) 1987 Pneumococcal Vaccine: 65+ Ye ars (1 - PCV) 2002 *ADVANCE DIRECTIVE NOT ON FILE 08/30/2015 Influenza Vaccine (FLU shot) (#1) 2023 GARDASIL-HPV IMMUNIZATION SERIES Aged Out No longer eligible based on patient's age to complete this topic Hepatitis B Aged Out No longer eligi ble based on patient's age to complete this topic MENINGOCOCCAL (MENACTRA/MENVEO) Aged Out No longer eligible based on patient's age to complete this topic documented as of this encounter Medical Devices Not on filedocumented as of this encounter Visit Diagnoses Diagnosis Pancreatic duct stones- Primary Other specified disease of pancreas documented in this encounter Care Teams Puff Ironer Relationship Specialty Start Date End Date Mathew Marie MD [address] [place] [address] [place] [id number] PCP - General Internal Medicine 08/26/15 documented as of this encounter
--- OUTSIDE RECORDS SUMMARY | 2023-07-24 10:58 | External Medical Summary | Summary of Care ---
Author Name Unknown Organization [facility] Address [address] [place] [address] Phone [phone] Care Team Providers Care Hair Tinter Name Role Phone Mathew Marie MD Primary Care Provi charlotte Reason for Visit * Reason Onset Date Comments case management 07/11/2023 Encounter Details Date Type Department Care Team (Late st Contact Info) Description 07/11/2023 Telephone Care Coordination [address] [place] [address] Janelle Miller RN [address], [place] [phone] case management Allergies Active Allergy Reactions Criticality Noted Date Comments Influenza Virus Vaccine Nausea/vomiting 013 Ursodiol 08/26/2015 documented as of this encounter (statuses as of 07/11/2023) Medications Medication Sig Dispensed Refills Start Date [...] as of this encounter (statuses as of 07/11/2023) Social History Tobacco Use Types Packs/Day Years Used Date Smoking Tobacco: Former Smokeless Tobacco: Never Comments:states she never in haled the cigarette smoke Alcohol Use Standard Drinks/Week Comments Yes 0 (1 standard drink = 0.6 oz pur e alcohol) occasional Sex and Gender Information Value Date Recorded Sex Assigned at Not on file Gender Identity Not on file Sexual Orientation Not on file Job Start Date Occupation Industry Not on file Not on file Not on file documented as of this encounter Miscellaneous Notes * Telephone Encounter - Janelle Miller RN - 07/11/2023 1:23 PM EDT Follow-up Post Discharge Attempted Phone Call First Attempt Call Outcome Left Voicemail/Message Plan To attempt another outreach Attempted to call cell phone also and no vm set up documented in this encounter Plan of Treatment Upcoming Encounters Date Type Department Care Team (Latest Contact Info) Description 08/01/2023 11:15 AM EST Hospital Encounter ENDO [facility], Endoscopy Room [facility] [address] [place] [phone] Lily Rosario MD [address] [place] [address] 08/01/2023 11:15 AM EST - 08/01/2023 12:15 PM EST Surgery ENDO [facility], Endoscopy Room [facility] [address] [place] [phone] Lily Rosario MD [address] [place] [address] ENDOSCOPIC RETROGRADE CHOLANGIOPANCREATOGRAPHY (ERCP) BIOPSY Scheduled Procedures Name Priority Associated Diagnoses Date/Ti me ENDOSCOPIC RETROGRADE CHOLANGIOPANCREATOGRAPHY (ERCP) BIOPSY Recall Pancreatic duct stones 08/01/2023 11:15 AM EST Health Maintenance Due Date Last Done Comments [...] Not on filedocumented as of this encounter Care Teams Hair Tinter Relationship Specialty Start Date End Date Mathew Marie MD [address] [place] [address] [place] [id number] PCP - General Internal Medicine 08/26/15 documented as of this encounter
--- OUTSIDE RECORDS SUMMARY | 2023-07-24 10:58 | External Medical Summary | Summary of Care ---
Author Name Unknown Organization [facility] Address [address] [place] [address] Phone [phone] Care Team Providers Care Light Fixture Servicer Name Role Phone Mathew Marie MD Primary Care Provi charlotte Encounter Details Date Type Department Care Team Description 06/29/2023 Telephone Care Coordination [address] [place] [address] Denise Burgos Allergies Active Allergy Reactions Severity Noted Date Comments Influenza Virus Vaccine Nausea/vomiting 013 Ursodiol 08/26/2015 documented as of this encounter (statuses as of 06/29/2023) Medications Medication Sig Dispensed Refills Start Date [...] as of this encounter (statuses as of 06/29/2023) Social History Tobacco Use Types Packs/Day Years [...] encounter Miscellaneous Notes * Telephone Encounter - Denise Burgos - 06/29/2023 12:46 PM EDT JENIFER called and talked to patient- patient reported that her blood sugars have been a little higher but she feels its her stress level. Is urinating a lot but no burning. Denied disorientation or confusion at the time. JENIFER Phone Survey 1 Are you experiencing new shortness of breath when doing activities such as walking, housework or climbing stairs? No Have you noticed any NEW swelling in your feet or ankles? no Are you weighing yourself? Have your weights increased? Did not weigh herself today but she feels she has lost weight but gained inches Have you had any changes in your medications or medication doses? Glimepiride- new med she has but does not know what it is for. Gisselle Alcazar ordered it. But she is going to take it Do you have a decreased appetite? No Are you having any new or increased difficulty sleeping because of your breathing? No Are you feeling more tired, increased fatigue or low on energy more than normal? Always tired, but she reported that it is her own fault because she does not get out enough. Have you had to visit your doctor's office or the ER in the last month for an unscheduled visit? No Have you had a new cough that will not go away? Have you had a new fever accompanying that cough? Has had the chills but no fever or cough In the last month have you had any feelings of hopelessness or increased anxiety? Yes, has been trying to get someone into help get her place cleaned up before the holidays but cannot get anyone to come. Are there other changes in your health that you would like to talk to your nurse about? No Would you like your nurse to contact you this week? No documented in this encounter Plan of Treatment Health Maintenance Due Date Last Done Comments [...] filedocumented as of this encounter Care Teams Light Fixture Servicer Relationship Specialty Start Date End Date Mathew Marie MD [address] [place] [address] [place] [id number] PCP - General Internal Medicine 08/26/15 documented as of this encounter
--- OUTSIDE RECORDS SUMMARY | 2023-07-24 10:58 | External Medical Summary | Summary of Care ---
Author Name Unknown Organization [facility] Address [address] [facility] [address] Phone [phone] Care Team Providers Care Tar Boiler Name Role Phone Mathew Marie MD Primary Care Provi charlotte Reason for Visit * Reason Onset Date Comments Appointment 06/09/2023 Encounter Details Date Type Department Care Team Description 06/09/2023 Telephone Gastroenterology, [facility] [address] [place] [address] Nisha Gill CRNP [address] [place] [address] Appointment Allergies Active Allergy Reactions Severity Noted Date Comments Influenza Virus Vaccine Nausea/vomiting 013 Ursodiol 08/26/2015 documented as of this encounter (statuses as of 06/19/2023) Medications Medication Sig Dispensed Refills Start Date [...] as of this encounter (statuses as of 06/19/2023) Social History Tobacco Use Types Packs/Day Years [...] Miscellaneous Notes * Telephone Encounter - KAMILAH Manuel - 06/19/2023 2:42 PM EDT Spoke to pt, wants to wait until after her appt she has today to schedule this appointment * Telephone Encounter - KAMILAH Mcgee - 06/12/2023 10:53 AM EDT LMhome# asking pt to return call to schedule. * Telephone Encounter - Lily Rosario MD - 06/11/2023 8:18 PM EDT This should preferably be within 4 - 6 weeks if possible. * Telephone Encounter - JOSE Poole - 06/09/2023 4:33 PM EDT Pt seen at [facility] for pancreatitis, noted to have dilated CBD and PD. MRCP showed PD stone. Pls schedule ERCP with Dr. Rosario at [facility] per pt's request JOSE Morales documented in [...] pancreas documented in this encounter Care Teams Tar Boiler Relationship Specialty Start Date End Date Mathew Marie MD [address] [place] [address] [place] [id number] PCP - General Internal Medicine 08/26/15 documented as of this encounter
--- OUTSIDE RECORDS SUMMARY | 2023-07-24 10:58 | External Medical Summary | Summary of Care ---
Author Name Unknown Organization [facility] Address [address] [place] [address] Phone [phone] Care Team Providers Care Wringer Machine Operator Name Role Phone Mathew Marie MD Primary Care Provi charlotte Reason for Visit * Reason Onset Date Comments case management 06/14/2023 Encounter Details Date Type Department Care Team Description 06/14/2023 Telephone Care Coordination [address] [place], [place] [phone] Irish Corea, AIMEE [address] [place], [place] [phone] case management Allergies Active Allergy Reactions Severity Noted Date Comments Influenza Virus Vaccine Nausea/vomiting 013 Ursodiol 08/26/2015 documented as of this encounter (statuses as of 06/14/2023) Medications Medication Sig Dispensed Refills Start Date [...] as of this encounter (statuses as of 06/14/2023) Social History Tobacco Use Types Packs/Day Years [...] encounter Miscellaneous Notes * Telephone Encounter - Irish Corea RN - 06/14/2023 2:31 PM EDT UTC x 1 Follow-up Post Discharge Attempted Phone Call First Attempt Call Outcome Left Voicemail/Message Plan To attempt another outreach documented in this encounter Plan of Treatment [...] filedocumented as of this encounter Care Teams Wringer Machine Operator Relationship Specialty Start Date End Date Mathew Marie MD [address] [place] [address] [place] [id number] PCP - General Internal Medicine 08/26/15 documented as of this encounter
--- OUTSIDE RECORDS SUMMARY | 2023-07-24 10:58 | External Medical Summary | Summary of Care ---
Author Name Unknown Organization [facility] Address [address] [facility] [address] Phone [phone] Care Team Providers Care Medical Specialist Name Role Phone Mathew Marie MD Primary Care Provi charlotte Reason for Visit * Reason Onset Date Comments Appointment 06/09/2023 Encounter Details Date Type Department Care Team Description 06/09/2023 Telephone Gastroenterology, [facility] [address] [place] [address] Nisha Gill CRNP [address] [place] [address] Appointment Allergies Active Allergy Reactions Severity Noted Date Comments Influenza Virus Vaccine Nausea/vomiting 013 Ursodiol 08/26/2015 documented as of this encounter (statuses as of 06/22/2023) Medications Medication Sig Dispensed Refills Start Date [...] as of this encounter (statuses as of 06/22/2023) Social History Tobacco Use Types Packs/Day Years [...] * Telephone Encounter - KAMILAH Manuel - 06/22/2023 10:32 AM EDT Letter sent * Telephone Encounter - KAMILAH Mcgee - 06/21/2023 10:06 AM EDT Tried calling pt, n/a home#. Received order/records from PCP - [facility] to schedule pt for gastro appt (records scanned). Appt is not needed, just needs ERCP flor'd as noted below. * Telephone Encounter - KAMILAH Manuel - [...] 06/09/2023 4:33 PM EDT Pt seen at [facility] for pancreatitis, noted to have dilated CBD and PD. MRCP showed PD stone. Pls schedule ERCP with Dr. Rosario at [facility] per pt's request JOSE Morales documented [...] pancreas documented in this encounter Care Teams Medical Specialist Relationship Specialty Start Date End Date Mathew Marie MD [address] [place], [place] [address] [address] PCP - General Internal Medicine 08/26/15 documented as of this encounter
--- OUTSIDE RECORDS SUMMARY | 2023-07-24 10:58 | External Medical Summary | Summary of Care ---
Author Name Unknown Organization [facility] Address [address] [place] [address] Phone [phone] Care Team Providers Care Middleware Consultant Name Role Phone Mathew Marie MD Primary Care Provi char[place] Reason for Visit * Reason Onset Date Comments Appointment 07/03/2023 Encounter Details Date Type Department Care Team (Late st Contact Info) Description 07/03/2023 Telephone Gastroenterology, [facility] [address] [facility] [place] [address] Specified, [place] No Resource [address] [place] [address] Appointment Allergies Active Allergy Reactions Criticality Noted Date Comments Influenza Virus Vaccine Nausea/vomiting 013 Ursodiol 08/26/2015 documented as of this encounter (statuses as of 07/06/2023) Medications Medication Sig Dispensed Refills Start Date [...] as of this encounter (statuses as of 07/06/2023) Social History Tobacco Use Types Packs/Day Years [...] encounter Miscellaneous Notes * Telephone Encounter - Tessy Summers - 07/06/2023 9:12 AM EDT Pt called back to get her ERCP scheduled.. She is scheduled with on 08/01/23 * Telephone Encounter - Tessy Summers - 07/03/2023 3:23 PM EDT Pt called to ask about the letter she received about getting an ERCP. Pt stated that she needs to wait until her daughter is home to schedule due to her being her transportation. documented in this encounter Plan of Treatment Upcoming Encounters Date Type Department Care Team (Latest Contact Info) Description 08/01/2023 11:15 AM [facility] Hospital Encounter ENDO [facility], Endoscopy Room [facility] [address] [phone] Lily Rosario MD [address] [place] [address] 08/01/2023 11:15 AM EST - 08/01/2023 12:15 PM EST Surgery ENDO [facility], Endoscopy Room [facility] [address] [place] [phone] Lily Rosario MD [address] [place] [address] ENDOSCOPIC RETROGRADE CHOLANGIOPANCREATOGRAPHY (ERCP) BIOPSY Scheduled Procedures [...] filedocumented as of this encounter Care Teams Middleware Consultant Relationship Specialty Start Date End Date Mathew Marie MD [address] [place] [address] [place] [address] PCP - General Internal Medicine 08/26/15 documented as of this encounter
--- OUTSIDE RECORDS SUMMARY | 2023-07-24 10:58 | External Medical Summary | Summary of Care ---
Author Name Unknown Organization [facility] Address [address] [facility] [address] Phone [phone] Care Team Providers Care Coal Trimmer Machine Operator Name Role Phone Mathew Marie MD Primary Care Provi char[place] Reason for Visit * Reason Onset Date Comments Appointment 06/09/2023 Encounter Details Date Type Department Care Team Description 06/09/2023 Telephone Gastroenterology, [facility] [address] [place] [address] Nisha Gill CRNP [address] [place] [address] Appointment Allergies Active Allergy Reactions Severity Noted Date Comments Influenza Virus Vaccine Nausea/vomiting 013 Ursodiol 08/26/2015 documented as of this encounter (statuses as of 06/21/2023) Medications Medication Sig Dispensed Refills Start Date [...] as of this encounter (statuses as of 06/21/2023) Social History Tobacco Use Types Packs/Day Years [...] weeks if possible. * Telephone Encounter - JOES Poole - 06/09/2023 4:33 PM EDT Pt seen at [facility] for pancreatitis, noted to have dilated CBD and PD. MRCP showed PD stone. Pls schedule ERCP with Dr. Rosario at [facility] per pt's request JOSE Morales documented in [...] pancreas documented in this encounter Care Teams Coal Trimmer Machine Operator Relationship Specialty Start Date End Date Mathew Marie MD [address] [place] [address] [place] [id number] PCP - General Internal Medicine 08/26/15 documented as of this encounter
--- OUTSIDE RECORDS SUMMARY | 2023-07-24 10:58 | External Medical Summary | Summary of Care ---
Author Name Unknown Organization [facility] Address [address] [place] [address] Phone [phone] Care Team Providers Care Transition Lead Name Role Phone Mathew Marie MD Primary Care Provi charlotte Reason for Visit * Reason Onset Date Comments Appointment 07/03/2023 Encounter Details Date Type Department Care Team (Late st Contact Info) Description 07/03/2023 Telephone Gastroenterology, [facility] [address] [facility] [place] [address] Specified, [place] No Resource [address] [place] [address] Appointment Allergies Active Allergy Reactions Criticality Noted Date Comments Influenza Virus Vaccine Nausea/vomiting 013 Ursodiol 08/26/2015 documented as of this encounter (statuses as of 07/03/2023) Medications Medication Sig Dispensed Refills Start Date [...] as of this encounter (statuses as of 07/03/2023) Social History Tobacco Use Types Packs/Day Years [...] in this encounter Plan of Treatment Scheduled Procedures Name Priority Associated Diagnoses Date/Ti me ENDOSCOPIC RETROGRADE CHOLANGIOPANCREATOGRAPHY (ERCP) BIOPSY Recall Pancreatic duct stones Health Maintenance Due Date Last Done Comments [...] filedocumented as of this encounter Care Teams Transition Lead Relationship Specialty Start Date End Date Mathew Marie MD [address] [place] [address] [place] [id number] PCP - General Internal Medicine 08/26/15 documented as of this encounter
--- OUTSIDE RECORDS SUMMARY | 2023-07-24 10:58 | External Medical Summary | Summary of Care ---
Author Name Unknown Organization [facility] Address [address] [facility] [address] Phone [phone] Care Team Providers Care Entry Examiner Name Role Phone Mathew Marie MD Primary Care Provi char[place] Reason for Visit * Reason Onset Date Comments Appointment 06/09/2023 Encounter Details Date Type Department Care Team Description 06/09/2023 Telephone Gastroenterology, [facility] [address] [place] [address] Nisha Gill CRNP [address] [place] [address] Appointment Allergies Active Allergy Reactions Severity Noted [...] * Telephone Encounter - KAMILAH Manuel - 06/29/2023 11:38 AM EDT LMOM for pt to call back to schedule * Telephone Encounter - KAMILAH Manuel - [...] 06/09/2023 4:33 PM EDT Pt seen at [facility] for pancreatitis, noted to have dilated CBD and PD. MRCP showed PD stone. Pls schedule ERCP with Dr. Rosario at [facility] per pt's request JOSE Morales documented [...] pancreas documented in this encounter Care Teams Entry Examiner Relationship Specialty Start Date End Date Mathew Marie MD [address] [place] [address] [place] [id number] PCP - General Internal Medicine 08/26/15 documented as of this encounter
--- OUTSIDE RECORDS SUMMARY | 2023-07-24 10:58 | External Medical Summary | Summary of Care ---
Author Name Unknown Organization [facility] Address [address] [place] [address] Phone [phone] Care Team Providers Care Plaster Caster Name Role Phone Mathew Marie MD Primary Care Provi charlotte Reason for Visit * Reason Onset Date Comments case management 07/07/2023 Encounter Details Date Type Department Care Team (Late st Contact Info) Description 07/07/2023 Telephone Care Coordination [address] [place] [address] Janelle Miller RN [address] [place], [place] [phone] case management Allergies Active Allergy Reactions Criticality Noted Date Comments Influenza Virus Vaccine Nausea/vomiting 013 Ursodiol 08/26/2015 documented as of this encounter (statuses as of 07/07/2023) Medications Medication Sig Dispensed Refills Start Date [...] as of this encounter (statuses as of 07/07/2023) Social History Tobacco Use Types Packs/Day Years [...] Telephone Encounter - Janelle Miller RN - 07/07/2023 9:14 AM EDT Follow-up Post Discharge Attempted Phone Call First Attempt Call Outcome Left Voicemail/Message Plan To attempt another outreach documented in this encounter Plan of Treatment Upcoming Encounters Date Type Department Care Team (Latest Contact Info) Description 08/01/2023 11:15 AM EST Hospital Encounter ENDO [facility], Endoscopy Room [facility] [address] [phone] Lily Rosario MD [address] [place] [address] 08/01/2023 11:15 AM EST - 08/01/2023 12:15 PM EST Surgery ENDO [facility], Endoscopy Room [facility] [address] [place] [phone] Lily Rosario MD [address] [place] [address] ENDOSCOPIC RETROGRADE CHOLANGIOPANCREATOGRAPHY (ERCP) BIOPSY Scheduled Procedures [...] filedocumented as of this encounter Care Teams Plaster Caster Relationship Specialty Start Date End Date Mathew Marie MD [address] [place] [address] [place] [id number] PCP - General Internal Medicine 08/26/15 documented as of this encounter
--- OUTSIDE RECORDS SUMMARY | 2023-07-24 10:59 | External Medical Summary | Summary of Care ---
Author Name Unknown Organization [facility] Address [address] [facility] [address] Phone [phone] Care Team Providers Care Manager Of Medical Name Role Phone Mathew Marie MD Primary Care Provi charlotte Reason for Visit * Reason Onset Date Comments Appointment 06/09/2023 Encounter Details Date Type Department Care Team Description 06/09/2023 Telephone Gastroenterology, [facility] [address] [place] [address] Nisha Gill CRNP [address] [place] [address] Appointment Allergies Active Allergy Reactions Severity Noted Date Comments Influenza Virus Vaccine Nausea/vomiting 013 Ursodiol 08/26/2015 documented as of this encounter (statuses as of 06/09/2023) Medications Medication Sig Dispensed Refills Start Date [...] as of this encounter (statuses as of 06/09/2023) Social History Tobacco Use Types Packs/Day Years [...] encounter Miscellaneous Notes * Telephone Encounter - JOSE Poole - 06/09/2023 4:33 PM EDT Pt seen at [facility] for pancreatitis, noted to have dilated CBD and PD. MRCP showed PD stone. Pls schedule ERCP with Dr. Rosario at [facility] per pt's request JOSE Morales documented [...] pancreas documented in this encounter Care Teams Manager Of Medical Relationship Specialty Start Date End Date Mathew Marie MD [address] [place], [place] [address] [id number] PCP - General Internal Medicine 08/26/15 documented as of this encounter
--- OUTSIDE RECORDS SUMMARY | 2023-07-24 10:59 | External Medical Summary | Summary of Care ---
Author Name Unknown Organization [facility] Address [address] [facility] [address] Phone [phone] Care Team Providers Care Measurement Specialist Name Role Phone Mathew Marie MD Primary Care Provi char[place] Reason for Visit * Reason Onset Date Comments Appointment 06/09/2023 Encounter Details Date Type Department Care Team Description 06/09/2023 Telephone Gastroenterology, [facility] [address] [place] [address] Nisha Gill CRNP [address] [place] [address] Appointment Allergies Active Allergy Reactions Severity Noted Date Comments Influenza Virus Vaccine Nausea/vomiting 013 Ursodiol 08/26/2015 documented as of this encounter (statuses as of 06/11/2023) Medications Medication Sig Dispensed Refills Start Date [...] as of this encounter (statuses as of 06/11/2023) Social History Tobacco Use Types Packs/Day Years [...] encounter Miscellaneous Notes * Telephone Encounter - Lily Rosario MD - 06/11/2023 8:18 PM EDT This should preferably be within 4 - 6 weeks if possible. * Telephone Encounter - JOSE Poole - 06/09/2023 4:33 PM EDT Pt seen at [facility] for pancreatitis, noted to have dilated CBD and PD. MRCP showed PD stone. Pls schedule ERCP with Dr. Rosario at [facility] per pt's request JOSE Morales [...] pancreas documented in this encounter Care Teams Measurement Specialist Relationship Specialty Start Date End Date Mathew Marie MD [address] [place], [place] [address] [id number] PCP - General Internal Medicine 08/26/15 documented as of this encounter
[2023-07-24] MEDS: ENOXAPARIN INJ 40 MG/0.4 ML SYR SQ SCH (18:18)
--- NOTE | 2023-07-24 18:55 | Hospitalist Progress Note ---
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, CTA shows no occlusion or aneurysm Echo on 06/08/23 revealed LVEF >70% and no evidence of ASD or PFO Neurology consulted; TNKase not given Plavix load and continue, asa, Rosuvastatin 20 mg QAM, per neuro DAPT for 21 days LD 08/10/23 then plavix alone Patient normally takes atorvastatin at home patient speech is improved, has esophageal dilation in past, and scheduled for soon ,but will need to reschedule for 6 mo due to cva PT/OT recommending rehab stay prior to retuning to independent living (2) HTN (hypertension): Plan: BP 208/83 on arrival, now controlled Permissive BP in the setting of strokelike symptoms Continue amlodipine, dose increased on 07/21/23, blood pressure controlled (3) Type 2 diabetes mellitus: Plan: Last A1c 7.1% on 02/27/2023 glucose control is been challenging. Cannot restart home medications given recent IV contrast use. SSI Adding carb coverage with Lantus now increased to 10 units BID; as of 07/22/2023 Hold metformin, Tradjenta, and glimepiride hemoglobin A1c is 7.1 resume medications A1c is in good control at 7.1 (4) Hypothyroidism: Plan: Continue levothyroxine (5) HLD (hyperlipidemia): Plan: Started on rosuvastatin Plan physical occupational therapy recommend rehabilitation prior to returning to independent living Full code VTE PPx: SCDs, Lovenox 40mg q24h Admission and Anticipated Discharge Date Admission Date: July 20, 2023 Subjective patient had improvement of her speech. no gross neurological deficits or complaints glucose control has been controlled with basal bolus , but looking to resume home medications when able Physical Exam Physical Exam: patient awake alert . more fluent speech. cardiac exam is regular, lungs are clear She has no focal neurological deficits and no facial drooping Results & Data Results & Data Vital Signs (Past 12 Hours) Vital Signs Temp Pulse Pulse Resp BP Pulse Ox O2 Del Method 07/24/23 15:10 97.9 F 67 18 127/78 99 Room Air 07/24/23 11:36 97.3 F L 66 18 113/71 98 Room Air 07/24/23 08:00 98.1 F 64 14 149/84 H 98 Room Air 07/24/23 07:14 98.2 F 79 18 183/90 H 96 Room Air PG Care Time/CCT Total # of Minutes Spent Total Time Spent with Patient: Total time spent is greater than 50% in coordination of care (as documented) at patient's floor/unit and/or counseling patient: Coding Level of Care Code 25369 SUB INP/OBS CARE 2/35MIN Diagnoses Stroke-like symptoms R29.90 Essential hypertension I10 Hypertension type: unspecified Type 2 diabetes mellitus E11.9 Hypothyroidism, unspecified type E03.9 Hypothyroidism type: unspecified HLD (hyperlipidemia) E78.5 (2) HTN (hypertension) Hypertension type: unspecified Qualified Code(s): I10 - Essential (primary) hypertension (4) Hypothyroidism Hypothyroidism type: unspecified Qualified Code(s): E03.9 - Hypothyroidism, unspecified
[2023-07-25] MEDS: LEVOTHYROXINE SODIUM 50 MCG TABLET PO SCH (05:40)
[2023-07-25] MEDS: LANTUS PER UNIT CHARGE SQ SCH (08:23)
[2023-07-25] MEDS: INSULIN ASPART PER UNIT CHARGE SC SCH ×2 (08:23→12:28)
[2023-07-25] MEDS: ASPIRIN 81 MG ECTAB PO SCH (08:27)
[2023-07-25] MEDS: amLODIPine BESYLATE 5 MG TAB PO SCH (08:27)
[2023-07-25] MEDS: CLOPIDOGREL BISULFATE 75 MG TAB PO SCH (08:28)
[2023-07-25] MEDS: ROSUVASTATIN CALCIUM 20 MG TAB PO SCH (08:28)
[2023-07-25] MEDS: SENNA 8.6 MG TAB PO SCH (08:29)
--- NOTE | 2023-07-25 19:11 | Discharge Summary ---
Date of Service July 25, 2023 Admission HPI Per Admitting Provider Audrey is an 87-year-old female with PMH of T2DM, HTN, pancreatitis, hypothyroidism, GERD, and HLD. She presented as a stroke alert via EMS on 07/20. Strokelike symptoms involving slurred speech developed around 1030 on the morning of 07/20 while patient was speaking on the phone with the [facility] provider. Symptom included: Slurred speech, difficulty finding words, and patient endorsed LE weakness. It should be noted that lower extremity weakness is bilateral and not favoring the left versus right. Patient also says she had what she thought to be a mini stroke 2 weeks ago on 07/08. Her daughter (Grecia) was present at the time and reported left-sided facial droop, slurred speech, trouble finding words, slobbering, and numbness in the left fingers. Worsening leg weakness, and confusion x4 days. Patient denies recent injuries, trauma to the head/neck/shoulders. She ambulates with a cane at baseline. Patient took all of her morning medications. BP 208/83 on arrival, but has since returned to 140s over 80s; vitals otherwise stable. ED course: Aspirin 324 mg, Plavix 300 mg, IVF ROS: Patient endorses slurred speech, drooling, chills, sleeping difficulty, right- sided ear pain, lightheadedness, difficulty swallowing (apt for endoscopy at [facility] scheduled for 08/01), nausea, and numbness and tingling in the LEs b/l. Patient denies fever, night sweats, facial droop (today), blurred vision, double vision, photophobia, changes in smell/taste, fainting, vomiting, diarrhea, or LE pain. Patient denies PMHx of seizures, concussions, DVT/PE, DC. Hx of migraines that usually occur before getting out of bed in the morning. Principal Diagnosis L easton wu poa Discharge Exam awake and alert some slowing of speech no focal deficits Discharge Data Allergies Allergy/AdvReac Type Severity Reaction Status Date / Time Penicillins Allergy severe rash Verified 06/19/23 16:02 amoxicillin [From Augmentin] AdvReac Rash Verified 06/19/23 16:02 clavulanic acid AdvReac Rash Verified 06/19/23 16:02 [From Augmentin] Consultations 07/20/23 14:41 ED Decision to Admit Stat Ordered Studies 07/20/23 12:05 CT head/brain wo con Stat 07/20/23 12:12 CTA head w con [CT angio head w con] Stat CTA neck with con [CT angio neck with con] Stat 07/20/23 14:58 MRI Brain [MR brain wo con] Stat Hospital Course (1) Stroke-like symptoms: Slurred speech and generalized LE weakness developed at 1030 on 07/20 Strokelike episode 2 weeks ago involving L-sided facial droop, slurred speech, L-sided numbness and tingling Acute stroke confirmed on MRI :4mm L easton cva, CTA shows no occlusion or aneurysm Echo on 06/08/23 revealed LVEF >70% and no evidence of ASD or PFO Neurology consulted; TNKase not given Plavix load and continue, asa, Rosuvastatin 20 mg QAM, per neuro DAPT for 21 days LD 08/10/23 then plavix alone Patient normally takes atorvastatin at home patient speech is improved, has esophageal dilation in past, and scheduled for soon ,but will need to reschedule for 6 mo due to cva PT/OT recommending rehab stay prior to retuning to independent living, could not locate bed pt opts for home with home health (2) HTN (hypertension): BP 208/83 on arrival, now controlled Permissive BP in the setting of strokelike symptoms Continue amlodipine, dose increased on 07/21/23, blood pressure controlled (3) Type 2 diabetes mellitus: Last A1c 7.1% on 02/27/2023 metformin, Tradjenta, and glimepiride hemoglobin A1c is 7.1 resume medications A1c is in good control at 7.1 (4) Hypothyroidism: Continue levothyroxine (5) HLD (hyperlipidemia): Total Time Total Time Spent Total Time Spent (In Minutes): discharge took greater than 30 minutes to complete Discharge Plan Discharge Items Patient Disposition: Home - Home Health Services Reason For Visit: STROKE-LIKE SYMPTOMS Discharge Diagnosis: left easton stroke Activity: Per Instructions section Non-emergency contact: Primary Care Provider Call non-emergency contact if: your symptoms worsen Follow-up/Referrals: Gisselle Meredith CRNP [Primary Care Provider] - 08/01/23 2:30 pm (Dr. Sargent) Diet: Heart Healthy Addtl Attending Provider Instructions: Risk Factors for Stroke: You can reduce your chances of stroke by working with your medical provider to adopt a healthy lifestyle. Some specific ways to lower your chance of stroke are: * If you are a smoker, now is the time to stop smoking cigarettes * If you are diabetic, improve the control of your blood sugars * Avoid excessive amounts of alcohol * Control high blood pressure * Lose weight if you are overweight * Be sure to lead an active lifestyle * Eat a healthy diet low in salt, cholesterol and fat You should know about other risk factors for stroke that you are unable to control. These include: * Age 55 years or older * Male gender * Certain racial groups: , or / * Family History of Stroke, Mini stroke or Heart Attack * Sickle Cell Disease Follow Up: It is important for you to keep your follow up appointments with your medical provider. Who to Call and When: Medical Emergencies: Call 911 immediately if you experience any of the following warning signs and symptoms of Stroke: * Sudden numbness or weakness of the face, arm or leg, especially on one side of the body * Sudden confusion, trouble speaking or understanding * Sudden trouble seeing in one or both eyes * Sudden trouble walking, dizziness, loss of balance or coordination * Sudden severe headache with no cause Do not delay calling 911 if you experience any warning signs or symptoms of a stroke. Delay in seeking medical attention may affect what treatments can be given to you. . [facility] Provider Instructions: stop aspirin on 08/10/23 continue plavix after that Pending Studies at Discharge: No Stand-Alone Forms: My [facility], Smoking Cessation, Medications to Prevent Stroke Medications and DC Order Prescriptions: New clopidogrel 75 mg Tablet 75 mg PO QAM Qty: 30 5RF Continued atorvastatin 40 mg tablet 40 mg PO QPM Qty: 90 3RF (DME) miscellaneous medical supply Misc See Rx Instructions .Route Qty: 1 0RF Rx Instructions: Raised Toilet Seat Tradjenta 5 mg tablet 5 mg PO DAILY Qty: 90 3RF glimepiride 4 mg tablet See Rx Instructions PO BID Qty: 135 2RF Rx Instructions: Take 1 tablet every morning and 1/2 tablet every afternoon (DME) OneTouch Ultra Test Strip See Rx Instructions .Route Qty: 100 2RF Rx Instructions: As directed; test once daily (DME) blood-glucose meter [OneTouch Ultra2 Meter] Misc See Rx Instructions .Route Qty: 1 0RF Rx Instructions: As directed (DME) lancets 33 gauge misc See Rx Instructions .ROUTE .MEDSUPPLY Qty: 100 3RF Rx Instructions: Use one lancets to test blood sugar once daily inthe morning metformin 500 mg tablet 1,000 mg PO BID Qty: 360 3RF levothyroxine 50 mcg tablet 50 mcg PO DAILYBB Qty: 90 3RF Rx Instructions: TAKE THIS MEDICATION 30 MINUTES BEFORE BREAKFAST OR ANY OTHER MEDICATIONS aspirin 81 mg tablet,delayed release (DR/EC) 81 mg PO DAILY (DME) Shower Chair Misc See Rx Instructions .Route Qty: 1 0RF Rx Instructions: As directed amlodipine [Norvasc] 5 mg tablet 5 mg PO QAM Qty: 90 1RF celecoxib 100 mg capsule 100 mg PO BID Qty: 180 3RF Rx Instructions: for back pain Discharge Orders: Discharge Order (Routine); Ordered 07/25/23 Ordered By: Ras Alvarado/Other Patient Handouts: High Blood Sugar (Hyperglycemia), Hypoglycemia (Low Blood Sugar), Managing Type 2 Diabetes Admission Data Admit Date/Time: 07/20/23 14:57 Attending Provider: Ras Sam Admit Provider: Shubham Rogers Primary Care Provider: Gisselle Meredith Other Providers: Shubham Rogers; [facility]; [facility] Other Interventions: Discharge Summary Assessment (RN) Last Done: 07/25/23 17:01 Coding Level of Care Code 78309 INP/OBS DISCH >30 MIN Diagnoses Stroke-like symptoms R29.90 Essential hypertension I10 Hypertension type: unspecified Type 2 diabetes mellitus E11.9 Hypothyroidism, unspecified type E03.9 Hypothyroidism type: unspecified HLD (hyperlipidemia) E78.5
== END 2023-07-25 18:13 | disposition home health service (06) | DRG 66 ==
LOC: ED 12:04 → EDINP 14:57 → SUATTDRO 14:57 → 2E 20:00 → 3N 07-24 00:24
DX: Z79.82 Long term (current) use of aspirin; I63.89 Other cerebral infarction; Z88.0 Allergy status to penicillin; Y99.8 Other external cause status; Z82.3 Family history of stroke; R29.701 NIHSS score 1; E11.9 Type 2 diabetes mellitus without complications; E03.9 Hypothyroidism, unspecified; W46.0XXA Contact with hypodermic needle, initial encounter; R29.898 Other symptoms and signs involving the musculoskeletal system; Z82.49 Family history of ischemic heart disease and other diseases of the circulatory system; R47.1 Dysarthria and anarthria; Z88.1 Allergy status to other antibiotic agents; Z79.84 Long term (current) use of oral hypoglycemic drugs; E78.00 Pure hypercholesterolemia, unspecified; R47.81 Slurred speech; Z79.899 Other long term (current) drug therapy; S40.022A Contusion of left upper arm, initial encounter; I10 Essential (primary) hypertension; Y92.818 Other transport vehicle as the place of occurrence of the external cause

== ENCOUNTER 2025-04-21 19:44 | Inpatient (IN) ==
[2025-04-21 20:07] VITALS: TEMP 98.8
--- NOTE | 2025-04-21 20:13 | Emergency Department Note ---
Impression & Plan Encephalopathy acute, Acute UTI (urinary tract infection), TIA (transient ischemic attack), Hypomagnesemia ED Provider Note NAME: RAKAN MARQUEZ AGE: 89 SEX: F : 1935 ARRIVES VIA: Ambulance INFORMANT: Patient, EMS, daughter ED PROVIDER(S): Pancho Wakefield DO CHIEF COMPLAINT: AMS HPI: This is a 89-year-old female with the PMHx of memory impairment, HTN, HLD, CVA, and DM2 presenting to [facility] for further evaluation of stroke like symptoms. Patient is accompanied by EMS who provide additional history. EMS reports the patient was confused today at dinner. The family members reported facial droop and dropping food out of her mouth. She was dysarthric and not making sense. Patient currently has no complaints besides urinary frequency. Further history obtained from her daughter at bedside. She has been intermittently confused over the last few days. Patient states that her facial droop and confusion has happened in the past. Patient had a prior CVA. Daughter states this was very atypical for her though. They deny fever or chills. No cough or congestion. Denies chest pain or palpitations. No shortness of breath. They deny abdominal pain, nausea and vomiting. No urinary complaints. No recent changes in bowel movements. Patient denies recent changes in medications or OTC supplements. Patient offers no other complaints, today. ADDITIONAL HISTORY OBTAINED: Per HPI Chronic Medical/Social Conditions Affecting Care: Per HPI PAST MEDICAL HISTORY: See Below PAST SURGICAL HISTORY: See Below FAMILY HISTORY: See Below SOCIAL HISTORY: See Below HOME MEDICATIONS: See Below ALLERGIES: See Below VITALS: See Below PHYSICAL EXAMINATION: GENERAL: Sitting up in bed, alert, well appearing, well nourished, no distress, non-toxic EYE EXAM: normal conjunctiva. PERRL and EOM's grossly intact. OROPHARYNX: no exudate, no erythema, lips, buccal mucosa, and tongue normal and mucous membranes are moist NECK: supple, no nuchal rigidity, no adenopathy, non-tender LUNGS: Clear to auscultation. Normal chest wall mechanics HEART: no murmurs, regular rate, regular rhythm ABDOMEN: abdomen soft, non-tender, no masses, no rebound or guarding. BACK: Back is symmetrical on inspection and there is no deformity, no midline tenderness, no CVA tenderness. SKIN: no rashes and no bruising UPPER EXTREMITIES: upper extremities are grossly normal. LOWER EXTREMITIES: No pitting edema. NEURO EXAM: Normal sensorium, GCS 15, minimal dysarthria, no gross weakness of arms, no gross weakness of legs. No drift. Finger to nose intact. Gross sensation intact. MEDICAL DECISION MAKING: Differential diagnoses includes but not limited to TIA, CVA, ICH, hydrocephalus, NPH, UTI, electrolyte derangements, dehydration, multifactorial encephalopathy, polypharmacy, neurocognitive disease/dysfunction In summary, this is a 89 year old female who presented with AMS. Differential as above. Nursing notes and pertinent past medical records reviewed. Vital signs reviewed and the patient is afebrile and HDS. History and presentation revealed prior history of CVA and episodes of encephalopathy. The patient is on stroke risk reduction therapy already. She does have numerous risk factors. Do feel that her symptoms are consistent with possible TIA. She could just be acutely encephalopathic which this seems more reasonable. Physical examination revealed mild confusion and inattention which seems to be more related to encephalopathy. NIH stroke scale of 1 for mild dysarthria. As a result of my initial evaluation, the patient seems more encephalopathic rather than strokelike symptoms. Possible TIA. given the patient presentation and risk factors, plan for CTA imaging of the head and neck. Will obtain further workup for encephalopathy including metabolic workup and infectious. Suspect likely UTI. Diagnostics interpreted by me include EKG and cardiac monitoring as listed below: -Cardiac Monitoring: An order was placed for continuous cardiac monitoring. The monitor shows a rate of 60-70s with regular rhythm. -ECG: EKG independently inter by me reveals a poor baseline. It appears to be normal sinus rhythm at a ventricular rate of 73 bpm. Mild sinus arrhythmia present. No significant ST segment changes to suggest STEMI. Patient completed laboratory studies and imaging. Results independently interpreted by me are Hypomagnesemia on IV replenishment was ordered. Minimal hyperglycemia. Procalcitonin is normal. No significant kidney dysfunction or electrolyte abnormalities otherwise. No significant leukocytosis or anemia. Patient does appear to have a urinary tract infection with positive leukocyte esterase, pyuria and bacteriuria. Will manage with IV ceftriaxone. I do feel this likely explains patient's encephalopathy today. I doubt stroke. CTAs were obtained. CTAs were unremarkable for stroke. Given the patient's acute encephalopathy and UTI, I do not feel it would be unreasonable to admit the patient. Patient is unsure if she would like to be discharged home or have an admission. Patient states she now has a headache and mild nausea. Will give Tylenol and IV Zofran. Patient again reports no abdominal pain. I reexamined the patient's abdomen and she has no significant tenderness. No evidence of peritonitis. I would consider today's events both possible TIA as well as acute encephalopathy from UTI. I favor that she has acute encephalopathy secondary to a UTI rather than TIA. Nonetheless, the patient's ABCD2 is moderate risk. I think it is reasonable for further workup as an inpatient and stroke risk reduction therapies. I did offer discharge to the patient and daughter but feel this is a less safe option. They are agreeable to admission. Ultimately, the decision was made to admit the patient for acute encephalopathy 2/2 UTI c/b hypomagnesemia and possible TIA. I discussed the case with the hospitalist service via telephone/Tiger[employer] and they are agreeable to admit the patient to their services. Daughter and I discussed recurrent UTIs. I did recommend discussing possible vaginal estrogen for preventative measures. The patient and her daughter are interested in this. They will discuss further with their PCP. Based on the above, including the patient's age, coexisting illnesses, labs, imaging, and exam findings the decision to treat as an inpatient. I discussed the patient with the hospitalist team who recommended admission to their services. They received the medications, treatments, interventions indicated above and their condition remained stable. I discussed my findings with the patient and their family and they understand and agree with the treatment plan. All patient / family questions were answered to their satisfaction. Consults/Care Managements Discussions: Per MDM ER treatment provided: See above Procedures: None Critical Care: None The chart was completed utilizing [employer] voice recognition software. Grammatical errors, random word insertions, pronoun errors, and incomplete sentences are an occasional consequence of this system due to software limitations, ambient noise, and hardware issues. Any formal questions or concerns about the content, text, or information contained within the body of this dictation should be directly addressed to the physician for clarification. Past Med/Surg History Problem List (Updated 04/22/25 @ 15:17 by Pancho Wakefield DO) Hypomagnesemia (Acute) TIA (transient ischemic attack) (Acute) Acute UTI (urinary tract infection) (Acute) Encephalopathy acute (Acute) Altered mental status UTI (urinary tract infection) Urinary frequency Lumbar stenosis Ambulatory dysfunction (Acute) Right leg weakness Generalized weakness (Acute) Type II diabetes mellitus, well controlled Dysphagia Lumbar facet arthropathy Chronic back pain History of CVA (cerebrovascular accident) Dysarthria (Acute) Esophageal reflux HLD (hyperlipidemia) HTN (hypertension) Biliary calculi, common bile duct Left shoulder pain Constipation (Chronic) Steatohepatitis, nonalcoholic (Chronic) Obesity (BMI 35.0-39.9 without comorbidity) (Chronic) Low back pain Nocturia Generalized weakness (Acute) Poor short term memory Medical History Allergic drug reaction History of pancreatitis Hypothyroidism Type II diabetes mellitus, uncontrolled Stroke Stroke-like symptoms Obstructive jaundice Hypercholesterolemia Contact dermatitis Pancreatitis due to common bile duct stone Elevated LFTs Choledocholithiasis with chronic cholecystitis Choledocholithiasis with obstruction Diverticulitis Surgical History S/P cholecystectomy Family History Father Stroke Mother Cirrhosis Brother Coronary heart disease Denies family history of Ovarian cancer Prostate cancer Myocardial infarction Breast cancer Colorectal cancer Social History Smoking Status: Never smoker Second Hand Exposure: Yes; Do You Dip or Chew Tobacco: No; Hx Alcohol Use: Yes Alcohol type: beer Hx Substance Use: No Preferred Language: Kiswahili Communication Ability: Effective Visual Impairment: No Limitations Hearing Ability: Normal Traffic Supervisor Required: No Beliefs That Will Affect Care: None marital status: / Current Living Situation: Alone current occupational status: retired current occupation: retired from [employer] How many Children do You have: 1 Feels Safe at Home: Yes Childhood Exposure to Second-Hand Smoke: Yes Diet: regular Dental Care, Regularly: No Physical Activity Frequency: Does not Exercise Seatbelt Use: always Sunscreen Use: No Assistive Devices: Cane and Walker Allergies Allergies Allergy/AdvReac Type Severity Reaction Status Date / Time Penicillins Allergy severe rash Verified 04/22/25 09:11 amoxicillin [From Augmentin] AdvReac Rash Verified 04/22/25 09:11 clavulanic acid AdvReac Rash Verified 04/22/25 09:11 [From Augmentin] Home Meds Home Medications Medication Instructions Recorded Confirmed glimepiride 4 mg tablet 2 mg PO QPM 04/22/25 04/22/25 glimepiride 4 mg tablet 4 mg PO QAM 04/22/25 04/22/25 Previous Rx's Medication Instructions Recorded Shower Chair #1 ea 08/03/21 miscellaneous medical supply #1 ea 09/08/21 blood-glucose meter (OneTouch #1 ea 03/21/23 Ultra2 Meter) lancets 33 gauge #100 ea 03/21/23 blood sugar diagnostic (OneTouch #100 ea 08/29/23 Ultra Test strips) levothyroxine 50 mcg tablet 50 mcg PO DAILYBB #90 tabs 08/12/24 linagliptin 5 mg tablet (Tradjenta) 5 mg PO DAILY #90 tabs 08/12/24 metformin 500 mg tablet 1,000 mg (2 x 500 mg) PO BID #360 08/12/24 tabs amlodipine 5 mg tablet (Norvasc) 5 mg PO QAM #90 tabs 09/02/24 atorvastatin 40 mg tablet 40 mg PO QPM #90 tabs 09/02/24 clopidogrel 75 mg tablet 75 mg PO QAM #90 tabs 09/02/24 famotidine 20 mg tablet 20 mg PO DAILY #90 tabs 09/02/24 cephalexin 500 mg capsule 500 mg PO BID 5 days #10 caps 04/22/25 conjugated estrogens 0.625 mg/gram 0.625 mg vaginal .x3WK #30 grams 04/22/25 vaginal cream Results & Data (ED) Vital Signs Vital Signs - 24 hr 04/21/25 19:56 04/21/25 20:07 04/21/25 20:12 Temperature 37.1 C Temperature Source Oral Pulse Rate 77 66 72 Pulse Rate [Left Apical] Pulse Rate from SpO2 Sensor Respiratory Rate 17 21 Respiratory Effort / Characteristics Non-Labored Spontaneous Respiratory Depth Normal Respiratory Pattern Regular Blood Pressure 202/81 H 176/75 H Blood Pressure [Right Arm] Blood Pressure Mean 121 108 Blood Pressure Mean [Right Arm] Pulse Oximetry 97 94 Oxygen Delivery Method Room Air Room Air Sepsis Recent Fever Within 48 Hours No Sepsis New/Unexplained Change in Mental Status Yes Sepsis Action Taken by Nursing No Action Required 04/21/25 20:27 04/21/25 20:39 04/21/25 21:30 Temperature Temperature Source Pulse Rate 75 70 Pulse Rate [Left Apical] Pulse Rate from SpO2 Sensor Respiratory Rate 17 17 Respiratory Effort / Characteristics Respiratory Depth Respiratory Pattern Blood Pressure 176/96 H 166/79 H Blood Pressure [Right Arm] Blood Pressure Mean 122 108 Blood Pressure Mean [Right Arm] Pulse Oximetry 98 92 94 Oxygen Delivery Method Room Air Room Air Room Air Sepsis Recent Fever Within 48 Hours Sepsis New/Unexplained Change in Mental Status Sepsis Action Taken by Nursing 04/21/25 22:15 04/21/25 22:28 04/21/25 23:00 Temperature Temperature Source Pulse Rate 66 75 Pulse Rate [Left Apical] 71 Pulse Rate from SpO2 Sensor Respiratory Rate 17 16 20 Respiratory Effort / Characteristics Non-Labored Spontaneous Respiratory Depth Normal Respiratory Pattern Regular Blood Pressure 167/98 H Blood Pressure [Right Arm] 179/93 H Blood Pressure Mean 136 Blood Pressure Mean [Right Arm] 121 Pulse Oximetry 95 95 95 Oxygen Delivery Method Room Air Room Air Sepsis Recent Fever Within 48 Hours Sepsis New/Unexplained Change in Mental Status Sepsis Action Taken by Nursing 04/21/25 23:57 04/22/25 00:00 04/22/25 00:42 Temperature Temperature Source Pulse Rate 66 66 65 Pulse Rate [Left Apical] Pulse Rate from SpO2 Sensor Respiratory Rate 16 19 Respiratory Effort / Characteristics Respiratory Depth Respiratory Pattern Blood Pressure 166/80 H 169/76 H Blood Pressure [Right Arm] Blood Pressure Mean 108 151 Blood Pressure Mean [Right Arm] Pulse Oximetry 92 93 Oxygen Delivery Method Room Air Room Air Sepsis Recent Fever Within 48 Hours Sepsis New/Unexplained Change in Mental Status Sepsis Action Taken by Nursing 04/22/25 01:00 Temperature Temperature Source Pulse Rate 62 Pulse Rate [Left Apical] Pulse Rate from SpO2 Sensor 63 Respiratory Rate 18 Respiratory Effort / Characteristics Respiratory Depth Respiratory Pattern Blood Pressure 159/79 H Blood Pressure [Right Arm] Blood Pressure Mean 105 Blood Pressure Mean [Right Arm] Pulse Oximetry 90 Oxygen Delivery Method Sepsis Recent Fever Within 48 Hours Sepsis New/Unexplained Change in Mental Status Sepsis Action Taken by Nursing Laboratory Data 04/22/25 04:02 04/22/25 04:02 Lab Results 04/21/25 04/21/25 04/21/25 Range/Units 20:26 20:37 21:03 WBC 7.11 (4.8-10.8) K/ul RBC 4.63 (4.20-5.40) M/uL Hgb 14.1 (12.0-16.0) g/dl Hct 40.9 (37.0-47.0) % MCV 88.3 (80.0-100.0) fL MCH 30.5 (25.0-34.0) pg MCHC 34.5 (32.0-36.0) g/dL RDW Std Deviation 43.2 (36.4-46.3) fL RDW Coeff of Ping 13.4 (11.5-14.5) % Plt Count 163 (130-400) K/uL MPV 10.6 (9.4-12.4) fL Immature Gran % (Auto) 0.7 % Neut % (Auto) 58.3 % Lymph % (Auto) 30.4 % [place] % (Auto) 9.0 % Eos % (Auto) 1.0 % Baso % (Auto) 0.6 % Neut # (Auto) 4.15 (1.40-6.50) K/uL Lymph # (Auto) 2.16 (1.20-3.40) K/uL [place] # (Auto) 0.64 H (0.11-0.59) K/uL Eos # (Auto) 0.07 (0.00-0.50) K/uL Baso # (Auto) 0.04 (0.00-0.20) K/uL Immature Gran # (Auto) 0.05 (0.01-0.20) K/uL PT 11.1 (9.0-12.0) Seconds INR 1.0 (0.9-1.1) APTT 26 (21-31) Seconds PTT Ratio 1.0 Sodium 136 (136-145) mmol/L Potassium 4.2 (3.5-5.1) mmol/L Chloride 103 (98-107) mmol/L Carbon Dioxide 26 (21-32) mmol/L Anion Gap 7 (3-11) BUN 8 (6-23) mg/dl Creatinine 0.71 (0.6-1.2) mg/dl Est Cr Clr Drug Dosing 61.6 ml/min eGFR 82.24 BUN/Creatinine Ratio 11.3 (10-20) Glucose 154 H (70-99(Fasting)) mg/dl POC Glucose 144 H (70-99) mg/dl Lactate 1.7 (0.4-2.0) mmol/L Calcium 9.6 (8.6-10.3) mg/dl Magnesium 1.4 L (1.7-2.4) mg/dl Total Bilirubin 0.7 (0.2-1.0) mg/dl AST 18 (13-39) U/L ALT 18 (7-52) U/L Alkaline Phosphatase 61 (34-104) U/L Troponin I High Sens 8.3 (0-14) pg/ml Total Protein 7.2 (6.0-8.3) gm/dl Albumin 3.9 (3.4-5.0) gm/dl Globulin 3.3 (2.5-4.0) gm/dl Albumin/Globulin Ratio 1.2 (0.9-2) Procalcitonin < 0.02 (0-0.5) ng/ml Urine Color Yellow Urine Appearance Clear (Clear) Urine pH 7.0 (4.5-7.5) Ur Specific Kelly 1.006 (1.000-1.030) Urine Protein Negative (Negative) Urine Glucose (UA) Negative (Negative) Urine Ketones Negative (Negative) Urine Blood Negative (Negative) Urine Nitrite Negative (Negative) Urine Bilirubin Negative (Negative) Urine Urobilinogen Negative (Negative) Ur Leukocyte Esterase 1+ H (Negative) Urine WBC (Auto) 6-10 H (0-5) /hpf Urine RBC (Auto) 0-2 (0-2) /hpf U Hyaline Cast (Auto) 0-2 (0-2) /lpf U Epithel Cells (Auto) 3-5 H (0-2) /hpf Urine Bacteria (Auto) 4+ H (None Seen) Urine Comment Administered Medications Discontinued Medications Acetaminophen (Acetaminophen 500 Mg Tab) 1,000 mg PO NOW STA Stop: 04/21/25 23:23 Last Admin: 04/21/25 23:34 Dose: 1,000 mg Documented By: ELVA Amlodipine Besylate (Amlodipine Besylate 5 Mg Tab) 5 mg PO [facility] Stop: 05/22/25 08:59 Last Admin: 04/22/25 08:25 Dose: 5 mg Documented By: MJYesi Clopidogrel Bisulfate (Clopidogrel Bisulfate 75 Mg Tab) 75 mg PO [facility] Stop: 05/22/25 08:59 Last Admin: 04/22/25 08:25 Dose: 75 mg Documented By: BRIANA Enoxaparin Sodium (Enoxaparin Inj 40 Mg/0.4 Ml Syr) 40 mg SQ Q24H JOSELINE Stop: 05/22/25 07:59 Last Admin: 04/22/25 08:25 Dose: 40 mg Documented By: BRIANA Famotidine (Famotidine 20 Mg Tab) 20 mg PO DAILY JOSELINE Stop: 05/22/25 08:59 Last Admin: 04/22/25 08:24 Dose: 20 mg Documented By: BRIANA Sodium Chloride (Nss) 1,000 mls @ 50 mls/hr IV .Q20H JOSELINE Stop: 04/24/25 19:59 Last Admin: 04/21/25 22:31 Dose: 50 mls/hr Documented By: TIFFANY Ceftriaxone Sodium (Rocephin) 1,000 mg in 50 mls @ 100 mls/hr IV NOW STA Stop: 04/21/25 22:24 Last Infusion: 04/21/25 23:01 Dose: Infused Documented By: Admin: 04/21/25 22:31 Dose: 100 mls/hr Documented By: TIFFANY Magnesium Sulfate/Dextrose (Magnesium Sulfate / D5w) 1 gm in 100 mls @ 100 mls/hr IV Q1H JOSELINE Stop: 04/21/25 23:54 Last Infusion: 04/22/25 01:48 Dose: Infused Documented By: Admin: 04/22/25 00:42 Dose: 100 mls/hr Documented By: Infusion: 04/22/25 00:22 Dose: Infused Documented By: Admin: 04/21/25 23:22 Dose: 100 mls/hr Documented By: ELVA Ioversol (Optiray 320 125ml) 125 ml IV ONCE ONE Stop: 04/21/25 21:58 Last Admin: 04/21/25 21:58 Dose: 118 ml Documented By: JOE Levothyroxine Sodium (Levothyroxine Sodium 50 Mcg Tablet) 50 mcg PO DAILYBB JOSELINE Stop: 05/22/25 06:29 Last Admin: 04/22/25 06:34 Dose: 50 mcg Documented By: DIAMOND Ondansetron HCl (Ondansetron Inj 2 Mg/Ml 2 Ml Vial) 4 mg IV NOW STA Stop: 04/21/25 23:23 Last Admin: 04/21/25 23:36 Dose: 4 mg Documented By: LNG Imaging Data Radiologist's Impression: Head CT 04/21/25 19:53 Exam(s): CT HEAD Without Contrast EXAM: CT Head Without Intravenous Contrast CLINICAL HISTORY: Reason for exam: neuro deficit, acute stroke suspected. TECHNIQUE: Axial computed tomography images of the head/brain without intravenous contrast. CTDI is 37 mGy and DLP is 624 mGy-cm. Automated exposure control was utilized for the study. A dose lowering technique was utilized adhering to the principles of ALARA. COMPARISON: Head CT 02/24/2025 FINDINGS: Brain: No intracranial hemorrhage, mass-effect, or cerebral edema. Atrophy and chronic microvascular ischemic changes. Ventricles: Unremarkable. Bones/joints: Unremarkable. No fracture. Soft tissues: Unremarkable. Sinuses: No acute sinusitis. Mastoid air cells: Unremarkable as visualized. IMPRESSION: 1. No acute intracranial abnormality. Electronically signed by: Benny Santoyo MD 04/21/25 23:05 PM Head CTA 04/21/25 19:53 Exam(s): CTA HEAD With Contrast IV Amt: 118 ML OPTIRAY 320 EXAM: CT Angiography Head With Intravenous Contrast CLINICAL HISTORY: Reason for exam: neuro deficit, acute stroke suspected. TECHNIQUE: Axial computed tomographic angiography images of the head with intravenous contrast. CTDI is 12, 29 mGy and DLP is 1082 mGy-cm. Automated exposure control was utilized for the study. A dose lowering technique was utilized adhering to the principles of ALARA. MIP reconstructed images were created and reviewed. CONTRAST: Patient received 118 ML OPTIRAY 320 of IV contrast COMPARISON: No relevant prior studies available. FINDINGS: Right internal carotid artery: Intracranial segment is patent with no significant stenosis. No aneurysm. Right anterior cerebral artery: No occlusion or significant stenosis. No aneurysm. Right middle cerebral artery: No occlusion or significant stenosis. No aneurysm. Right posterior cerebral artery: No occlusion or significant stenosis. No aneurysm. Right vertebral artery: Unremarkable as visualized. Left internal carotid artery: Intracranial segment is patent with no significant stenosis. No aneurysm. Left anterior cerebral artery: No occlusion or significant stenosis. No aneurysm. Left middle cerebral artery: No occlusion or significant stenosis. No aneurysm. Left posterior cerebral artery: No occlusion or significant stenosis. No aneurysm. Left vertebral artery: Unremarkable as visualized. Basilar artery: No occlusion or significant stenosis. No aneurysm. IMPRESSION: Normal head CTA. Electronically signed by: Benny Santoyo MD 04/21/25 23:07 PM Neck CTA 04/21/25 19:53 Exam(s): CTA NECK With Contrast IV Amt: 118 ML OPTIRAY 320 EXAM: CT Angiography Neck With Intravenous Contrast CLINICAL HISTORY: Reason for exam: neuro deficit, acute stroke suspected. TECHNIQUE: Routine carotid CT angiography protocol was performed with intravenous contrast. NASCET criteria using the distal ICAs for comparison were used for evaluation of stenoses. CTDI is 12.31 mGy and DLP is 1082.72 mGy-cm. Automated exposure control was utilized for the study. A dose lowering technique was utilized adhering to the principles of ALARA. MIP reconstructed images were created and reviewed. CONTRAST: Patient received 118 ML OPTIRAY 320 of IV contrast COMPARISON: None. FINDINGS: VASCULATURE: Right common carotid artery: No occlusion or significant stenosis. No dissection. Right internal carotid artery: Extracranial segment is patent with no occlusion or significant stenosis. No dissection. Right vertebral artery: No occlusion or significant stenosis. No dissection. Left common carotid artery: No occlusion or significant stenosis. No dissection. Left internal carotid artery: Extracranial segment is patent with no occlusion or significant stenosis. No dissection. Left vertebral artery: No occlusion or significant stenosis. No dissection. NECK: Bones/joints: Unremarkable. No acute fracture. Soft tissues: Unremarkable. Lung apices: Clear. CAROTID STENOSIS REFERENCE USING NASCET CRITERIA: % ICA stenosis = (1 - narrowest ICA diameter/diameter of distal cervical ICA) x 100. Mild - <50% stenosis. Moderate - 50-69% stenosis. Severe - 70-94% stenosis. Near occlusion - 95-99% stenosis. Occluded - 100% stenosis. IMPRESSION: Negative CTA neck. Electronically signed by: Benny Santoyo MD 04/21/25 23:09 PM Discharge Plan Visit Data Chief Complaint: Stroke/CVA Symptoms ED Provider: Pancho Wakefield Discharge Problem: Encephalopathy acute, Acute UTI (urinary tract infection), TIA (transient ischemic attack), Hypomagnesemia Patient Disposition: Admitted As Inpatient Condition: Fair Discharge Instructions Interventions: ED Discharge Assessment Last Done: 04/22/25 01:44
[2025-04-21 21:22] LABS: Hematocrit (blood only) 40.9 % (37.0-47.0); Hemoglobin 14.1 g/dl (12.0-16.0); Immature Granulocytes # (auto) 0.05 K/uL (0.01-0.20); Immature Granulocytes % (auto) 0.7 %; Mean Corpuscular Hemoglobin 30.5 pg (25.0-34.0); Mean Corpuscular Volume 88.3 fL (80.0-100.0); Platelet Count 163 K/uL (130-400); RDW Standard Deviation 43.2 fL (36.4-46.3); Red Blood Count 4.63 M/uL (4.20-5.40); White Blood Count 7.11 K/ul (4.8-10.8)
[2025-04-21 21:39] LABS: Appearance Urine Clear (Clear); Glucose Urine UA Negative (Negative)
[2025-04-21 21:40] LABS: Alanine Aminotransferase 18.0 U/L (7-52); Albumin Globulin Ratio 1.2 (0.9-2); Alkaline Phosphatase 61.0 U/L (34-104); Anion Gap 7.0 (3-11); Bilirubin,Total 0.7 mg/dl (0.2-1.0); Blood Urea Nitrogen 8.0 mg/dl (6-23); Calcium 9.6 mg/dl (8.6-10.3); Carbon Dioxide 26.0 mmol/L (21-32); Chloride 103.0 mmol/L (98-107); Creatinine Clr Calc Pharmacy 61.6 ml/min; Globulin 3.3 gm/dl (2.5-4.0); Glucose 154.0 mg/dl (70-99(Fasting)); Magnesium 1.4 mg/dl (1.7-2.4); Potassium 4.2 mmol/L (3.5-5.1); Sodium 136.0 mmol/L (136-145); Total Protein 7.2 gm/dl (6.0-8.3)
[2025-04-21 21:40] LABS: Bacteria Urine Automated 4+ (None Seen); Cast Urine Automated 0-2 /lpf (0-2); RBC Urine Automated 0-2 /hpf (0-2)
[2025-04-21] MEDS: OPTIRAY 320 125ml IV ONE (21:58)
[2025-04-21 22:13] LABS: INR 1.0 (0.9-1.1); Partial Thromboplastin Time 26 Seconds (21-31); Prothrombin Time 11.1 Seconds (9.0-12.0)
[2025-04-21] MEDS: SODIUM CHLORIDE 0.9% 1,000 ML IV SCH (22:31)
[2025-04-21] MEDS: cefTRIAXone SODIUM 1,000 MG/50 ML BAG IV STA (22:31)
--- NOTE | 2025-04-21 23:06 | CT Scan Report ---
Exam(s): CT HEAD Without Contrast EXAM: CT Head Without Intravenous Contrast CLINICAL HISTORY: Reason for exam: neuro deficit, acute stroke suspected. TECHNIQUE: Axial computed tomography images of the head/brain without intravenous contrast. CTDI is 37 mGy and DLP is 624 mGy-cm. Automated exposure control was utilized for the study. A dose lowering technique was utilized adhering to the principles of ALARA. COMPARISON: Head CT 02/24/2025 FINDINGS: Brain: No intracranial hemorrhage, mass-effect, or cerebral edema. Atrophy and chronic microvascular ischemic changes. Ventricles: Unremarkable. Bones/joints: Unremarkable. No fracture. Soft tissues: Unremarkable. Sinuses: No acute sinusitis. Mastoid air cells: Unremarkable as visualized. IMPRESSION: 1. No acute intracranial abnormality. Electronically signed by: Benny Santoyo MD 04/21/25 23:05 PM
--- NOTE | 2025-04-21 23:08 | CT Scan Report ---
Exam(s): CTA HEAD With Contrast IV Amt: 118 ML OPTIRAY 320 EXAM: CT Angiography Head With Intravenous Contrast CLINICAL HISTORY: Reason for exam: neuro deficit, acute stroke suspected. TECHNIQUE: Axial computed tomographic angiography images of the head with intravenous contrast. CTDI is 12, 29 mGy and DLP is 1082 mGy-cm. Automated exposure control was utilized for the study. A dose lowering technique was utilized adhering to the principles of ALARA. MIP reconstructed images were created and reviewed. CONTRAST: Patient received 118 ML OPTIRAY 320 of IV contrast COMPARISON: No relevant prior studies available. FINDINGS: Right internal carotid artery: Intracranial segment is patent with no significant stenosis. No aneurysm. Right anterior cerebral artery: No occlusion or significant stenosis. No aneurysm. Right middle cerebral artery: No occlusion or significant stenosis. No aneurysm. Right posterior cerebral artery: No occlusion or significant stenosis. No aneurysm. Right vertebral artery: Unremarkable as visualized. Left internal carotid artery: Intracranial segment is patent with no significant stenosis. No aneurysm. Left anterior cerebral artery: No occlusion or significant stenosis. No aneurysm. Left middle cerebral artery: No occlusion or significant stenosis. No aneurysm. Left posterior cerebral artery: No occlusion or significant stenosis. No aneurysm. Left vertebral artery: Unremarkable as visualized. Basilar artery: No occlusion or significant stenosis. No aneurysm. IMPRESSION: Normal head CTA. Electronically signed by: Benny Santoyo MD 04/21/25 23:07 PM
--- NOTE | 2025-04-21 23:10 | CT Scan Report ---
Exam(s): CTA NECK With Contrast IV Amt: 118 ML OPTIRAY 320 EXAM: CT Angiography Neck With Intravenous Contrast CLINICAL HISTORY: Reason for exam: neuro deficit, acute stroke suspected. TECHNIQUE: Routine carotid CT angiography protocol was performed with intravenous contrast. NASCET criteria using the distal ICAs for comparison were used for evaluation of stenoses. CTDI is 12.31 mGy and DLP is 1082.72 mGy-cm. Automated exposure control was utilized for the study. A dose lowering technique was utilized adhering to the principles of ALARA. MIP reconstructed images were created and reviewed. CONTRAST: Patient received 118 ML OPTIRAY 320 of IV contrast COMPARISON: None. FINDINGS: VASCULATURE: Right common carotid artery: No occlusion or significant stenosis. No dissection. Right internal carotid artery: Extracranial segment is patent with no occlusion or significant stenosis. No dissection. Right vertebral artery: No occlusion or significant stenosis. No dissection. Left common carotid artery: No occlusion or significant stenosis. No dissection. Left internal carotid artery: Extracranial segment is patent with no occlusion or significant stenosis. No dissection. Left vertebral artery: No occlusion or significant stenosis. No dissection. NECK: Bones/joints: Unremarkable. No acute fracture. Soft tissues: Unremarkable. Lung apices: Clear. CAROTID STENOSIS REFERENCE USING NASCET CRITERIA: % ICA stenosis = (1 - narrowest ICA diameter/diameter of distal cervical ICA) x 100. Mild - <50% stenosis. Moderate - 50-69% stenosis. Severe - 70-94% stenosis. Near occlusion - 95-99% stenosis. Occluded - 100% stenosis. IMPRESSION: Negative CTA neck. Electronically signed by: Benny Santoyo MD 04/21/25 23:09 PM
[2025-04-21] MEDS: MAGNESIUM SULFATE / D5W 1 GM/100 ML BAG IV SCH (23:22)
[2025-04-21] MEDS: ACETAMINOPHEN 500 MG TAB PO STA (23:34)
[2025-04-21] MEDS: ONDANSETRON INJ 2 MG/ML 2 ML VIAL IV STA (23:36)
--- NOTE | 2025-04-22 01:25 | History & Physical Report ---
Date of Service April 22, 2025 Assessment & Plan (1) Dysarthria: (2) History of CVA (cerebrovascular accident): (3) Chronic back pain: (4) Type II diabetes mellitus, well controlled: (5) Generalized weakness: (6) Ambulatory dysfunction: (7) HLD (hyperlipidemia): (8) HTN (hypertension): (9) Urinary frequency: (10) UTI (urinary tract infection): (11) Altered mental status: Plan 89 yo female PMHx T2DM, CVA, GERD, HTN, HLD, ambulatory dysfunction, LE weakness, dysphagia, lumbar stenosis admitted for altered mental status. #Altered Mental Status/Dysarthria CT/CTA head and neck negative for acute process MRI/MRA ordered Stroke without thrombolytic protocol - okay to dc if MRI negative No significant electrolyte abnormalities besides hypomagnesemia Suspect more likely due to UTI than neurological insult Pt with history of ambulatory dysfunction and dysphagia attributed to lumbar stenosis PT/OT ordered #UTI UA with +LE, +WBC, +bacteria Continue ceftriaxone Gentle hydration with NSS Purewick in place #Hx CVA/HLD Continue Plavix, atorvastatin #T2DM Home medications held A1c ordered ISS while hospitalized #GERD continue famotidine #HTN continue amlodipine #Hypothyroidism continue Synthroid FENGI: [facility] Code status: full code DVT prophylaxis: Lovenox Disposition: med/tele History of Present Illness Primary Care Provider: JOSE Cedeño 89 yo female PMHx T2DM, CVA, GERD, HTN, HLD, ambulatory dysfunction, LE weakness, dysphagia, lumbar stenosis admitted for altered mental status. Today the patient was out to dinner with her family when she started slurring her speech and food and drink fell out of her mouth. They did feel that she may have had some mild facial droop. Initially they presented to urgent care who referred the patient to the emergency department. By the time the patient arrived at urgent care her symptoms had largely resolved. The patient does have a history of CVA on Plavix with known dysphagia. She was recently hospitalized for lower extremity weakness that is attributed to lumbar stenosis demonstrated on MRI at that visit. Was discharged from [facility] about one month ago. She did endorse some headache and nausea in the ER. She does admit that she has had recent urinary frequency. No dysuria. Denies CP, SOB, fever. ED Course: CT/CTA Head/Neck negative for acute process Labs significant for hypomagnesemia, UA significant for +LE, +WBC, +bacteria Rec'd ceftriaxone, magnesium, Zofran, Tylenol, NSS Allergies Allergy/AdvReac Type Severity Reaction Status Date / Time Penicillins Allergy severe rash Verified 03/20/25 14:02 amoxicillin [From Augmentin] AdvReac Rash Verified 03/20/25 14:02 clavulanic acid AdvReac Rash Verified 03/20/25 14:02 [From Augmentin] Home Medications Medication Instructions Recorded Confirmed Type Shower Chair #1 ea 08/03/21 03/20/25 Rx miscellaneous medical supply #1 ea 09/08/21 03/20/25 Rx blood-glucose meter (OneTouch #1 ea 03/21/23 03/20/25 Rx Ultra2 Meter) lancets 33 gauge #100 ea 03/21/23 03/20/25 Rx blood sugar diagnostic (OneTouch #100 ea 08/29/23 03/20/25 Rx Ultra Test strips) levothyroxine 50 mcg tablet 50 mcg PO DAILYBB #90 tabs 08/12/24 03/20/25 Rx linagliptin 5 mg tablet (Tradjenta) 5 mg PO DAILY #90 tabs 08/12/24 03/20/25 Rx metformin 500 mg tablet 1,000 mg (2 x 500 mg) PO BID #360 08/12/24 03/20/25 Rx tabs amlodipine 5 mg tablet (Norvasc) 5 mg PO QAM #90 tabs 09/02/24 03/20/25 Rx atorvastatin 40 mg tablet 40 mg PO QPM #90 tabs 09/02/24 03/20/25 Rx clopidogrel 75 mg tablet 75 mg PO QAM #90 tabs 09/02/24 03/20/25 Rx famotidine 20 mg tablet 20 mg PO DAILY #90 tabs 09/02/24 03/20/25 Rx glimepiride 4 mg tablet See Rx Instructions PO BID #135 09/02/24 03/20/25 Rx tabs Past Med/Surg History Problem List (Updated 04/22/25 @ 01:44 by Reymundo Tijerina DO) Altered mental status UTI (urinary tract infection) Urinary frequency Lumbar stenosis Ambulatory dysfunction (Acute) Right leg weakness Generalized weakness (Acute) Type II diabetes mellitus, well controlled Dysphagia Lumbar facet arthropathy Chronic back pain History of CVA (cerebrovascular accident) Dysarthria (Acute) Esophageal reflux HLD (hyperlipidemia) HTN (hypertension) Biliary calculi, common bile duct Left shoulder pain Constipation (Chronic) Steatohepatitis, nonalcoholic (Chronic) Obesity (BMI 35.0-39.9 without comorbidity) (Chronic) Low back pain Nocturia Generalized weakness (Acute) Poor short term memory Medical History Allergic drug reaction History of pancreatitis Hypothyroidism Type II diabetes mellitus, uncontrolled Stroke Stroke-like symptoms Obstructive jaundice Hypercholesterolemia Contact dermatitis Pancreatitis due to common bile duct stone Elevated LFTs Choledocholithiasis with chronic cholecystitis Choledocholithiasis with obstruction Diverticulitis Surgical History S/P cholecystectomy Family History Father Stroke Mother Cirrhosis Brother Coronary heart disease Denies family history of Ovarian cancer Prostate cancer Myocardial infarction Breast cancer Colorectal cancer Social History Smoking Status: Never smoker Second Hand Exposure: Yes; Do You Dip or Chew Tobacco: No; Hx Alcohol Use: Yes Alcohol type: beer Hx Substance Use: No Preferred Language: Syrian Communication Ability: Effective Visual Impairment: No Limitations Hearing Ability: Normal Bariatric Coordinator Required: No Beliefs That Will Affect Care: None marital status: / Current Living Situation: Alone current occupational status: retired current occupation: retired from [employer] How many Children do You have: 1 Feels Safe at Home: Yes Childhood Exposure to Second-Hand Smoke: Yes Diet: regular Dental Care, Regularly: No Physical Activity Frequency: Does not Exercise Seatbelt Use: always Sunscreen Use: No Assistive Devices: Cane and Walker Review of Systems Review of Systems: reviewed, per HPI Physical Exam Physical Exam: Constitutional: age appropriate, no acute distress HEENT: NCAT, no conjunctival injection CV: regular rhythm, extremities well-perfused, no LE edema Resp: CTABL, no wheezes/rales/rhonchi appreciated, no increased work of breathing GI: nondistended MSK: no gross deformities appreciated Skin: warm, dry, no rash appreciated Neuro: alert, oriented, no focal neurologic deficit appreciated Results & Data Results & Data Vital Signs (Past 12 Hours) Vital Signs Temp Pulse Pulse Resp BP BP Pulse Ox 04/22/25 00:42 65 19 169/76 H 93 04/22/25 00:00 66 16 166/80 H 92 04/21/25 23:57 66 04/21/25 23:00 75 20 167/98 H 95 04/21/25 22:28 71 16 179/93 H 95 04/21/25 22:15 66 17 95 04/21/25 21:30 70 17 166/79 H 94 04/21/25 20:39 75 17 176/96 H 92 04/21/25 20:27 98 04/21/25 20:12 72 21 176/75 H 94 04/21/25 20:07 66 04/21/25 19:56 37.1 C 77 17 202/81 H 97 O2 Del Method 04/22/25 00:42 Room Air 04/22/25 00:00 Room Air 04/21/25 23:57 04/21/25 23:00 04/21/25 22:28 Room Air 04/21/25 22:15 Room Air 04/21/25 21:30 Room Air 04/21/25 20:39 Room Air 04/21/25 20:27 Room Air 04/21/25 20:12 Room Air 04/21/25 20:07 04/21/25 19:56 Room Air Code Status & VTE Plan VTE Prophylaxis Plan VTE Prophylaxis will be ordered: Yes Supervising Physician Co-Signing Physician Notes Attending addendum: I have physically seen this patient, have supervised the medical residents activities, and agree with the H&P unless as otherwise noted. Assessment and Plan: The patient is an 89-year-old female with past medical history including lumbar stenosis, generalized weakness, diabetes mellitus type 2, history of CVA, esophageal reflux, hyperlipidemia, hypertension, nonalcoholic steatohepatitis, and poor short-term memory. She presents to the emergency department for assessment of altered mental status, dysarthria, and reported issues with drooling and facial droop, that have since resolved. Altered mental status/dysarthria/transient facial droop/hypertension- Neurologic workup including CT head negative, CTA head and neck were both negative Ordering MRI brain without contrast Stroke without thrombolytic order set Differential including metabolic encephalopathy secondary to urinary tract infection Continue clopidogrel, and amlodipine Consult PT/OT Consult neurology UTI- Follow urine culture and sensitivity Continue ceftriaxone 2 g IV daily begun in the ED NSS as noted Pure wick in place Diabetes mellitus- Hold linagliptin, metformin, and glimepiride Check hemoglobin A1c Placed on Accu-Cheks with NovoLog SSI as noted Hyperlipidemia-continue atorvastatin Check a fasting lipid panel GERD- Continue famotidine Hypothyroidism- Continue Synthroid Resident Activity Tracking Resident Involvement: Resident Care Provided Care Provided: Adult Hospital Medicine (8) HTN (hypertension) Hypertension type: unspecified Qualified Code(s): I10 - Essential (primary) hypertension
[2025-04-22] MEDS ORDERED: ONDANSETRON INJ 2 MG/ML 2 ML VIAL IV PRN (01:44)
[2025-04-22] MEDS ORDERED: PHARMACIST DISCHARGE MED REC CONSULT PRN (01:44)
[2025-04-22] MEDS ORDERED: MELATONIN 3 MG TAB PO PRN (01:44)
[2025-04-22] MEDS ORDERED: MAGNESIUM HYDROXIDE SUSP 30 ML UDC PO PRN (01:44)
[2025-04-22] MEDS ORDERED: ACETAMINOPHEN 325 MG TAB PO PRN (01:44)
[2025-04-22] MEDS ORDERED: ALUMINUM/MAGNESIUM SUSP 30 ML UDC PO PRN (01:44)
[2025-04-22] MEDS ORDERED: POLYETHYLENE (MIRALAX) 17 GM PACK PO PRN (01:44)
--- NOTE | 2025-04-22 03:16 | Billing Data ---
Date of Service April 22, 2025 Coding Level of Care Code 16598 INT INP/OBS CARE
--- NOTE | 2025-04-22 03:42 | Magnetic Resonance Report ---
EXAM: MR brain wo con CLINICAL HISTORY: Altered Mental Status TECHNIQUE: MRI of the brain was performed without contrast with multiplanar sequences obtained. COMPARISON: Comparison is made with prior imaging 02/25/2025 FINDINGS: Brain Parenchyma: No evidence of acute infarction or hemorrhage. Multiple discrete and clustered FLAIR hyperintense foci are seen in subcortical and deep white matter of bilateral cerebral hemispheres, without diffusion restriction, representing chronic microvascular ischemic changes. Fazekas grade III. Chronic lacunar infarct in left thalamus. Ventricles and Sulci: Prominent lateral ventricles, third ventricle, and fourth ventricle. Sylvian fissures, sulci, and cisterns are prominent Posterior Fossa: Small lacunar infarct in left hemipons. Cerebellum and rest of brainstem appear normal without evidence of mass lesions or signal abnormalities. Orbits and Skull Base: Orbits and skull base structures are normal without evidence of abnormalities. Redemonstration of mild right sided ethmoid sinusitis. IMPRESSION: No acute intracranial abnormality identified. Chronic microvascular ischemic changes, Fazekas grade III and senile cortical atrophy No significant interval changes since previous study. Electronically signed by Mikael Maradiaga 04-22-2025 03:42 AM
[2025-04-22 04:31] LABS: Hematocrit (blood only) 40.5 % (37.0-47.0); Hemoglobin 13.7 g/dl (12.0-16.0); Immature Granulocytes # (auto) 0.04 K/uL (0.01-0.20); Immature Granulocytes % (auto) 0.6 %; Mean Corpuscular Hemoglobin 29.8 pg (25.0-34.0); Mean Corpuscular Volume 88.2 fL (80.0-100.0); Platelet Count 154 K/uL (130-400); RDW Standard Deviation 43.3 fL (36.4-46.3); Red Blood Count 4.59 M/uL (4.20-5.40); White Blood Count 7.16 K/ul (4.8-10.8)
[2025-04-22 04:45] LABS: Anion Gap 6.0 (3-11); Blood Urea Nitrogen 7.0 mg/dl (6-23); Calcium 8.9 mg/dl (8.6-10.3); Carbon Dioxide 27.0 mmol/L (21-32); Chloride 103.0 mmol/L (98-107); Cholesterol 112.0 mg/dl (0-200); Creatinine Clr Calc Pharmacy 68.3 ml/min; Glucose 127.0 mg/dl (70-99(Fasting)); HDL Cholesterol 47.0 mg/dl; Potassium 3.8 mmol/L (3.5-5.1); Sodium 136.0 mmol/L (136-145); Triglycerides 68.0 mg/dl (0-150)
[2025-04-22] MEDS: LEVOTHYROXINE SODIUM 50 MCG TABLET PO SCH (06:34)
[2025-04-22 06:54] LABS: Hemoglobin A1C 6.0 % (4.5-5.6)
[2025-04-22] MEDS: FAMOTIDINE 20 MG TAB PO SCH (08:24)
[2025-04-22] MEDS: CLOPIDOGREL BISULFATE 75 MG TAB PO SCH (08:25)
[2025-04-22] MEDS: ENOXAPARIN INJ 40 MG/0.4 ML SYR SQ SCH (08:25)
[2025-04-22 13:13] VITALS: BP 146/95; PULSE 62; RESP 23; O2SAT 95
--- NOTE | 2025-04-22 13:20 | Electrocardiogram Report ---
Test Reason : Blood Pressure : */* mmHG Vent. Rate : 73 BPM Atrial Rate : 73 BPM P-R Int : 162 ms QRS Dur : 76 ms QT Int : 402 ms P-R-T Axes : 86 18 36 degrees QTcB Int : 442 ms Normal sinus rhythm with sinus arrhythmia Normal ECG When compared with ECG of 14-Oct-2024 12:15, Premature atrial complexes are no longer Present Confirmed by Aaron Cagle ([id number]) on 04/22/2025 1:19:51 PM Referred By: REFERRED SELF Confirmed By: Aaron Cagle
--- NOTE | 2025-04-22 13:24 | Discharge Summary ---
Discharge Summary Date of Service April 22, 2025 Principal Dx & Hospital Course #1 = Principal Diagnosis (1) UTI (urinary tract infection): (2) Altered mental status: (3) Dysarthria: (4) Generalized weakness: (5) Ambulatory dysfunction: (6) History of CVA (cerebrovascular accident): Gordon Wright is an 89 year old female admitted to [facility] on April 22, 2025 due to concern of stroke-like symptoms (dysarthria and confusion). Brain MRI was negative for stroke. Suspect her dysarthria is recrudescence of her prior stroke symptoms from UTI. Urinary frequency and urinalysis was suggestive for urine tract infection. Urine culture pending on discharge. Based on prior cultures will treat with Keflex for additional 5 days of treatment. Given repeated urine tract infection recommend use of vaginal estrogen cream three times a week as this has been shown to reduce UTIs in post menopausal women. She is back to her baseline state on discharge per her daughter at bedside. Notes For Next Care Provider Follow up urine culture Medication Changes From Visit Keflex started for urine tract infection Conjugated estrogen vaginal cream to reduce likelihood of recurrent UTIs Admission HPI Per Admitting Provider 89 yo female PMHx T2DM, CVA, GERD, HTN, HLD, ambulatory dysfunction, LE weakness, dysphagia, lumbar stenosis admitted for altered mental status. Today the patient was out to dinner with her family when she started slurring her speech and food and drink fell out of her mouth. They did feel that she may have had some mild facial droop. Initially they presented to urgent care who referred the patient to the emergency department. By the time the patient arrived at urgent care her symptoms had largely resolved. The patient does have a history of CVA on Plavix with known dysphagia. She was recently hospitalized for lower extremity weakness that is attributed to lumbar stenosis demonstrated on MRI at that visit. Was discharged from [facility] about one month ago. She did endorse some headache and nausea in the ER. She does admit that she has had recent urinary frequency. No dysuria. Denies CP, SOB, fever. ED Course: CT/CTA Head/Neck negative for acute process Labs significant for hypomagnesemia, UA significant for +LE, +WBC, +bacteria Rec'd ceftriaxone, magnesium, Zofran, Tylenol, NSS Discharge Exam Respiratory normal respiratory effort, lungs clear to auscultation Cardiovascular RRR, no murmur, no edema Psychiatric Orientation: alert and oriented x 3 Genitourinary no CVA tenderness Discharge Plan Discharge Items Patient Disposition: Home - Self-Care Reason For Visit: AMS, UTI, ?TIA Discharge Diagnosis: Recrudescence of prior stroke like symptoms due to urine tract infection Condition on Discharge: Fair Activity: Resume your previous activity Non-emergency contact: Primary Care Provider Call non-emergency contact if: you have any medication questions and your symptoms worsen Follow-up/Referrals: Gisselle Meredith CRNP [Primary Care Provider] - Diet: Regular Addtl Attending Provider Instructions: You were admitted to [facility] on April 22, 2025 due to concern of strokelike symptoms. Brain MRI was negative for stroke. Ironary frequency and urinalysis was suggestive for urine tract infection. Urine culture pending. Based on prior cultures will treat with Keflex for additional 5 days of treatment. Given repeated urine tract infection recommend use of vaginal estrogen cream three times a week as this has been shown to reduce UTIs in post menopausal women. Please follow up with your primary care physician for ongoing treatment of UTIs and vaginal estrogen cream. Pending Studies at Discharge: Yes (Urine culture) Stand-Alone Forms: My [facility], Smoking Cessation Medications and DC Order Prescriptions: New cephalexin 500 mg Capsule 500 mg PO BID 5 Days Qty: 10 0RF conjugated estrogens 0.625 mg/gram cream 0.625 mg vaginal .x3WK Qty: 30 0RF Rx Instructions: Monday, Monday, Monday Continued ([facility]) miscellaneous medical [place] [facility] [place] Rx Instructions .Route Qty: 1 0RF Rx Instructions: Raised Toilet Seat ([facility]) blood-glucose meter [OneTouch Ultra2 Meter] [facility] [place] Rx Instructions .Route Qty: 1 0RF Rx Instructions: As directed ([facility]) lancets 33 gauge [facility] [place] See Rx Instructions .ROUTE .MEDSUPPLY Qty: 100 3RF Rx Instructions: Use one lancets to test blood sugar once daily inthe morning levothyroxine 50 mcg tablet 50 mcg PO DAILYBB Qty: 90 3RF Rx Instructions: TAKE THIS MEDICATION 30 MINUTES BEFORE BREAKFAST OR ANY OTHER MEDICATIONS metformin 500 mg tablet 1,000 mg PO BID Qty: 360 3RF Tradjenta 5 mg tablet 5 mg PO DAILY Qty: 90 3RF (DME) Shower Chair Misc See Rx Instructions .Route Qty: 1 0RF Rx Instructions: As directed (DME) OneTouch Ultra Test Strip See Rx Instructions .Route Qty: 100 3RF Rx Instructions: As directed; test once daily amlodipine [Norvasc] 5 mg tablet 5 mg PO QAM Qty: 90 3RF atorvastatin 40 mg tablet 40 mg PO QPM Qty: 90 3RF clopidogrel 75 mg tablet 75 mg PO QAM Qty: 90 3RF famotidine 20 mg tablet 20 mg PO DAILY Qty: 90 3RF Rx Instructions: For acid reflux glimepiride 4 mg tablet 4 mg PO QAM glimepiride 4 mg tablet 2 mg PO QPM Discharge Orders: Discharge Order (Routine); Ordered 04/22/25 Ordered By: Fredy Alvarado/Other Patient Handouts: Estrogens, Conjugated (FPC) Vaginal Cream Admission Data Admit Date/Time: 04/22/25 01:16 Attending Provider: Fredy Kumar Admit Provider: Reymundo Tijerina Primary Care Provider: Gisselle Meredith Other Providers: Lazaro Claire Other Interventions: Discharge Summary Assessment (RN) Last Done: 04/22/25 13:33 Hospital Stay Data Consultations 04/22/25 00:48 ED Decision to Admit Stat Diagnostic Imagining Performed 04/21/25 19:53 CT angio head w con Stat CT angio neck with con Stat CT head/brain wo con Stat 04/22/25 01:44 MR brain wo con Routine Pending Results Patient Have Any Pending Studies at Discharge: Yes (Urine culture) Discharge Instructions Given to Patient (Per Discharging Provider) You were admitted to [facility] on April 22, 2025 due to concern of strokelike symptoms. Brain MRI was negative for stroke. Ironary frequency and urinalysis was suggestive for urine tract infection. Urine culture pending. Based on prior cultures will treat with Keflex for additional 5 days of treatment. Given repeated urine tract infection recommend use of vaginal estrogen cream three times a week as this has been shown to reduce UTIs in post menopausal women. Please follow up with your primary care physician for ongoing treatment of UTIs and vaginal estrogen cream. Total Time Total Time Spent Total Time Spent (In Minutes): 50 Coding Level of Care Code INP/OBS EV SAME DAY LV 3,85MIN Diagnoses UTI (urinary tract infection) N39.0 Altered mental status R41.82 Dysarthria R47.1 Generalized weakness R53.1 Ambulatory dysfunction R26.2 History of CVA (cerebrovascular accident) Z86.73
[2025-04-22] MEDS ORDERED: ATORVASTATIN 40 MG TAB PO SCH (21:00)
[2025-04-22] MEDS ORDERED: cefTRIAXone SODIUM 2,000 MG/50 ML BAG IV SCH (22:00)
== END 2025-04-22 13:50 | disposition home or self-care (01) | DRG 690 ==
LOC: ED 19:44 → SUATTDRO 04-22 01:16 → EDINP 04-22 01:16